=== PATIENT | male | born 1960 | race Caucasian/White ===

== ENCOUNTER 2021-07-24 13:06 | Emergency (ER) | payer MEDICARE, SELFPAY ==
--- NOTE | ~2021-07-24 | XR_ITS ---
EXAMINATION: XR femur LT min 2V DATE: 07/24/2021 14:00 INDICATION: Left thigh pain. Injury. TECHNIQUE: 2 views of left femur were obtained. COMPARISON: None. FINDINGS: There is amputation of the left femur at the midshaft. There is a subcapital fracture of le ft femoral neck. The distal fracture fragment demonstrates impaction and 20 degrees valgus angulation . Osteopenia is noted. Left hip joint space is normal. IMPRESSION: 1. Subcapital fracture of left femoral neck. Reviewed, dictated and finalized at location A.
--- NOTE | ~2021-07-24 | XR_ITS ---
EXAMINATION: XR shoulder LT min 2V INDICATION: Left shoulder pain TECHNIQUE: Four views of the left shoulder are submitted. COMPARISON: None FINDINGS: There is no fracture. There is advanced osteoarthritis of the glenohumeral and acromioclavi cular joints. Cranial migration of the humeral head with respect to the glenoid suggests chronic rota tor cuff tear. Soft tissues are unremarkable. IMPRESSION: 1. Osteoarthritis without acute osseous abnormality. Reviewed, dictated and finalized at location F.
[2021-07-24 13:16] VITALS: BP 110/68; PULSE 112; RESP 20; TEMP 37.1; O2SAT 100
--- NOTE | 2021-07-24 13:21 | ED.FALL ---
HPI - Fall General Chief Complaint: Fall Stated Complaint: Fall Injury/Left Shoulder/Left Leg Time Seen by Provider: 07/24/21 13:22 Source: patient and RN notes reviewed Mode of arrival: ambulatory Limitations: no limitations History of Present Illness HPI Narrative: 60-year-old male presents with concern for fall injury. Reports he fell down stairs on Thursday. 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 He reports left shoulder pain, particularly when sleeping, reports tenderness to the distal stump of the left lower extremity. He denies any open skin, lacerations, abrasions, bruising, swelling. Reports he has been taking Tylenol for pain relief. He reports being able to use his walker with his left upper extremity despite his shoulder pain Related Data Home Medications Medication Instructions Recorded Confirmed lisinopril 10 mg tablet 10 mg PO BID 07/24/21 07/24/21 naproxen sodium 220 mg capsule 220 mg PO BID PRN Pain 07/24/21 07/24/21 (Aleve) Allergies Allergy/AdvReac Type Severity Reaction Status Date / Time No Known Allergies Allergy Verified 07/24/21 13:21 Review of Systems Review of Systems: CONSTITUTIONAL: Denies malaise, chills, sweats, or fever. SKIN: Denies rash or itching, open skin, laceration, abrasion, redness, warmth, swelling. MUSCULOSKELETAL: Reports left shoulder and left lower extremity pain NEUROLOGIC: Denies numbness, weakness All systems reviewed & are unremarkable except as noted in HPI and below PMFSH Comments At time of signature, agree with nursing past medical, surgical, social and family history. There is no relevant family history pertinent to the presenting complaint Exam Narrative: GENERAL: Well-appearing, well-nourished, and in no acute distress. HEAD: Normocephalic, atraumatic. EYES: PERRLA, sclera clear ENT: Mucous membranes moist. NECK: Supple. CHEST: No respiratory distress. Speaks in full sentences. HEART: Regular rate and rhythm. EXTREMITIES: Left upper and lower extremities have grossly normal range of motion. No edema. Grossly normal strength and sensation. Tenderness to the distal left lower extremity, posterior shoulder tenderness to palpation SKIN: Warm, dry, no visible rash. NEURO: Alert and oriented x3. PSYCH: Normal mood and affect Course Course Emergency Course: Patient is aware of diagnosis, understands and agrees to treatment plan. Anticipatory guidance given. Patient agrees to follow-up as directed and is aware of reasons to seek care at the emergency department. Portions of this record may have been created with voice recognition software Level of Care: Express Care Visit Vital Signs Vital signs: Reviewed. MDM - Fall MDM Narrative Medical decision making narrative: Patients injury and pain is consistent with musculoskeletal etiology. No signs of neurological or vascular compromise on exam. Compartments and tissues are soft without signs of compartment syndrome. Pain is felt appropriate for further evaluation on an outpatient basis. Imaging Data Radiologist's impression: EXAMINATION: XR shoulder LT min 2V INDICATION: Left shoulder pain TECHNIQUE: Four views of the left shoulder are submitted. COMPARISON: None FINDINGS: There is no fracture. There is advanced osteoarthritis of the glenohumeral and acromioclavicular joints. Cranial migration of the humeral head with respect to the glenoid suggests chronic rotator cuff tear. Soft tissues are unremarkable. IMPRESSION: 1. Osteoarthritis without acute osseous abnormality. EXAMINATION: XR femur LT min 2V DATE: 07/24/2021 14:00 INDICATION: Left thigh pain. Injury. TECHNIQUE: 2 views of left femur were obtained. COMPARISON: None. FINDINGS: There is amputation of the left femur at the midshaft. There is a subcapital fracture of left femoral neck. The distal fracture fragment demonstrates impaction and 20 degrees valgus angulation.
== END 2021-07-24 14:41 | disposition home or self-care (01) ==
PROVIDERS: Emergency Provider Nurse Practitioner
DX: S46.012A Strain of muscle(s) and tendon(s) of the rotator cuff of left shoulder, initial encounter (principal); W10.9XXA Fall (on) (from) unspecified stairs and steps, initial encounter; S72.012A Unspecified intracapsular fracture of left femur, initial encounter for closed fracture; I10 Essential (primary) hypertension
CPT/HCPCS: 73030; 73552; 99213; G0463

== ENCOUNTER 2021-09-05 06:53 | Inpatient (IN) | payer MEDICARE, SELFPAY ==
[2021-09-05] VITALS (16 sets, daily range): BP systolic 158–194; BP diastolic 71–103; PULSE 68–115; RESP 14–38; TEMP 36.6–36.8; O2SAT 99–100; BMI 24.0
--- NOTE | ~2021-09-05 | CT_ITS ---
EXAMINATION: CT guide absc cath placement DATE: 09/16/2021 15:47 INDICATION: Perforated gastric ulcer with abscess in the lesser sac at the left upper quadrant of the abdomen. TECHNIQUE: The procedure including the risks and benefits was discussed with the patient. Risks discu ssed included bleeding and infection. The patient understood the risks and benefits and agreed to pro ceed. The patient was confirmed to be receiving appropriate antibiotic coverage. The skin overlying the anterior infracostal left upper quadrant was prepped and draped in usual sterile fashion. Anesth etic was administered with 1% lidocaine subcutaneously. Utilizing CT guidance and 18-gauge trochar ne edle was inserted into the fluid collection at the lesser sac. The inner trocar of the needle was rem hollie and a J-wire advanced into the fluid collection with position confirmed by CT. Utilizing [place] er technique the needle was removed over the wire and the tract serially dilated over the wire to 10 [place]. A 10 [place] catheter was then inserted over the wire into the fluid collection with position confirmed by CT. The wire was removed and the pigtail tip was formed and locked. 60 mm of opaque yell owish-barrett fluid was aspirated and sent to the lab for Gram stain and aerobic, anaerobic and fungal cu ltures. The catheter was stitched to the skin with suture. Antibiotic ointment and a sterile dressing were applied. An additional adhesive fixation device was applied. The catheter was then attached to suction drainage and drained an additional 160 mL of purulent appearing fluid at the conclusion of th e procedure. There were no immediate complications. The dose-length product was 334.60 mGy-cm. FINDINGS: CT images demonstrate the catheter within the left upper quadrant fluid collection located between the stomach and pancreas in the lesser sac. 220 mL of purulent appearing fluid was aspirated with 60 mL sent to the lab for testing. Nasogastric tube is in expected position within the body of t he stomach. Small bilateral posterior layering pleural effusions. IMPRESSION: 1. Successful CT-guided left upper quadrant abscess drainage. 2. 60 mL fluid was sent for aerobic and anaerobic cultures. 3. The catheter will be managed by Dr. Hurtado. Reviewed, dictated and finalized at location A.
--- NOTE | ~2021-09-05 | CT_ITS ---
EXAMINATION: CT abdomen pelvis w con INDICATION: Abdominal pain, perforated gastric ulcer TECHNIQUE: Computed tomographic images of the abdomen and pelvis were obtained after the administrati on of 100 cc of Omnipaque 300 intravenous contrast. The dose-length product (DLP) was 260.38 mGy-cm. Automated exposure control and iterative reconstruction technique were employed. COMPARISON: 09/07/2021 FINDINGS: There is mild emphysema and atelectasis of the visualized lung bases. There is an ulceratio n of the gastric antrum. A small amount of fluid is seen anterior to the gastric antrum and body of t he stomach. This appears to be lower in attenuation than the oral contrast administered prior to the examination. There is a small persistent focus of gas situated between the anterior wall of the stoma ch and left hepatic lobe. Overall volume of free intraperitoneal gas is decreased. A large fluid mariely ection containing gas is situated posterior to the stomach without significant change in size since t he prior examination. Previously suspected layering hemorrhage is no longer evident. A small volume o f pelvic ascites persists but has decreased. The liver, spleen, pancreas, gallbladder, and adrenal gl ands are normal. Cysts of the kidneys measure up to 4 mm on the right. There is a 4.0 cm fusiform inf rarenal abdominal aortic aneurysm. Also seen is a 12 mm saccular aneurysm of the infrarenal abdominal aorta on the left. No pathologically enlarged abdominal or pelvic lymph nodes are identified. There is no free intraperitoneal gas or evidence of bowel obstruction. Enteric contrast material from recen t upper GI is seen in the colon. There is severe lower thoracic and lumbar spondylosis. IMPRESSION: 1. Gastric ulcer with decrease in volume of free intraperitoneal gas but large persistent fluid colle ction containing gas posterior to the stomach. 2. Infrarenal abdominal aortic aneurysm. Reviewed, dictated and finalized at location B. IMPRESSION: 1. Gastric ulcer with decrease in volume of free intraperitoneal gas but large persistent fluid collection containing gas posterior to the stomach. 2. Infrarenal abdominal aortic aneurysm.
--- NOTE | ~2021-09-05 | XR_ITS ---
EXAMINATION: XR abdomen/kub 1V DATE: 09/11/2021 06:08 INDICATION: Perforated gastric ulcer TECHNIQUE: A supine view of the abdomen on 2 radiographs was obtained. COMPARISON: 09/10/2021 FINDINGS: Nasogastric tube tip in proximal side port in the body of the stomach. Oral contrast material scatter ed throughout the colon. No dilated loops of gas-filled bowel to suggest obstruction. Prominent lucen cy in the central abdomen which does not appear to be contained within bowel potentially small amount of free intraperitoneal gas related to a previously demonstrated perforated gastric ulcer. Mild stre aky atelectasis at the left costophrenic angle. IMPRESSION: 1. Suspicion for small amount of free intraperitoneal gas in the central abdomen likely related to a perforated gastric ulcer. Reviewed, dictated and finalized at location A. IMPRESSION: 1. Suspicion for small amount of free intraperitoneal gas in the central abdome n likely related to a perforated gastric ulcer.
--- NOTE | ~2021-09-05 | CT_ITS ---
EXAMINATION: CT abdomen pelvis w con DATE: 09/23/2021 08:44 INDICATION: Abdominal abscess. TECHNIQUE: Computed tomography (CT) of the abdomen and pelvis was performed with 100 mL Omnipaque 350 intravenous contrast. Automated exposure control and iterative reconstruction technique were employe d. The dose-length product was 245.57 mGy-cm. COMPARISON: CT abdomen and pelvis 09/16/2021 FINDINGS: The visualized portions of the lung bases demonstrate emphysema and mild atelectasis. There is a small right pleural effusion. The heart size is normal. There are coronary artery calcification s. No pericardial effusion. There is wall thickening of distal esophagus, consistent with esophagitis . The liver, gallbladder, spleen, pancreas, and adrenal glands are normal. There are cysts in the kid neys measuring up to 5 mm on the right. There are no dilated loops of bowel. There is oral contrast i n the appendix. There is a 3.5 cm fusiform infrarenal aortic aneurysm. There is moderate stenosis of the common iliac arteries, right external iliac artery, and right common femoral artery. There is tot al occlusion of left external iliac artery, common femoral artery, and superficial femoral artery. Th ere is a 4.0 x 2.2 x 1.4 cm rim-enhancing abscess in the pelvis. There is fat stranding the perineum, consistent with inflammation. There is a percutaneous drain inferior to the gastric fundus. There is a 1.5 x 0.5 x 0.6 cm rim-enhancing abscess in this area. There is no extraluminal oral contrast. The re is an old healed fracture of left femoral neck. There is severe thoracolumbar spondylosis. There i s mild chronic anterior wedging of multiple thoracic vertebral bodies. IMPRESSION: 1. Small right pleural effusion. 2. Wall thickening of the distal esophagus, consistent with esophagitis. 3. 1.5 x 0.5 x 0.6 cm perigastric abscess with percutaneous drain in expected position. 4. 4.0 x 2.2 x 1.4 cm pelvic abscess. 5. 3.5 cm fusiform infrarenal aortic aneurysm. 6. Arterial occlusive disease. Reviewed, dictated and finalized at location A. IMPRESSION: 1. Small right pleural effusion. 2. Wall thickening of the distal esophagus, consistent with esophagitis. 3. 1.5 x 0.5 x 0.6 cm perigastric abscess with percutaneous drain in expected p osition. 4. 4.0 x 2.2 x 1.4 cm pelvic abscess. 5. 3.5 cm fusiform infrarenal aortic aneurysm. 6. Arterial occlusive disease.
--- NOTE | ~2021-09-05 | XR_ITS ---
XR chest 1V portable DATE: 09/07/2021 03:24 INDICATION: Rib pain TECHNIQUE: Portable AP chest on 09/07/2021 at 0320 hours COMPARISON: None FINDINGS: Minimal atelectasis at the lung bases. No pulmonary consolidation, pleural effusion, pulmon padmini vascular congestion or pneumothorax. Heart size is within normal limits. There is mild aortic tortuosity. Osteophytic change at the glenohumeral joints, left rotator cuff atrophy. IMPRESSION: Minimal atelectasis at the lung bases Reviewed, dictated and finalized at location A.
--- NOTE | ~2021-09-05 | XR_ITS ---
XR abdomen NG/feed tube rechec INDICATION: Evaluate NG tube position. TECHNIQUE: Limited KUB perform for evaluating NG tube . COMPARISON: 09/11/2021 FINDINGS: NG tube tip in the stomach. Visualized bowel gas pattern is unremarkable.There is residual contrast in the colon. IMPRESSION: 1: NG tube tip in the stomach. Reviewed, dictated and finalized at location L.
--- NOTE | ~2021-09-05 | XR_ITS ---
XR abdomen obstructive series DATE: 09/08/2021 08:08 INDICATION: Pneumoperitoneum TECHNIQUE: Portable supine and upright AP views on 09/08/2021 at 0801 0803 hours COMPARISON: 09/07/2021 KUB 09/07/2021 CT abdomen pelvis 09/05/2021 CT abdomen pelvis FINDINGS: Small air collections beneath the diaphragm again noted, consistent with pneumoperitoneum, suggesting although viscus perforation. No evidence of bowel obstruction. NG tube in lower body of stomach. No visceromegaly is evident. Prominent abdominal aortic and particularly prominent iliac arterial calcifications as well as femora l artery calcifications. Mild atelectasis at the lung bases. IMPRESSION: Pneumoperitoneum, suggesting ruptured hollow intra-abdominal viscus NG tube in lower body of stomach Reviewed, dictated and finalized at Location A. Reviewed, dictated and finalized at location A.
--- NOTE | ~2021-09-05 | CT_ITS ---
EXAMINATION: CT abdomen pelvis w con DATE: 09/05/2021 08:37 INDICATION: Right lower quadrant abdominal pain. Right hip pain. History of septic arthritis. TECHNIQUE: Computed tomography (CT) of the abdomen and pelvis was performed with 100 CC Omnipaque 300 intravenous contrast. Automated exposure control and iterative reconstruction technique were employe d. Exam dose: 191.43 mGy-cm total exam DLP. COMPARISON: None. FINDINGS: Bilateral small foramen of [place] fat-containing hernias. Emphysematous changes of the lungs. No infiltrate or consolidation or mass density is noted in the in cluded lower lung jamil. Normal heart size. No pericardial or pleural effusion. There is thickening of the wall of the distal esophagus which may be due to esophagitis. There is pro minence of the gastric mucosal folds. There are air-fluid levels in the stomach, small bowel and righ t colon, suggesting enterocolitis. No bowel obstruction. Normal appendix. No evidence of appendicitis. No intraperitoneal free air. No hepatic space-occupying mass lesion. There is mild intrahepatic and extrahepatic bile duct dilatat ion, the common bile duct measuring up to 8 mm the pancreatic head. Recommend correlation with serum bilirubin. Consider MRCP for further evaluation. The gallbladder is distended but no gallbladder wall thickening or pericholecystic fluid or fat stran ding is noted. No apparent pancreatic mass lesion a calcification of the uncinate process is noted suggesting mild c hronic pancreatitis. Normal splenic size. Normal morphology of the adrenal glands. No renal mass lesion, urinary tract calculus or hydroureteronephrosis. There is prostate enlargement and calcification. There is mild diffuse thickening of the urinary blad bryant wall. Prominent bilateral renal artery calcifications are noted. Up to 3.2 cm infrarenal abdominal aortic aneurysm. Approximately 1.3 cm left posterolateral and 1.6 c m right posterolateral saccular infrarenal abdominal aortic aneurysms are suggested additionally. Prominent calcification of the iliac and femoral arteries. No intraperitoneal or retroperitoneal or pelvic mass lesion or adenopathy or ascites is detected. Diverticulosis of the sigmoid and descending colon; no CT evidence of diverticulitis. Very small fat-containing umbilical hernia. Prominent degenerative disc disease in the lower thoracic spine and at L3-4 and L4-5. Degenerative ch anges apophyseal joints of the lumbar and lumbosacral area with associated grade 1 anterolisthesis at L4-5. Bilateral hip osteoarthritis. Chronic left subcapital femoral neck fracture deformity. IMPRESSION: Normal appendix Fluid levels of the stomach, small bowel and right colon, suggesting enterocolitis Diverticulosis of the left colon; no CT evidence of diverticulitis Thickening of the wall of the distal esophagus suggesting esophagitis No bowel obstruction or free air Mild intrahepatic and extrahepatic bile duct dilatation; consider MRCP for further evaluation Solitary pancreatic uncinate process calcification suggesting mild chronic pancreatitis Emphysema Reviewed, dictated and finalized at [facility]. Reviewed, dictated and finalized at location A. IMPRESSION: Normal appendix Fluid levels of the stomach, small bowel and right colon, suggesting enterocoli tis Diverticulosis of the left colon; no CT evidence of diverticulitis Thickening of the wall of the distal esophagus suggesting esophagitis No bowel obstruction or free air Mild intrahepatic and extrahepatic bile duct dilatation; consider MRCP for furt her evaluation Solitary pancreatic uncinate process calcification suggesting mild chronic panc reatitis Emphysema
--- NOTE | ~2021-09-05 | XR_ITS ---
EXAMINATION: XR wrist RT 2V DATE: 09/16/2021 12:36 INDICATION: Right wrist pain TECHNIQUE: Posteroanterior and lateral views of the right wrist were obtained. COMPARISON: none FINDINGS: Diffuse osteopenia. There is disruption of the carpal arcs with incongruity at both the scapholunate triscaphe and lunocapitate articular surface at the midcarpal joint. Severe osteoarthritis at the fir st carpal metacarpal joint and at the lunocapitate articulation of the midcarpal joint. Moderate oste oarthritis at the second carpometacarpal and at each of the metacarpophalangeal joints. Dorsal interc alated segment instability (DISI) with an increased scapholunate angle is suggested for assessment of carpal alignment on the lateral projection is limited by osteopenia and the superimposed significant osteoarthritic changes. No definite fracture identified. Soft tissue swelling dorsal to the carpus. IMPRESSION: 1. Moderate to severe polyarticular osteoarthritis at the visualized right hand. 2. Suggestion of dorsal intercalated segment instability (DISI) with increased scapholunate angle how ever evaluation is significantly limited due to combination of osteopenia in the superimposed osteoar thritic changes at the carpus. Reviewed, dictated and finalized at location A. IMPRESSION: 1. Moderate to severe polyarticular osteoarthritis at the visualized right hand . 2. Suggestion of dorsal intercalated segment instability (DISI) with increased scapholunate angle however evaluation is significantly limited due to combinati on of osteopenia in the superimposed osteoarthritic changes at the carpus.
--- NOTE | ~2021-09-05 | XR_ITS ---
EXAM: XR abdomen NG/feed tube insert DATE: 09/07/2021 18:51 HISTORY: NG Tube Feeding Insert . COMPARISON: None available. FINDINGS: Small volume pneumoperitoneum. Clear lung bases. Normal bowel gas pattern. NG tube, tip and side port terminating over the expected location of the stomach. Regional bones and soft tissues nor mal for age. IMPRESSION: Small volume pneumoperitoneum. NG tube, in good position. Reviewed, dictated and finalized at location [facility].
--- NOTE | ~2021-09-05 | US_ITS ---
EXAMINATION: US abdomen limited DATE: 09/06/2021 12:46 INDICATION: Abdominal pain TECHNIQUE: Multiple grayscale and Doppler ultrasound images of the abdomen were obtained. COMPARISON: None FINDINGS: The pancreatic head and body are normal in appearance. The pancreatic tail is not visualized. Liver has normal echogenicity and contour, with a smooth surface. No liver lesion identified. Again seen is mild intrahepatic biliary duct dilation. Portal venous flow was seen in the hepatopetal, normal dire ction and has normal Doppler waveform. The gallbladder is normal in appearance. There is no cholelit hiasis. The common bile duct measures 6 mm, which is at the upper limits of normal. IMPRESSION: 1. Mild intrahepatic biliary ductal dilation and borderline dilation of the common bile duct without evident cholelithiasis/choledocholithiasis. Correlate with liver function tests and if clinically ind icated could consider MRCP for further evaluation. Reviewed, dictated and finalized at location B. IMPRESSION: 1. Mild intrahepatic biliary ductal dilation and borderline dilation of the com mon bile duct without evident cholelithiasis/choledocholithiasis. Correlate wit h liver function tests and if clinically indicated could consider MRCP for furt her evaluation.
--- NOTE | ~2021-09-05 | XR_ITS ---
XR chest PICC line DATE: 09/07/2021 10:32 INDICATION: PICC line placement TECHNIQUE: Portable upright AP chest on 09/07/2021 at 1025 hours COMPARISON: 09/07/2021 portable AP chest FINDINGS: Right upper extremity PIC catheter tip overlies the mid to lower superior vena cava Heart size appears within normal range. Mild atelectasis at the lung bases. The lungs otherwise appear clear. No pleural effusion, pulmonary vascular congestion or pneumothorax is detected.. IMPRESSION: Right upper extremity PIC catheter tip in superior vena cava Reviewed, dictated and finalized at [facility]. Reviewed, dictated and finalized at location A.
--- NOTE | ~2021-09-05 | CT_ITS ---
EXAMINATION: CT abdomen pelvis w con DATE: 09/07/2021 13:25 INDICATION: abd pain, elevated lactic TECHNIQUE: Computed tomography (CT) of the abdomen and pelvis was performed with 100 mL Omnipaque-300 intravenous contrast. Automated exposure control and iterative reconstruction technique were employe d. The dose-length product was 493.81 mGy-cm. COMPARISON: None. FINDINGS: Lower thorax: Coronary artery calcification. Senescent and emphysematous change. Left basilar atelect asis. Small fat-containing bilateral posterior diaphragmatic hernias. Hiatal hernia. Liver: Intrahepatic biliary duct dilation. Biliary/Gallbladder: Fluid distended but otherwise normal-appearing gallbladder. Mild extrahepatic bi le duct dilation, unchanged. Pancreas: Pancreatic atrophy. Spleen: Normal. Adrenals:No mass. Kidneys: No mass, stone, or hydronephrosis. GI tract: Gastric and distal esophageal wall edema. Normal appendix. Diverticulosis without diverticu litis. Mesentery/Peritoneum: Moderate volume peritoneal fluid, most prominent around the stomach, where ther e is layering hyperdense material. Small volume free peritoneal air/gas. Retroperitoneum: No mass. Atherosclerotic abdominal aortic and/or arterial calcifications. Fusiform/s accular infrarenal abdominal aortic aneurysm, with intraluminal thrombus. Pelvis: Bladder is decompressed by Camacho catheter. Prostatomegaly.. Soft Tissues: Mild subcutaneous edema. Bones: No acute osseous finding. IMPRESSION: New moderate volume ascites and small volume pneumoperitoneum concerning for bowel perforation, possi hugo gastric given the pronounced gastric wall edema and adjacent fluid and debris/blood. Results reported telephonically to the charge nurse Mala Colorado, by Dr. Shelby at 5:47 PM on 09/07/2021. Reviewed, dictated and finalized at location K. IMPRESSION: New moderate volume ascites and small volume pneumoperitoneum concerning for eleazar wel perforation, possibly gastric given the pronounced gastric wall edema and a djacent fluid and debris/blood. Results reported telephonically to the charge nurse Mala Colorado, by Dr. Shelby at 5:47 PM on 09/07/2021.
--- NOTE | ~2021-09-05 | XR_ITS ---
. EXAMINATION: XR UGI water soluble wo kub DATE: 09/10/2021 08:48 INDICATION: Gastric ulcer. TECHNIQUE: Water-soluble contrast was injected into the nasogastric tube. Fluoroscopy of the stomach and proximal small bowel was performed. Fluoroscopy exposure time was 1.4 minutes. The total number o f images was 271. Total dose-area product was 9.474 Gy-cm^2. COMPARISON: CT abdomen and pelvis 09/07/2021 FINDINGS: The nasogastric tube tip is in the stomach. There is a perforation of the gastric antrum dia periorly with extraluminal leakage of contrast. IMPRESSION: 1. Perforation of the gastric antrum superiorly with extraluminal leakage of contrast. I discussed th is finding with Dr. Hurtado. Reviewed, dictated and finalized at location A. IMPRESSION: 1. Perforation of the gastric antrum superiorly with extraluminal leakage of co ntrast. I discussed this finding with Dr. Hurtado.
--- NOTE | ~2021-09-05 | XR_ITS ---
EXAMINATION: XR abdomen NG/feed tube insert DATE: 09/10/2021 08:15 INDICATION: Nasogastric tube replacement. TECHNIQUE: A supine view of the abdomen and lower chest was obtained for evaluation of feeding tube placement. COMPARISON: 09/08/2021 FINDINGS: Nasogastric tube tip in proximal side port in the body of the stomach. There are several gas and stoo l scattered throughout the visualized transverse colon. No dilated loops of gas-filled bowel in the v isualized abdomen. Mild bibasilar opacities consistent with very small bilateral pleural effusions an d associated atelectasis versus less likely pneumonia. Previously seen pneumoperitoneum has resolved. Cardiomediastinal silhouette is normal. Right upper extremity peripherally inserted central venous c atheter (PICC) tip at the mid superior vena cava. Thoracolumbar dextrocurvature with severe spondylo sis. IMPRESSION: 1. Nasogastric tube in stomach. 2. Very small bilateral pleural effusions with bibasilar atelectasis versus less likely pneumonia. Reviewed, dictated and finalized at location A. IMPRESSION: 1. Nasogastric tube in stomach. 2. Very small bilateral pleural effusions with bibasilar atelectasis versus les s likely pneumonia.
--- NOTE | 2021-09-05 07:06 | ED.LOWEXIN ---
HPI - Extremity Injury (Lower) General Chief Complaint: Extremity Problem,Nontraumatic Stated Complaint: Pain Left Side, Possible Hip Fracture Time Seen by Provider: 09/05/21 07:06 History of Present Illness HPI Narrative: Patient is a 60-year-old male with a history of hypertension,recurrent MRSA infection, left AKA, and recent left hip fracture following a fall downstairs approximately 6 weeks ago, who presents to the emergency department for evaluation of atraumatic right hip pain. Patient reports aching sensation in his right hip which is aggravated with ambulation. He denies recurrent fall or injury. He has been ambulatory with use of a walker which is his baseline. For the left femoral fracture, patient has followed with Dr. Matthews with orthopedic surgery. Patient denies fever, chills, does report nausea and vomiting. He denies any chest or abdominal pain. Patient reports any difficulty with urination. Related Data Home Medications Medication Instructions Recorded Confirmed lisinopril 10 mg tablet 10 mg PO BID 07/24/21 08/29/21 naproxen sodium 220 mg capsule 220 mg PO BID PRN Pain 07/24/21 08/29/21 (Aleve) Allergies Allergy/AdvReac Type Severity Reaction Status Date / Time No Known Allergies Allergy Verified 08/29/21 13:58 Review of Systems Review of Systems: CONSTITUTIONAL: Denies fever, chills, or sweats. EYES: Denies visual changes, redness, or discharge. ENT: Denies rhinorrhea, congestion, sore throat, or otalgia. CARDIOVASCULAR: Denies chest pain, palpitations, or edema. RESPIRATORY: Denies cough or dyspnea. GASTROINTESTINAL: Denies abdominal pain, reports nausea and vomiting. GENITOURINARY: Denies dysuria or hematuria. SKIN: Denies rash or itching. MUSCULOSKELETAL: Denies back pain, reports right hip pain NEUROLOGIC: Denies headache, numbness, or weakness. [facility] Past Medical History Medical History History of left above knee amputation Social History Social History Smoking status: Never smoker Substance use: never Gender identity (if verbalized by the patient): Male Exam Narrative: GENERAL: Awake, alert, conversant HEAD: Normocephalic, atraumatic. EYES: PERRLA and EOMI. ENT: Nares clear, no rhinorrhea or epistaxis. Mucous membranes moist. NECK: Supple. CHEST: No respiratory distress, breathing even and non labored HEART: Tachycardic rate, sinus rhythm ABDOMEN:Non distended, non tender, no focal right lower quadrant tenderness on exam, positive right flank tenderness EXTREMITIES: Passive range of motion is intact, patient has pain with extension and flexion of the right hip. No edema, ecchymosis or induration. Intact strength and sensation. Neurovascularly intact. DP pulse 2+ in the right lower extremity. There is left AKA in the left extremity. SKIN: Warm, dry, no rash. NEURO:No focal deficits. Alert and oriented x3 Course Vital Signs Vital signs: Vital Signs Temperature 36.6 C 09/05/21 06:59 Pulse Rate 99 09/05/21 06:59 Respiratory Rate 18 09/05/21 06:59 Blood Pressure 176/71 H 09/05/21 06:59 Pulse Oximetry 100 09/05/21 06:59 Oxygen Delivery Room Air 09/05/21 06:59 Temperature 36.6 C 09/05/21 07:22 Pulse Rate 75 09/05/21 10:46 Respiratory Rate 18 09/05/21 10:46 Blood Pressure 174/86 H 09/05/21 10:46 Pulse Oximetry 100 09/05/21 07:22 Oxygen Delivery Room Air 09/05/21 06:59 MDM - Extremity Injury (Lower) MDM Narrative Medical decision making narrative: Patient presenting to the emergency department for evaluation of atraumatic right hip pain. Patient also reports numerous episodes of nausea and vomiting although he denies any abdominal pain. Patient denies current fever or chills. Due to patient's history of skin infections and recurrent staph infections, I was concern for potential septic arthritis, hip strain, occult
--- NOTE | 2021-09-05 07:33 | ECG_ITS ---
Measurements Intervals [place] Rate: 84 P: 72 [place]: 141 QRS: 66 QRSD: 83 T: -89 QT: 356 QTc: 421 Interpretive Statements SINUS RHYTHM FREQUENT ATRIAL PREMATURE COMPLEXES POSSIBLE LEFT ATRIAL ENLARGEMENT ST-T WAVE ABNORMALITY IN ANTEROLAT/INF LEADS- CONSIDER ISCHEMIA BASELINE ARTIFACT- I, II, III, AVR, AVL ABNORMAL ECG Electronically Signed On 09-05-2021 9:25:09 CDT by Red Hylton D.O.
[2021-09-05 07:57] LABS: Basophils Absolute Auto 0.1 K/mm3 (0.0-0.1); Basophils Percent Auto 0.7 % (0.2-1.2); Eosinophils Percent Auto 0.1 % (0-4.4); Hematocrit 42.6 % (42.0-52.0); Hemoglobin 14.4 g/dL (14.0-18.0); Immature Granulocyte Absolute 0.08 K/mm3 (0.00-0.031); Immature Granulocyte Percent A 0.5 % (0-0.5); Lymphocytes Absolute Auto 1.66 K/mm3 (0.9-3.2); Lymphocytes Percent Auto 11.2 % (18.3-44.2); Mean Corpuscular HGB Conc 33.8 g/dl (32-36); Mean Corpuscular Hemoglobin 28.7 pg (26-34); Mean Platelet Volume 9.9 fl (7.4-10.4); Monocytes Absolute Auto 0.9 K/mm3 (0.1-0.6); Monocytes Percent Auto 6.3 % (2.6-8.5); Neutrophils Percent Auto 81.2 % (45.5-73.1); Platelet Count Result 588 k/mm3 (150-375); Red Blood Count 5.01 M/mm3 (4.6-6.20); Red Cell Distribution Width 16.3 % (11.5-14.5); White Blood Count 14.8 K/mm3 (4.5-10.0)
[2021-09-05] MEDS: MORPHINE SULFATE (*CRX) 4 MG/ML INJ IV PUSH ×5 (07:59→22:02)
[2021-09-05] MEDS: SODIUM CHLORIDE 0.9% IV 1,000 ML 999 ML IV CONT (08:00)
[2021-09-05] MEDS: ONDANSETRON INJ 4 MG/2 ML VIAL IV PUSH (08:00)
[2021-09-05 08:08] LABS: Lactic Acid Reflex 2.7 mmol/L (0.7-2.0)
[2021-09-05 08:12] LABS: Alanine Aminotransferase 13 U/L (6-50); Albumin Level 4.1 g/dL (3.5-5.1); Alkaline Phosphatase 98 U/L (38-126); Anion Gap 16 mmol/L (8-16); Aspartate Amino Transferase 18 U/L (17-59); Bilirubin,Total 0.3 mg/dL (0.2-1.3); Blood Urea Nitrogen 12 mg/dL (9-20); CRP 1.1 mg/dL (<1.0); Calcium 8.5 mg/dL (8.4-10.2); Carbon Dioxide 14 mmol/L (22-30); Chloride 107 mmol/L (98-107); Estimated CRCL calculation 79 ml/min; Estimated Glomerular Filt Rate > 60; Glucose 140 mg/dL (65-110); Potassium 2.2 mmol/L (3.4-5.0); Sodium 137 mmol/L (137-145)
[2021-09-05 08:25] LABS: Erythrocyte Sedimentation Rate 13 mm/hr (0-20)
[2021-09-05 08:46] LABS: Phosphorus 3.3 mg/dL (2.5-4.5)
[2021-09-05] MEDS: POTASSIUM CHLORIDE 20 MEQ TABLET 40 MEQ PO ×2 (08:49→18:14)
[2021-09-05] MEDS: POTASSIUM CHLORIDE INJ 40 MEQ in SODIUM CHLORIDE 0.9% IV 500 ML 130 MEQ IVPB ×2 (09:20→18:14)
[2021-09-05 09:23] LABS: Appearance Urine Clear (Clear); Bilirubin Urine Negative (Negative); Blood Urine Negative (Negative); Color Urine Yellow (Yellow); Glucose Urine UA Negative (Negative); Ketones Urine Negative (Negative); Leukocyte Esterase Ur Negative LEU/UL (Negative); Nitrate Urine Negative (Negative); Protein Urine Negative (Negative); Urobilinogen Urine 0.2 mg/dL (<2.0)
[2021-09-05] MEDS: SODIUM CHLORIDE 0.9% IV 500 ML 250 ML IV CONT (09:36)
[2021-09-05 09:37] LABS: SARS-CoV-2 RNA PCR Negative
[2021-09-05 10:10] LABS: Add Urine Microscopic? NO
[2021-09-05 10:52] LABS: Reflex Lactic Acid Yes or No Add Lactic
[2021-09-05 11:24] LABS: Lactic Acid 1.1 mmol/L (0.7-2.0)
--- NOTE | 2021-09-05 12:22 | PM.IMHP ---
H&P: HPI History of Present Illness Date/Time: 09/05/21 12:22 Chief Complaint: Patient is a 60-year-old male with a history of hypertension,recurrent MRSA infection, left AKA, and recent left hip fracture following a fall downstairs approximately 6 weeks ago, who presents to the emergency department for evaluation of atraumatic right hip pain.? Patient reports aching sensation in his right hip which is aggravated with ambulation.? He denies recurrent fall or injury.? He has been ambulatory with use of a walker which is his baseline.? For the left femoral fracture, patient has followed with Dr. Matthews with orthopedic surgery.? Patient denies fever, chills, does report nausea and vomiting.? He denies any chest or abdominal pain.? Patient reports any difficulty with urination. Also to note patient has had some mild abdominal cramping and some nausea and vomiting over the last day or 2. CT scan did show possible enteritis. Possible calcification of the pancreas suggesting possible chronic pancreatitis. No other acute intra-abdominal pathology. Review of Systems Review of Systems: 10 point ROS negative except as stated in HPI / Subjective PMFSH Past Medical History Medical History History of left above knee amputation Social History Social History Smoking status: Never smoker Substance use: never Gender identity (if verbalized by the patient): Male Meds Home Medications and Allergies Home Medications Medication Instructions Recorded Confirmed Type lisinopril 10 mg tablet 10 mg PO BID 07/24/21 08/29/21 History naproxen sodium 220 mg capsule 220 mg PO BID PRN Pain 07/24/21 08/29/21 History (Aleve) hydrocodone 5 mg-acetaminophen 325 1 tablet PO BID PRN pain #30 tabs 09/04/21 Rx mg tablet Allergies Allergy/AdvReac Type Severity Reaction Status Date / Time No Known Allergies Allergy Verified 08/29/21 13:58 Vital Signs Vital Signs - 24 hr 09/05/21 06:59 09/05/21 07:22 09/05/21 09:01 Temperature 97.9 F 97.8 F Pulse Rate 99 115 H 92 Respiratory Rate 18 20 14 Blood Pressure 176/71 H 177/91 H 194/86 H Pulse Oximetry 100 100 Oxygen Delivery Room Air 09/05/21 09:16 09/05/21 09:31 09/05/21 10:01 Temperature Pulse Rate 82 82 94 Respiratory Rate 23 H 28 H 38 H Blood Pressure 171/83 H 190/86 H 169/88 H Pulse Oximetry Oxygen Delivery 09/05/21 10:16 09/05/21 10:31 09/05/21 10:46 Temperature Pulse Rate 86 80 75 Respiratory Rate 25 H 17 18 Blood Pressure 178/89 H 170/93 H 174/86 H Pulse Oximetry Oxygen Delivery Exam Narrative: General: alert and oriented Psych: appropriate mood nad affect Eyes: PERRLA Neck: Trachea midline, no new lesions Skin: no changes Lungs: CTA Cardiac: Normal S1,S2, no MGR ABD: soft, nd, nt, nbs Ext: no new lesions, no cce Vasc: Pulses intact H&P: Results Labs Labs: Short CBC 09/05/21 Range/Units 07:42 WBC 14.8 H (4.5-10.0) K/mm3 Hgb 14.4 (14.0-18.0) g/dL Hct 42.6 (42.0-52.0) % Plt Count 588 H (150-375) k/mm3 BMP 09/05/21 07:42 Sodium 137 Potassium 2.2 L* Chloride 107 Carbon Dioxide 14 L BUN 12 Creatinine 0.70 Glucose 140 H Calcium 8.5 Liver Function 09/05/21 Range/Units 07:42 Total Bilirubin 0.3 (0.2-1.3) mg/dL AST 18 (17-59) U/L ALT 13 (6-50) U/L Alkaline Phosphatase 98 (38-126) U/L Albumin 4.1 (3.5-5.1) g/dL Urine 09/05/21 Range/Units 09:15 Urine Color Yellow (Yellow) Urine Appearance Clear (Clear) Urine pH 7.0 (5.0-9.0) Ur Specific [place]ace[place] 1.010 (1.001-1.035) Urine Protein Negative (Negative) mg/dL Urine Glucose (UA) Negative (Negative) mg/dL Assessment and Plan Assessment and plan (1) Acute hypokalemia: Code(s): E87.6 - Hypokalemia Status: Acute Assessment and Plan: Replace
[2021-09-05 12:28] LABS: Lipase 172 U/L (23-300)
--- NOTE | 2021-09-05 13:21 | ADMGEN ---
This patient, Daniel Covarrubias, was admitted to 3 Med Surg Room 315-01 at 1240 per stretcher. Patient/family oriented to hospital policies and general routines including ID bracelet, bed and alarms, visiting hours, pain management, procedures, bathroom and other care routines, personal items, smoking policy, room service/diet, and visiting hours. Information on how to activate the Rapid Response Team has been discussed. Patient/Family are encouraged to report perceived risks to care and to ask questions if they do not understand what they are told or what they should do.
[2021-09-05] MEDS: MORPHINE SULFATE (*CRX) 4 MG/ML INJ 2 MG IV PUSH (13:28)
[2021-09-05] MEDS: LACTATED RINGERS 1,000 ML 100 ML IV CONT (13:37)
[2021-09-05] MEDS: lisinopriL 10 MG TABLET PO ×2 (13:37→21:38)
[2021-09-05] MEDS: NICOTINE (*PBKC) 21 MG PATCH 1 PATCH TRANSDERM (15:36)
[2021-09-05 17:10] LABS: Potassium 2.6 mmol/L (3.4-5.0)
[2021-09-06] VITALS (10 sets, daily range): BP systolic 101–184; BP diastolic 83–103; PULSE 85–134; RESP 19–20; TEMP 36.1–36.9; O2SAT 99–100
[2021-09-06] MEDS: MORPHINE SULFATE (*CRX) 4 MG/ML INJ IV PUSH ×3 (01:08→07:37)
[2021-09-06] MEDS: ONDANSETRON INJ 4 MG/2 ML VIAL IV PUSH ×3 (04:21→16:24)
[2021-09-06] MEDS: hydrALAZINE HCL 20 MG/ML VIAL 10 MG IV PUSH (04:41)
[2021-09-06] MEDS: LACTATED RINGERS 1,000 ML 100 ML IV CONT ×2 (06:26→18:31)
[2021-09-06 06:39] LABS: Hematocrit 43.1 % (42.0-52.0); Hemoglobin 13.4 g/dL (14.0-18.0); Mean Corpuscular HGB Conc 31.1 g/dl (32-36); Mean Corpuscular Hemoglobin 29.1 pg (26-34); Mean Corpuscular Volume 93.7 fl (80-100); Platelet Count Result 571 k/mm3 (150-375); Red Cell Distribution Width 17.3 % (11.5-14.5); White Blood Count 32.7 K/mm3 (4.5-10.0)
[2021-09-06 06:49] LABS: Anion Gap 15 mmol/L (8-16); Blood Urea Nitrogen 10 mg/dL (9-20); Calcium 8.1 mg/dL (8.4-10.2); Carbon Dioxide 11 mmol/L (22-30); Chloride 113 mmol/L (98-107); Estimated CRCL calculation 107 ml/min; Estimated Glomerular Filt Rate > 60; Glucose 142 mg/dL (65-110); Magnesium 1.7 mg/dL (1.6-2.3); Potassium 3.3 mmol/L (3.4-5.0); Sodium 139 mmol/L (137-145)
[2021-09-06] MEDS: HYDROmorphone HCL INJ (*CRX) 1 MG/ML SYR IV PUSH ×6 (10:20→22:00)
[2021-09-06] MEDS: PANTOPRAZOLE SODIUM IV 40 MG VIAL IV PUSH (10:21)
[2021-09-06 10:51] LABS: Lactic Acid Reflex 1.7 mmol/L (0.7-2.0)
--- NOTE | 2021-09-06 11:51 | PM.IMPN ---
Progress Note: A&P Assessment and Plan (1) Acute hypokalemia: Code(s): E87.6 - Hypokalemia Status: Acute Assessment and Plan: Replace and recheck a electrolytes. Likely related to decreased p.o. intake and nausea vomiting over the last couple days. (2) Hypertension: Code(s): I10 - Essential (primary) hypertension Status: Acute Assessment and Plan: Monitor. (3) Fracture of femoral neck, left: Code(s): S72.002A - Fracture of unspecified part of neck of left femur, initial encounter for closed fracture Status: Acute Assessment and Plan: Status post repair. (4) History of left above knee amputation: Code(s): Z89.612 - Acquired absence of left leg above knee Status: Acute Assessment and Plan: Chronic (5) Right hip pain: Code(s): M25.551 - Pain in right hip Status: Acute Assessment and Plan: Appreciate Ortho input. (6) Enteritis: Code(s): K52.9 - Noninfective gastroenteritis and colitis, unspecified Status: Acute Assessment and Plan: Questionable diagnosis. Patient did receive vanc and cefepime in the ER. Will hold on antibiotics at this point time. Ultrasound of the right upper quadrant also ordered. Having ongoing abdominal pain. No diarrhea. No loss of blood. GI Consul. Abnormal CT. Patient has refused MRCP. Subjective Date/time seen: 09/06/21 11:51 Now having abdominal pain. no sign of the epigastric. Exam Narrative: General: alert and oriented Psych: appropriate mood nad affect Eyes: PERRLA Neck: Trachea midline, no new lesions Skin: no changes Lungs: CTA Cardiac: Normal S1,S2, no MGR ABD: soft, nd, nt, nbs Ext: no new lesions, no cce Vasc: Pulses intact Objective Data Vital Signs Vital Signs: Vital Signs - 24 hr 09/05/21 11:54 09/05/21 12:17 09/05/21 12:25 Temperature Pulse Rate 75 76 73 Respiratory Rate 21 H 22 H 22 H Blood Pressure 176/82 H 179/103 H 189/100 H Pulse Oximetry Oxygen Delivery 09/05/21 13:50 09/05/21 16:00 09/05/21 21:26 Temperature 98.0 F 98.3 F Pulse Rate 79 80 68 Respiratory Rate 18 18 Blood Pressure 191/93 H 158/88 H Pulse Oximetry 100 99 Oxygen Delivery 09/05/21 20:00 09/05/21 20:00 09/06/21 00:00 Temperature Pulse Rate 83 91 Respiratory Rate Blood Pressure Pulse Oximetry Oxygen Delivery Room Air 09/06/21 04:00 09/06/21 05:34 09/06/21 06:27 Temperature 98.5 F Pulse Rate 87 99 Respiratory Rate 20 Blood Pressure 101/83 184/85 H Pulse Oximetry 100 Oxygen Delivery 09/06/21 08:00 Temperature Pulse Rate 99 Respiratory Rate 20 Blood Pressure Pulse Oximetry 100 Oxygen Delivery Room Air Intake/Output Intake/Output: Intake & Output 09/03/21 09/04/21 09/05/21 09/06/21 23:59 23:59 23:59 23:59 Intake Total 3770 300 Output Total 1000 300 Balance 2770 0 Meds/Results Medications: Active Medications Generic Name Dose Route Start Last Admin Trade Name Freq PRN Reason Stop Dose Admin Acetaminophen 650 mg 09/05/21 10:25 Acetaminophen 325 Mg Tablet PO Q4H PRN Mild Pain (1-3) or Fever Hydromorphone HCl 1 mg 09/06/21 09:47 09/06/21 10:20 Hydromorphone Hcl Inj (*Crx) 1 Mg/Ml Syr IV PUSH 1 mg Q2H PRN Administration Pain Rated 7-10 Cefepime HCl 1 gm in 50 mls @ 100 mls/hr 09/06/21 00:00 09/06/21 00:20 Maxipime 1 Gm/D5w 50 Ml IVPB Infused Q12H RICARDO Infusion Lactated Ringer's 1,000 mls @ 100 mls/hr 09/05/21 12:20 09/06/21 06:26 Lr - Lactated Ringers Iv IV CONT 100 mls/hr .Q10H RICARDO Administration Vancomycin HCl 1,000 mg in 250 mls @ 250 mls/hr 09/06/21 19:00 Vancomycin 1,000 Mg/D5w 250 Ml IVPB Q12H RICARDO Lisinopril 10 mg 09/05/21 13:30 09/05/21 21:38 Lisinopril 10 Mg Tablet PO 10 mg Q12HR RICARDO Administration Nicotine 1 patch 09/05/21 14:45 09/06/21 10:21 Nicotine (*Pbkc) 21 Mg Patch TRANSDERM
[2021-09-06 12:56] LABS: Lactate Dehydrogenase 405 U/L (313-618)
--- NOTE | 2021-09-06 14:44 | WPDGICN ---
Assessment and Plan Assessment and plan (1) Abnormal CT scan: Code(s): R93.89 - Abnormal findings on diagnostic imaging of other specified body structures Status: Acute Assessment and Plan: Findings of the CT scan appeared nonspecific. Patient no longer has abdominal pain for which CT scan was apparently ordered. He is very vague when describing any pain in may have had previously. CT scanning severe fluid levels could represent an ileus or enteritis. This is not evident on clinical exam or with recent findings. Nonspecific biliary dilatation appears to be normal in my estimation. Liver function tests are normal. Would recommend advancing diet and further investigation only if symptoms develop. should patient have abdominal pain that small-bowel series may be warranted. (2) Fracture of femoral neck, left: Code(s): S72.002A - Fracture of unspecified part of neck of left femur, initial encounter for closed fracture Status: Acute (3) History of left above knee amputation: Code(s): Z89.612 - Acquired absence of left leg above knee Status: Acute GI Consult Note Consult date/time: 09/06/21 14:44 Reason for consult: Abnormal CT scan. HPI: Daniel Covarrubias is a 60 year old male I am asked to see in evaluation at the request of the hospitalist service. Patient admitted the hospital because of left hip pain. 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 He apparently under had a left hip fracture 6 weeks ago after a fall. the hip has been allowed to heal conservatively with no intervention. Patient developed significant left hip pain prompting him to be admitted the hospital. Patient reports some vague abdominal discomfort at home. When asked to specify day the location of the pain he points to his rib cage. At additionally sometimes to point to his legs. He states pain primarily is at the edge of his ribs. He reports his bowel habits are normal and has been eating adequately. He does report nausea when his is present however patient attributes this to aspirin use. He states this is not ongoing currently states he is very hungry. Because of vague abdominal pain a CT scan of the abdomen was performed. This revealed some air-fluid levels in the stomach small bowel and right colon. There was very mild intra and extrahepatic bile duct dilatation reported up to 8mm size. Review of Systems Review of Systems: Review of systems noncontributory. [facility] Past Medical History Medical History History of left above knee amputation Social History Social History Smoking packs per day: 2 Smoking cigarettes per day: 40.0 Years smoked: 49 Smoking pack-years: 98.00 Smoking status: Current every day smoker Tobacco type: cigarettes Alcohol intake: never Substance use: never Substance use type: does not use Gender identity (if verbalized by the patient): Male Spiritual care concerns: No Meds Home Medications and Allergies Home Medications Medication Instructions Recorded Confirmed Type lisinopril 10 mg tablet 10 mg PO BID 07/24/21 09/05/21 History naproxen sodium 220 mg capsule 220 mg PO BID PRN Pain 07/24/21 09/05/21 History (Aleve) hydrocodone 5 mg-acetaminophen 325 1 tablet PO BID PRN pain #30 tabs 09/04/21 09/05/21 Rx mg tablet Allergies Allergy/AdvReac Type Severity Reaction Status Date / Time No Known Allergies Allergy Verified 08/29/21 13:58 Vital Signs Vital Signs - 24 hr 09/05/21 16:00 09/05/21 21:26 09/05/21 20:00 Temperature 98.3 F Pulse Rate 80 68 83 Respiratory Rate 18 Blood Pressure 158/88 H Pulse Oximetry 99 Oxygen Delivery 09/05/21 20:00 09/06/21 00:00 09/06/21 04:00 Temperature Pulse Rate 91 87 Respiratory Rate Blood Pressure
--- NOTE | 2021-09-06 15:32 | PM.CNOR ---
Assessment and Plan Assessment and plan (1) Right hip pain: Code(s): M25.551 - Pain in right hip Status: Acute Assessment and Plan: 60 YO MALE WITH HISTORY OF ACUTE ONSET RIGHT HIP AND PAST HISTORY OF LEFT FEMORAL NECK FRACTURE AND LEFT AKA FO INFECTED PROSTHETIC KNEE. TODAY HIS PAIN IS NOT IMPRESSIVE. I PREFORMED A THOROUGH EXAM OF BOTH HIS HIPS AND LOW BACK AND HE WAS NOT IN PAIN AT ALL. ITS POSSIBLE HE MAY HAVE HAD A TROCHANTERIC BURSITIS FROM HIS PROBLEM WITH BALANCE AND AMBULATION HAVING HAD A LEFT AN AKA. I REVIEWED THE CT SCAN AND THERE IS NO SIGN OF OCCULT FRACTURE OF THE HIP AND NO FLUID IN THE HIP JOINT MAKING INFECTION LESS LIKELY. RECOMMEND OBSERVATION. HE WILL CALL THE OFFICE IF THE PAIN RETURNS. HE MAY BE UP TOLERATED WITH PT IN THE MEANTIME History of Present Illness HPI Consult date: 09/06/21 Chief complaint: hypokalmeia,atraumatic right hip pain Narrative: LUCHO IS HERE FOR EVALUATION OF HIS RIGHT HIP. HE HAS HAD RIGHT HIP PAIN OVER THE LAST SEVERAL DAYS. HE HAS NO HISTORY OF TRAMA. HE HAS NO FEVER OR CHILLS. HE HAS A 6 WEEKS HISTORY OF LEFT HIP PAIN FROM A FEMORAL NECK FRACTURE BUT THAT FRACTURE HAS BEEN EVALUATED BY MY SELF AND IT IS HEALED. HIS RIGHT HIP WAS EVALUATED IN MY OFFICE WELL A LITTLE OVER 10 DAYS AGO AND HE HAD NO C/O PAIN AT THAT TIME. HE DENIES ANY RECENT CHANGE TO HIS ACTIVITY LEVEL AND NO OTHER INJURIES. Review of Systems Constitutional: Constitutional: Reports no additional constitutional complaints Eyes: Eyes: Reports no additional eye complaints ENT: Reports system reviewed and no additional complaints, except as documented Cardiovascular: Cardiovascular: Reports no additional cardiovascular complaints Respiratory: Respiratory: Reports no additional respiratory complaints Gastrointestinal: Gastrointestinal: Reports abdominal pain Genitourinary: Genitourinary: Reports no additional male genitourinary complaints Musculoskeletal: Musculoskeletal: Reports no additional musculoskeletal complaints and Reports as per HPI Neurologic: Reports system reviewed and no additional complaints, except as documented Psychiatric: Psychiatric: Reports no additional psychiatric complaints Endocrine: Endocrine: Reports no additional endocrine complaints Hematologic/Lymphatic: Hematologic/Lymphatic: Reports no additional hematologic/lymphatic complaints Allergic/Immunologic: Allergic/Immunologic: Reports no additional allergic/immunologic complaints PMFSH Past Medical History Medical History History of left above knee amputation Social History Social History Smoking packs per day: 2 Smoking cigarettes per day: 40.0 Years smoked: 49 Smoking pack-years: 98.00 Smoking status: Current every day smoker Tobacco type: cigarettes Alcohol intake: never Substance use: never Substance use type: does not use Gender identity (if verbalized by the patient): Male Spiritual care concerns: No Meds Home Medications and Allergies Home Medications Medication Instructions Recorded Confirmed Type lisinopril 10 mg tablet 10 mg PO BID 07/24/21 09/05/21 History naproxen sodium 220 mg capsule 220 mg PO BID PRN Pain 07/24/21 09/05/21 History (Aleve) hydrocodone 5 mg-acetaminophen 325 1 tablet PO BID PRN pain #30 tabs 09/04/21 09/05/21 Rx mg tablet Allergies Allergy/AdvReac Type Severity Reaction Status Date / Time No Known Allergies Allergy Verified 08/29/21 13:58 Vital Signs Vital Signs - 24 hr 09/05/21 16:00 09/05/21 21:26 09/05/21 20:00 Temperature 36.8 C Pulse Rate 80 68 83 Respiratory Rate 18 Blood Pressure 158/88 H Pulse Oximetry 99 Oxygen Delivery 09/05/21 20:00 09/06/21 00:00 09/06/21 04:00 Temperature Pulse Rate 91 87 Respiratory Rate Blood Pressure Pulse Oximetry Oxygen Delivery
[2021-09-06] MEDS: POTASSIUM CHLORIDE 20 MEQ PACKET (FOR LIQUID) 40 MEQ PO (17:39)
[2021-09-06] MEDS: lisinopriL 10 MG TABLET PO (17:40)
[2021-09-07] VITALS (7 sets, daily range): BP systolic 118–157; BP diastolic 70–90; PULSE 81–140; RESP 16–20; TEMP 36.1–37; O2SAT 97–100
--- NOTE | 2021-09-07 | ECHO_ITS ---
Patient Info Name: Daniel Covarrubias Age: 60 years : 1960 Gender: Male Ht: 64 in Wt: 140 lbs BSA: 1.70 m2 HR: 125 bpm BP: 148 / 90 mmHg Heart Rhythm: Sinus Rhythm, Tachycardia Technical Quality: Good Exam Date: 09/07/2021 9:52 AM Exam Location: [facility] Patient Status: Inpatient Admit Date: 09/05/2021 Staff Ordering Physician: Von Echeverria MD Order Processing Manager: Melinda Bailey RDCS Attending Provider: Josiah Chaney MD Referring Physician: Juwan ROMANO; Exam Type: CA echo doppler color flow Study Info Indications I21.4 - Non-ST elevation (NSTEMI) myocardial infarction Complete two-dimensional, color flow and Doppler transthoracic echocardiogram is performed. Summary 1. Complete two-dimensional, color flow and Doppler transthoracic echocardiogram is performed. 2. There is moderate concentric increased left ventricular wall thickness. 3. Left ventricular systolic function is hyperdynamic, estimated at >70%. 4. Left atrial chamber dimension is mildly enlarged. Left Ventricle Left ventricular chamber dimension is normal. Left ventricular systolic function is hyperdynamic, estimated at >70%. There is moderate concentric increased left ventricular wall thickness. The left ventricular diastolic function is grade I diastolic dysfunction. Right Ventricle Right ventricular chamber dimension is normal. Left Atria Left atrial chamber dimension is mildly enlarged. Right Atria Right atrial chamber dimension is normal. Aortic Valve The aortic valve is normal. Pulmonic Valve The pulmonic valve is normal. Mitral Valve The mitral valve has normal leaflets. There is no mitral valve regurgitation. Tricuspid Valve The tricuspid valve leaflets are normal. Pericardium/Pleural The pericardium appears normal. Aorta The aortic root size at the sinus of Valsalva is normal. Left Ventricular Outflow Tract Name Value Normal LVOT 2D LVOT Diameter 1.9 cm LVOT Doppler LVOT Peak Gradient 13 mmHg LVOT Mean Gradient 7 mmHg LVOT VTI 33 cm LVOT VTI/AV VTI Ratio 1.2 LVOT Stroke Volume 97 ml LVOT CO 16.1 l/min LVOT CI 9.4 l/min/m2 Pulmonic Valve Name Value Normal PV Doppler PV Peak Gradient 7 mmHg Mitral Valve Name Value Normal MV Doppler MV Decel [place] 331 cm/s2 MV PHT 46 ms MV Ar
[2021-09-07] MEDS: HYDROmorphone HCL INJ (*CRX) 1 MG/ML SYR IV PUSH ×11 (00:02→22:14)
[2021-09-07] MEDS: ONDANSETRON INJ 4 MG/2 ML VIAL IV PUSH (00:07)
--- NOTE | 2021-09-07 02:54 | ECG_ITS ---
Measurements Intervals [place] Rate: 144 P: 69 IL: 100 QRS: 52 QRSD: 82 T: 101 QT: 297 QTc: 461 Interpretive Statements SINUS RHYTHM EPISODES OF ATRIAL TACHYCARDIA WITH RAPID VENTRICULAR RESPONSE NONSPECIFIC ST & T-WAVE ABNORMALITY- INF/LAT LEADS BASELINE ARTIFACT- I, II, III, AVR, AVL, AVF, V1-V6 ABNORMAL ECG Electronically Signed On 09-07-2021 10:00:41 CDT by Red Hylton D.O.
[2021-09-07] MEDS: HYDROmorphone HCL INJ (*CRX) 1 MG/ML SYR 2 MG IV PUSH (02:57)
[2021-09-07] MEDS: MORPHINE SULFATE (*CRX) 2 MG/ML INJ 4 MG IV PUSH (03:15)
[2021-09-07] MEDS: KETOROLAC 30 MG/ML VIAL (*BKC) IV PUSH (03:20)
[2021-09-07 03:46] LABS: Hemoglobin 13.3 g/dL (14.0-18.0); Mean Corpuscular HGB Conc 33.3 g/dl (32-36); Mean Corpuscular Hemoglobin 28.5 pg (26-34); Mean Corpuscular Volume 85.7 fl (80-100); Platelet Count Result 586 k/mm3 (150-375); Red Blood Count 4.67 M/mm3 (4.6-6.20); Red Cell Distribution Width 16.9 % (11.5-14.5); White Blood Count 20.5 K/mm3 (4.5-10.0)
[2021-09-07] MEDS: diazePAM INJ (*CRX) 10 MG/2 ML SYRINGE 5 MG IV PUSH (03:50)
[2021-09-07 04:10] LABS: Band Neutrophils Percent 11 % (0-6); Lymphocytes Absolute Manual 0.61 K/mm3 (1.1-4.5); Lymphocytes Percent Manual 3 % (18-44); Monocytes Percent Manual 1 % (3-9); Neutrophils Absolute Manual 19.68 K/mm3 (1.3-6.7); Neutrophils Percent Manual 85 % (46-73); Platelet Estimate Increased (Adequate); Total Cells Counted 100
[2021-09-07 04:12] LABS: Anisocytosis 1+ (NORMAL)
[2021-09-07 04:16] LABS: Alanine Aminotransferase 45 U/L (6-50); Albumin Level 3.4 g/dL (3.5-5.1); Alkaline Phosphatase 85 U/L (38-126); Anion Gap 13 mmol/L (8-16); Aspartate Amino Transferase 25 U/L (17-59); Bilirubin,Total 0.7 mg/dL (0.2-1.3); Blood Urea Nitrogen 13 mg/dL (9-20); Calcium 8.4 mg/dL (8.4-10.2); Carbon Dioxide 15 mmol/L (22-30); Chloride 111 mmol/L (98-107); Estimated CRCL calculation 70 ml/min; Estimated Glomerular Filt Rate > 60; Glucose 155 mg/dL (65-110); Potassium 2.8 mmol/L (3.4-5.0); Sodium 139 mmol/L (137-145); Troponin I 0.036 ng/mL (0.000-0.034)
[2021-09-07 04:17] LABS: Lactic Acid Reflex 4.9 mmol/L (0.7-2.0)
[2021-09-07] MEDS: DEXTROSE 5%/0.45% SOD CHL 1,000 ML 65 ML IV CONT ×2 (05:00→19:52)
[2021-09-07 06:43] LABS: Reflex Lactic Acid Yes or No Add Lactic
[2021-09-07 07:48] LABS: Glucose Point of Care 134 mg/dl (65-105)
--- NOTE | 2021-09-07 08:20 | WPDGIPROGNO ---
Progress Note: A&P Assessment and Plan (1) Abnormal CT scan: Code(s): R93.89 - Abnormal findings on diagnostic imaging of other specified body structures Status: Acute Assessment and Plan: CT scan describes various nonspecific findings including air-fluid levels in the proximal bowel. No clinical findings to correlate this. Will give patient stool softeners as he notes some tendency to constipation. (2) Enteritis: Code(s): K52.9 - Noninfective gastroenteritis and colitis, unspecified Status: Acute Assessment and Plan: Enteritis described because of air-fluid levels noted on x-ray imaging. No obvious clinical correlate for this. As stated above stool softeners because patient reports some tendency toward constipation. (3) Fracture of femoral neck, left: Code(s): S72.002A - Fracture of unspecified part of neck of left femur, initial encounter for closed fracture Status: Acute (4) History of left above knee amputation: Code(s): Z89.612 - Acquired absence of left leg above knee Status: Acute Subjective Date/time seen: 09/07/21 08:20 Patient comfortable this morning. Sitting up in bed. Does notice some discomfort at his lower ribcage. Tolerating diet. Review of Systems Review of Systems: Review of systems noncontributory. Exam Narrative: Physical exam reveals patient be alert. He is anicteric. Vital signs stable. Lungs are clear. Abdomen bowel sounds present soft nontender. He reports pain at the lower rib margin but no particular tenderness identified. Extremities reveal left AKA. No significant tenderness appreciated today. Objective Data Vital Signs Vital Signs: Vital Signs - 24 hr 09/06/21 14:00 09/06/21 12:00 09/06/21 16:00 Temperature 97.0 F L Pulse Rate 109 H 109 H 98 Respiratory Rate 19 Blood Pressure 168/97 H Pulse Oximetry 99 09/06/21 20:00 09/06/21 21:19 09/07/21 05:26 Temperature 97.3 F L 97.7 F Pulse Rate 132 H 134 H 128 H Respiratory Rate 20 16 Blood Pressure 173/103 H 148/90 H Pulse Oximetry 99 100 09/07/21 00:00 09/07/21 04:00 Temperature Pulse Rate 125 H 140 H Respiratory Rate Blood Pressure Pulse Oximetry Intake/Output Intake/Output: Intake & Output 07/09/05/21 09/06/21 09/07/21 23:59 23:59 23:59 23:59 Intake Total 3770 2000 500 Output Total 1000 1000 600 Balance 2770 1000 -100 Meds/Results Medications: Active Medications Generic Name Dose Route Start Last Admin Trade Name Freq PRN Reason Stop Dose Admin Acetaminophen 650 mg 09/05/21 10:25 Acetaminophen 325 Mg Tablet PO Q4H PRN Mild Pain (1-3) or Fever Hydromorphone HCl 1 mg 09/06/21 09:47 09/07/21 06:25 Hydromorphone Hcl Inj (*Crx) 1 Mg/Ml Syr IV PUSH 1 mg Q2H PRN Administration Pain Rated 7-10 Cefepime HCl 1 gm in 50 mls @ 100 mls/hr 09/06/21 00:00 09/07/21 00:02 Maxipime 1 Gm/D5w 50 Ml IVPB 100 mls/hr Q12H RICARDO Administration Vancomycin HCl 1,000 mg in 250 mls @ 250 mls/hr 09/06/21 19:00 09/07/21 06:22 Vancomycin 1,000 Mg/D5w 250 Ml IVPB 250 mls/hr Q12H RICARDO Administration Dextrose/Sodium Chloride 1,000 mls @ 65 mls/hr 09/07/21 04:30 09/07/21 05:00 Dextrose 5% Sodium Chloride 0.45% IV CONT 65 mls/hr .[id number] RICARDO Administration Lisinopril 10 mg 09/05/21 13:30 09/06/21 20:04 Lisinopril 10 Mg Tablet PO Not Given Q12HR RICARDO Nicotine 1 patch 09/05/21 14:45 09/06/21 10:21 Nicotine (*Pbkc) 21 Mg Patch TRANSDERM Not Given QAM RICARDO Ondansetron HCl 4 mg 09/05/21 13:15 09/07/21 00:07 Ondansetron Inj 4 Mg/2 Ml Vial IV PUSH 4 mg Q6H PRN Administration Nausea And Vomiting Pantoprazole Sodium 40 mg 09/06/21 09:00 09/06/21 10:21 Pantoprazole Sodium Iv 40 Mg Vial IV PUSH 40 mg QAM RICARDO Administration Radiology Results: ITS Impressions Abdomen/Pelvis CT 09/05/21 08:41 IMPRESSION: Normal appe
[2021-09-07] MEDS: lisinopriL 10 MG TABLET PO (09:21)
[2021-09-07] MEDS: PANTOPRAZOLE SODIUM IV 40 MG VIAL IV PUSH (09:21)
[2021-09-07] MEDS: BISACODYL 10 MG SUPPOSITORY RECTAL (09:24)
[2021-09-07] MEDS: POTASSIUM CHLORIDE 20 MEQ PACKET (FOR LIQUID) 40 MEQ PO (09:24)
[2021-09-07 10:35] LABS: Troponin I 0.047 ng/mL (0.000-0.034)
--- NOTE | 2021-09-07 10:36 | PM.IMPN ---
Progress Note: A&P Assessment and Plan (1) Acute hypokalemia: Code(s): E87.6 - Hypokalemia Status: Acute Assessment and Plan: Replace and recheck a electrolytes. Likely related to decreased p.o. intake and nausea vomiting over the last couple days. (2) Hypertension: Code(s): I10 - Essential (primary) hypertension Status: Acute Assessment and Plan: Monitor. (3) Fracture of femoral neck, left: Code(s): S72.002A - Fracture of unspecified part of neck of left femur, initial encounter for closed fracture Status: Acute Assessment and Plan: Status post repair. (4) History of left above knee amputation: Code(s): Z89.612 - Acquired absence of left leg above knee Status: Acute Assessment and Plan: Chronic (5) Right hip pain: Code(s): M25.551 - Pain in right hip Status: Acute Assessment and Plan: Improved (6) Enteritis: Code(s): K52.9 - Noninfective gastroenteritis and colitis, unspecified Status: Acute Assessment and Plan: Questionable diagnosis. Patient did receive vanc and cefepime in the ER. Ultrasound of the right upper quadrant noted. Having ongoing abdominal pain. No diarrhea. No loss of blood. GI Consult -no further workup needed per GI. Abnormal CT. Patient has refused MRCP. He still having significant pain also had laboratory drawn Overnite which showed elevated lactic acid. Will get CT scan of the abdomen. (7) Non-STEMI (non-ST elevated myocardial infarction): Code(s): I21.4 - Non-ST elevation (NSTEMI) myocardial infarction Status: Acute Assessment and Plan: Cardiology consult. Mild bump in troponin. Atypical chest pain. Subjective Date/time seen: 09/07/21 10:36 Complaining of epigastric and right upper quadrant and right chest pain. worse today than yesterday. Exam Narrative: General: alert and oriented Psych: appropriate mood nad affect Eyes: PERRLA Neck: Trachea midline, no new lesions Skin: no changes Lungs: CTA Cardiac: Normal S1,S2, no MGR ABD: soft, nd, nt, nbs Ext: no new lesions, no cce Vasc: Pulses intact Objective Data Vital Signs Vital Signs: Vital Signs - 24 hr 09/06/21 14:00 09/06/21 12:00 09/06/21 16:00 Temperature 97.0 F L Pulse Rate 109 H 109 H 98 Respiratory Rate 19 Blood Pressure 168/97 H Pulse Oximetry 99 09/06/21 20:00 09/06/21 21:19 09/07/21 05:26 Temperature 97.3 F L 97.7 F Pulse Rate 132 H 134 H 128 H Respiratory Rate 20 16 Blood Pressure 173/103 H 148/90 H Pulse Oximetry 99 100 09/07/21 00:00 09/07/21 04:00 09/07/21 08:00 Temperature 97.1 F L Pulse Rate 125 H 140 H 81 Respiratory Rate 20 Blood Pressure 118/80 Pulse Oximetry 99 Intake/Output Intake/Output: Intake & Output 09/04/21 09/05/21 09/06/21 09/07/21 23:59 23:59 23:59 23:59 Intake Total 3770 2000 740 Output Total 1000 1000 600 Balance 2770 1000 140 Meds/Results Medications: Active Medications Generic Name Dose Route Start Last Admin Trade Name Alanq PRN Reason Stop Dose Admin Acetaminophen 650 mg 09/05/21 10:25 Acetaminophen 325 Mg Tablet PO Q4H PRN Mild Pain (1-3) or Fever Hydromorphone HCl 1 mg 09/06/21 09:47 09/07/21 08:30 Hydromorphone Hcl Inj (*Crx) 1 Mg/Ml Syr IV PUSH 1 mg Q2H PRN Administration Pain Rated 7-10 Cefepime HCl 1 gm in 50 mls @ 100 mls/hr 09/06/21 00:00 09/07/21 00:02 Maxipime 1 Gm/D5w 50 Ml IVPB 100 mls/hr Q12H RICARDO Administration Vancomycin HCl 1,000 mg in 250 mls @ 250 mls/hr 09/06/21 19:00 09/07/21 06:22 Vancomycin 1,000 Mg/D5w 250 Ml IVPB 250 mls/hr Q12H RICARDO Administration Dextrose/Sodium Chloride 1,000 mls @ 65 mls/hr 09/07/21 04:30 09/07/21 05:00 Dextrose 5% Sodium Chloride 0.45% IV CONT 65 mls/hr .[id number] RICARDO Administration Potassium Chloride 40 meq/ 520 mls @ 130 mls/hr 09/07/21 09:00 Sodium Chloride IVPB 09/07
[2021-09-07] MEDS: POTASSIUM CHLORIDE INJ 40 MEQ in SODIUM CHLORIDE 0.9% IV 500 ML 130 MEQ IVPB (10:48)
[2021-09-07 14:09] LABS: Lactic Acid Reflex 1.9 mmol/L (0.7-2.0)
--- NOTE | 2021-09-07 22:10 | PM.CNGS ---
Assessment and Plan Assessment and plan (1) Acute gastrointestinal ulcer with perforation: Code(s): K28.1 - Acute gastrojejunal ulcer with perforation Status: Acute Assessment and Plan: After review of all the patient's records and his multiple comorbidities I would recommend that the patient consider conservative management without operative intervention at this time. He does not appear to be septic. He is on antibiotics. We went ahead and placed an NG tube to low intermittent suction to decompress the stomach and upper GI tract. There is some chance that he will seal this or ovary is seal with omentum and that he will be able to have treatment and recover. We should maximize his antacid therapy by changing him to a continuous drip PPI (Protonix). I have done this. Will also repeat laboratories in a abdominal x-ray in the morning. Patient understands that this is not standard treatment but that he may not make it through a general anesthesia and significant operation to correct it surgically. Echocardiogram may or may not have been done today and we do not know his junction fraction and he has had elevated troponins today. Cardiology consultation is pending. 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 Troponins were a up several times today. Final troponin pending at this time. EKG shows significant tachycardia and other changes (5) Enteritis: Code(s): K52.9 - Noninfective gastroenteritis and colitis, unspecified Status: Acute Assessment and Plan: see CT 2 days ago suggest enteritis. Patient was very sick last night with a high heart rate he complaining more of abdominal pain than that he does now. He states NG seems to have helped relieve some of his discomfort. (6) Abnormal CT scan: Code(s): R93.89 - Abnormal findings on diagnostic imaging of other specified body structures Status: Acute Assessment and Plan: This was done today and showed some fluid and small left areas of air around stomach and duodenum suggestive of perforated gastric or duodenal ulcer. However patient has multiple comorbidities and therefore I do not recommend urgent surgical intervention at this time since the patient may not make it through the operation. Conservative management could be successful and therefore will proceed with antibiotics, stomach decompression with NG tube bowel rest, and and close observation. I have discussed the situation with the night hospitalist and they may transfer him to IMU if he worsens but right now he seems to be stable and feeling okay. Plan Repeat CIS plain x-rays in the morning to see if the free air is CIS more extended. Will recheck him the morning for the physical exam and decide about further intervention depending on his cardiac status and his morning labs go. History of Present Illness Consult details Consult date: 09/08/21 Reason for consult: other (Suspected perforated ulcer) Requesting physician: Von Echeverria MD Narrative: This patient is a pleasant alert 60-year-old white male who is a long-time 2 pack-a-day smoker. I was consulted today because the patient has had increasing upper abdominal/ lower chest discomfort along with a 20,000 white count ( down from 30,000 thousand yesterday). Today repeat CT
[2021-09-08] VITALS (9 sets, daily range): BP systolic 149–157; BP diastolic 61–73; PULSE 86–105; RESP 16–20; TEMP 36.3–36.9; O2SAT 96–98
[2021-09-08] MEDS: HYDROmorphone HCL INJ (*CRX) 1 MG/ML SYR IV PUSH ×11 (00:05→22:23)
[2021-09-08 06:26] LABS: Basophils Percent Auto 0.3 % (0.2-1.2); Hematocrit 26.1 % (42.0-52.0); Immature Granulocyte Absolute 0.06 K/mm3 (0.00-0.031); Immature Granulocyte Percent A 0.5 % (0-0.5); Mean Corpuscular HGB Conc 34.5 g/dl (32-36); Mean Corpuscular Hemoglobin 28.8 pg (26-34); Mean Corpuscular Volume 83.7 fl (80-100); Mean Platelet Volume 10.4 fl (7.4-10.4); Monocytes Absolute Auto 0.2 K/mm3 (0.1-0.6); Monocytes Percent Auto 1.9 % (2.6-8.5); Neutrophils Absolute Auto 11.2 K/mm3 (1.3-6.7); Neutrophils Percent Auto 92.3 % (45.5-73.1); Platelet Count Result 433 k/mm3 (150-375); Red Blood Count 3.12 M/mm3 (4.6-6.20); Red Cell Distribution Width 16.6 % (11.5-14.5); White Blood Count 12.1 K/mm3 (4.5-10.0)
[2021-09-08 06:28] LABS: Anion Gap 5 mmol/L (8-16); Blood Urea Nitrogen 18 mg/dL (9-20); Calcium 8.6 mg/dL (8.4-10.2); Carbon Dioxide 20 mmol/L (22-30); Chloride 111 mmol/L (98-107); Estimated CRCL calculation 70 ml/min; Estimated Glomerular Filt Rate > 60; Glucose 106 mg/dL (65-110); Lipase 51 U/L (23-300); Potassium 3.4 mmol/L (3.4-5.0); Sodium 136 mmol/L (137-145)
[2021-09-08 07:14] LABS: Burr Cells 1+ (NORMAL); Platelet Estimate Adequate (Adequate); Poikilocytosis 1+ (NORMAL)
--- NOTE | 2021-09-08 08:52 | WPDGIPROGNO ---
Progress Note: A&P Assessment and Plan (1) Acute gastrointestinal ulcer with perforation: Code(s): K28.1 - Acute gastrojejunal ulcer with perforation Status: Acute Assessment and Plan: Patient noted to have a small amount of free air on CT scanning yesterday. Suspicion is most likely has an ulceration. Agree with conservative management as he clinically has a benign abdomen. Agree with broad-spectrum antibiotics. Continuing PPI therapy. Gastrografin upper GI could be performed in a day or 2. Surgery following and agree with their approach. (2) Abnormal CT scan: Code(s): R93.89 - Abnormal findings on diagnostic imaging of other specified body structures Status: Acute Assessment and Plan: CT scan suggested possible enteritis initially. Now with suspicions gastric and duodenal edema. May represent an ulcer. Concern over whether there may been a small amount of free air now. Continue treatment for presumed peptic ulcer disease. (3) Fracture of femoral neck, left: Code(s): S72.002A - Fracture of unspecified part of neck of left femur, initial encounter for closed fracture Status: Acute (4) History of left above knee amputation: Code(s): Z89.612 - Acquired absence of left leg above knee Status: Acute Subjective Date/time seen: 09/08/21 08:52 Patient continues to complain of pain it is rib cage. Yesterday elevated lactic acid was noted. Repeat CT scan suggested small amount of free air. Patient now has NG tube in place. Broad-spectrum antibiotics and PPI therapy. Review of Systems Review of Systems: Review of systems noncontributory. Exam Narrative: Physical exam reveals patient be a alert. Afebrile. He is anicteric. HEENT exam otherwise unremarkable. Lungs are clear. Heart without murmur. Abdomen bowel sounds are present. Abdomen is soft no localized tenderness. Patient reports he may have a vague discomfort in his abdomen. Continues to notice tenderness at the rib margin. These are not particularly tender on palpation today. Extremities reveal left AKA. Objective Data Vital Signs Vital Signs: Vital Signs - 24 hr 09/07/21 14:00 09/07/21 20:00 09/07/21 21:43 Temperature 97.0 F L 98.6 F Pulse Rate 136 H 110 H 102 H Respiratory Rate 20 16 Blood Pressure 154/88 H 157/70 H Pulse Oximetry 98 97 09/08/21 05:53 07/17/22 00:00 09/08/21 04:00 Temperature 97.3 F L Pulse Rate 96 105 H 100 Respiratory Rate 16 Blood Pressure 157/73 H Pulse Oximetry 98 Intake/Output Intake/Output: Intake & Output 09/05/21 09/06/21 09/07/21 09/08/21 23:59 23:59 23:59 23:59 Intake Total 3770 2000 1840 750 Output Total 1000 1000 1200 1300 Balance 2770 1000 640 -550 Meds/Results Medications: Active Medications Generic Name Dose Route Start Last Admin Trade Name Freq PRN Reason Stop Dose Admin Acetaminophen 650 mg 09/05/21 10:25 Acetaminophen 325 Mg Tablet PO Q4H PRN Mild Pain (1-3) or Fever Benzocaine 1 lozenge 09/07/21 22:27 Benzocaine/Menthol (*Bkc) 18 Ea Lozenge PO PRN PRN Sore Throat Bisacodyl 10 mg 09/07/21 22:27 Bisacodyl 10 Mg Suppository RECTAL QAM PRN Constipation Hydromorphone HCl 1 mg 09/06/21 09:47 09/08/21 08:16 Hydromorphone Hcl Inj (*Crx) 1 Mg/Ml Syr IV PUSH 1 mg Q2H PRN Administration Pain Rated 7-10 Cefepime HCl 1 gm in 50 mls @ 100 mls/hr 09/06/21 00:00 09/08/21 00:05 Maxipime 1 Gm/D5w 50 Ml IVPB 100 mls/hr Q12H RICARDO Administration Dextrose/Sodium Chloride 1,000 mls @ 65 mls/hr 09/07/21 04:30 09/07/21 19:52 Dextrose 5% Sodium Chloride 0.45% IV CONT 65 mls/hr .[id number] RICARDO Administration Vancomycin HCl 1,000 mg in 250 mls @ 250 mls/hr 09/08/21 01:00 09/08/21 01:17 Vancomycin 1,000 Mg/D5w 250 Ml IVPB 250 mls/hr Q18H RICARDO Administration Pantoprazole Sodium 80 mg/ 500 mls @ 50 mls/hr 09/07/21 21:00 09/07/21 22:14
--- NOTE | 2021-09-08 09:42 | PM.PNGS ---
Progress Note: A&P Assessment and Plan (1) Acute gastrointestinal ulcer with perforation: Code(s): K28.1 - Acute gastrojejunal ulcer with perforation Status: Acute Assessment and Plan: Because of the patient's comorbidities it was selected to do conservative management. This continues to seemed to be effective is patient's vital signs were stable. He is not running a fever but is on antibiotics. His blood count dropped significantly but he is not having bloody stools. Will repeat the H&H and do serial H&H is to see if this seems to be accurate. Patient is not against having blood transfusion so if it drops more will need to consider transfusion may need to consider moved to a higher level of care at IMU or ICU. For now surgical intervention is not a consideration in view of his multiple comorbidities however since we know that his echocardiogram shows a good ejection fraction if cardiology feels that his not had a recent TN he may be a better candidate for surgical intervention should he deteriorate. (2) Non-STEMI (non-ST elevated myocardial infarction): Code(s): I21.4 - Non-ST elevation (NSTEMI) myocardial infarction Status: Acute Assessment and Plan: Elevated troponins may however be related to the inflammation with his ulcer. Will await cardiology opinion. (3) Abnormal CT scan: Code(s): R93.89 - Abnormal findings on diagnostic imaging of other specified body structures Status: Acute Assessment and Plan: Free air noted yesterday on CT scan was not a huge amount and there is some chance that the patient has sealed the perforated ulcer that is most likely gastric since he does not seem to have peritoneal signs. Need to cover with antibiotics for typical bacteria in the stomach which usually can be covered with simply Ancef and we should perhaps think about giving him 5 days of coverage for Yeast/fungus. Will await continued workup with other services. (4) Enteritis: Code(s): K52.9 - Noninfective gastroenteritis and colitis, unspecified Status: Acute Assessment and Plan: On antibiotic coverage could do stool samples if patient starts having bowel movements. Since he has not had 1 will give a suppository today and fleets enema if no results from the suppository. She and since GI tract is incapacitated and patient on NG suction and patient has central venous access will proceed with supportive TPN through his PICC line. (5) Fracture of femoral neck, left: Code(s): S72.002A - Fracture of unspecified part of neck of left femur, initial encounter for closed fracture Status: Acute Assessment and Plan: Will have PT OT begin working with the patient. He should probably be able at least get up into a chair. (6) History of left above knee amputation: Code(s): Z89.612 - Acquired absence of left leg above knee Status: Acute Subjective Subjective Date/Time Seen: 09/08/21 09:42 Patient reports: no new complaints, pain is less and no bowel movement Interval history: Patient states that his pain was not terrible overnight. Nurse reports no vital sign difficulties overnight. Patient notices a small amount of flatus but no bowel movement. Has not had a bowel movement several days. View of his drop in hemoglobin also no bloody stools. It is noted that the NG output is brown. Patient admits to taking multiple aspirin today be sides Aleve. Review of Systems Review of Systems: All systems reviewed & are unremarkable except as noted in HPI and below (HPI) Constitutional: Constitutional: Reports as per HPI, Denies chills and Denies fever(s) Eyes: Eyes: Reports no additional eye complaints ENT: Reports Normal hearing present and Denies dizziness Cardiovascular: Cardiovascular: Reports no additional cardiovascular complaints, Denies chest pain and Denies irregular heart rhythm Comments: Echocardiogram now red and patient has it ejection fracti
[2021-09-08 10:05] LABS: Troponin I 0.033 ng/mL (0.000-0.034)
--- NOTE | 2021-09-08 10:09 | PM.IMPN ---
Progress Note: A&P Assessment and Plan (1) Acute hypokalemia: Code(s): E87.6 - Hypokalemia Status: Acute Assessment and Plan: Monitor electrolytes (2) Hypertension: Code(s): I10 - Essential (primary) hypertension Status: Acute Assessment and Plan: Monitor. (3) Fracture of femoral neck, left: Code(s): S72.002A - Fracture of unspecified part of neck of left femur, initial encounter for closed fracture Status: Acute Assessment and Plan: Status post repair. (4) History of left above knee amputation: Code(s): Z89.612 - Acquired absence of left leg above knee Status: Acute Assessment and Plan: Chronic (5) Right hip pain: Code(s): M25.551 - Pain in right hip Status: Acute Assessment and Plan: Improved (6) Non-STEMI (non-ST elevated myocardial infarction): Code(s): I21.4 - Non-ST elevation (NSTEMI) myocardial infarction Status: Acute Assessment and Plan: Cardiology consult. Mild bump in troponin. Atypical chest pain. (7) Intra-abdominal free air of unknown etiology: Code(s): K66.8 - Other specified disorders of peritoneum Status: Acute Assessment and Plan: Question related to gastric ulcer Recent NSAID use. Surgery Consul. There following. Recommended conservative therapy at this time with NPO. NG tube ileus. Patient has poor surgical candidate Continue PPI. Monitor labs. (8) Anemia: Code(s): D64.9 - Anemia, unspecified Status: Acute Assessment and Plan: Monitor q.6h date. Questionably related to ulceration. Subjective Date/time seen: 09/08/21 10:09 Abdominal pain is better. No active bleeding. Hemoglobin did drop slightly. Exam Narrative: General: alert and oriented Psych: appropriate mood nad affect Eyes: PERRLA Neck: Trachea midline, no new lesions Skin: no changes Lungs: CTA Cardiac: Normal S1,S2, no MGR ABD: soft, nd, nt, nbs Ext: no new lesions, no cce Vasc: Pulses intact Objective Data Vital Signs Vital Signs: Vital Signs - 24 hr 09/07/21 14:00 09/07/21 20:00 09/07/21 21:43 Temperature 97.0 F L 98.6 F Pulse Rate 136 H 110 H 102 H Respiratory Rate 20 16 Blood Pressure 154/88 H 157/70 H Pulse Oximetry 98 97 09/08/21 05:53 09/08/21 00:00 09/08/21 04:00 Temperature 97.3 F L Pulse Rate 96 105 H 100 Respiratory Rate 16 Blood Pressure 157/73 H Pulse Oximetry 98 09/08/21 08:00 Temperature 97.5 F L Pulse Rate 93 Respiratory Rate 20 Blood Pressure 150/71 H Pulse Oximetry 96 Intake/Output Intake/Output: Intake & Output 09/05/21 09/06/21 09/07/21 09/08/21 23:59 23:59 23:59 23:59 Intake Total 3770 2000 1840 1250 Output Total 1000 1000 1200 1300 Balance 2770 1000 640 -50 Meds/Results Medications: Active Medications Generic Name Dose Route Start Last Admin Trade Name Freq PRN Reason Stop Dose Admin Acetaminophen 650 mg 09/05/21 10:25 Acetaminophen 325 Mg Tablet PO Q4H PRN Mild Pain (1-3) or Fever Benzocaine 1 lozenge 09/07/21 22:27 Benzocaine/Menthol (*Bkc) 18 Ea Lozenge PO PRN PRN Sore Throat Bisacodyl 10 mg 09/07/21 22:27 Bisacodyl 10 Mg Suppository RECTAL QAM PRN Constipation Hydromorphone HCl 1 mg 09/06/21 09:47 09/08/21 08:16 Hydromorphone Hcl Inj (*Crx) 1 Mg/Ml Syr IV PUSH 1 mg Q2H PRN Administration Pain Rated 7-10 Cefepime HCl 1 gm in 50 mls @ 100 mls/hr 09/06/21 00:00 09/08/21 00:05 Maxipime 1 Gm/D5w 50 Ml IVPB 100 mls/hr Q12H RICARDO Administration Dextrose/Sodium Chloride 1,000 mls @ 65 mls/hr 09/07/21 04:30 09/07/21 19:52 Dextrose 5% Sodium Chloride 0.45% IV CONT 65 mls/hr .[id number] RICARDO Administration Vancomycin HCl 1,000 mg in 250 mls @ 250 mls/hr 09/08/21 01:00 09/08/21 01:17 Vancomycin 1,000 Mg/D5w 250 Ml IVPB 250 mls/hr Q18H RICARDO Administration Pantoprazole Sodium 80 mg/ 500 mls @
[2021-09-08] MEDS: DEXTROSE 5%/0.45% SOD CHL 1,000 ML 65 ML IV CONT (10:30)
--- NOTE | 2021-09-08 10:40 | PCOTNOTE ---
Addendum entered by Shobha Staton OT 09/08/21 13:30: Attempted x2 Original Note: Attempted OT evaluation this date; pt. declined due to not feeling well and not being able to eat for a few days. Will attempt again as possible.
--- NOTE | 2021-09-08 10:42 | PCPTNOTE ---
Addendum entered by Lizzy Frank, PT 09/08/21 11:55: PT evaluation was attempted x 2. Original Note: Attempted PT evaluation this date however pt declined due to not feeling well. Will attempt at a later date/time.
[2021-09-08 11:48] LABS: Basophils Percent Auto 0.3 % (0.2-1.2); Eosinophils Percent Auto 0.1 % (0-4.4); Hematocrit 25.9 % (42.0-52.0); Hemoglobin 9.2 g/dL (14.0-18.0); Immature Granulocyte Absolute 0.05 K/mm3 (0.00-0.031); Immature Granulocyte Percent A 0.4 % (0-0.5); Lymphocytes Absolute Auto 0.43 K/mm3 (0.9-3.2); Lymphocytes Percent Auto 3.5 % (18.3-44.2); Mean Corpuscular HGB Conc 35.5 g/dl (32-36); Mean Corpuscular Hemoglobin 29.3 pg (26-34); Mean Corpuscular Volume 82.5 fl (80-100); Mean Platelet Volume 10.2 fl (7.4-10.4); Monocytes Absolute Auto 0.2 K/mm3 (0.1-0.6); Monocytes Percent Auto 1.9 % (2.6-8.5); Neutrophils Absolute Auto 11.7 K/mm3 (1.3-6.7); Neutrophils Percent Auto 93.8 % (45.5-73.1); Platelet Count Result 425 k/mm3 (150-375); Red Blood Count 3.14 M/mm3 (4.6-6.20); Red Cell Distribution Width 16.3 % (11.5-14.5); White Blood Count 12.5 K/mm3 (4.5-10.0)
[2021-09-08 12:05] LABS: Alanine Aminotransferase 24 U/L (6-50); Albumin Level 2.7 g/dL (3.5-5.1); Alkaline Phosphatase 66 U/L (38-126); Anion Gap 7 mmol/L (8-16); Aspartate Amino Transferase 25 U/L (17-59); Bilirubin,Total 0.8 mg/dL (0.2-1.3); Blood Urea Nitrogen 15 mg/dL (9-20); Calcium 8.6 mg/dL (8.4-10.2); Carbon Dioxide 18 mmol/L (22-30); Chloride 109 mmol/L (98-107); Estimated CRCL calculation 79 ml/min; Estimated Glomerular Filt Rate > 60; Glucose 123 mg/dL (65-110); Potassium 2.9 mmol/L (3.4-5.0); Sodium 134 mmol/L (137-145)
[2021-09-08 12:13] LABS: Transferrin 122 mg/dL (206-381)
[2021-09-08 12:19] LABS: Anisocytosis 1+ (NORMAL); Platelet Estimate Adequate (Adequate); Poikilocytosis 1+ (NORMAL)
[2021-09-08 12:36] LABS: Partial Thromboplastin Time 40.1 SECONDS (22.3-36.8)
[2021-09-08] MEDS: SUCRALFATE SUSP 100 MG/ML 10 ML UDC 1000 MG FEED TUBE ×2 (12:52→18:23)
[2021-09-08] MEDS: AMINO ACIDS 5%/D15W/E-LYTES/CA 2,000 ML with MULTIVITAMINS-12 INJ VIAL 1 2.5 ML, MULTIV... 40 ML IV CONT (14:12)
[2021-09-08] MEDS: FAT EMULSIONS IV 20% 250 ML 20.83 ML IVPB (14:12)
[2021-09-08 15:47] LABS: Troponin I 0.028 ng/mL (0.000-0.034)
--- NOTE | 2021-09-08 16:02 | PM.CNCAR ---
Assessment and Plan Assessment and plan (1) Troponin I above reference range: Code(s): R77.8 - Other specified abnormalities of plasma proteins Status: Acute Plan This is a 60-year-old man who appears to be significantly ill suspected of having a ruptured ulcer. He is not in much distress at this time. There is a significant drop in his hemoglobin from normal to a hematocrit of about 25 at the last time it was checked earlier today. He was very tachycardic couple of days ago a series of troponin levels were done at this time which are minimally elevated. There is no other clinic or our electrocardiographic evidence of an acute coronary syndrome. He has no ischemic wall motion abnormalities. At this time he does not require any ischemic workup or testing. He may need surgical treatment of his ulcer disease if that is indicated. There is no further need for cardiac concern at this time. Obviously has risk factors for heart disease with a longstanding history of smoking but is current reason for consultation is not of any clinical significance in my opinion Von Montilla MD [facility] History of Present Illness History of Present Illness Consult date/time: 09/08/21 16:02 Reason For Visit: hypokalmeia,atraumatic right hip pain Narrative: This is a pleasant but very unfortunate 60-year-old man I am seeing at the request of the hospitalist service because his troponin is elevated. The patient has no history of heart disease or is not describing any cardiac symptoms of any kind. He has been in the hospital here for a number of days with abdominal pain is suspected of having a ulcer that may be perforated with some free air in the stomach. Because of multiple comorbidities an attempt is being made at conservative/non operative treatment of this. Apparently according to the nursing staff a couple of days ago he was very tachycardic and appeared to be in distress but was not reporting chest pain. A series of troponins were done with 4 samples. Two of which were normal and 2 of which were out of normal range with levels of 0.03 which is just out of normal range. His electrocardiogram did not show any evidence of an acute injury pattern. His telemetry shows evidence of sinus rhythm very rapid sinus tachycardia couple of days ago when all of this happened. An echocardiogram done yesterday demonstrated hyperdynamic left ventricular systolic function without any ischemic wall motion abnormalities. He appears to be relatively comfortable at this time and is offering no complaints. 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 Review of Systems Constitutional: Constitutional: Reports lethargy Eyes: Eyes: Reports no additional eye complaints ENT: Reports system reviewed and no additional complaints, except as documented Cardiovascular: Cardiovascular: Reports no additional cardiovascular complaints Respiratory: Respiratory: Reports no additional respiratory complaints Gastrointestinal: Gastrointestinal: Reports as per HPI and Reports abdominal pain Musculoskeletal: Musculoskeletal: Reports no additional musculoskeletal complaints Integumentary/Breasts: Skin/Breast: Reports system reviewed and no additional complaints, except as docu Neurologic: Reports system reviewed and no additional complaints, except as documented Endocrine: Endocrine: Reports no additional endocrine complaints Hematologic/Lymphatic: Hematologic/Lymphatic: Reports no additional hematologic/lymphatic complaints Allergic/Immunologic: Allergic/Immunologic: Reports no additional allergic/immunologic complaints PMFSH Past Medical History Medical History History of left abov
[2021-09-08 16:08] LABS: Hematocrit 27.9 % (42.0-52.0); Hemoglobin 9.3 g/dL (14.0-18.0)
[2021-09-08 16:31] LABS: Glucose Point of Care 131 mg/dl (65-105)
[2021-09-08] MEDS: lisinopriL 10 MG TABLET PO (20:02)
[2021-09-09] VITALS (10 sets, daily range): BP systolic 166–175; BP diastolic 68–80; PULSE 72–107; RESP 16–18; TEMP 36.3–36.4; O2SAT 97–98; BMI 22.1
[2021-09-09] MEDS: HYDROmorphone HCL INJ (*CRX) 1 MG/ML SYR IV PUSH ×11 (00:25→22:03)
[2021-09-09 00:55] LABS: Hemoglobin 9.7 g/dL (14.0-18.0)
[2021-09-09] MEDS: SUCRALFATE SUSP 100 MG/ML 10 ML UDC 1000 MG FEED TUBE ×4 (01:10→18:01)
[2021-09-09 07:04] LABS: Basophils Percent Auto 0.1 % (0.2-1.2); Eosinophils Absolute Auto 0.1 K/mm3 (0-0.3); Eosinophils Percent Auto 0.8 % (0-4.4); Hematocrit 25.1 % (42.0-52.0); Hemoglobin 8.8 g/dL (14.0-18.0); Immature Granulocyte Absolute 0.08 K/mm3 (0.00-0.031); Immature Granulocyte Percent A 0.7 % (0-0.5); Lymphocytes Absolute Auto 0.54 K/mm3 (0.9-3.2); Lymphocytes Percent Auto 4.6 % (18.3-44.2); Mean Corpuscular HGB Conc 35.1 g/dl (32-36); Mean Corpuscular Volume 82.8 fl (80-100); Monocytes Absolute Auto 0.4 K/mm3 (0.1-0.6); Monocytes Percent Auto 3.5 % (2.6-8.5); Neutrophils Absolute Auto 10.7 K/mm3 (1.3-6.7); Neutrophils Percent Auto 90.3 % (45.5-73.1); Platelet Count Result 406 k/mm3 (150-375); Red Blood Count 3.03 M/mm3 (4.6-6.20); Red Cell Distribution Width 16.6 % (11.5-14.5); White Blood Count 11.8 K/mm3 (4.5-10.0)
[2021-09-09 07:12] LABS: Lactic Acid Reflex 0.9 mmol/L (0.7-2.0)
[2021-09-09 07:13] LABS: Lactate Dehydrogenase 543 U/L (313-618)
[2021-09-09 07:20] LABS: Transferrin 115 mg/dL (206-381)
[2021-09-09 07:29] LABS: Alanine Aminotransferase 22 U/L (6-50); Albumin Level 2.8 g/dL (3.5-5.1); Alkaline Phosphatase 55 U/L (38-126); Anion Gap 8 mmol/L (8-16); Aspartate Amino Transferase 25 U/L (17-59); Bilirubin,Total 0.6 mg/dL (0.2-1.3); Blood Urea Nitrogen 9 mg/dL (9-20); Calcium 8.7 mg/dL (8.4-10.2); Carbon Dioxide 20 mmol/L (22-30); Chloride 103 mmol/L (98-107); Estimated CRCL calculation 78 ml/min; Estimated Glomerular Filt Rate > 60; Glucose 422 mg/dL (65-110); Magnesium 1.9 mg/dL (1.6-2.3); Phosphorus 3.3 mg/dL (2.5-4.5); Sodium 131 mmol/L (137-145)
[2021-09-09 08:16] LABS: Triglycerides 248 mg/dL (<150)
[2021-09-09 08:27] LABS: INR 1.2
[2021-09-09 08:28] LABS: Partial Thromboplastin Time 42.9 SECONDS (22.3-36.8)
[2021-09-09] MEDS: lisinopriL 10 MG TABLET PO ×2 (08:39→20:10)
[2021-09-09] MEDS: KCL 40 MEQ/WATER 100 ML 100 ML 25 ML IVPB (08:45)
--- NOTE | 2021-09-09 10:14 | PCOTNOTE ---
Attempted to see pt. for occupational therapy evaluation. Pt. declined at this time due to pain. Nurse alerted, will see pt. after receiving pain medication.
--- NOTE | 2021-09-09 10:51 | PM.IMPN ---
Progress Note: A&P Assessment and Plan (1) Acute hypokalemia: Code(s): E87.6 - Hypokalemia Status: Acute Assessment and Plan: Monitor electrolytes (2) Hypertension: Code(s): I10 - Essential (primary) hypertension Status: Acute Assessment and Plan: Monitor. (3) Fracture of femoral neck, left: Code(s): S72.002A - Fracture of unspecified part of neck of left femur, initial encounter for closed fracture Status: Acute Assessment and Plan: Status post repair. (4) History of left above knee amputation: Code(s): Z89.612 - Acquired absence of left leg above knee Status: Acute Assessment and Plan: Chronic (5) Right hip pain: Code(s): M25.551 - Pain in right hip Status: Acute Assessment and Plan: Improved (6) Non-STEMI (non-ST elevated myocardial infarction): Code(s): I21.4 - Non-ST elevation (NSTEMI) myocardial infarction Status: Acute Assessment and Plan: Cardiology consult. Mild bump in troponin. Atypical chest pain. (7) Intra-abdominal free air of unknown etiology: Code(s): K66.8 - Other specified disorders of peritoneum Status: Acute Assessment and Plan: Question related to gastric ulcer Recent NSAID use. Surgery Consult appreciated. Recommended conservative therapy at this time with NPO. NG tube ileus. Patient has poor surgical candidate Continue PPI. Monitor labs. Continue TPN. (8) Anemia: Code(s): D64.9 - Anemia, unspecified Status: Acute Assessment and Plan: Monitor q.6h date. Questionably related to ulceration. Subjective Date/time seen: 09/09/21 10:51 Reports he is feeling better. Abdominal pain is improved Exam Narrative: General: alert and oriented Psych: appropriate mood nad affect Eyes: PERRLA Neck: Trachea midline, no new lesions Skin: no changes Lungs: CTA Cardiac: Normal S1,S2, no MGR ABD: soft, nd, nt, nbs Ext: no new lesions, no cce Vasc: Pulses intact Objective Data Vital Signs Vital Signs: Vital Signs - 24 hr 09/08/21 14:00 09/08/21 12:00 09/08/21 16:00 Temperature 98.0 F Pulse Rate 90 94 86 Respiratory Rate 20 Blood Pressure 150/72 H Pulse Oximetry 96 Oxygen Delivery 09/08/21 22:00 09/08/21 20:00 09/09/21 00:00 Temperature 98.4 F Pulse Rate 87 92 91 Respiratory Rate 17 Blood Pressure 149/61 H Pulse Oximetry 96 Oxygen Delivery 09/09/21 04:00 09/09/21 06:00 09/09/21 08:40 Temperature 97.6 F Pulse Rate 72 88 Respiratory Rate 18 Blood Pressure 166/75 H Pulse Oximetry 98 Oxygen Delivery Room Air Intake/Output Intake/Output: Intake & Output 09/06/21 09/07/21 09/08/21 09/09/21 23:59 23:59 23:59 23:59 Intake Total 1999 1840 2850 550 Output Total 1000 1200 1700 1800 Balance 5194 545 4082 -1250 Meds/Results Medications: Active Medications Generic Name Dose Route Start Last Admin Trade Name Freq PRN Reason Stop Dose Admin Acetaminophen 650 mg 09/05/21 10:25 Acetaminophen 325 Mg Tablet PO Q4H PRN Mild Pain (1-3) or Fever Benzocaine 1 lozenge 09/07/21 22:27 Benzocaine/Menthol (*Bkc) 18 Ea Lozenge PO PRN PRN Sore Throat Bisacodyl 10 mg 09/07/21 22:27 Bisacodyl 10 Mg Suppository RECTAL QAM PRN Constipation Hydromorphone HCl 1 mg 09/06/21 09:47 09/09/21 08:42 Hydromorphone Hcl Inj (*Crx) 1 Mg/Ml Syr IV PUSH 1 mg Q2H PRN Administration Pain Rated 7-10 Cefepime HCl 1 gm in 50 mls @ 100 mls/hr 09/06/21 00:00 09/09/21 01:15 Maxipime 1 Gm/D5w 50 Ml IVPB Infused Q12H RICARDO Infusion Dextrose/Sodium Chloride 1,000 mls @ 65 mls/hr 09/07/21 04:30 09/08/21 10:30 Dextrose 5% Sodium Chloride 0.45% IV CONT 65 mls/hr .[id number] RICARDO Administration Vancomycin HCl 1,000 mg in 250 mls @ 250 mls/hr 09/08/21 01:00 09/08/21 22:19 Vancomycin 1,000 Mg/D5w 250 Ml IVPB Infused Q18H RICARDO
--- NOTE | 2021-09-09 12:34 | WPDGIPROGNO ---
Progress Note: A&P Assessment and Plan (1) Intra-abdominal free air of unknown etiology: Code(s): K66.8 - Other specified disorders of peritoneum Status: Acute Assessment and Plan: Follow-up CT scanning reveals free air within the abdomen. It is presumed that patient has an ulcer. NG tube does reveal dark return. Prior CT scan in suggested possible enteritis. Agree with broad-spectrum antibiotics, NG tube decompression, and PPI therapy. Patient's white count has decreased noticeably. He remains afebrile. Abdomen clinically benign but he does have significant poorly described abdominal discomfort. Surgery following along with this at this time. (2) Fracture of femoral neck, left: Code(s): S72.002A - Fracture of unspecified part of neck of left femur, initial encounter for closed fracture Status: Acute (3) History of left above knee amputation: Code(s): Z89.612 - Acquired absence of left leg above knee Status: Acute Subjective Date/time seen: 09/09/21 12:34 Patient continues to complain of significant diffuse abdominal pain. Nursing states it is that they continue to give narcotics as needed for pain control. Patient has not had recent bowel movement. Did have some results with suppository recently. Does admit to passing flatus. Patient is a somewhat difficult historian in indirect answers are sometimes given Review of Systems Review of Systems: review of systems noncontributory. Exam Narrative: Physical exam reveals patient sitting up in bed. HEENT exam reveals no icterus he remains afebrile. Lungs are clear. Heart without murmur. Abdomen bowel sounds present soft with no localized tenderness appreciated. Objective Data Vital Signs Vital Signs: Vital Signs - 24 hr 09/08/21 14:00 09/08/21 16:00 09/08/21 22:00 Temperature 98.0 F 98.4 F Pulse Rate 90 86 87 Respiratory Rate 20 17 Blood Pressure 150/72 H 149/61 H Pulse Oximetry 96 96 Oxygen Delivery 09/08/21 20:00 09/09/21 00:00 09/09/21 04:00 Temperature Pulse Rate 92 91 72 Respiratory Rate Blood Pressure Pulse Oximetry Oxygen Delivery 09/09/21 06:00 09/09/21 08:40 09/09/21 08:25 Temperature 97.6 F Pulse Rate 88 Respiratory Rate 18 Blood Pressure 166/75 H Pulse Oximetry 98 Oxygen Delivery Room Air Room Air 07/18/22 10:52 Temperature Pulse Rate 91 Respiratory Rate Blood Pressure Pulse Oximetry 97 Oxygen Delivery Room Air Intake/Output Intake/Output: Intake & Output 09/06/21 09/07/21 09/08/21 09/09/21 23:59 23:59 23:59 23:59 Intake Total 1999 1840 2850 550 Output Total 1000 1200 1700 1800 Balance 5122 230 9313 -1250 Meds/Results Medications: Active Medications Generic Name Dose Route Start Last Admin Trade Name Freq PRN Reason Stop Dose Admin Benzocaine 1 lozenge 09/07/21 22:27 Benzocaine/Menthol (*Bkc) 18 Ea Lozenge PO PRN PRN Sore Throat Bisacodyl 10 mg 09/07/21 22:27 Bisacodyl 10 Mg Suppository RECTAL QAM PRN Constipation Hydromorphone HCl 1 mg 09/06/21 09:47 09/09/21 10:55 Hydromorphone Hcl Inj (*Crx) 1 Mg/Ml Syr IV PUSH 1 mg Q2H PRN Administration Pain Rated 7-10 Cefepime HCl 1 gm in 50 mls @ 100 mls/hr 09/06/21 00:00 09/09/21 01:15 Maxipime 1 Gm/D5w 50 Ml IVPB Infused Q12H RICARDO Infusion Dextrose/Sodium Chloride 1,000 mls @ 65 mls/hr 09/07/21 04:30 09/08/21 10:30 Dextrose 5% Sodium Chloride 0.45% IV CONT 65 mls/hr .[id number] RICARDO Administration Vancomycin HCl 1,000 mg in 250 mls @ 250 mls/hr 09/08/21 01:00 09/08/21 22:19 Vancomycin 1,000 Mg/D5w 250 Ml IVPB Infused Q18H RICARDO Infusion Pantoprazole Sodium 80 mg/ 500 mls @ 50 mls/hr 09/07/21 21:00 09/09/21 08:45 Dextrose IV CONT 0 mls/hr .Q10H RICARDO Infusion Dextrose 1,000 mls @ 50 mls/hr 09/08/21 09:58 Dextrose 10% IV CONT .Q20H PRN if PN is interrupted Multivitamins
[2021-09-09 12:41] LABS: Glucose Point of Care 129 mg/dl (65-105)
[2021-09-09] MEDS: DEXTROSE 5%/0.45% SOD CHL 1,000 ML 65 ML IV CONT (13:13)
[2021-09-09] MEDS: BISACODYL 10 MG SUPPOSITORY RECTAL (13:27)
[2021-09-09 13:37] LABS: Hematocrit 24.6 % (42.0-52.0)
[2021-09-09] MEDS: AMINO ACIDS 5%/D15W/E-LYTES/CA 2,000 ML with MULTIVITAMINS-12 INJ VIAL 1 2.5 ML, MULTIV... 40 ML IV CONT (14:30)
[2021-09-09] MEDS: FAT EMULSIONS IV 20% 250 ML 20.83 ML IVPB (14:31)
--- NOTE | 2021-09-09 15:42 | PM.PNGS ---
Progress Note: A&P Assessment and Plan (1) Acute gastrointestinal ulcer with perforation: Code(s): K28.1 - Acute gastrojejunal ulcer with perforation Status: Acute Assessment and Plan: Repeat CT scan of the abdomen/pelvis on 09/07 showed small volume pneumoperitoneum likely secondary to perforated gastric ulcer. No peritoneal signs. Continue conservative treatment d/t co-morbidities and cardiac work-up since patient is stable. He seems to be improving. Continue IV antibiotics, NG tube, bowel rest, and TPN/Clinimix. Will adjust IV pain medication, but if adding IV Ofirmev to alternate with Dilaudid does not help, then we could consider switching to Fentanyl. No NSAIDS. Continue Protonix drip and sucralfate. Will order Gastrografin upper GI tomorrow to further evaluate for any extravasation of the contrast. (2) Abnormal CT scan: Code(s): R93.89 - Abnormal findings on diagnostic imaging of other specified body structures Status: Acute Assessment and Plan: Free air noted on repeat CT scan on 09/07/21, suspect this is a perforated gastric ulcer. See plan above. (3) Enteritis: Code(s): K52.9 - Noninfective gastroenteritis and colitis, unspecified Status: Acute Assessment and Plan: Suggested on CT. Currently on IV antibiotics for #1 above. Continue to monitor. (4) Fracture of femoral neck, left: Code(s): S72.002A - Fracture of unspecified part of neck of left femur, initial encounter for closed fracture Status: Acute (5) History of left above knee amputation: Code(s): Z89.612 - Acquired absence of left leg above knee Status: Acute Plan I have discussed the patient's case and plan of care with Dr. Hurtado. Subjective Subjective Date/Time Seen: 09/09/21 11:42 Patient reports: no new complaints, still having pain, flatus and afebrile Interval history: This is a 60-year-old male with a history of tobacco abuse and left AKA, who presented to the ER for evaluation of atraumatic right hip pain. He also has a history of significant NSAID use. CT of the abdomen and pelvis suggested enterocolitis, esophagitis, and other chronic findings. He was admitted and evaluated by Ortho. He was also found to have elevated troponins and has been evaluated by Cardiology. He was complaining of abdominal pain and labs showed an increase in his lactic acid to 4.9. He subsequently had a repeat CT scan of the abdomen and pelvis 2 days ago, which showed new development of moderate volume ascites and small volume pneumoperitoneum concerning for bowel perforation. He is being treated conservatively and is currently on TPN and IV antibiotics with bowel rest. Chart reviewed. Patient seen and examined. He reports feeling about the same today. He still complains of abdominal pain across the entire upper abdomen. He feels his pain is not controlled with IV Dilaudid. He is passing gas today but has not had a BM since admission. He denies any nausea. NG had 800 cc output from overnight last night. Review of Systems Review of Systems: All systems reviewed & are unremarkable except as noted in HPI and below Exam Const: General: comfortable and awake Orientation/consciousness: patient oriented x3 GI: Inspection: non-distended GI Palp: Yes Soft to palpation, Yes Tenderness to palpation present (GI) (across upper abdomen), No Guarding due to palpation present (GI) and No Rebound tenderness present Auscultation: Hypoactive bowel sounds present Neuro: General: moves all extremities and no focal motor deficits Extrem: General: other (left AKA) Psych: Mental Status: mental status grossly normal Insight: Good insight present (Psych) Objective Data Vital Signs Vital Signs: Vital Signs - 24 hr 09/08/21 16:00 09/08/21 22:00 09/08/21 20:00 Temperature 98.4 F Pulse Rate 86 87 92 Respiratory Rate 17 Blood Pressure 149/61 H Pulse Oximetry 96 Oxygen Delivery
[2021-09-09 18:49] LABS: Glucose Point of Care 149 mg/dl (65-105)
[2021-09-10] VITALS (9 sets, daily range): BP systolic 159–174; BP diastolic 68–83; PULSE 69–116; RESP 18; TEMP 35.6–36.4; O2SAT 97–99
[2021-09-10] MEDS: HYDROmorphone HCL INJ (*CRX) 1 MG/ML SYR IV PUSH ×8 (00:05→15:08)
[2021-09-10] MEDS: SUCRALFATE SUSP 100 MG/ML 10 ML UDC 1000 MG FEED TUBE ×3 (00:25→18:28)
[2021-09-10 02:05] LABS: Glucose Point of Care 129 mg/dl (65-105)
[2021-09-10 06:11] LABS: Glucose Point of Care 134 mg/dl (65-105)
[2021-09-10 06:29] LABS: Hematocrit 26.5 % (42.0-52.0); Hemoglobin 9.5 g/dL (14.0-18.0); Mean Corpuscular HGB Conc 35.8 g/dl (32-36); Mean Corpuscular Hemoglobin 28.8 pg (26-34); Mean Corpuscular Volume 80.3 fl (80-100); Mean Platelet Volume 9.8 fl (7.4-10.4); Platelet Count Result 448 k/mm3 (150-375); Red Cell Distribution Width 15.7 % (11.5-14.5); White Blood Count 13.3 K/mm3 (4.5-10.0)
[2021-09-10 06:43] LABS: Anion Gap 8 mmol/L (8-16); Blood Urea Nitrogen 6 mg/dL (9-20); Calcium 8.9 mg/dL (8.4-10.2); Carbon Dioxide 25 mmol/L (22-30); Chloride 101 mmol/L (98-107); Estimated CRCL calculation 84 ml/min; Estimated Glomerular Filt Rate > 60; Glucose 130 mg/dL (65-110); Phosphorus 1.8 mg/dL (2.5-4.5); Potassium < 2.0 mmol/L (3.4-5.0); Sodium 134 mmol/L (137-145)
[2021-09-10] MEDS: lisinopriL 10 MG TABLET PO (08:09)
[2021-09-10] MEDS: KCL 40 MEQ/WATER 100 ML 100 ML 25 ML IVPB ×2 (08:11→16:13)
[2021-09-10 08:20] LABS: Magnesium 1.8 mg/dL (1.6-2.3); Potassium 5.5 mmol/L (3.4-5.0)
[2021-09-10 10:25] LABS: Potassium 6.2 mmol/L (3.4-5.0)
[2021-09-10] MEDS: DEXTROSE 5%/0.45% SOD CHL 1,000 ML 65 ML IV CONT (10:36)
[2021-09-10] MEDS: INSULIN ASPART (*BKC) 100 UNITS/ML SUB-Q (10:56)
[2021-09-10 11:26] LABS: Glucose Point of Care 144 mg/dl (65-105)
--- NOTE | 2021-09-10 12:25 | PCNFU ---
Nutrition Follow-Up Complete: Inadequate po intake related to altered GI function as evidenced by need for TPN for nutrition support. Goal: Meet at least 60-80% of nutritional needs via TPN Limited progress towards goal. We will continue current goal. Pt current nutrition is TPN. Last recorded weight is 54.7 kg, down from 58.7 kg on admit. Bowel Motility: +BM report 09/09 Labs Reviewed:Na 134, K 5.5,BUN 6, Glu 130, Hgb 9.5,Hct 26.5 Meds Noted:Dextrose 5%, Clinimix 5/15 at 40 ml/hr with 250 ml of 20% Lipid Emulsion, Dilaudid, Prinivil. Skin: WNL Additional Notes: Patient TPN is hold at at this time, elevated K. Upper GI today, reporting leak. Plans for TPN to restart in 2 hours, which will provide 1182 kcals/48 gms protein, meeting 66% of kcal needs and 81% protein needs. Will continue to monitor fluids, Na 134 today. Monitor TPN, wt, labs. Follow up every Thursday and Thursday.
--- NOTE | 2021-09-10 12:42 | WPDGIPROGNO ---
Progress Note: A&P Assessment and Plan (1) Acute gastrointestinal ulcer with perforation: Code(s): K28.1 - Acute gastrojejunal ulcer with perforation Status: Acute Assessment and Plan: Patient appears to have a perforation in the stomach. Suspect peptic ulcer disease. NG tube to compression persists. His white count has remained at 13 today. Hemoglobin declined to 9.5 and has remained stable in this range. Suspect he will need surgical therapy for this perforation the stomach presumed be peptic ulcer. (2) Anemia: Code(s): D64.9 - Anemia, unspecified Status: Acute Assessment and Plan: Anemia identified currently stable at 9.5. Suspect bleeding from peptic ulcer. Patient now on PPI therapy. NG tube decompression. Surgical service following. (3) History of left above knee amputation: Code(s): Z89.612 - Acquired absence of left leg above knee Status: Acute (4) Fracture of femoral neck, left: Code(s): S72.002A - Fracture of unspecified part of neck of left femur, initial encounter for closed fracture Status: Acute Subjective Date/time seen: 09/10/21 12:42 Patient remains tender in the upper abdomen. Gastrografin upper GI today suggest perforation in the body of the stomach suspect ulcer disease. Review of Systems Review of Systems: Review of systems noncontributory. Exam Narrative: Patient alert sitting in bed. States pain persists but has been less. Vital signs stable. He remains afebrile. Lungs are clear. Heart without murmur. Abdomen is soft. Bowel sounds do appear present. No localized tenderness. Objective Data Vital Signs Vital Signs: Vital Signs - 24 hr 09/09/21 14:00 09/09/21 16:00 09/09/21 22:00 Temperature 97.5 F L 97.4 F L Pulse Rate 74 107 H 90 Respiratory Rate 16 18 Blood Pressure 175/80 H 175/68 H Pulse Oximetry 97 98 Oxygen Delivery 09/09/21 20:00 09/10/21 00:00 09/10/21 04:00 Temperature Pulse Rate 93 90 69 Respiratory Rate Blood Pressure Pulse Oximetry Oxygen Delivery 09/10/21 06:00 09/10/21 07:30 09/10/21 07:30 Temperature 97.5 F L Pulse Rate 76 89 Respiratory Rate 18 Blood Pressure 174/78 H Pulse Oximetry 99 Oxygen Delivery Room Air Intake/Output Intake/Output: Intake & Output 09/07/21 09/08/21 09/09/21 09/10/21 23:59 23:59 23:59 23:59 Intake Total 1840 2850 4455 1860 Output Total 1200 1700 1800 1725 Balance 640 1150 2655 135 Meds/Results Medications: Active Medications Generic Name Dose Route Start Last Admin Trade Name Freq PRN Reason Stop Dose Admin Benzocaine 1 lozenge 09/07/21 22:27 Benzocaine/Menthol (*Bkc) 18 Ea Lozenge PO PRN PRN Sore Throat Bisacodyl 10 mg 09/07/21 22:27 Bisacodyl 10 Mg Suppository RECTAL QAM PRN Constipation Hydromorphone HCl 1 mg 09/06/21 09:47 09/10/21 12:31 Hydromorphone Hcl Inj (*Crx) 1 Mg/Ml Syr IV PUSH 1 mg Q2H PRN Administration Pain Rated 7-10 Cefepime HCl 1 gm in 50 mls @ 100 mls/hr 09/06/21 00:00 09/10/21 12:33 Maxipime 1 Gm/D5w 50 Ml IVPB 100 mls/hr Q12H RICARDO Administration Dextrose/Sodium Chloride 1,000 mls @ 65 mls/hr 09/07/21 04:30 09/10/21 10:36 Dextrose 5% Sodium Chloride 0.45% IV CONT 65 mls/hr .[id number] RICARDO Administration Pantoprazole Sodium 80 mg/ 500 mls @ 50 mls/hr 09/07/21 21:00 09/10/21 10:36 Dextrose IV CONT 50 mls/hr .Q10H RICARDO Administration Dextrose 1,000 mls @ 50 mls/hr 09/08/21 09:58 Dextrose 10% IV CONT .Q20H PRN if PN is interrupted Multivitamins 2.5 ml/ 2,005 mls @ 0 mls/hr 09/08/21 14:00 09/10/21 10:56 Multivitamins 2.5 ml/ Amino IV CONT 0 mls/hr Acids/Electrolytes/Dextrose .Q0M RICARDO Infusion Protocol Fat Emulsion Intravenous 250 mls @ 20.833 mls/hr 09/08/21 14:00 09/10/21 02:32 Lipids 20% IVPB Infused Q24H RICARDO Infusion Lisinopril 10 mg 09/05/21 13:30 08/23
--- NOTE | 2021-09-10 13:34 | PM.IMPN ---
Progress Note: A&P Assessment and Plan (1) Acute hypokalemia: Code(s): E87.6 - Hypokalemia Status: Acute Assessment and Plan: This is been replaced. Hyperkalemia noted now. I will recheck electrolytes after holding TPN which had some potassium in it. No additional potassium supplements have been given. Monitor. (2) Hypertension: Code(s): I10 - Essential (primary) hypertension Status: Acute Assessment and Plan: Monitor. (3) Fracture of femoral neck, left: Code(s): S72.002A - Fracture of unspecified part of neck of left femur, initial encounter for closed fracture Status: Acute Assessment and Plan: Status post repair. (4) History of left above knee amputation: Code(s): Z89.612 - Acquired absence of left leg above knee Status: Acute Assessment and Plan: Chronic (5) Right hip pain: Code(s): M25.551 - Pain in right hip Status: Acute Assessment and Plan: Improved (6) Non-STEMI (non-ST elevated myocardial infarction): Code(s): I21.4 - Non-ST elevation (NSTEMI) myocardial infarction Status: Acute Assessment and Plan: Cardiology consult. Mild bump in troponin. Atypical chest pain. (7) Intra-abdominal free air of unknown etiology: Code(s): K66.8 - Other specified disorders of peritoneum Status: Acute Assessment and Plan: Question related to gastric ulcer Recent NSAID use. Surgery Consult appreciated. Recommended conservative therapy at this time with NPO. NG tube ileus. Patient has poor surgical candidate Continue PPI. Monitor labs. Continue TPN, currently being held to get electrolytes figured out. (8) Anemia: Code(s): D64.9 - Anemia, unspecified Status: Acute Assessment and Plan: Monitor q.6h date. Questionably related to ulceration. Subjective Date/time seen: 09/10/21 13:34 Hyperkalemia noted. Initial lab values showed hypok. Denies any new complaints. Reports he feels better. Exam Narrative: General: alert and oriented Psych: appropriate mood nad affect Eyes: PERRLA Neck: Trachea midline, no new lesions Skin: no changes Lungs: CTA Cardiac: Normal S1,S2, no MGR ABD: soft, nd, nt, nbs Ext: no new lesions, no cce Vasc: Pulses intact Objective Data Vital Signs Vital Signs: Vital Signs - 24 hr 09/09/21 14:00 09/09/21 16:00 09/09/21 22:00 Temperature 97.5 F L 97.4 F L Pulse Rate 74 107 H 90 Respiratory Rate 16 18 Blood Pressure 175/80 H 175/68 H Pulse Oximetry 97 98 Oxygen Delivery 09/09/21 20:00 09/10/21 00:00 09/10/21 04:00 Temperature Pulse Rate 93 90 69 Respiratory Rate Blood Pressure Pulse Oximetry Oxygen Delivery 09/10/21 06:00 09/10/21 07:30 09/10/21 07:30 Temperature 97.5 F L Pulse Rate 76 89 Respiratory Rate 18 Blood Pressure 174/78 H Pulse Oximetry 99 Oxygen Delivery Room Air Intake/Output Intake/Output: Intake & Output 09/07/21 09/08/21 09/09/21 09/10/21 23:59 23:59 23:59 23:59 Intake Total 1840 2850 4455 1860 Output Total 1200 1700 1800 1725 Balance 640 1150 2655 135 Meds/Results Medications: Active Medications Generic Name Dose Route Start Last Admin Trade Name Freq PRN Reason Stop Dose Admin Benzocaine 1 lozenge 09/07/21 22:27 Benzocaine/Menthol (*Bkc) 18 Ea Lozenge PO PRN PRN Sore Throat Bisacodyl 10 mg 09/07/21 22:27 Bisacodyl 10 Mg Suppository RECTAL QAM PRN Constipation Hydromorphone HCl 1 mg 09/06/21 09:47 09/10/21 12:31 Hydromorphone Hcl Inj (*Crx) 1 Mg/Ml Syr IV PUSH 1 mg Q2H PRN Administration Pain Rated 7-10 Cefepime HCl 1 gm in 50 mls @ 100 mls/hr 09/06/21 00:00 09/10/21 12:33 Maxipime 1 Gm/D5w 50 Ml IVPB 100 mls/hr Q12H RICARDO Administration Dextrose/Sodium Chloride 1,000 mls @ 65 mls/hr 09/07/21 04:30 09/10/21 10:36 Dextrose 5% Sodium Chloride 0.45% IV CONT 65 mls/hr .Q15
[2021-09-10 13:36] LABS: Potassium < 2.0 mmol/L (3.4-5.0)
[2021-09-10 14:44] LABS: Potassium < 2.0 mmol/L (3.4-5.0)
--- NOTE | 2021-09-10 15:07 | PM.PNGS ---
Progress Note: A&P Assessment and Plan (1) Acute gastrointestinal ulcer with perforation: Code(s): K28.1 - Acute gastrojejunal ulcer with perforation Status: Acute Assessment and Plan: Gastrografin upper GI showed extravasation at the gastric antrum superiorly. Patient remains stable, hgb stable with no signs of active bleeding, still no peritoneal signs. Given his co-morbidities, we will try another few days of conservative treatment and consider repeating the Gastrografin upper GI in the next few days. If he begins to decline, then we can consider adjusting treatment accordingly. Will adjust his IV pain medication to Fentanyl and Tylenol to see if his pain is better controlled with this. No NSAIDs. Continue IV antibiotics, NG tube, bowel rest, and TPN/Clinimix. WBC up slightly to 13K today, he is afebrile. Will add IV micafungin for antifungal coverage since this is a gastric perforation. If leukocytosis worsens or becomes febrile, could also consider repeating a CT abdomen/pelvis to evaluate for fluid collections/abscess. Continue Protonix drip and sucralfate. (2) Enteritis: Code(s): K52.9 - Noninfective gastroenteritis and colitis, unspecified Status: Acute Assessment and Plan: Suggested on CT. Currently on IV antibiotics for #1 above. No diarrhea. Continue to monitor. (3) Fracture of femoral neck, left: Code(s): S72.002A - Fracture of unspecified part of neck of left femur, initial encounter for closed fracture Status: Acute (4) History of left above knee amputation: Code(s): Z89.612 - Acquired absence of left leg above knee Status: Acute Plan I have discussed the patient's case and plan of care with Dr. Hurtado. Additional Plan Per the patient and family's request, I did call his , Eugenia, today and speak with her regarding his plan of care. All questions were answered. Subjective Subjective Date/Time Seen: 09/10/21 15:07 Patient reports: no new complaints, still having pain (Mostly right-sided pain that he feels is worse at night), flatus, no bowel movement, bowel movement (formed BM this morning, denies any bloody or dark stools) and afebrile Interval history: Patient seen and examined today. He reports feeling about the same as yesterday. Again had a rough night with having right-sided abdominal pain that he still feels is not controlled with the Dilaudid and IV Tylenol. He had a hard time sleeping due to the pain. He denies any nausea. His NG tube was pulled back earlier this morning and had to be readvanced. He then had an upper GI this morning. Per nursing, they have also been working with the hospitalist regarding hypokalemia and hyperkalemia throughout the day. Review of Systems Review of Systems: All systems reviewed & are unremarkable except as noted in HPI and below Exam Const: General: comfortable, no acute distress and awake Orientation/consciousness: patient oriented x3 GI: Inspection: non-distended GI Palp: Yes Soft to palpation, Yes Tenderness to palpation present (GI) (RUQ, RLQ), No Guarding due to palpation present (GI) and No Rebound tenderness present Auscultation: Hypoactive bowel sounds present Skin: General skin exam: normal color Neuro: General: moves all extremities and no focal motor deficits Extrem: General: no edema and other (left AKA) Psych: Mental Status: mental status grossly normal Insight: Good insight present (Psych) Objective Data Vital Signs Vital Signs: Vital Signs - 24 hr 09/09/21 16:00 09/09/21 22:00 09/09/21 20:00 Temperature 97.4 F L Pulse Rate 107 H 90 93 Respiratory Rate 18 Blood Pressure 175/68 H Pulse Oximetry 98 Oxygen Delivery 09/10/21 00:00 09/10/21 04:00 09/10/21 06:00 Temperature 97.5 F L Pulse Rate 90 69 76 Respiratory Rate 18 Blood Pressure 174/78 H Pulse Oximetry 99 Oxygen Delivery 09/10/21 07:30 09/10/21 07:30 09/10/21 14:00 Temperature 96.0
[2021-09-10] MEDS: AMINO ACIDS 5%/D15W/E-LYTES/CA 2,000 ML with MULTIVITAMINS-12 INJ VIAL 1 2.5 ML, MULTIV... 40 ML IV CONT (15:21)
[2021-09-10] MEDS: FAT EMULSIONS IV 20% 250 ML 20.83 ML IVPB (15:27)
[2021-09-10 17:58] LABS: Glucose Point of Care 109 mg/dl (65-105)
[2021-09-10] MEDS: fentaNYL CITRATE INJ (*CRX) 100 MCG/2 ML VIAL 12.5 MCG IV PUSH (18:28)
[2021-09-10] MEDS: MICAFUNGIN SODIUM 100 MG in SODIUM CHLORIDE 0.9% IV 100 ML IVPB (21:27)
[2021-09-10] MEDS: fentaNYL CITRATE INJ (*CRX) 100 MCG/2 ML VIAL 25 MCG IV PUSH (22:08)
[2021-09-10 23:56] LABS: Potassium < 2.0 mmol/L (3.4-5.0)
[2021-09-11] VITALS (10 sets, daily range): BP systolic 152–181; BP diastolic 75–85; PULSE 69–121; RESP 16–18; TEMP 35.8–36.3; O2SAT 98–100
[2021-09-11] MEDS: MAGNESIUM SULF 2 GM/WATER 50ML 2 GM/50 ML BAG IVPB (00:42)
[2021-09-11] MEDS: POTASSIUM PHOS,M-BASIC-D-BASIC 40 MMOL in SODIUM CHLORIDE 0.9% IV 250 ML 43.89 MMOL IVPB (00:51)
[2021-09-11 01:16] LABS: Glucose Point of Care 188 mg/dl (65-105)
--- NOTE | 2021-09-11 04:22 | PC.NURSE ---
Dr. Alegre notified after potassium lab resulted. K-Phos ordered, and per verbal conversation await K-Phos to finish before drawing a.m. labs.
[2021-09-11] MEDS: fentaNYL CITRATE INJ (*CRX) 100 MCG/2 ML VIAL 25 MCG IV PUSH ×3 (04:44→12:58)
[2021-09-11] MEDS: SUCRALFATE SUSP 100 MG/ML 10 ML UDC 1000 MG FEED TUBE ×3 (06:19→17:15)
[2021-09-11 08:00] LABS: Anion Gap 7 mmol/L (8-16); Blood Urea Nitrogen 9 mg/dL (9-20); Calcium 8.7 mg/dL (8.4-10.2); Carbon Dioxide 27 mmol/L (22-30); Chloride 100 mmol/L (98-107); Estimated CRCL calculation 84 ml/min; Estimated Glomerular Filt Rate > 60; Glucose 130 mg/dL (65-110); Phosphorus 5.4 mg/dL (2.5-4.5); Potassium 4.1 mmol/L (3.4-5.0); Sodium 134 mmol/L (137-145)
[2021-09-11] MEDS: DEXTROSE 5%/0.45% SOD CHL 1,000 ML 65 ML IV CONT (08:14)
[2021-09-11] MEDS: ONDANSETRON INJ 4 MG/2 ML VIAL IV PUSH ×2 (09:10→17:08)
[2021-09-11 09:44] LABS: Triglycerides 187 mg/dL (<150)
[2021-09-11 11:46] LABS: Glucose Point of Care 175 mg/dl (65-105)
[2021-09-11] MEDS: FAT EMULSIONS IV 20% 250 ML 20.83 ML IVPB (14:29)
[2021-09-11] MEDS: AMINO ACIDS 5%/D15W/E-LYTES/CA 2,000 ML with MULTIVITAMINS-12 INJ VIAL 1 2.5 ML, MULTIV... 40 ML IV CONT (14:30)
--- NOTE | 2021-09-11 16:40 | PM.IMPN ---
Progress Note: A&P Assessment and Plan (1) Anemia: Code(s): D64.9 - Anemia, unspecified Status: Acute (2) Intra-abdominal free air of unknown etiology: Code(s): K66.8 - Other specified disorders of peritoneum Status: Acute (3) Non-STEMI (non-ST elevated myocardial infarction): Code(s): I21.4 - Non-ST elevation (NSTEMI) myocardial infarction Status: Acute (4) Acute gastrointestinal ulcer with perforation: Code(s): K28.1 - Acute gastrojejunal ulcer with perforation Status: Acute (5) Abnormal CT scan: Code(s): R93.89 - Abnormal findings on diagnostic imaging of other specified body structures Status: Acute (6) Fracture of femoral neck, left: Code(s): S72.002A - Fracture of unspecified part of neck of left femur, initial encounter for closed fracture Status: Acute Plan ?60-year-old male with a history of hypertension,recurrent MRSA infection, left AKA, and recent left hip fracture following a fall downstairs approximately 6 weeks ago, who presents to the emergency department for evaluation of atraumatic right hip pain 1)Acute gastrointestinal Ulcer with Perforation: Appreciate Surgery help C/w NG tube Pain uncontrolled with fentanyl Switch to diluadid c/w cefepime Micafungin as per surgery NPO status c/w PPI c/w Sucralfate Slowly worsening leucocytosis, will monitor c/w TPN 2)Chest Pain: Resolved Appreciate cardiology help No intervention needed 3)HTN:C/w lisinopril 4)DVT ppx: SCD 4)Code:Full, guarded prognosis 6)Dispo:pending improvement Time Spent With Patient Time with patient: 15 - 25 minutes Subjective Date/time seen: 09/11/21 16:40 Interval history: continues to have abdominal pain Review of Systems Constitutional: Constitutional: Reports fatigue, Reports lethargy and Reports weakness Eyes: Eyes: Reports no additional eye complaints ENT: Reports system reviewed and no additional complaints, except as documented Cardiovascular: Cardiovascular: Reports no additional cardiovascular complaints Respiratory: Respiratory: Reports no additional respiratory complaints Gastrointestinal: Gastrointestinal: Reports abdominal pain Neurologic: Reports system reviewed and no additional complaints, except as documented Exam Const: General: in distress and uncomfortable HENMT: Mouth: Yes moist mucous membranes Eyes: Sclera: sclerae normal Neck: Neck: supple Resp: Auscultation: diminished lung sounds Cardio: Rate: regular rate Rhythm: regular rhythm GI: GI Palp: Yes Firmness to palpation present (GI), Yes Tenderness to palpation present (GI) and Yes Guarding due to palpation present (GI) Psych: Mental Status: mental status grossly normal Objective Data Vital Signs Vital Signs: Vital Signs - 24 hr 09/10/21 22:00 09/10/21 20:00 09/10/21 20:00 Temperature 97.2 F L Pulse Rate 84 81 Respiratory Rate 18 Blood Pressure 159/83 H Pulse Oximetry 97 Oxygen Delivery Room Air 09/11/21 00:00 09/11/21 05:48 09/11/21 04:00 Temperature 96.5 F L Pulse Rate 78 77 69 Respiratory Rate 18 Blood Pressure 181/80 H Pulse Oximetry 99 Oxygen Delivery 09/11/21 08:00 09/11/21 08:00 09/11/21 12:00 Temperature Pulse Rate 82 93 Respiratory Rate Blood Pressure Pulse Oximetry Oxygen Delivery Room Air 09/11/21 14:00 Temperature 97.4 F L Pulse Rate 78 Respiratory Rate 16 Blood Pressure 152/85 H Pulse Oximetry 99 Oxygen Delivery Intake/Output Intake/Output: Intake & Output 09/08/21 09/09/21 09/10/21 09/11/21 23:59 23:59 23:59 23:59 Intake Total 2850 4455 4415 4155 Output Total 1700 1800 2425 2400 Balance 1150 2655 1990 1755 Meds/Results Medications: Active Medications Generic Name Dose Route Start Last Admin Trade Name Freq PRN Reason Stop Dose Admin Benzocaine 1 lozenge 09/07/21 22:27 Benzocaine/Menthol (*Bkc) 18 Ea Lozenge PO PRN PRN
[2021-09-11 16:44] LABS: Hematocrit 29.5 % (42.0-52.0); Hemoglobin 10.2 g/dL (14.0-18.0); Mean Corpuscular HGB Conc 34.6 g/dl (32-36); Mean Corpuscular Hemoglobin 28.6 pg (26-34); Mean Corpuscular Volume 82.6 fl (80-100); Mean Platelet Volume 10.3 fl (7.4-10.4); Platelet Count Result 594 k/mm3 (150-375); Red Blood Count 3.57 M/mm3 (4.6-6.20); Red Cell Distribution Width 16.4 % (11.5-14.5); White Blood Count 15.8 K/mm3 (4.5-10.0)
[2021-09-11] MEDS: HYDROmorphone HCL INJ (*CRX) 1 MG/ML SYR IV PUSH ×3 (16:59→23:17)
[2021-09-11] MEDS: MICAFUNGIN SODIUM 100 MG in SODIUM CHLORIDE 0.9% IV 100 ML IVPB (16:59)
--- NOTE | 2021-09-11 16:59 | PM.PNGS ---
Progress Note: A&P Assessment and Plan (1) Acute gastrointestinal ulcer with perforation: Code(s): K28.1 - Acute gastrojejunal ulcer with perforation Status: Acute Assessment and Plan: Gastrografin upper GI yesterday showed extravasation at the gastric antrum superiorly. Patient remains stable, hgb stable with no signs of active bleeding, still no peritoneal signs. Given his co-morbidities, we have continued conservative treatment. This afternoon, he has some bloody output from the NG tube. Continue Protonix. Will repeat an H and H tonight and again in the morning. He is hemodynamically stable at this time. He is still having issues with pain control regardless of switching his IV pain medication multiple times. I have asked the nurse to consult with the hospitalist regarding adjusting his pain medication for better control. Continue IV antibiotics/Micafungin, NG tube, bowel rest, and TPN/Clinimix. WBC up again today to 15,000. Discussed with Dr. Hurtado who will consider adding a CT scan in the morning if he feels appropriate. Continue Protonix drip and sucralfate. (2) Enteritis: Code(s): K52.9 - Noninfective gastroenteritis and colitis, unspecified Status: Acute Assessment and Plan: Suggested on CT. Currently on IV antibiotics for #1 above. No diarrhea. Continue to monitor. (3) Fracture of femoral neck, left: Code(s): S72.002A - Fracture of unspecified part of neck of left femur, initial encounter for closed fracture Status: Acute (4) History of left above knee amputation: Code(s): Z89.612 - Acquired absence of left leg above knee Status: Acute Plan I have discussed the patient's case and plan of care with Dr. Hurtado. Subjective Subjective Date/Time Seen: 09/11/21 16:59 Patient reports: no new complaints, still having pain, flatus, bowel movement and afebrile Interval history: Patient seen and examined. Still his main complaint is his right-sided abdominal pain, which he feels is unchanged. He denies it being any worse, but still feels like it is not controlled with the IV fentanyl and Tylenol. He denies any nausea or any other new complaints. He has not gone up to the chair today or yesterday. He reports flatus and BM today. No other complaints at this time. I noted that his NG tube output in the tubing is bright red at this time, nursing was called into the room and states this has not been like this throughout the day. Review of Systems Review of Systems: All systems reviewed & are unremarkable except as noted in HPI and below Exam Const: General: comfortable, no acute distress and awake Orientation/consciousness: patient oriented x3 GI: Inspection: non-distended GI Palp: Yes Soft to palpation, Yes Tenderness to palpation present (GI) (Across upper abdomen), No Guarding due to palpation present (GI) and No Rebound tenderness present Auscultation: Hypoactive bowel sounds present Neuro: General: moves all extremities and no focal motor deficits Extrem: General: no edema and other (left AKA) Psych: Mental Status: mental status grossly normal Insight: Good insight present (Psych) Objective Data Vital Signs Vital Signs: Vital Signs - 24 hr 09/10/21 22:00 09/10/21 20:00 09/10/21 20:00 Temperature 97.2 F L Pulse Rate 84 81 Respiratory Rate 18 Blood Pressure 159/83 H Pulse Oximetry 97 Oxygen Delivery Room Air 09/11/21 00:00 09/11/21 05:48 09/11/21 04:00 Temperature 96.5 F L Pulse Rate 78 77 69 Respiratory Rate 18 Blood Pressure 181/80 H Pulse Oximetry 99 Oxygen Delivery 09/11/21 08:00 09/11/21 08:00 09/11/21 12:00 Temperature Pulse Rate 82 93 Respiratory Rate Blood Pressure Pulse Oximetry Oxygen Delivery Room Air 09/11/21 14:00 Temperature 97.4 F L Pulse Rate 78 Respiratory Rate 16 Blood Pressure 152/85 H Pulse Oximetry 99 Oxygen Delivery Intake/Output Intake/Output:
[2021-09-11 17:39] LABS: Glucose Point of Care 156 mg/dl (65-105)
[2021-09-12] VITALS (12 sets, daily range): BP systolic 138–180; BP diastolic 63–81; PULSE 65–105; RESP 16–18; TEMP 36.2–36.3; O2SAT 98–100
[2021-09-12] MEDS: ONDANSETRON INJ 4 MG/2 ML VIAL IV PUSH ×3 (00:34→18:02)
[2021-09-12 00:41] LABS: Hematocrit 26.6 % (42.0-52.0); Hemoglobin 9.2 g/dL (14.0-18.0)
[2021-09-12] MEDS: HYDROmorphone HCL INJ (*CRX) 1 MG/ML SYR IV PUSH ×8 (02:27→22:41)
[2021-09-12] MEDS: DEXTROSE 5%/0.45% SOD CHL 1,000 ML 65 ML IV CONT ×2 (02:28→17:54)
[2021-09-12 06:03] LABS: Basophils Absolute Auto 0.1 K/mm3 (0.0-0.1); Basophils Percent Auto 0.4 % (0.2-1.2); Eosinophils Absolute Auto 0.3 K/mm3 (0-0.3); Eosinophils Percent Auto 2.2 % (0-4.4); Hematocrit 27.6 % (42.0-52.0); Hemoglobin 9.9 g/dL (14.0-18.0); Immature Granulocyte Percent A 1.3 % (0-0.5); Lymphocytes Absolute Auto 1.28 K/mm3 (0.9-3.2); Lymphocytes Percent Auto 8.2 % (18.3-44.2); Mean Corpuscular HGB Conc 35.9 g/dl (32-36); Mean Corpuscular Hemoglobin 28.9 pg (26-34); Mean Corpuscular Volume 80.5 fl (80-100); Mean Platelet Volume 9.9 fl (7.4-10.4); Monocytes Absolute Auto 1.7 K/mm3 (0.1-0.6); Monocytes Percent Auto 11.2 % (2.6-8.5); Neutrophils Absolute Auto 11.9 K/mm3 (1.3-6.7); Neutrophils Percent Auto 76.7 % (45.5-73.1); Platelet Count Result 551 k/mm3 (150-375); Red Blood Count 3.43 M/mm3 (4.6-6.20); Red Cell Distribution Width 16.3 % (11.5-14.5); White Blood Count 15.6 K/mm3 (4.5-10.0)
[2021-09-12 06:17] LABS: Alanine Aminotransferase 81 U/L (6-50); Albumin Level 2.9 g/dL (3.5-5.1); Alkaline Phosphatase 251 U/L (38-126); Anion Gap 6 mmol/L (8-16); Aspartate Amino Transferase 84 U/L (17-59); Bilirubin,Total 0.9 mg/dL (0.2-1.3); Blood Urea Nitrogen 11 mg/dL (9-20); Carbon Dioxide 27 mmol/L (22-30); Chloride 99 mmol/L (98-107); Estimated CRCL calculation 84 ml/min; Estimated Glomerular Filt Rate > 60; Glucose 123 mg/dL (65-110); Magnesium 2.1 mg/dL (1.6-2.3); Phosphorus 2.8 mg/dL (2.5-4.5); Potassium 3.6 mmol/L (3.4-5.0); Sodium 132 mmol/L (137-145)
[2021-09-12 11:35] LABS: Glucose Point of Care 131 mg/dl (65-105)
[2021-09-12] MEDS: SUCRALFATE SUSP 100 MG/ML 10 ML UDC 1000 MG FEED TUBE ×2 (12:00→18:03)
[2021-09-12] MEDS: PHENOL/SOD PHENO SPRAY CHERRY (*BKC) 1 SPRAY MUCOUS MEM (12:09)
--- NOTE | 2021-09-12 13:06 | WPDGIPROGNO ---
Progress Note: A&P Assessment and Plan (1) Acute gastrointestinal ulcer with perforation: Code(s): K28.1 - Acute gastrojejunal ulcer with perforation Status: Acute Assessment and Plan: Patient with recent perforation of stomach. Presumed to be ulcer disease. Mild decline in hemoglobin noted but now hemoglobin stable. Elevation of white count to 15.6 is essentially stable but has not yet normalized. There is concern over ongoing peritonitis. Agree with surgical plans for follow-up CT scan at some point. In the interim bowel rest with NG tube decompression and broad-spectrum antibiotics continue. He would be high risk for surgical expiration this time. Will keep patient on proton pump inhibitors. Carafate is extra may not be of any significant additional benefit. (2) History of left above knee amputation: Code(s): Z89.612 - Acquired absence of left leg above knee Status: Acute (3) Fracture of femoral neck, left: Code(s): S72.002A - Fracture of unspecified part of neck of left femur, initial encounter for closed fracture Status: Acute Subjective Date/time seen: 09/12/21 13:06 Patient alert and appears a comfortable this morning. According to nursing staff he rates pain fairly highly prior to receiving pain injections. He seems to be a somewhat difficult historian in may not consistently give a clear impression of his discomfort. Review of Systems Review of Systems: Review of systems noncontributory. Exam Narrative: Physical exam at the time my visit reveals him to be afebrile and anicteric. Lungs are clear. Heart without murmur. Abdomen remains soft. Bowel sounds are present. No significant tenderness about an hour and half after recent pain injection. No masses encountered. Objective Data Vital Signs Vital Signs: Vital Signs - 24 hr 09/11/21 14:00 09/11/21 17:28 09/11/21 16:00 Temperature 97.4 F L Pulse Rate 78 121 H Respiratory Rate 16 Blood Pressure 152/85 H Pulse Oximetry 99 98 Oxygen Delivery Room Air 09/11/21 20:00 09/11/21 22:00 09/11/21 20:00 Temperature 97.3 F L Pulse Rate 75 77 Respiratory Rate 18 Blood Pressure 167/75 H Pulse Oximetry 100 Oxygen Delivery Room Air 09/12/21 00:00 09/12/21 04:55 09/12/21 06:00 Temperature 97.3 F L 97.4 F L Pulse Rate 65 79 Respiratory Rate 18 Blood Pressure 154/79 H Pulse Oximetry 100 Oxygen Delivery 09/12/21 04:00 09/12/21 08:00 Temperature Pulse Rate 80 88 Respiratory Rate Blood Pressure Pulse Oximetry Oxygen Delivery Intake/Output Intake/Output: Intake & Output 09/09/21 09/10/21 09/11/21 09/12/21 23:59 23:59 23:59 23:59 Intake Total 4455 4515 5655 3270 Output Total 1800 2425 2600 1100 Balance 2655 2090 3055 2170 Meds/Results Medications: Active Medications Generic Name Dose Route Start Last Admin Trade Name Freq PRN Reason Stop Dose Admin Benzocaine 1 lozenge 09/07/21 22:27 Benzocaine/Menthol (*Bkc) 18 Ea Lozenge PO PRN PRN Sore Throat Bisacodyl 10 mg 09/07/21 22:27 Bisacodyl 10 Mg Suppository RECTAL QAM PRN Constipation Hydralazine HCl 10 mg 09/12/21 12:54 Hydralazine Hcl 20 Mg/Ml Vial IV PUSH Q8H PRN Blood Pressure - High Hydromorphone HCl 0.5 mg 09/11/21 16:37 Hydromorphone Hcl Inj (*Crx) 1 Mg/Ml Syr IV PUSH Q3-4H PRN Pain Rated 4-6 Hydromorphone HCl 1 mg 09/11/21 16:37 09/12/21 11:50 Hydromorphone Hcl Inj (*Crx) 1 Mg/Ml Syr IV PUSH 1 mg Q3H PRN Administration Pain Rated 7-10 Cefepime HCl 1 gm in 50 mls @ 100 mls/hr 09/06/21 00:00 09/12/21 12:30 Maxipime 1 Gm/D5w 50 Ml IVPB Infused Q12H RICARDO Infusion Dextrose/Sodium Chloride 1,000 mls @ 65 mls/hr 09/07/21 04:30 09/12/21 02:28 Dextrose 5% Sodium Chloride 0.45% IV CONT 65 mls/hr .[id number] RICARDO Administration Pantoprazole Sodium 80 mg/ 500 mls @ 50 mls/hr 09/07/21 21:00 07
--- NOTE | 2021-09-12 14:07 | PCCCNOTE ---
On 09/12/21, the student, Jayashree Villagomez, provided care and completed [facility] documentation on this patient. I have reviewed the student's documentation and agree with the findings.
--- NOTE | 2021-09-12 14:36 | PM.PNGS ---
Progress Note: A&P Assessment and Plan (1) Acute gastrointestinal ulcer with perforation: Code(s): K28.1 - Acute gastrojejunal ulcer with perforation Status: Acute Assessment and Plan: Abdominal pain improving and his exam has improved some. WBC still at 15K today and he is afebrile. Discussed with Dr. Hurtado, will consider Gastrografin upper GI tomorrow depending on how he is doing. If he declines or WBC continues to trend up, then could consider repeat CT abd/pelvis. Continue NG tube, TPN, bowel rest, IV fluids, and analgesics as needed. NG tube was accidentally pulled back and I asked the nurse to readvance and get a KUB. No bloody drainage in the canister today from the NG. Continue IV antibiotics/Micafungin Continue Protonix drip and sucralfate Repeat labs tomorrow. (2) Enteritis: Code(s): K52.9 - Noninfective gastroenteritis and colitis, unspecified Status: Acute Assessment and Plan: Suggested on CT. Currently on IV antibiotics for #1 above. No diarrhea. Continue to monitor. (3) Fracture of femoral neck, left: Code(s): S72.002A - Fracture of unspecified part of neck of left femur, initial encounter for closed fracture Status: Acute (4) History of left above knee amputation: Code(s): Z89.612 - Acquired absence of left leg above knee Status: Acute Plan I have discussed the patient's case and plan of care with Dr. Hurtado. Subjective Subjective Date/Time Seen: 09/12/21 10:36 Patient reports: no new complaints, feels better, pain is less, flatus, bowel movement and afebrile Interval history: Patient seen and examined. He reports that today he is feeling some relief with his pain medication and feels that his overall pain has improved. He was able to get some sleep last night and was much more comfortable. During my exam, I could here the suction from his NG tube that sounded like it was coming from his mouth, and when i looked at the NG it was pulled almost all the way out of his nose. All tape was still intact, so the NG had pulled through the tape on his nose. He is unsure how this happened. Review of Systems Review of Systems: All systems reviewed & are unremarkable except as noted in HPI and below Exam Const: General: comfortable, no acute distress and awake Orientation/consciousness: patient oriented x3 GI: Inspection: normal to inspection and non-distended GI Palp: Yes Soft to palpation, Yes Tenderness to palpation present (GI) (across upper abdomen ), No Guarding due to palpation present (GI) and No Rebound tenderness present Auscultation: Hypoactive bowel sounds present Neuro: General: moves all extremities and no focal motor deficits Extrem: General: no edema and other (left AKA) Psych: Mental Status: mental status grossly normal Insight: Good insight present (Psych) Objective Data Vital Signs Vital Signs: Vital Signs - 24 hr 09/11/21 17:28 09/11/21 16:00 09/11/21 20:00 Temperature Pulse Rate 121 H Respiratory Rate Blood Pressure Pulse Oximetry 98 Oxygen Delivery Room Air Room Air 09/11/21 22:00 09/11/21 20:00 09/12/21 00:00 Temperature 97.3 F L Pulse Rate 75 77 65 Respiratory Rate 18 Blood Pressure 167/75 H Pulse Oximetry 100 Oxygen Delivery 09/12/21 04:55 09/12/21 06:00 09/12/21 04:00 Temperature 97.3 F L 97.4 F L Pulse Rate 79 80 Respiratory Rate 18 Blood Pressure 154/79 H Pulse Oximetry 100 Oxygen Delivery 09/12/21 08:00 09/12/21 12:00 Temperature Pulse Rate 88 105 H Respiratory Rate Blood Pressure Pulse Oximetry Oxygen Delivery Intake/Output Intake/Output: Intake & Output 09/09/21 09/10/21 09/11/21 09/12/21 23:59 23:59 23:59 23:59 Intake Total 8593 3795 5655 3270 Output Total 1800 2425 2600 1100 Balance 2655 2090 3055 2170 Meds/Results Medications: Active Medications Generic Name Dose Route Start Last Admin Trade Name Freq PRN R
[2021-09-12] MEDS: FAT EMULSIONS IV 20% 250 ML 20.83 ML IVPB (14:54)
[2021-09-12] MEDS: AMINO ACIDS 5%/D15W/E-LYTES/CA 2,000 ML with MULTIVITAMINS-12 INJ VIAL 1 2.5 ML, MULTIV... 40 ML IV CONT (14:54)
--- NOTE | 2021-09-12 14:54 | PM.IMPN ---
Progress Note: A&P Assessment and Plan (1) Anemia: Code(s): D64.9 - Anemia, unspecified Status: Acute (2) Intra-abdominal free air of unknown etiology: Code(s): K66.8 - Other specified disorders of peritoneum Status: Acute (3) Non-STEMI (non-ST elevated myocardial infarction): Code(s): I21.4 - Non-ST elevation (NSTEMI) myocardial infarction Status: Acute (4) Acute gastrointestinal ulcer with perforation: Code(s): K28.1 - Acute gastrojejunal ulcer with perforation Status: Acute (5) Abnormal CT scan: Code(s): R93.89 - Abnormal findings on diagnostic imaging of other specified body structures Status: Acute (6) Fracture of femoral neck, left: Code(s): S72.002A - Fracture of unspecified part of neck of left femur, initial encounter for closed fracture Status: Acute Plan ?60-year-old male with a history of hypertension,recurrent MRSA infection, left AKA, and recent left hip fracture following a fall downstairs approximately 6 weeks ago, who presents to the emergency department for evaluation of atraumatic right hip pain 1)Acute gastrointestinal Ulcer with Perforation: Appreciate Surgery help C/w NG tube Pain control with dilaudid c/w cefepime Micafungin as per surgery NPO status c/w PPI c/w Sucralfate Slowly worsening leucocytosis, will monitor c/w TPN Likely plan for Upper GI series vs CT abdomen tomorrow AM, will defer to surgery for final decision making 2)Chest Pain: Resolved Appreciate cardiology help No intervention needed 3)HTN: Add PRN IV hydralazine 4)Transaminitis: elevation in LFT noted Will trend LFT's 5)DVT ppx: SCD 6)Code:Full, guarded prognosis 7)Dispo:pending improvement Time Spent With Patient Time with patient: 15 - 25 minutes Subjective Date/time seen: 09/12/21 14:54 Interval history: abdominal pain slightly better today Review of Systems Constitutional: Constitutional: Reports fatigue and Reports weakness Eyes: Eyes: Reports no additional eye complaints ENT: Reports system reviewed and no additional complaints, except as documented Cardiovascular: Cardiovascular: Reports no additional cardiovascular complaints Respiratory: Respiratory: Reports no additional respiratory complaints Gastrointestinal: Gastrointestinal: Reports abdominal pain Neurologic: Reports system reviewed and no additional complaints, except as documented and Reports weakness Endocrine: Endocrine: Reports fatigue Exam Const: General: no acute distress HENMT: Mouth: Yes moist mucous membranes Eyes: Sclera: sclerae normal Neck: Neck: supple Resp: Auscultation: diminished lung sounds Cardio: Rate: regular rate Rhythm: regular rhythm GI: GI Palp: Yes Firmness to palpation present (GI) and Yes Tenderness to palpation present (GI) Auscultation: normal bowel sounds Other: no guarding or rigidity Psych: Mental Status: mental status grossly normal Objective Data Vital Signs Vital Signs: Vital Signs - 24 hr 09/11/21 17:28 09/11/21 16:00 09/11/21 20:00 Temperature Pulse Rate 121 H Respiratory Rate Blood Pressure Pulse Oximetry 98 Oxygen Delivery Room Air Room Air 09/11/21 22:00 09/11/21 20:00 09/12/21 00:00 Temperature 97.3 F L Pulse Rate 75 77 65 Respiratory Rate 18 Blood Pressure 167/75 H Pulse Oximetry 100 Oxygen Delivery 09/12/21 04:55 09/12/21 06:00 09/12/21 04:00 Temperature 97.3 F L 97.4 F L Pulse Rate 79 80 Respiratory Rate 18 Blood Pressure 154/79 H Pulse Oximetry 100 Oxygen Delivery 09/12/21 08:00 09/12/21 12:00 09/12/21 14:00 Temperature 97.4 F L Pulse Rate 88 105 H 71 Respiratory Rate 18 Blood Pressure 156/78 H Pulse Oximetry 99 Oxygen Delivery Intake/Output Intake/Output: Intake & Output 09/09/21 09/10/21 09/11/21 09/12/21 23:59 23:59 23:59 23:59 Intake Total 0579 4515 5655 5275 Output Total 4095 9829 0505
[2021-09-12 17:35] LABS: Glucose Point of Care 121 mg/dl (65-105)
[2021-09-12] MEDS: MICAFUNGIN SODIUM 100 MG in SODIUM CHLORIDE 0.9% IV 100 ML IVPB (17:54)
[2021-09-12] MEDS: hydrALAZINE HCL 20 MG/ML VIAL 10 MG IV PUSH (21:07)
[2021-09-12] MEDS: diphenhydrAMINE HCl INJ 50 MG/ML VIAL IV PUSH (23:15)
[2021-09-13] VITALS (10 sets, daily range): BP systolic 123–154; BP diastolic 60–70; PULSE 68–93; RESP 14–18; TEMP 36.3–36.9; O2SAT 98–100
[2021-09-13] MEDS: HYDROmorphone HCL INJ (*CRX) 1 MG/ML SYR IV PUSH ×11 (00:58→22:52)
[2021-09-13] MEDS: ONDANSETRON INJ 4 MG/2 ML VIAL IV PUSH ×3 (03:13→15:00)
[2021-09-13 05:05] LABS: Basophils Absolute Auto 0.1 K/mm3 (0.0-0.1); Basophils Percent Auto 0.6 % (0.2-1.2); Eosinophils Absolute Auto 0.3 K/mm3 (0-0.3); Eosinophils Percent Auto 1.9 % (0-4.4); Hematocrit 24.9 % (42.0-52.0); Hemoglobin 8.5 g/dL (14.0-18.0); Immature Granulocyte Absolute 0.18 K/mm3 (0.00-0.031); Immature Granulocyte Percent A 1.3 % (0-0.5); Lymphocytes Absolute Auto 1.47 K/mm3 (0.9-3.2); Lymphocytes Percent Auto 10.6 % (18.3-44.2); Mean Corpuscular HGB Conc 34.1 g/dl (32-36); Mean Corpuscular Hemoglobin 28.3 pg (26-34); Mean Platelet Volume 9.8 fl (7.4-10.4); Monocytes Absolute Auto 1.3 K/mm3 (0.1-0.6); Monocytes Percent Auto 9.3 % (2.6-8.5); Neutrophils Absolute Auto 10.6 K/mm3 (1.3-6.7); Neutrophils Percent Auto 76.3 % (45.5-73.1); Platelet Count Result 499 k/mm3 (150-375); Red Cell Distribution Width 16.5 % (11.5-14.5); White Blood Count 13.9 K/mm3 (4.5-10.0)
[2021-09-13 05:20] LABS: Alanine Aminotransferase 56 U/L (6-50); Albumin Level 2.7 g/dL (3.5-5.1); Alkaline Phosphatase 259 U/L (38-126); Anion Gap 7 mmol/L (8-16); Aspartate Amino Transferase 53 U/L (17-59); Bilirubin,Total 0.8 mg/dL (0.2-1.3); Blood Urea Nitrogen 12 mg/dL (9-20); Calcium 7.8 mg/dL (8.4-10.2); Carbon Dioxide 26 mmol/L (22-30); Chloride 101 mmol/L (98-107); Estimated CRCL calculation 84 ml/min; Estimated Glomerular Filt Rate > 60; Glucose 102 mg/dL (65-110); Phosphorus 2.8 mg/dL (2.5-4.5); Potassium 2.3 mmol/L (3.4-5.0); Sodium 134 mmol/L (137-145)
[2021-09-13] MEDS: KCL 20 MEQ/SW 100 ML 50 MEQ IVPB (06:17)
[2021-09-13] MEDS: SUCRALFATE SUSP 100 MG/ML 10 ML UDC 1000 MG FEED TUBE ×3 (06:18→18:56)
[2021-09-13 06:31] LABS: Triglycerides 253 mg/dL (<150)
--- NOTE | 2021-09-13 09:09 | PM.PNGS ---
Progress Note: A&P Assessment and Plan (1) Acute gastrointestinal ulcer with perforation: Code(s): K28.1 - Acute gastrojejunal ulcer with perforation Status: Acute Assessment and Plan: Abdominal pain improving and his exam has improved some. WBC down to 13K today and he is afebrile.I'ill consider Gastrografin upper GI on Thu vs an abd CT with oral and IV contrast today on Thursday. I have nowl discussed with radiologist about which test is best today and let patient know. (CT of abd/pelvis with IV contrast and oral contrast--- only 50 cc to be put down his NG) Pt. Appears stable at this time with a decreasing white count and since his Gastrografin upper GI showed still a small leak 3 days ago I am leaning toward waiting to do something on Thursday and let him continue to have bowel rest with monitoring over the weekend. Continue TPN. Continue NG tube, TPN, bowel rest, IV fluids, Carafate down NG Q 6, and analgesics as needed. No bloody drainage in the canister today from the NG. Continue IV antibiotics/Micafungin Continue Protonix drip and sucralfate Repeat labs tomorrow. (2) Enteritis: Code(s): K52.9 - Noninfective gastroenteritis and colitis, unspecified Status: Acute Assessment and Plan: Suggested on CT. Currently on IV antibiotics for #1 above. No diarrhea. Continue to monitor. (3) Fracture of femoral neck, left: Code(s): S72.002A - Fracture of unspecified part of neck of left femur, initial encounter for closed fracture Status: Acute (4) History of left above knee amputation: Code(s): Z89.612 - Acquired absence of left leg above knee Status: Acute Plan I have discussed the patient's case and plan of care with Dr. Hurtado. Subjective Subjective Date/Time Seen: 09/13/21 09:01 Patient reports: no new complaints, feels better, still having pain (Taking Dilaudid once every 2 hours (patient has chronic history of narcotics).) and bowel movement Interval history: Patient is sitting up in bed smiling and answering all my questions. Still endorses some abdominal & low chest pain right under the ribcage. No lower abdominal pain. No blood in the stool that he had yesterday. NG suctioning fluid now clear orange. Review of Systems Review of Systems: All systems reviewed & are unremarkable except as noted in HPI and below Constitutional: Constitutional: Reports as per HPI, Denies chills and Denies fever(s) Cardiovascular: Cardiovascular: Denies chest pain and Denies dyspnea Respiratory: Respiratory: Reports no additional respiratory complaints and Denies dyspnea Gastrointestinal: Gastrointestinal: Reports as per HPI and Denies bloating Comments: No blood in the stool he had yesterday. Genitourinary: Comments: No burning with urination Musculoskeletal: Musculoskeletal: Reports no additional musculoskeletal complaints Neurologic: Denies memory loss Psychiatric: Psychiatric: Denies anxiety and Denies memory loss Exam Const: General: comfortable, no acute distress and awake Orientation/consciousness: patient oriented x3 GI: Inspection: normal to inspection and non-distended GI Palp: Yes Soft to palpation, Yes Tenderness to palpation present (GI) (across upper abdomen ), No Guarding due to palpation present (GI) and No Rebound tenderness present Auscultation: normal bowel sounds Neuro: General: moves all extremities and no focal motor deficits Extrem: General: no edema and other (left AKA) Psych: Mental Status: mental status grossly normal Insight: Good insight present (Psych) Objective Data Vital Signs Vital Signs: Vital Signs - 24 hr 09/12/21 12:00 09/12/21 14:00 09/12/21 16:00 Temperature 36.3 C L Pulse Rate 105 H 71 80 Respiratory Rate 18 Blood Pressure 156/78 H Pulse Oximetry 99 Oxygen Delivery 09/12/21 17:16 09/12/21 20:00 09/12/21 21:38 Temperature 36.2 C L Pulse Rate 97 Respiratory Rate 16 Blood Press
--- NOTE | 2021-09-13 10:34 | PCNFU ---
Nutrition Follow-Up Complete: Inadequate po intake related to altered GI function as evidenced by need for TPN for nutrition support. Goal:Meet at least 60-80% of nutritional needs via TPN. Pt is meeting goal, continue with same goal. Pt current nutrition is TPN. Nutrition recommendation: continue with current plan of care. Last recorded weight is 54.1 kg - down from 58.7kg on admit, stable x 4 days. Bowel Motility: +BM 09/11 Labs Reviewed:Hgb:8.5, HCT:24.9, Alb:2.7, Na:134, K:2.3, Cr:0.6, Tri Meds Noted: dulcolax, zofran, dilaudid Skin: WNL Additional Notes: Pt continues on TPN:clinimix E at 40ml/hr with 250ml 20% lipids to provide 1682kcals, 48g protein. This is meeting 94% of estimated needs, 80% of protein needs. Agree with diet orders. GI recommending bowel rest to continue through weekend. Monitor TPN, wt, labs. Follow up every Thursday and Thursday.
[2021-09-13] MEDS: POTASSIUM CHLORIDE INJ 40 MEQ in SODIUM CHLORIDE 0.9% IV 500 ML 130 MEQ IVPB ×2 (12:27→22:45)
[2021-09-13 12:43] LABS: Glucose Point of Care 134 mg/dl (65-105)
--- NOTE | 2021-09-13 12:47 | WPDGIPROGNO ---
Progress Note: A&P Assessment and Plan (1) Acute gastrointestinal ulcer with perforation: Code(s): K28.1 - Acute gastrojejunal ulcer with perforation Status: Acute Assessment and Plan: Patient has had perforation in the lower stomach. Presumed to be from peptic ulcer disease. Clinically appears be doing well with very soft abdomen with minimal tenderness no swelling in active bowel sounds. His white count is decreased currently 13.9. I have discussed case with surgery Dr. Hurtado. Agree with plans for bowel rest with NG tube decompression. We will keep him on A PPI intravenously. Follow-up imaging will be arranged. If not over the weekend then on Thursday. Hopefully conservative therapy will allow this to seal off. Patient would be high risk for surgery. (2) Anemia: Code(s): D64.9 - Anemia, unspecified Status: Acute (3) History of left above knee amputation: Code(s): Z89.612 - Acquired absence of left leg above knee Status: Acute Subjective Date/time seen: 09/13/21 12:47 Patient doing well. Comfortable this morning. Sitting up in bed. NG tube remains in place. Patient states his pain is much improved. He does continue to take pain medications. He states he rates it much less than previous when he does resort to taking a pain medication. Review of Systems Review of Systems: Review of systems noncontributory. Exam Narrative: Physical exam reveals patient be alert and afebrile. HEENT exam reveals no icterus. Lungs are clear. Heart without murmur. Abdomen remains soft. Bowel sounds are present. When I examined him he has minimal tenderness. No may masses are appreciated. Objective Data Vital Signs Vital Signs: Vital Signs - 24 hr 09/12/21 14:00 09/12/21 16:00 09/12/21 17:16 Temperature 97.4 F L Pulse Rate 71 80 Respiratory Rate 18 Blood Pressure 156/78 H Pulse Oximetry 99 98 Oxygen Delivery Room Air 09/12/21 20:00 09/12/21 21:38 09/12/21 20:00 Temperature 97.2 F L Pulse Rate 97 79 Respiratory Rate 16 Blood Pressure 180/81 H Pulse Oximetry 99 Oxygen Delivery Room Air 09/12/21 23:24 09/13/21 00:00 09/13/21 04:00 Temperature Pulse Rate 90 83 Respiratory Rate Blood Pressure 138/63 Pulse Oximetry Oxygen Delivery 09/13/21 05:49 09/13/21 10:26 Temperature 97.3 F L Pulse Rate 81 80 Respiratory Rate 16 Blood Pressure 123/60 Pulse Oximetry 98 98 Oxygen Delivery Room Air Intake/Output Intake/Output: Intake & Output 09/10/21 09/11/21 09/12/21 09/13/21 23:59 23:59 23:59 23:59 Intake Total 4515 5655 7658.333 1400 Output Total 2425 2600 2250 1999 Balance 2090 3055 5408.333 -600 Meds/Results Medications: Active Medications Generic Name Dose Route Start Last Admin Trade Name Freq PRN Reason Stop Dose Admin Benzocaine 1 lozenge 09/07/21 22:27 Benzocaine/Menthol (*Bkc) 18 Ea Lozenge PO PRN PRN Sore Throat Bisacodyl 10 mg 09/07/21 22:27 Bisacodyl 10 Mg Suppository RECTAL QAM PRN Constipation Hydralazine HCl 10 mg 09/12/21 12:54 09/12/21 21:07 Hydralazine Hcl 20 Mg/Ml Vial IV PUSH 10 mg Q8H PRN Administration SBP>160 OR DBP>90 Hydromorphone HCl 0.5 mg 09/12/21 17:26 Hydromorphone Hcl Inj (*Crx) 1 Mg/Ml Syr IV PUSH Q2H PRN Pain Rated 4-6 Hydromorphone HCl 1 mg 09/12/21 23:03 09/13/21 11:33 Hydromorphone Hcl Inj (*Crx) 1 Mg/Ml Syr IV PUSH 1 mg Q1H PRN Administration Pain Rated 7-10 Cefepime HCl 1 gm in 50 mls @ 100 mls/hr 09/06/21 00:00 09/13/21 07:51 Maxipime 1 Gm/D5w 50 Ml IVPB Infused Q12H RICARDO Infusion Dextrose/Sodium Chloride 1,000 mls @ 65 mls/hr 09/07/21 04:30 09/13/21 11:13 Dextrose 5% Sodium Chloride 0.45% IV CONT Infused .[id number] RICARDO Infusion Pantoprazole Sodium 80 mg/ 500 mls @ 50 mls/hr 09/07/21 21:00 09/13/21 11:12 Dextrose IV CONT Not Given .Q10H RICARDO
[2021-09-13] MEDS: FAT EMULSIONS IV 20% 250 ML 20.8 ML IVPB (15:00)
[2021-09-13] MEDS: AMINO ACIDS 5%/D15W/E-LYTES/CA 2,000 ML with MULTIVITAMINS-12 INJ VIAL 1 2.5 ML, MULTIV... 40 ML IV CONT (15:01)
[2021-09-13 18:22] LABS: Glucose Point of Care 135 mg/dl (65-105)
--- NOTE | 2021-09-13 18:23 | PM.IMPN ---
Progress Note: A&P Assessment and Plan (1) Anemia: Code(s): D64.9 - Anemia, unspecified Status: Acute (2) Intra-abdominal free air of unknown etiology: Code(s): K66.8 - Other specified disorders of peritoneum Status: Acute (3) Non-STEMI (non-ST elevated myocardial infarction): Code(s): I21.4 - Non-ST elevation (NSTEMI) myocardial infarction Status: Acute (4) Acute gastrointestinal ulcer with perforation: Code(s): K28.1 - Acute gastrojejunal ulcer with perforation Status: Acute (5) Abnormal CT scan: Code(s): R93.89 - Abnormal findings on diagnostic imaging of other specified body structures Status: Acute (6) Fracture of femoral neck, left: Code(s): S72.002A - Fracture of unspecified part of neck of left femur, initial encounter for closed fracture Status: Acute Plan ?60-year-old male with a history of hypertension,recurrent MRSA infection, left AKA, and recent left hip fracture following a fall downstairs approximately 6 weeks ago, who presents to the emergency department for evaluation of atraumatic right hip pain 1)Acute gastrointestinal Ulcer with Perforation: Appreciate Surgery help C/w NG tube Pain control with dilaudid c/w cefepime Micafungin as per surgery NPO status c/w PPI c/w Sucralfate Slowly worsening leucocytosis, will monitor c/w TPN Likely plan for Upper GI series vs CT abdomen tomorrow AM, will defer to surgery for final decision making 2)Chest Pain: Resolved Appreciate cardiology help No intervention needed 3)HTN: Add PRN IV hydralazine 4)Transaminitis: elevation in LFT noted Will trend LFT's 5)DVT ppx: SCD 6)Code:Full, guarded prognosis 7)Dispo:pending improvement 09/13/2021 interval history: patient is a 60-year-old male presented with abdominal pain is found to have acute gastrointestinal ulcer with perforation seen by GI suspect most likely secondary to peptic ulcer disease and seen by surgery service, both GI and surgery recommending conservative management with bowel rest NG tube for decompression and closely monitor with imaging, patient states is passing gas, his white counts are trending down to 13.9 compared to 32 upon arrival next day, patient has hypokalemia will replenish and monitor most likely secondary to poor p.o. intake and GI loss will continue to monitor. Subjective Date/time seen: 09/13/21 18:23 09/13/2021 interval history: patient is a 60-year-old male presented with abdominal pain is found to have acute gastrointestinal ulcer with perforation seen by GI suspect most likely secondary to peptic ulcer disease and seen by surgery service, both GI and surgery recommending conservative management with bowel rest NG tube for decompression and closely monitor with imaging, patient states is passing gas, his white counts are trending down to 13.9 compared to 32 upon arrival next day, patient has hypokalemia will replenish and monitor most likely secondary to poor p.o. intake and GI loss will continue to monitor. Review of Systems Review of Systems: Review of systems noncontributory. Exam Narrative: appears chronically ill Patient is comfortable, NAD HEENT: eyes are clear and none icteric LUNGS: normal respiratory effort ABD: not distended Lower extremities: no edema SKIN: nonjaundiced Neuro: grossly intact. Objective Data Vital Signs Vital Signs: Vital Signs - 24 hr 09/12/21 20:00 09/12/21 21:38 09/12/21 20:00 Temperature 97.2 F L Pulse Rate 97 79 Respiratory Rate 16 Blood Pressure 180/81 H Pulse Oximetry 99 Oxygen Delivery Room Air 09/12/21 23:24 09/13/21 00:00 09/13/21 04:00 Temperature Pulse Rate 90 83 Respiratory Rate Blood Pressure 138/63 Pulse Oximetry Oxygen Delivery 09/13/21 05:49 09/13/21 10:26 09/13/21 08:53 Temperature 97.3 F L Pulse Rate 81 80 88 Respiratory Rate 16 Blood Pressure 123/60 Pulse Oximetry 98 98 Oxy
[2021-09-13] MEDS: MICAFUNGIN SODIUM 100 MG in SODIUM CHLORIDE 0.9% IV 100 ML IVPB (18:56)
[2021-09-13] MEDS: lisinopriL 10 MG TABLET PO (20:53)
[2021-09-13 21:34] LABS: Anion Gap 5 mmol/L (8-16); Blood Urea Nitrogen 12 mg/dL (9-20); Calcium 7.6 mg/dL (8.4-10.2); Carbon Dioxide 28 mmol/L (22-30); Chloride 103 mmol/L (98-107); Estimated CRCL calculation 83 ml/min; Estimated Glomerular Filt Rate > 60; Glucose 75 mg/dL (65-110); Magnesium 2.2 mg/dL (1.6-2.3); Potassium 2.1 mmol/L (3.4-5.0); Sodium 136 mmol/L (137-145)
[2021-09-13 22:35] LABS: H pylori Ag Stool Not Detected (Not Detected)
[2021-09-14] VITALS (13 sets, daily range): BP systolic 103–147; BP diastolic 58–71; PULSE 71–88; RESP 12–26; TEMP 36.6–37.7; O2SAT 98–100
[2021-09-14] MEDS: SUCRALFATE SUSP 100 MG/ML 10 ML UDC 1000 MG FEED TUBE ×3 (00:15→16:48)
[2021-09-14] MEDS: HYDROmorphone HCL INJ (*CRX) 1 MG/ML SYR IV PUSH ×6 (00:53→13:37)
[2021-09-14 07:20] LABS: Basophils Percent Auto 0.3 % (0.2-1.2); Eosinophils Absolute Auto 0.3 K/mm3 (0-0.3); Eosinophils Percent Auto 2.2 % (0-4.4); Hematocrit 22.2 % (42.0-52.0); Hemoglobin 7.7 g/dL (14.0-18.0); Immature Granulocyte Absolute 0.16 K/mm3 (0.00-0.031); Immature Granulocyte Percent A 1.3 % (0-0.5); Lymphocytes Absolute Auto 1.12 K/mm3 (0.9-3.2); Lymphocytes Percent Auto 8.8 % (18.3-44.2); Mean Corpuscular HGB Conc 34.7 g/dl (32-36); Mean Corpuscular Hemoglobin 28.9 pg (26-34); Mean Corpuscular Volume 83.5 fl (80-100); Mean Platelet Volume 10.4 fl (7.4-10.4); Monocytes Percent Auto 7.9 % (2.6-8.5); Neutrophils Absolute Auto 10.2 K/mm3 (1.3-6.7); Neutrophils Percent Auto 79.5 % (45.5-73.1); Platelet Count Result 439 k/mm3 (150-375); Red Blood Count 2.66 M/mm3 (4.6-6.20); Red Cell Distribution Width 16.7 % (11.5-14.5); White Blood Count 12.8 K/mm3 (4.5-10.0)
[2021-09-14 07:33] LABS: Anion Gap 4 mmol/L (8-16); Blood Urea Nitrogen 12 mg/dL (9-20); Calcium 7.7 mg/dL (8.4-10.2); Carbon Dioxide 26 mmol/L (22-30); Chloride 104 mmol/L (98-107); Estimated CRCL calculation 83 ml/min; Estimated Glomerular Filt Rate > 60; Glucose 109 mg/dL (65-110); Magnesium 2.1 mg/dL (1.6-2.3); Phosphorus 2.5 mg/dL (2.5-4.5); Potassium 3.2 mmol/L (3.4-5.0); Sodium 134 mmol/L (137-145)
--- NOTE | 2021-09-14 08:44 | WPDGIPROGNO ---
Progress Note: A&P Assessment and Plan (1) Acute gastrointestinal ulcer with perforation: Code(s): K28.1 - Acute gastrojejunal ulcer with perforation Status: Acute Assessment and Plan: per CT scan it appears that he has a localized perforation, probably ulcer related. He had been followed by surgery. He is apparently high risk for surgery. Is 0 but with bowel rest analgesics and PPI that this will seal off. I believe the plan is for him to have repeat imaging study on Thursday. (2) Anemia: Code(s): D64.9 - Anemia, unspecified Status: Acute Assessment and Plan: Hemoglobin was 14 on admission and now is down to 7.7. There is however no evidence of active gastrointestinal bleeding at this point. If counts drop any further he will need transfusion Subjective Date/time seen: 09/14/21 08:44 The patient states that his pain is worse today. He states that pain meds wear off after an hour and half. He has had no vomiting. NG tube is in place but clamped. I explained him that he has area of an apparent localized perforation. Surgery is following and will manage his care. The patient is begging for something to drink because his mouth is very dry. I told him that I can give him some a few ice chips. Review of Systems Review of Systems: All systems reviewed & are unremarkable except as noted in HPI and below Exam Const: General: alert Orientation/consciousness: patient oriented x3 Resp: Auscultation: clear to auscultation bilaterally Cardio: Rhythm: regular rhythm GI: GI Palp: Yes Soft to palpation, No Tenderness to palpation present (GI) and No Guarding due to palpation present (GI) Neuro: General: patient oriented x3 Extrem: General: other ( Left above the knee amputation) Objective Data Vital Signs Vital Signs: Vital Signs - 24 hr 09/13/21 10:26 09/13/21 08:53 09/13/21 12:00 Temperature Pulse Rate 80 88 74 Respiratory Rate Blood Pressure Pulse Oximetry 98 Oxygen Delivery Room Air 09/13/21 14:00 09/13/21 16:00 09/13/21 22:00 Temperature 36.4 C 36.9 C Pulse Rate 93 68 79 Respiratory Rate 14 18 Blood Pressure 154/70 H 140/66 Pulse Oximetry 100 99 Oxygen Delivery 09/13/21 20:00 09/14/21 00:00 09/14/21 04:00 Temperature Pulse Rate 71 84 87 Respiratory Rate Blood Pressure Pulse Oximetry Oxygen Delivery 09/14/21 05:32 Temperature 36.7 C Pulse Rate 77 Respiratory Rate 17 Blood Pressure 120/65 Pulse Oximetry 98 Oxygen Delivery Intake/Output Intake/Output: Intake & Output 09/11/21 09/12/21 09/13/21 09/14/21 23:59 23:59 23:59 23:59 Intake Total 5655 7658.333 4475 550 Output Total 2600 2250 2000 1350 Balance 3055 5408.333 2475 -800 Meds/Results Medications: Active Medications Generic Name Dose Route Start Last Admin Trade Name Freq PRN Reason Stop Dose Admin Benzocaine 1 lozenge 09/07/21 22:27 Benzocaine/Menthol (*Bkc) 18 Ea Lozenge PO PRN PRN Sore Throat Bisacodyl 10 mg 09/07/21 22:27 Bisacodyl 10 Mg Suppository RECTAL QAM PRN Constipation Hydralazine HCl 10 mg 09/12/21 12:54 09/12/21 21:07 Hydralazine Hcl 20 Mg/Ml Vial IV PUSH 10 mg Q8H PRN Administration SBP>160 OR DBP>90 Hydromorphone HCl 0.5 mg 09/12/21 17:26 Hydromorphone Hcl Inj (*Crx) 1 Mg/Ml Syr IV PUSH Q2H PRN Pain Rated 4-6 Hydromorphone HCl 1 mg 09/12/21 23:03 09/14/21 06:31 Hydromorphone Hcl Inj (*Crx) 1 Mg/Ml Syr IV PUSH 1 mg Q1H PRN Administration Pain Rated 7-10 Cefepime HCl 1 gm in 50 mls @ 100 mls/hr 09/06/21 00:00 09/14/21 00:52 Maxipime 1 Gm/D5w 50 Ml IVPB 100 mls/hr Q12H RICARDO Administration Dextrose/Sodium Chloride 1,000 mls @ 65 mls/hr 09/07/21 04:30 09/13/21 11:13 Dextrose 5% Sodium Chloride 0.45% IV CONT Infused .[id number] RICARDO Infusion Pantoprazole Sodium 80 mg/ 500 mls @ 50 mls/hr 09/07/21 21:00 09/13/21 18:55
[2021-09-14] MEDS: lisinopriL 10 MG TABLET PO (11:07)
[2021-09-14] MEDS: POTASSIUM CHLORIDE INJ 40 MEQ in SODIUM CHLORIDE 0.9% IV 500 ML 130 MEQ IVPB (11:07)
--- NOTE | 2021-09-14 13:57 | PM.PNGS ---
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 Most pain is and lower abdomen now and causes some urinary urgency and pain shooting down into his penis. No nausea or vomiting. No fevers. Exam GI: Inspection: non-distended GI Palp: Yes Soft to palpation, Yes Tenderness to palpation present (GI) (Predominantly lower abdomen), No Guarding due to palpation present (GI) and No Rebound tenderness present Auscultation: normal bowel sounds Objective Data Vital Signs Vital Signs: Vital Signs - 24 hr 09/13/21 14:00 09/13/21 16:00 09/13/21 22:00 Temperature 36.4 C 36.9 C Pulse Rate 93 68 79 Respiratory Rate 14 18 Blood Pressure 154/70 H 140/66 Pulse Oximetry 100 99 09/13/21 20:00 09/14/21 00:00 09/14/21 04:00 Temperature Pulse Rate 71 84 87 Respiratory Rate Blood Pressure Pulse Oximetry 09/14/21 05:32 Temperature 36.7 C Pulse Rate 77 Respiratory Rate 17 Blood Pressure 120/65 Pulse Oximetry 98 Intake/Output Intake/Output: Intake & Output 09/11/21 09/12/21 09/13/21 09/14/21 23:59 23:59 23:59 23:59 Intake Total 5655 7658.333 4475 550 Output Total 2600 2250 2000 1350 Balance 3055 5408.333 8435 -800 Meds/Results Medications: Active Medications Generic Name Dose Route Start Last Admin Trade Name Freq PRN Reason Stop Dose Admin Benzocaine 1 lozenge 09/07/21 22:27 Benzocaine/Menthol (*Bkc) 18 Ea Lozenge PO PRN PRN Sore Throat Bisacodyl 10 mg 09/07/21 22:27 Bisacodyl 10 Mg Suppository RECTAL QAM PRN Constipation Hydralazine HCl 10 mg 09/12/21 12:54 09/12/21 21:07 Hydralazine Hcl 20 Mg/Ml Vial IV PUSH 10 mg Q8H PRN Administration SBP>160 OR DBP>90 Cefepime HCl 1 gm in 50 mls @ 100 mls/hr 09/06/21 00:00 09/14/21 00:52 Maxipime 1 Gm/D5w 50 Ml IVPB 100 mls/hr Q12H RICARDO Administration Dextrose/Sodium Chloride 1,000 mls @ 65 mls/hr 09/07/21 04:30 09/13/21 11:13 Dextrose 5% Sodium Chloride 0.45% IV CONT Infused .[id number] RICARDO Infusion Pantoprazole Sodium 80 mg/ 500 mls @ 50 mls/hr 09/07/21 21:00 09/13/21 18:55 Dextrose IV CONT 50 mls/hr .Q10H RICARDO Administration Dextrose 1,000 mls @ 50 mls/hr 09/08/21 09:58 Dextrose 10% IV CONT .Q20H PRN if PN is interrupted Multivitamins 2.5 ml/ 2,005 mls @ 40 mls/hr 09/08/21 14:00 09/13/21 15:01 Multivitamins 2.5 ml/ Amino IV CONT 40 mls/hr Acids/Electrolytes/Dextrose .Q24H RICARDO Administration Protocol Micafungin Sodium 100 mg/ 100 mls @ 100 mls/hr 09/10/21 18:00 09/13/21 18:56 Sodium Chloride IVPB 100 mls/hr Q24H RICARDO Administration Fat Emulsion Intravenous 250 mls @ 20.833 mls/hr 09/13/21 21:00 Lipids 20% IVPB Q48H RICARDO Hydromorphone HCl 6 mg in 30 mls @ 0 mls/hr 09/14/21 13:50 Dilaudid 0.2 Mg/Ml Diesel Engineer IV CONT PRN PRN BUSINESS OBJECTS ANALYST Management 0 MG/HR Lisinopril 10 mg 09/05/21 13:30 09/14/21 11:07 Lisinopril 10 Mg Tablet PO 10 mg Q12HR RICARDO Administration Miscellaneous Information 1 each 09/13/21 00:01 Clinimix Is Due For Renewal; Please Renew If Needed Or Med Will Auto D/C XX 10/13/21 00:00 CLARIFY RICARDO Nicotine 1 patch 09/05/21 14:45 09/13/21 08:53 Nicotine (*Aldo) 21 Mg Patch TRANSDERM Not Given QAM RICARDO Ondansetron HCl 4 mg 09/05/21 13:15 09/13/21 1
--- NOTE | 2021-09-14 15:10 | PM.IMPN ---
Progress Note: A&P Assessment and Plan (1) Anemia: Code(s): D64.9 - Anemia, unspecified Status: Acute (2) Intra-abdominal free air of unknown etiology: Code(s): K66.8 - Other specified disorders of peritoneum Status: Acute (3) Non-STEMI (non-ST elevated myocardial infarction): Code(s): I21.4 - Non-ST elevation (NSTEMI) myocardial infarction Status: Acute (4) Acute gastrointestinal ulcer with perforation: Code(s): K28.1 - Acute gastrojejunal ulcer with perforation Status: Acute (5) Abnormal CT scan: Code(s): R93.89 - Abnormal findings on diagnostic imaging of other specified body structures Status: Acute (6) Fracture of femoral neck, left: Code(s): S72.002A - Fracture of unspecified part of neck of left femur, initial encounter for closed fracture Status: Acute Plan ?60-year-old male with a history of hypertension,recurrent MRSA infection, left AKA, and recent left hip fracture following a fall downstairs approximately 6 weeks ago, who presents to the emergency department for evaluation of atraumatic right hip pain 1)Acute gastrointestinal Ulcer with Perforation: Appreciate Surgery help C/w NG tube Pain control with dilaudid c/w cefepime Micafungin as per surgery NPO status c/w PPI c/w Sucralfate Slowly worsening leucocytosis, will monitor c/w TPN Likely plan for Upper GI series vs CT abdomen tomorrow AM, will defer to surgery for final decision making 2)Chest Pain: Resolved Appreciate cardiology help No intervention needed 3)HTN: Add PRN IV hydralazine 4)Transaminitis: elevation in LFT noted Will trend LFT's 5)DVT ppx: SCD 6)Code:Full, guarded prognosis 7)Dispo:pending improvement 09/13/2021 interval history: patient is a 60-year-old male presented with abdominal pain is found to have acute gastrointestinal ulcer with perforation seen by GI suspect most likely secondary to peptic ulcer disease and seen by surgery service, both GI and surgery recommending conservative management with bowel rest NG tube for decompression and closely monitor with imaging, patient states is passing gas, his white counts are trending down to 13.9 compared to 32 upon arrival next day, patient has hypokalemia will replenish and monitor most likely secondary to poor p.o. intake and GI loss will continue to monitor. 09/14/2021 interval history: patient is a 60-year-old male presented with abdominal pain is found to have acute gastrointestinal ulcer with perforation seen by GI suspect most likely secondary to peptic ulcer disease and seen by surgery service, both GI and surgery recommending conservative management with bowel rest NG tube for decompression and closely monitor with imaging, patient states is passing gas, his white counts are trending down to 12.8 compared to 32 upon arrival next day, Patient continue complaints of pain Dilaudid 1mg q2hr is not controlling pain, patient was seen by surgery services and started patient on PSA pump to control pain, patient has hypokalemia will replenish and monitor most likely secondary to poor p.o. intake and GI loss will continue to monitor. will transfer patient to IMU for close monitoring. Subjective Date/time seen: 09/14/21 15:10 09/14/2021 interval history: patient is a 60-year-old male presented with abdominal pain is found to have acute gastrointestinal ulcer with perforation seen by GI suspect most likely secondary to peptic ulcer disease and seen by surgery service, both GI and surgery recommending conservative management with bowel rest NG tube for decompression and closely monitor with imaging, patient states is passing gas, his white counts are trending down to 12.8 compared to 32 upon arrival next day, Patient continue complaints of pain Dilaudid 1mg q2hr is not controlling pain, patient was seen by surgery services and started patient on PSA pump to control pain, patient has hypokalemia will replenish and mon
[2021-09-14] MEDS: HYDROmorphon 0.2MG/ML PCA(*CRX 6 MG/30 ML PCA.VIAL IV CONT (16:41)
[2021-09-14 18:00] LABS: Glucose Point of Care 129 mg/dl (65-105)
[2021-09-14] MEDS: DEXTROSE 5%/0.45% SOD CHL 1,000 ML 65 ML IV CONT (18:15)
--- NOTE | 2021-09-14 18:34 | PC.NURSE ---
Patient arrived via bed with RN x2 at bedside. 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 K rider on hold.
[2021-09-14] MEDS: FAT EMULSIONS IV 20% 250 ML 20.83 ML IVPB (20:39)
[2021-09-14 22:30] LABS: Glucose Point of Care 112 mg/dl (65-105)
[2021-09-15] VITALS (24 sets, daily range): BP systolic 133–165; BP diastolic 48–79; PULSE 65–93; RESP 12–20; TEMP 36.4–37.7; O2SAT 97–100
[2021-09-15] MEDS: HYDROmorphon 0.2MG/ML PCA(*CRX 6 MG/30 ML PCA.VIAL IV CONT ×2 (01:20→17:30)
[2021-09-15] MEDS: MICAFUNGIN SODIUM 100 MG in SODIUM CHLORIDE 0.9% IV 100 ML IVPB ×2 (03:07→17:45)
[2021-09-15] MEDS: ONDANSETRON INJ 4 MG/2 ML VIAL IV PUSH (03:41)
[2021-09-15 06:21] LABS: Hemoglobin 7.2 g/dL (14.0-18.0); Mean Corpuscular Volume 83.1 fl (80-100); Mean Platelet Volume 10.3 fl (7.4-10.4); Platelet Count Result 405 k/mm3 (150-375); Red Blood Count 2.48 M/mm3 (4.6-6.20); Red Cell Distribution Width 16.2 % (11.5-14.5)
[2021-09-15 06:24] LABS: Hematocrit 20.6 % (42.0-52.0)
[2021-09-15 06:39] LABS: Anion Gap 8 mmol/L (8-16); Blood Urea Nitrogen 11 mg/dL (9-20); Calcium 7.2 mg/dL (8.4-10.2); Carbon Dioxide 25 mmol/L (22-30); Chloride 101 mmol/L (98-107); Estimated CRCL calculation 100 ml/min; Estimated Glomerular Filt Rate > 60; Glucose 115 mg/dL (65-110); Phosphorus 2.3 mg/dL (2.5-4.5); Potassium 2.1 mmol/L (3.4-5.0); Sodium 134 mmol/L (137-145); Triglycerides 179 mg/dL (<150)
[2021-09-15] MEDS: KCL 40 MEQ/WATER 100 ML 100 ML 25 ML IVPB ×2 (07:01→11:07)
[2021-09-15] MEDS: lisinopriL 10 MG TABLET PO ×2 (09:27→21:12)
[2021-09-15] MEDS: NICOTINE (*PBKC) 21 MG PATCH 1 PATCH TRANSDERM (09:27)
[2021-09-15] MEDS: SUCRALFATE SUSP 100 MG/ML 10 ML UDC 1000 MG FEED TUBE ×3 (09:27→17:45)
[2021-09-15] MEDS: DEXTROSE 5%/0.45% SOD CHL 1,000 ML 65 ML IV CONT (09:32)
--- NOTE | 2021-09-15 10:49 | PM.PNGS ---
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 No fevers. Exam GI: Inspection: non-distended GI Palp: Yes Soft to palpation, No Tenderness to palpation present (GI), No Guarding due to palpation present (GI) and No Rebound tenderness present Auscultation: normal bowel sounds Objective Data Vital Signs Vital Signs: Vital Signs - 24 hr 09/14/21 17:45 09/14/21 17:40 09/14/21 16:03 Temperature 37.7 C H Pulse Rate 88 78 74 Respiratory Rate 26 H Blood Pressure 135/58 L Pulse Oximetry 98 Oxygen Delivery 09/14/21 20:41 09/14/21 20:00 09/14/21 20:00 Temperature 36.8 C Pulse Rate 80 71 Respiratory Rate 16 Blood Pressure 147/68 H Pulse Oximetry 100 100 Oxygen Delivery Room Air 09/14/21 23:28 09/14/21 22:00 09/15/21 00:00 Temperature 36.6 C Pulse Rate 71 76 72 Respiratory Rate 16 Blood Pressure 103/71 Pulse Oximetry 100 Oxygen Delivery 09/15/21 00:00 09/15/21 01:20 09/15/21 01:33 Temperature Pulse Rate Respiratory Rate 20 20 Blood Pressure Pulse Oximetry 100 97 97 Oxygen Delivery Room Air 09/14/21 20:00 09/14/21 22:00 09/15/21 00:00 Temperature Pulse Rate Respiratory Rate 16 16 16 Blood Pressure Pulse Oximetry 100 100 100 Oxygen Delivery 09/15/21 02:00 09/15/21 02:00 09/15/21 03:22 Temperature 36.6 C Pulse Rate 68 88 Respiratory Rate 16 16 Blood Pressure 139/48 L Pulse Oximetry 100 99 Oxygen Delivery 09/15/21 04:00 09/15/21 04:00 09/15/21 04:00 Temperature Pulse Rate 65 Respiratory Rate 20 Blood Pressure Pulse Oximetry 100 100 Oxygen Delivery Room Air 09/15/21 06:00 09/15/21 06:00 09/14/21 17:33 Temperature Pulse Rate 74 Respiratory Rate 16 12 Blood Pressure Pulse Oximetry 99 99 Oxygen Delivery 09/14/21 18:00 09/15/21 08:18 09/15/21 08:00 Temperature 36.6 C Pulse Rate 78 Respiratory Rate 13 16 18 Blood Pressure 136/70 Pulse Oximetry 99 99 100 Oxygen Delivery 09/15/21 10:00 09/15/21 08:00 09/15/21 08:00 Temperature Pulse Rate 73 Respiratory Rate 18 Blood Pressure Pulse Oximetry 100 Oxygen Delivery Room Air 09/15/21 10:00 Temperature Pulse Rate 70 Respiratory Rate Blood Pressure Pulse Oximetry Oxygen Delivery Intake/Output Intake/Output: Intake & Output 09/12/21 09/13/21 09/14/21 09/15/21 23:59 23:59 23:59 23:59 Intake Total 7658.333 4575 1620 2170 Output Total 2250 2000 1650 2150 Balance 5408.333 2575 -30 20 Meds/Results Medications: Active Medications Generic Name Dose Route Start Last Admin Trade Name Freq PRN Reason Stop Dose Admin Benzocaine 1 lozenge 09/07/21 22:27 Benzocaine/Menthol (*Bkc) 18 Ea Lozenge PO PRN PRN Sore Throat Bisacodyl 10 mg 09/07/21 22:27 Bisacodyl 10 Mg Suppository RECTAL QAM PRN Constipation Hydralazine HCl 10 mg 09/12/21 12:54 09/12/21 21:07 Hydralazine Hcl 20 Mg/Ml Vial IV PUSH 10 mg Q8H PRN Administration SBP>160 OR DBP>90 Cefepime HCl 1 gm in 50 mls @ 100 mls/hr 09/06/21 00:00 09/15/21 03:34 Maxipime 1 Gm/D5w 50 Ml IVPB Infused Q12H RICARDO Infusion Dextrose/Sodium Chloride 1,000 mls @ 65 mls/hr 09/07/21 04:30 09/15/21 09:32 Dextrose 5% Sodium Chloride 0.45% IV CONT 65 mls/hr .[id number] RICARDO Administration Pantoprazole Sodium 80 mg
--- NOTE | 2021-09-15 10:51 | WPDGIPROGNO ---
Progress Note: A&P Assessment and Plan (1) Acute gastrointestinal ulcer with perforation: Code(s): K28.1 - Acute gastrojejunal ulcer with perforation Status: Acute Assessment and Plan: per CT scan it appears that he has a localized perforation, probably ulcer related. He had been followed by surgery. He is apparently high risk for surgery. we are hopeful that with NG suction and bowel rest at this will seal itself. He is scheduled for repeat CT scan tomorrow. (2) Anemia: Code(s): D64.9 - Anemia, unspecified Status: Acute Assessment and Plan: Hemoglobin was 14 on admission and now is down to 7.7. There is however no evidence of active gastrointestinal bleeding at this point. If counts drop any further he will need transfusion 09/15 hemoglobin is now down to 7.2. I have spoken to Dr. Jeffrey. He will be given 1 unit of blood today (3) Intra-abdominal free air of unknown etiology: Code(s): K66.8 - Other specified disorders of peritoneum Status: Acute Assessment and Plan: this is likely due to perforated gastric ulcer. CT scan will be done tomorrow for follow-up. At some point surgery may be necessary but clinically he seems improved today. (4) Non-STEMI (non-ST elevated myocardial infarction): Code(s): I21.4 - Non-ST elevation (NSTEMI) myocardial infarction Status: Acute Assessment and Plan: Because of his cardiac status, he is at increased risk for surgery. Subjective Date/time seen: 09/15/21 10:51 he is feeling a little better today. The pain he had yesterday was for radiating down to his groin and testicles. His hemoglobin also continues to drop suspicious for possible intra-abdominal bleeding. He was transferred to IMU yesterday. He will be transfused with 1 unit of blood. Exam Const: General: alert Orientation/consciousness: patient oriented x3 Resp: Auscultation: clear to auscultation bilaterally Cardio: Rhythm: regular rhythm GI: Inspection: normal to inspection GI Palp: Yes Soft to palpation and Yes Tenderness to palpation present (GI) ( Mild diffuse tenderness, improved over yesterday) Auscultation: normal bowel sounds Neuro: General: patient oriented x3 Extrem: General: other ( Left above the knee amputation) Objective Data Vital Signs Vital Signs: Vital Signs - 24 hr 07/23/22 17:45 09/14/21 17:40 09/14/21 16:03 Temperature 37.7 C H Pulse Rate 88 78 74 Respiratory Rate 26 H Blood Pressure 135/58 L Pulse Oximetry 98 Oxygen Delivery 09/14/21 20:41 09/14/21 20:00 09/14/21 20:00 Temperature 36.8 C Pulse Rate 80 71 Respiratory Rate 16 Blood Pressure 147/68 H Pulse Oximetry 100 100 Oxygen Delivery Room Air 09/14/21 23:28 09/14/21 22:00 09/15/21 00:00 Temperature 36.6 C Pulse Rate 71 76 72 Respiratory Rate 16 Blood Pressure 103/71 Pulse Oximetry 100 Oxygen Delivery 09/15/21 00:00 09/15/21 01:20 09/15/21 01:33 Temperature Pulse Rate Respiratory Rate 20 20 Blood Pressure Pulse Oximetry 100 97 97 Oxygen Delivery Room Air 09/14/21 20:00 09/14/21 22:00 09/15/21 00:00 Temperature Pulse Rate Respiratory Rate 16 16 16 Blood Pressure Pulse Oximetry 100 100 100 Oxygen Delivery 09/15/21 02:00 09/15/21 02:00 09/15/21 03:22 Temperature 36.6 C Pulse Rate 68 88 Respiratory Rate 16 16 Blood Pressure 139/48 L Pulse Oximetry 100 99 Oxygen Delivery 09/15/21 04:00 09/15/21 04:00 09/15/21 04:00 Temperature Pulse Rate 65 Respiratory Rate 20 Blood Pressure Pulse Oximetry 100 100 Oxygen Delivery Room Air 09/15/21 06:00 09/15/21 06:00 09/14/21 17:33 Temperature Pulse Rate 74 Respiratory Rate 16 12 Blood Pressure Pulse Oximetry 99 99 Oxygen Delivery 09/14/21 18:00 09/15/21 08:18 09/15/21 08:00 Temperature 36.6 C Pulse Rate 78 Respiratory Rate 13 16 18 Blood Pressure
[2021-09-15] MEDS: SODIUM CHLORIDE 0.9% IV 250 ML 30 ML IV CONT (11:23)
[2021-09-15] MEDS: TUBING, BLOOD PLUM PUMP TUBING 1 EACH XX (11:23)
[2021-09-15 12:26] LABS: Glucose Point of Care 121 mg/dl (65-105)
--- NOTE | 2021-09-15 14:12 | PM.IMPN ---
Progress Note: A&P Assessment and Plan (1) Anemia: Code(s): D64.9 - Anemia, unspecified Status: Acute (2) Intra-abdominal free air of unknown etiology: Code(s): K66.8 - Other specified disorders of peritoneum Status: Acute (3) Non-STEMI (non-ST elevated myocardial infarction): Code(s): I21.4 - Non-ST elevation (NSTEMI) myocardial infarction Status: Acute (4) Acute gastrointestinal ulcer with perforation: Code(s): K28.1 - Acute gastrojejunal ulcer with perforation Status: Acute (5) Abnormal CT scan: Code(s): R93.89 - Abnormal findings on diagnostic imaging of other specified body structures Status: Acute (6) Fracture of femoral neck, left: Code(s): S72.002A - Fracture of unspecified part of neck of left femur, initial encounter for closed fracture Status: Acute Plan ?60-year-old male with a history of hypertension,recurrent MRSA infection, left AKA, and recent left hip fracture following a fall downstairs approximately 6 weeks ago, who presents to the emergency department for evaluation of atraumatic right hip pain 1)Acute gastrointestinal Ulcer with Perforation: Appreciate Surgery help C/w NG tube Pain control with dilaudid c/w cefepime Micafungin as per surgery NPO status c/w PPI c/w Sucralfate Slowly worsening leucocytosis, will monitor c/w TPN Likely plan for Upper GI series vs CT abdomen tomorrow AM, will defer to surgery for final decision making 2)Chest Pain: Resolved Appreciate cardiology help No intervention needed 3)HTN: Add PRN IV hydralazine 4)Transaminitis: elevation in LFT noted Will trend LFT's 5)DVT ppx: SCD 6)Code:Full, guarded prognosis 7)Dispo:pending improvement 09/13/2021 interval history: patient is a 60-year-old male presented with abdominal pain is found to have acute gastrointestinal ulcer with perforation seen by GI suspect most likely secondary to peptic ulcer disease and seen by surgery service, both GI and surgery recommending conservative management with bowel rest NG tube for decompression and closely monitor with imaging, patient states is passing gas, his white counts are trending down to 13.9 compared to 32 upon arrival next day, patient has hypokalemia will replenish and monitor most likely secondary to poor p.o. intake and GI loss will continue to monitor. 09/14/2021 interval history: patient is a 60-year-old male presented with abdominal pain is found to have acute gastrointestinal ulcer with perforation seen by GI suspect most likely secondary to peptic ulcer disease and seen by surgery service, both GI and surgery recommending conservative management with bowel rest NG tube for decompression and closely monitor with imaging, patient states is passing gas, his white counts are trending down to 12.8 compared to 32 upon arrival next day, Patient continue complaints of pain Dilaudid 1mg q2hr is not controlling pain, patient was seen by surgery services and started patient on PSA pump to control pain, patient has hypokalemia will replenish and monitor most likely secondary to poor p.o. intake and GI loss will continue to monitor. will transfer patient to IMU for close monitoring. 09/15/2021 interval history: patient is a 60-year-old male presented with abdominal pain is found to have acute gastrointestinal ulcer with perforation today patient's hemoglobin dropped to 7.2 there is no obvious source of bleeding, discussed with GI will get 1 unit of pack RBC, seen by GI suspect most likely secondary to peptic ulcer disease and seen by surgery service, both GI and surgery recommending conservative management with bowel rest NG tube for decompression and closely repeat CT scan the abdomen tomorrow, patient states is passing gas, his white counts are trending down to 12.0 compared to 32 upon arrival next day, Patient continue complaints of pain Dilaudid 1mg q2hr is not controlling pain, patient was seen by surgery serv
[2021-09-15 20:00] LABS: Anion Gap 6 mmol/L (8-16); Blood Urea Nitrogen 10 mg/dL (9-20); Calcium 7.2 mg/dL (8.4-10.2); Carbon Dioxide 26 mmol/L (22-30); Chloride 102 mmol/L (98-107); Estimated CRCL calculation 100 ml/min; Estimated Glomerular Filt Rate > 60; Glucose 109 mg/dL (65-110); Potassium 3.2 mmol/L (3.4-5.0); Sodium 134 mmol/L (137-145)
[2021-09-15] MEDS: FAT EMULSIONS IV 20% 250 ML 20.83 ML IVPB (21:15)
[2021-09-15] MEDS: POTASSIUM PHOS,M-BASIC-D-BASIC 20 MMOL in SODIUM CHLORIDE 0.9% IV 250 ML 64.17 MMOL IVPB (22:44)
[2021-09-15] MEDS: AMINO ACIDS 5%/D15W/E-LYTES/CA 2,000 ML with MULTIVITAMINS-12 INJ VIAL 1 2.5 ML, MULTIV... 40 ML IV CONT (22:50)
[2021-09-15 23:31] LABS: Glucose Point of Care 102 mg/dl (65-105)
[2021-09-16] VITALS (20 sets, daily range): BP systolic 146–188; BP diastolic 65–88; PULSE 87–119; RESP 14–20; TEMP 36.2–38.4; O2SAT 96–100
[2021-09-16] MEDS: hydrALAZINE HCL 20 MG/ML VIAL 10 MG IV PUSH ×2 (00:05→16:33)
[2021-09-16] MEDS: SUCRALFATE SUSP 100 MG/ML 10 ML UDC 1000 MG FEED TUBE ×4 (00:06→17:47)
[2021-09-16] MEDS: DEXTROSE 5%/0.45% SOD CHL 1,000 ML 65 ML IV CONT ×2 (01:23→17:22)
[2021-09-16] MEDS: HYDROmorphon 0.2MG/ML PCA(*CRX 6 MG/30 ML PCA.VIAL IV CONT ×2 (03:11→13:13)
[2021-09-16] MEDS: CENTRAL LINE FLUSH 10 ML IV PUSH ×3 (05:10→20:47)
[2021-09-16] MEDS: CENTRAL LINE FLUSH 20 ML IV PUSH (05:10)
[2021-09-16 05:12] LABS: Basophils Absolute Auto 0.1 K/mm3 (0.0-0.1); Basophils Percent Auto 0.7 % (0.2-1.2); Eosinophils Absolute Auto 0.1 K/mm3 (0-0.3); Eosinophils Percent Auto 0.9 % (0-4.4); Hematocrit 24.2 % (42.0-52.0); Hemoglobin 8.1 g/dL (14.0-18.0); Lymphocytes Absolute Auto 1.15 K/mm3 (0.9-3.2); Mean Corpuscular HGB Conc 33.5 g/dl (32-36); Mean Corpuscular Hemoglobin 27.9 pg (26-34); Mean Corpuscular Volume 83.4 fl (80-100); Mean Platelet Volume 10.4 fl (7.4-10.4); Monocytes Absolute Auto 0.9 K/mm3 (0.1-0.6); Monocytes Percent Auto 8.7 % (2.6-8.5); Neutrophils Absolute Auto 8.2 K/mm3 (1.3-6.7); Neutrophils Percent Auto 77.7 % (45.5-73.1); Platelet Count Result 421 k/mm3 (150-375); Red Cell Distribution Width 16.2 % (11.5-14.5); White Blood Count 10.5 K/mm3 (4.5-10.0)
[2021-09-16 05:22] LABS: INR 1.2; Prothrombin Time 14.3 Seconds (11.1-14.7)
[2021-09-16 05:23] LABS: Alanine Aminotransferase 36 U/L (6-50); Albumin Level 2.6 g/dL (3.5-5.1); Alkaline Phosphatase 359 U/L (38-126); Anion Gap 9 mmol/L (8-16); Aspartate Amino Transferase 35 U/L (17-59); Bilirubin,Total 1.2 mg/dL (0.2-1.3); Blood Urea Nitrogen 8 mg/dL (9-20); Calcium 7.4 mg/dL (8.4-10.2); Carbon Dioxide 24 mmol/L (22-30); Chloride 102 mmol/L (98-107); Estimated CRCL calculation 85 ml/min; Estimated Glomerular Filt Rate > 60; Glucose 104 mg/dL (65-110); Magnesium 1.9 mg/dL (1.6-2.3); Partial Thromboplastin Time 36.4 SECONDS (22.3-36.8); Potassium 2.2 mmol/L (3.4-5.0); Sodium 135 mmol/L (137-145)
[2021-09-16 05:28] LABS: Transferrin 126 mg/dL (206-381)
[2021-09-16] MEDS: KCL 40 MEQ/WATER 100 ML 100 ML 25 ML IVPB ×4 (06:17→20:55)
--- NOTE | 2021-09-16 08:55 | PCNFU ---
Nutrition Follow-Up Complete: Inadequate po intake related to altered GI function as evidenced by need for TPN for nutrition support. Goal:Meet at least 60-80% of nutritional needs via TPN. Pt is meeting goal on TPN support. Continue with current goal. Pt current nutrition is TPN Clinimix E @ 40ml/hr with 250ml 20% lipids now decreased to q 48hrs. Nutrition recommendation: Increase TPN to a rate of Last recorded weight is 55.2 kg - down from 58kg. Bowel Motility: +BM 09/11, noted + flatus 09/15 Labs Reviewed: Hgb:8.1, HCT:24.2, Alb:2.6, NA:135, BUN:8, Cr:0.6, Tri Meds Noted: dulcolax, dilaudid, zofran Skin: WNL Additional Notes: Pt continues on TPN:clinimix E at 40ml/hr with 250ml 20% lipids, now decreased to q 48hrs. This provides 1682kcals, 48g protein. This is meeting 94% of estimated needs, 80% of protein needs when lipids are provided. Meeting only 66% of estimated needs on days without lipids. Recommend to increase TPN to 50ml/hr to provide 1352kcals (75% of needs), 60g PRO, 1852kcals (100% of needs) on days with lipids. Monitor TPN, wt, labs. Follow up every Thursday and Thursday.
--- NOTE | 2021-09-16 09:23 | PM.PNGS ---
Progress Note: A&P Assessment and Plan (1) Acute gastrointestinal ulcer with perforation: Code(s): K28.1 - Acute gastrojejunal ulcer with perforation Status: Acute Assessment and Plan: Abdominal pain improving and his exam has improved some. WBC down to 10K today and he is afebrile. Today an abd CT with oral and IV contrast shows a fairly large fluid collection behind the stomach with some still gas in it. This appears to be formed into an abscess. It may be drainable by CT guidance. I have discussed this with our radiologist. Since the patient is hemodynamically stable and doing okay on antibiotics this will be attempted either later today or tomorrow. For now will continue current antibiotics and obtain cultures when this is drained. Will continue the micafungin until we prove that there is not fungal elements in this fluid collection and then may be DC it since it can have some difficult side effects. (This was done today as a CT of abd/pelvis with IV contrast and oral contrast--- only 50 cc to be put down his NG). Pt. Appears stable at this time with a decreasing white count and since his Gastrografin upper GI showed still showed a small leak 6 days ago he has been on TPN and bowel rest withNG suction. Because today's study showed no leak from the ulcer in the stomach using oral contrast through the NG tube, if things go well we may consider either instilling grape juice down the NG tube for several hours and wait to see what shows up in the percutaneous drain tomorrow and if no discoloration then starting tube feedings or remove the NG and let the patient start liquids. It will depend on how everything goes with his clinical status and labs . Continue TPN. Continue NG tube, TPN, bowel rest, IV fluids, Carafate down NG Q 6, and analgesics as needed. May again have 1 cup of ice chips Q 4H. No bloody drainage in the canister today from the NG. Continue IV antibiotics/Micafungin Continue Protonix drip and sucralfate Repeat labs tomorrow. (2) Enteritis: Code(s): K52.9 - Noninfective gastroenteritis and colitis, unspecified Status: Acute Assessment and Plan: Suggested on CT previously. Currently on IV antibiotics for #1 above. No diarrhea. Continue to monitor. Patient states that the stools he does have are formed. (3) Fracture of femoral neck, left: Code(s): S72.002A - Fracture of unspecified part of neck of left femur, initial encounter for closed fracture Status: Acute (4) History of left above knee amputation: Code(s): Z89.612 - Acquired absence of left leg above knee Status: Acute Subjective Subjective Date/Time Seen: 09/16/21 08:23 Patient reports: feels better and bowel movement Interval history: Patient states that over the weekend he did have more severe pain in the lower abdomen extending toward his left groin. This also came and went. 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 Apparently moved to IMU mainly because of very low potassium. Also hemoglobin drifted to 7.2 over the weekend so he was given 1 unit of blood and his hemoglobin is back up to 8.1 today. He denies noticing blood in the stool. He did have a formed bowel movement yesterday. Review of Systems Review of Systems: All systems reviewed & are unremarkable except as noted in HPI and below Constitutional: Constitutional: Reports as per HPI, Denies chills and Denies fever(s) Cardiovascular: Cardiovascular: Denies chest pain and Denies dyspnea Respiratory: Respiratory: Reports no additional respiratory complaints and Denies dyspnea Gastrointestinal: Gastrointestinal: Reports as per HPI and Denies bloating Comments: No blood in the stool he had yesterday. Genitourinary: Comments: No burning with urination Musculoskeletal: Musculoskeletal: Reports no additional musculoskeletal complaints Neurologic: Denies memory loss Psychiatric: Psychiatric: Denies anxiety and Denies mem
[2021-09-16] MEDS: lisinopriL 10 MG TABLET PO ×2 (12:08→20:47)
[2021-09-16 12:12] LABS: Glucose Point of Care 127 mg/dl (65-105)
--- NOTE | 2021-09-16 12:20 | WPDGIPROGNO ---
Progress Note: A&P Assessment and Plan (1) Acute gastrointestinal ulcer with perforation: Code(s): K28.1 - Acute gastrojejunal ulcer with perforation Status: Acute Assessment and Plan: CT scan performed this morning does reveal gastric ulceration. There is fluid outside the stomach suggesting perforation. The amount of air in the intraperitoneal space appears decreased. All this consistent with perforation. Is uncertain how walled-off this is a present. Surgical service is following. Clinically WBC count has decreased. Patient continues to require pain medications. Plan to continue antibiotics. Surgical follow-up continues. (2) Fracture of femoral neck, left: Code(s): S72.002A - Fracture of unspecified part of neck of left femur, initial encounter for closed fracture Status: Acute (3) History of left above knee amputation: Code(s): Z89.612 - Acquired absence of left leg above knee Status: Acute Subjective Date/time seen: 09/16/21 12:20 Patient alert more comfortable this morning. States pain appears lessened today but over the weekend had rather intense pain. Modest decline in hemoglobin noted over the weekend. Patient was transfuse with 1unit of packed red blood cells. Patient reports having formed stool over the weekend. Review of Systems Review of Systems: Review of systems noncontributory. Exam Narrative: Physical exam reveals patient be alert. Vital signs stable he is currently afebrile. HEENT exam reveals no icterus. Lungs are clear. NG tube remains in place heart without murmur. Abdomen bowel sounds present soft nontender. Patient currently on a pain drip. Objective Data Vital Signs Vital Signs: Vital Signs - 24 hr 09/15/21 12:45 09/15/21 13:00 09/15/21 13:42 Temperature 97.6 F 97.6 F 98.4 F Pulse Rate 90 80 79 Respiratory Rate 18 18 16 Blood Pressure 155/79 H 147/66 H 145/69 H Pulse Oximetry 99 99 100 Oxygen Delivery 09/15/21 14:06 09/15/21 14:00 09/15/21 14:00 Temperature 97.8 F 98.6 F Pulse Rate 80 84 Respiratory Rate 20 12 18 Blood Pressure 149/63 H 133/67 Pulse Oximetry 99 99 99 Oxygen Delivery 09/15/21 16:00 09/15/21 16:00 09/15/21 16:00 Temperature Pulse Rate 81 Respiratory Rate 18 Blood Pressure Pulse Oximetry 99 Oxygen Delivery Room Air 09/15/21 14:00 09/15/21 18:00 09/15/21 18:00 Temperature Pulse Rate 83 82 Respiratory Rate 18 Blood Pressure Pulse Oximetry 99 Oxygen Delivery 09/15/21 21:01 09/15/21 20:00 09/15/21 20:00 Temperature 100 F H Pulse Rate 93 93 Respiratory Rate 20 20 20 Blood Pressure 165/71 H Pulse Oximetry 99 99 99 Oxygen Delivery Room Air 09/15/21 23:29 09/15/21 22:00 09/15/21 23:44 Temperature 99.9 F H Pulse Rate 85 Respiratory Rate 16 20 16 Blood Pressure 164/75 H Pulse Oximetry 98 99 98 Oxygen Delivery 09/15/21 20:00 09/15/21 22:00 09/15/21 23:52 Temperature Pulse Rate 72 85 85 Respiratory Rate 16 Blood Pressure Pulse Oximetry 98 Oxygen Delivery Room Air 09/16/21 00:00 09/16/21 02:00 09/16/21 02:00 Temperature Pulse Rate 100 100 Respiratory Rate 20 Blood Pressure Pulse Oximetry 98 Oxygen Delivery 09/16/21 03:11 09/16/21 03:20 09/16/21 04:00 Temperature 97.3 F L Pulse Rate 100 Respiratory Rate 18 18 18 Blood Pressure 146/81 H Pulse Oximetry 98 98 98 Oxygen Delivery 09/16/21 04:00 09/16/21 04:00 09/16/21 05:26 Temperature Pulse Rate 100 96 90 Respiratory Rate 18 Blood Pressure Pulse Oximetry 98 Oxygen Delivery Room Air 09/16/21 05:26 09/16/21 08:40 09/16/21 10:00 Temperature Pulse Rate 95 100 Respiratory Rate 20 Blood Pressure Pulse Oximetry 98 Oxygen Delivery 09/16/21 10:00 09/16/21 12:00 Temperature 99.7 F H Pulse Rate 97 Respiratory Rate 20 14 Blood Pressure 175/81 H Pulse Oximetry 98 98 Oxygen Delivery
--- NOTE | 2021-09-16 14:28 | WPDMODSED ---
Moderate Sedation Note-Pt Data Patient Data Diagnosis: perforated ulcer Present Complaint: abdominal pain and abscess Procedure to be performed/Plan: percutaneous abscess drainage catheter placement Allergies Allergy/AdvReac Type Severity Reaction Status Date / Time No Known Allergies Allergy Verified 08/29/21 13:58 Home Medications Medication Instructions Recorded Confirmed Type lisinopril 10 mg tablet 10 mg PO BID 07/24/21 09/05/21 History naproxen sodium 220 mg capsule 220 mg PO BID PRN Pain 07/24/21 09/05/21 History (Aleve) hydrocodone 5 mg-acetaminophen 325 1 tablet PO BID PRN pain #30 tabs 09/04/21 09/05/21 Rx mg tablet Current Medications: Active Medications Benzocaine (Benzocaine/Menthol (*Bkc) 18 Ea Lozenge) 1 lozenge PO PRN PRN PRN Reason: Sore Throat Bisacodyl (Bisacodyl 10 Mg Suppository) 10 mg RECTAL QAM PRN PRN Reason: Constipation Hydralazine HCl (Hydralazine Hcl 20 Mg/Ml Vial) 10 mg IV PUSH Q8H PRN PRN Reason: SBP>160 OR DBP>90 Last Admin: 09/16/21 00:05 Dose: 10 mg Cefepime HCl (Maxipime 1 Gm/D5w 50 Ml) 1 gm in 50 mls @ 100 mls/hr IVPB Q12H [facility] Last Infusion: 09/16/21 12:35 Dose: Infused Dextrose/Sodium Chloride (Dextrose 5% Sodium Chloride 0.45%) 1,000 mls @ 65 mls/hr IV CONT .[id number] RICARDO Last Admin: 09/16/21 04:39 Dose: Not Given Pantoprazole Sodium 80 mg/ (Dextrose) 500 mls @ 50 mls/hr IV CONT .Q10H RICARDO Last Admin: 09/16/21 04:39 Dose: 50 mls/hr Dextrose (Dextrose 10%) 1,000 mls @ 50 mls/hr IV CONT .Q20H PRN PRN Reason: if PN is interrupted Multivitamins 2.5 ml/Multivitamins 2.5 ml/ Amino Acids/Electrolytes/Dextrose 2,005 mls @ 50 mls/hr IV CONT .Q24H RICARDO; Protocol Last Infusion: 09/16/21 13:22 Dose: 50 mls/hr Micafungin Sodium 100 mg/ (Sodium Chloride) 100 mls @ 100 mls/hr IVPB Q24H [facility] Last Infusion: 09/15/21 19:00 Dose: Infused Fat Emulsion Intravenous (Lipids 20%) 250 mls @ 20.833 mls/hr IVPB Q48H [facility] Last Infusion: 09/16/21 09:40 Dose: Infused Hydromorphone HCl (Dilaudid 0.2 Mg/Ml Towboat Operator) 6 mg in 30 mls @ 0 mls/hr IV CONT PRN PRN PRN Reason: [employer] Last Admin: 09/16/21 13:13 Dose: 0 mg/hr, 0 mls/hr Potassium Chloride (Kcl 40 Meq/Water 100 Ml) 100 mls @ 25 mls/hr IVPB ONCE ONE Stop: 09/16/21 14:29 Last Admin: 09/16/21 10:32 Dose: 25 mls/hr Lisinopril (Lisinopril 10 Mg Tablet) 10 mg PO Q12HR [facility] Last Admin: 09/16/21 12:08 Dose: 10 mg Nicotine (Nicotine (*Pbkc) 21 Mg Patch) 1 patch TRANSDERM QAM [facility] Last Admin: 09/16/21 10:33 Dose: Not Given Ondansetron HCl (Ondansetron Inj 4 Mg/2 Ml Vial) 4 mg IV PUSH Q6H PRN PRN Reason: Nausea And Vomiting Last Admin: 09/15/21 03:41 Dose: 4 mg Phenol (Phenol/Sod Pheno [place] (*Bkc)) 1 spray MUCOUS MEM PRN PRN PRN Reason: Sore Throat Last Admin: 09/12/21 12:09 Dose: 1 spray Sodium Chloride (Central Line Flush) 10 ml IV PUSH Q8HR [facility] Last Admin: 09/16/21 05:10 Dose: 10 ml Sodium Chloride (Central Line Flush) 10 ml IV PUSH PRN PRN PRN Reason: with TPN bag changes Sodium Chloride (Central Line Flush) 20 ml IV PUSH PRN PRN PRN Reason: after blood draws Last Admin: 09/16/21 05:10 Dose: 20 ml Sucralfate (Sucralfate Susp 100 Mg/Ml 10 Ml Udc) 1,000 mg FEED TUBE Q6HR [facility] Last Admin: 09/16/21 12:08 Dose: 1,000 mg Sedation/Anesthesia: No previous sedation/anesthesia problems (including family history). [facility] Past Medical History Medical History History of left above knee amputation Social History Social History Smoking packs per day: 2 Smoking cigarettes per day: 40.0 Years smoked: 49 Smoking pack-years: 98.00 Smoking status: Current every day smoker Tobacco type: cigarettes Alcohol intake: never Substance use: never Substance use type: does not use Gender identity (if verbalized by the patient): Male Spiritual
[2021-09-16] MEDS: AMINO ACIDS 5%/D15W/E-LYTES/CA 2,000 ML with MULTIVITAMINS-12 INJ VIAL 1 2.5 ML, MULTIV... 50 ML IV CONT (16:32)
[2021-09-16 16:38] LABS: Anion Gap 9 mmol/L (8-16); Blood Urea Nitrogen 8 mg/dL (9-20); Calcium 7.4 mg/dL (8.4-10.2); Carbon Dioxide 24 mmol/L (22-30); Chloride 102 mmol/L (98-107); Estimated CRCL calculation 84 ml/min; Estimated Glomerular Filt Rate > 60; Glucose 112 mg/dL (65-110); Potassium 2.7 mmol/L (3.4-5.0); Sodium 135 mmol/L (137-145)
[2021-09-16] MEDS: MICAFUNGIN SODIUM 100 MG in SODIUM CHLORIDE 0.9% IV 100 ML IVPB (17:24)
[2021-09-16] MEDS: HYDROmorphone HCL INJ (*CRX) 1 MG/ML SYR 0.5 MG IV PUSH (17:39)
[2021-09-16 18:09] LABS: Glucose Point of Care 115 mg/dl (65-105)
--- NOTE | 2021-09-16 18:41 | PC.NURSE ---
[id number]- to CT dept for CT guided drain for abdominal abcess; returned to room @ 1530- Drain to Left upper quad- to suction- drainage thick creamy green tint in color- pt c/o pain at procedure site- [employer] is connected and pt using as directed. monitor ST 110-120's PAC
[2021-09-16] MEDS: ACETAMINOPHEN ELIXIR 325 MG/10.15 ML UDC 650 MG PO (20:46)
--- NOTE | 2021-09-16 22:58 | PC.NURSE ---
Mirela MEJIA notified of patient increased confusion and pain not being controlled. Mirela MEJIA to come see and assess patient.
[2021-09-16 23:38] LABS: Glucose Point of Care 156 mg/dl (65-105)
[2021-09-17] VITALS (15 sets, daily range): BP systolic 132–194; BP diastolic 63–109; PULSE 70–116; RESP 15–20; TEMP 36.3–37.4; O2SAT 95–100
[2021-09-17] MEDS: SUCRALFATE SUSP 100 MG/ML 10 ML UDC 1000 MG FEED TUBE ×4 (00:15→18:06)
[2021-09-17 03:25] LABS: Basophils Absolute Auto 0.1 K/mm3 (0.0-0.1); Basophils Percent Auto 0.6 % (0.2-1.2); Eosinophils Absolute Auto 0.1 K/mm3 (0-0.3); Eosinophils Percent Auto 0.9 % (0-4.4); Hematocrit 23.7 % (42.0-52.0); Hemoglobin 7.6 g/dL (14.0-18.0); Immature Granulocyte Absolute 0.16 K/mm3 (0.00-0.031); Immature Granulocyte Percent A 1.2 % (0-0.5); Lymphocytes Absolute Auto 1.07 K/mm3 (0.9-3.2); Lymphocytes Percent Auto 7.7 % (18.3-44.2); Mean Corpuscular HGB Conc 32.1 g/dl (32-36); Mean Corpuscular Hemoglobin 27.2 pg (26-34); Mean Corpuscular Volume 84.9 fl (80-100); Mean Platelet Volume 10.4 fl (7.4-10.4); Monocytes Absolute Auto 0.7 K/mm3 (0.1-0.6); Monocytes Percent Auto 5.3 % (2.6-8.5); Neutrophils Absolute Auto 11.7 K/mm3 (1.3-6.7); Neutrophils Percent Auto 84.3 % (45.5-73.1); Platelet Count Result 416 k/mm3 (150-375); Red Blood Count 2.79 M/mm3 (4.6-6.20); Red Cell Distribution Width 16.1 % (11.5-14.5); White Blood Count 13.9 K/mm3 (4.5-10.0)
[2021-09-17 03:44] LABS: Anion Gap 8 mmol/L (8-16); Blood Urea Nitrogen 11 mg/dL (9-20); Calcium 7.6 mg/dL (8.4-10.2); Carbon Dioxide 23 mmol/L (22-30); Chloride 106 mmol/L (98-107); Estimated CRCL calculation 84 ml/min; Estimated Glomerular Filt Rate > 60; Glucose 138 mg/dL (65-110); Magnesium 2.1 mg/dL (1.6-2.3); Potassium 2.8 mmol/L (3.4-5.0); Sodium 137 mmol/L (137-145); Triglycerides 101 mg/dL (<150)
--- NOTE | 2021-09-17 04:37 | PC.NURSE ---
Patient still not oriented to place. Currently believes he's in the [facility] and being held hostage. Patient reassured he is safe and in the hospital at [facility].
[2021-09-17] MEDS: HYDROmorphon 0.2MG/ML PCA(*CRX 6 MG/30 ML PCA.VIAL IV CONT ×3 (04:45→18:55)
[2021-09-17] MEDS: CENTRAL LINE FLUSH 10 ML IV PUSH ×3 (04:57→20:14)
[2021-09-17] MEDS: KCL 40 MEQ/WATER 100 ML 100 ML 25 ML IVPB (05:08)
[2021-09-17] MEDS: lisinopriL 10 MG TABLET PO ×2 (09:15→20:15)
--- NOTE | 2021-09-17 09:25 | PM.PNGS ---
Progress Note: A&P Assessment and Plan (1) Acute gastrointestinal ulcer with perforation: Code(s): K28.1 - Acute gastrojejunal ulcer with perforation Status: Acute Assessment and Plan: Abdominal pain is about the same as yesterday katie and his exam is the same. WBC up to 13K today and he is afebrile now, but after the percutaneous drain yesterday he ran a fever as high as 101 several times during the 8 hours following the drainage procedure. Yesterday an abd. CT with oral and IV contrast showed a fairly large fluid collection behind the stomach with some gas in it. This appears to be formed into an abscess. It was drainable by CT guidance. Patient has done okay afterwards blood pressure is still slightly high but no hypotension. Hemoglobin slightly down today will recheck tomorrow and check an H&H this evening to be sure he has not had of ongoing bleeding. There was no blood in the drainage bag from the percutaneous drainage of the abscess. Will continue current antibiotics and await cultures from this drainage. Will continue the micafungin until we prove that there is not fungal elements in this fluid collection and then may be DC it since it can have some difficult side effects. . Pt. Appears stable at this time with a white count is variably up and down over the last few days. Since his Gastrografin upper GI showed still showed a small leak 7 days ago he has been on TPN and bowel rest with NG suction. Because today's study showed no leak from the ulcer in the stomach using oral contrast through the NG tube, if things go well we may consider either instilling grape juice or a blue colored Gatorade down the NG tube for several hours and wait to see what shows up in the percutaneous drain tomorrow and if no discoloration then starting tube feedings or remove the NG and let the patient start liquids. (discussed with nurse and dietitian). Once he starts orals we will try to prioritize the apple or mix Uday Clear Ensure, and advancement will depend on how everything goes with his clinical status and labs . Continue TPN for now at 50 cc/hr. I will resume Q 24 hour 12 hour infusion of lipid since his triglycerides are down to normal range again now. Continue NG tube, TPN, bowel rest, IV fluids, Carafate down NG Q 6, and analgesics as needed. May again have 1 cup of ice chips Q 4H. No bloody drainage in the canister today from the NG. Continue IV antibiotics/Micafungin ---await results of Gram stain and C&S from yesterday's procedure/abscess drainage. Continue Protonix drip and sucralfate ---will talk to pharmacy about timing on conversion to q.12 our 40 mg Protonix bolus versus the infusion. Repeat labs tomorrow. (2) Enteritis: Code(s): K52.9 - Noninfective gastroenteritis and colitis, unspecified Status: Acute Assessment and Plan: Suggested on CT previously. Currently on IV antibiotics for #1 above. No diarrhea. Continue to monitor. Patient states that the stools he does have are formed. (3) Fracture of femoral neck, left: Code(s): S72.002A - Fracture of unspecified part of neck of left femur, initial encounter for closed fracture Status: Acute (4) History of left above knee amputation: Code(s): Z89.612 - Acquired absence of left leg above knee Status: Acute Subjective Subjective Date/Time Seen: 09/17/21 09:25 Post Op day: 1 (Status post placement of percutaneous CT guided drain upper abdomen.) Patient reports: still having pain (Mainly in his left upper quadrant near the drain and left leg and back.), flatus and bowel movement (Yesterday a.m. not yet today.) Interval history: Patient states that he feels out of sorts. Because of his sedation he does not remember anything about the percutaneous procedure yesterday afternoon. He does remember his being here early evening when I came by to check on him after the CT-guided drain placement. Apparently also maria c
[2021-09-17] MEDS: FAT EMULSIONS IV 20% 250 ML 20.83 ML IVPB (10:39)
[2021-09-17] MEDS: POTASSIUM CHLORIDE INJ 40 MEQ in SODIUM CHLORIDE 0.9% IV 500 ML 130 MEQ IVPB (10:39)
[2021-09-17] MEDS: KCL 40 MEQ/D5 1/2NS 1,000 ML 30 ML IV CONT (10:39)
--- NOTE | 2021-09-17 11:06 | PCNFU ---
Nutrition Follow-Up Complete: Inadequate po intake related to altered GI function as evidenced by need for TPN for nutrition support. Goal: Meet at least 60-80% of nutritional needs via TPN Patient is meeting current goal. We will continue current goal. Pt current nutrition is TPN. Last recorded weight is 59.6 kg, stable Bowel Motility: Last BM reported 09/15 Labs Reviewed:TG 101, Glu 138, K 2.8, Hct 23.7,Hgb 7.6 Meds Noted:Clinimix E 5/15 at 50 ml/hr with 250 ml of 20% Lipid Emulsion, Carafate, Prinivil Skin: WNL Additional Notes: Spoke with nursing and Dr. Hurtado today. Plans for continue TPN at 50 ml/hr and add Lipids back every 24 hours, TG 101 WNL. Current TPN is providing 1352 kcals/60 gms protein, meeting 75% of caloric needs and 100% protein needs. Agree with diet orders at this time. If Dobbhoff feedings start would recommend Vital AF 1.2 at 10 ml/hr trickle feeds, which would provide an additional 264 kcals/17 gms protein. Monitor TPN, wt, labs. Follow up every Thursday and Thursday.
--- NOTE | 2021-09-17 12:03 | WPDGIPROGNO ---
Progress Note: A&P Assessment and Plan (1) Acute gastrointestinal ulcer with perforation: Code(s): K28.1 - Acute gastrojejunal ulcer with perforation Status: Acute Assessment and Plan: Patient with perforation appears to be from likely gastric ulceration. Fluid collection noted on CT scan status post external drain yesterday. WBC 13.9 today. Hemoglobin 7.6 essentially stable. Continue antibiotics and TPN for now. Surgical follow-up. (2) Abnormal CT scan: Code(s): R93.89 - Abnormal findings on diagnostic imaging of other specified body structures Status: Acute Assessment and Plan: Fluid collection consistent with perforation from gastric ulcer attempts being made to treat conservatively. Now with external drain of fluid collection likely forming into an abscess. Continue supportive care for now. Surgery following with this. (3) Fracture of femoral neck, left: Code(s): S72.002A - Fracture of unspecified part of neck of left femur, initial encounter for closed fracture Status: Acute (4) History of left above knee amputation: Code(s): Z89.612 - Acquired absence of left leg above knee Status: Acute Subjective Date/time seen: 09/17/21 12:03 Patient alert comfortable at rest this morning. Remains on pain pump. Denies significant abdominal pain. Had percutaneous drainage of fluid collection yesterday. Review of Systems Review of Systems: Review of systems noncontributory Exam Narrative: Physical exam patient is alert. Afebrile anicteric. Still on TPN bowel rest NG tube in place. Lungs are clear. Heart without murmur. Abdomen bowel sounds present soft. Mild tenderness at left upper quadrant drainage site. Objective Data Vital Signs Vital Signs: Vital Signs - 24 hr 09/16/21 14:01 09/16/21 16:00 09/16/21 14:00 Temperature 100 F H Pulse Rate 119 H 112 H Respiratory Rate 20 Blood Pressure 188/88 H Pulse Oximetry 97 96 Oxygen Delivery Room Air 09/16/21 14:00 09/16/21 16:30 09/16/21 16:30 Temperature Pulse Rate 104 H Respiratory Rate 20 20 Blood Pressure Pulse Oximetry 98 99 Oxygen Delivery 09/16/21 19:36 09/16/21 20:00 09/16/21 20:00 Temperature 101.1 F H Pulse Rate 119 H 98 Respiratory Rate 20 20 Blood Pressure 154/65 H Pulse Oximetry 98 Oxygen Delivery 09/16/21 20:46 09/16/21 21:00 09/16/21 20:00 Temperature 101.1 F H Pulse Rate Respiratory Rate 20 Blood Pressure Pulse Oximetry 98 Oxygen Delivery Room Air 09/16/21 22:00 09/16/21 22:00 09/16/21 23:11 Temperature Pulse Rate 99 99 Respiratory Rate 19 Blood Pressure Pulse Oximetry Oxygen Delivery Room Air 09/16/21 23:24 09/17/21 00:00 09/17/21 00:00 Temperature 97.2 F L Pulse Rate 97 85 Respiratory Rate 18 17 Blood Pressure 178/71 H Pulse Oximetry 100 Oxygen Delivery 09/17/21 01:55 09/17/21 01:55 09/17/21 03:24 Temperature Pulse Rate 78 70 Respiratory Rate 15 Blood Pressure Pulse Oximetry Oxygen Delivery Room Air 09/17/21 04:00 09/17/21 04:00 09/17/21 04:45 Temperature Pulse Rate 94 Respiratory Rate 19 18 Blood Pressure Pulse Oximetry Oxygen Delivery 09/17/21 04:45 09/17/21 04:00 09/17/21 05:55 Temperature 97.3 F L Pulse Rate 88 80 Respiratory Rate 18 20 Blood Pressure 179/74 H Pulse Oximetry 98 100 Oxygen Delivery 09/17/21 05:55 09/17/21 08:00 09/17/21 08:00 Temperature 97.3 F L Pulse Rate 87 Respiratory Rate 17 18 18 Blood Pressure 152/77 H Pulse Oximetry 100 100 Oxygen Delivery 09/17/21 08:00 Temperature Pulse Rate Respiratory Rate Blood Pressure Pulse Oximetry Oxygen Delivery Room Air Intake/Output Intake/Output: Intake & Output 09/14/21 09/15/21 09/16/21 09/17/21 23:59 23:59 23:59 23:59 Intake Total 1620 5329 4846.667 1700 Output Total 1650 4890 3600 2080 Balance -
[2021-09-17 12:33] LABS: Glucose Point of Care 109 mg/dl (65-105)
[2021-09-17 12:57] LABS: Potassium 3.6 mmol/L (3.4-5.0)
[2021-09-17] MEDS: AMINO ACIDS 5%/D15W/E-LYTES/CA 2,000 ML with MULTIVITAMINS-12 INJ VIAL 1 2.5 ML, MULTIV... 50 ML IV CONT (15:32)
[2021-09-17] MEDS: MICAFUNGIN SODIUM 100 MG in SODIUM CHLORIDE 0.9% IV 100 ML IVPB (17:19)
[2021-09-17 19:28] LABS: Glucose Point of Care 112 mg/dl (65-105)
[2021-09-17] MEDS: PANTOPRAZOLE SODIUM IV 40 MG VIAL IV PUSH (20:15)
[2021-09-17] MEDS: DICLOFENAC SODIUM 1% 100 GM GEL (*BKC) 1 APPLIC TOPICAL (20:17)
[2021-09-17 23:29] LABS: Glucose Point of Care 104 mg/dl (65-105)
[2021-09-18] VITALS (13 sets, daily range): BP systolic 165–195; BP diastolic 76–105; PULSE 90–118; RESP 16–22; TEMP 36.4–37.4; O2SAT 97–100
[2021-09-18] MEDS: SUCRALFATE SUSP 100 MG/ML 10 ML UDC 1000 MG FEED TUBE ×5 (00:10→23:10)
[2021-09-18] MEDS: HYDROmorphon 0.2MG/ML PCA(*CRX 6 MG/30 ML PCA.VIAL IV CONT ×2 (02:56→11:33)
[2021-09-18] MEDS: hydrALAZINE HCL 20 MG/ML VIAL 10 MG IV PUSH ×2 (04:38→18:27)
[2021-09-18] MEDS: CENTRAL LINE FLUSH 10 ML IV PUSH ×3 (05:28→21:08)
[2021-09-18 05:43] LABS: Basophils Absolute Auto 0.1 K/mm3 (0.0-0.1); Basophils Percent Auto 0.6 % (0.2-1.2); Eosinophils Absolute Auto 0.5 K/mm3 (0-0.3); Eosinophils Percent Auto 3.1 % (0-4.4); Hematocrit 23.3 % (42.0-52.0); Hemoglobin 7.8 g/dL (14.0-18.0); Immature Granulocyte Absolute 0.21 K/mm3 (0.00-0.031); Immature Granulocyte Percent A 1.5 % (0-0.5); Lymphocytes Absolute Auto 1.24 K/mm3 (0.9-3.2); Lymphocytes Percent Auto 8.6 % (18.3-44.2); Mean Corpuscular HGB Conc 33.5 g/dl (32-36); Mean Corpuscular Hemoglobin 28.4 pg (26-34); Mean Corpuscular Volume 84.7 fl (80-100); Mean Platelet Volume 10.4 fl (7.4-10.4); Monocytes Absolute Auto 0.8 K/mm3 (0.1-0.6); Monocytes Percent Auto 5.3 % (2.6-8.5); Neutrophils Absolute Auto 11.7 K/mm3 (1.3-6.7); Neutrophils Percent Auto 80.9 % (45.5-73.1); Platelet Count Result 473 k/mm3 (150-375); Red Blood Count 2.75 M/mm3 (4.6-6.20); White Blood Count 14.5 K/mm3 (4.5-10.0)
[2021-09-18 05:54] LABS: Anion Gap 9 mmol/L (8-16); Blood Urea Nitrogen 11 mg/dL (9-20); Calcium 7.4 mg/dL (8.4-10.2); Carbon Dioxide 22 mmol/L (22-30); Chloride 105 mmol/L (98-107); Estimated CRCL calculation 107 ml/min; Estimated Glomerular Filt Rate > 60; Glucose 88 mg/dL (65-110); Potassium 3.2 mmol/L (3.4-5.0); Sodium 136 mmol/L (137-145); Uric Acid 1.7 mg/dL (3.5-8.5)
[2021-09-18] MEDS: DICLOFENAC SODIUM 1% 100 GM GEL (*BKC) 1 APPLIC TOPICAL ×2 (11:34→23:16)
[2021-09-18] MEDS: FAT EMULSIONS IV 20% 250 ML 20.83 ML IVPB (11:36)
[2021-09-18] MEDS: lisinopriL 10 MG TABLET PO ×2 (11:37→21:08)
[2021-09-18] MEDS: PANTOPRAZOLE SODIUM IV 40 MG VIAL IV PUSH ×2 (11:37→21:08)
--- NOTE | 2021-09-18 12:52 | PM.PNGS ---
Progress Note: A&P Assessment and Plan (1) Acute gastrointestinal ulcer with perforation: Code(s): K28.1 - Acute gastrojejunal ulcer with perforation Status: Acute Assessment and Plan: Abdominal pain is somewhat less than yesterday katie and his exam is the same. WBC up to 14K today and he is afebrile, but after the percutaneous drain on 09/16 he ran a fever as high as 101 F several times during the 8 hours following the drainage procedure. On 09/16/2021 an abd/pelvic CT with oral and IV contrast showed a fairly large fluid collection behind the stomach with some gas in it. This appears to be formed into an abscess. ( this is probably accumulation from his perforated pre-pyloric gastric ulcer that was noted on the previous CT scan). It was drainable by CT guidance. Patient has done okay afterwards---- blood pressure is still slightly high but no hypotension. Hemoglobin slightly down today will recheck tomorrow to be sure he has not had of ongoing bleeding. There was no blood in the drainage bag from the percutaneous drainage of the abscess. over the last 24 hours I also have had the nurses place some blue colored Gatorade periodically through the NG tube and no discoloration of the fluid from the CT-guided drain has occurred. ( also there was no sign of continuing leakage from the gastric ulcer with the use of contrast through the NG tube at the time of the CT mentioned above. Will continue current antibiotics and await cultures from this drainage. (So far culture results show no fungal elements and a gram-positive bacilli on the anaerobic culture. This is not yet been identified. So after discussion with our pharmacist with a specially and Infectious Diseases we will have him take the last dose of the micafungin (IV) and stop it Since he has had 8 days of it and there was no fungal elements on the testing so far. If we prove that there is fungal elements in this fluid collection on further reports we may revisit this but hopefully that will be none. Pt. Appears stable at this time with a white count that is variably up and down over the last few days. Since his Gastrografin upper GI showed still showed a small leak 8 days ago he has been on TPN and bowel rest with NG suction. Because the 09/16 CT study showed no leak from the ulcer in the stomach using oral contrast through the NG tube, things are going well I have had the nurses instilling a blue colored Gatorade down the NG tube for now about 24 hours and there has been no change in color or character of the drainage from the percutaneous drain which is situated behind the stomach. He also has had no increase in pain in the upper abdomen. There has been no signs of bleeding from or in the NG suction fluid. therefore, I am considering starting tube feedings or removing the NG and let the patient start liquids. (discussed with nurse and dietitian). I believe the current situation and may be wiser to leave the tube in so we can always reconnected to suction if something happens. Therefore will plan to perhaps start a trickle feeding through the NG tube for the waking hours and put it back to low intermittent suction while he sleeps and is supine between the hours of 11:00 p.m. and 7:00 a.m.. Once he starts orals we will try to prioritize the apple or mixed owen Clear Ensure, and advancement will depend on how everything goes with his clinical status and labs . Continue TPN for now at 50 cc/hr. I will resume Q 24 hour 12 hour infusion of lipid since his triglycerides are down to normal range again now. ( these were checked Q 48 hours). Continue NG tube, TPN, bowel rest (other than clears, Gatorade and perhaps some clear Ensure later today., IV fluids, Carafate down NG Q 6, and analgesics as needed. May again have 1 cup of ice chips Q 4H. No bloody drainage in the canister today from the NG. Continue IV antibiotics/Micafungin ---await results of Gram stain and C&S f
[2021-09-18 12:57] LABS: Glucose Point of Care 98 mg/dl (65-105)
[2021-09-18] MEDS: AMINO ACIDS 5%/D15W/E-LYTES/CA 2,000 ML with MULTIVITAMINS-12 INJ VIAL 1 2.5 ML, MULTIV... 50 ML IV CONT (13:56)
[2021-09-18] MEDS: amLODIPine BESYLATE 5 MG TABLET PO (14:02)
--- NOTE | 2021-09-18 14:27 | PCDIET ---
Pt continues on TPN at 50 ml/hr and Lipids every 24 hours which is providing 1352 kcals/60 gms protein, meeting 75% of caloric needs and 100% protein needs. Orders for clear liquids -water, gatorade and Ensure Clear only. Tube feeds to start this evening, Vital 1.2 @ 20ml/hr from 11pm-6am to trial tolerance. Agree with current plan. Will monitor and follow up.
--- NOTE | 2021-09-18 15:23 | PM.IMPN ---
Progress Note: A&P Assessment and Plan (1) Anemia: Code(s): D64.9 - Anemia, unspecified Status: Acute (2) Intra-abdominal free air of unknown etiology: Code(s): K66.8 - Other specified disorders of peritoneum Status: Acute (3) Non-STEMI (non-ST elevated myocardial infarction): Code(s): I21.4 - Non-ST elevation (NSTEMI) myocardial infarction Status: Acute (4) Acute gastrointestinal ulcer with perforation: Code(s): K28.1 - Acute gastrojejunal ulcer with perforation Status: Acute (5) Abnormal CT scan: Code(s): R93.89 - Abnormal findings on diagnostic imaging of other specified body structures Status: Acute (6) Fracture of femoral neck, left: Code(s): S72.002A - Fracture of unspecified part of neck of left femur, initial encounter for closed fracture Status: Acute Plan ?60-year-old male with a history of hypertension,recurrent MRSA infection, left AKA, and recent left hip fracture following a fall downstairs approximately 6 weeks ago, who presents to the emergency department for evaluation of atraumatic right hip pain 1)Acute gastrointestinal Ulcer with Perforation: Appreciate Surgery help C/w NG tube Pain control with dilaudid c/w cefepime Micafungin as per surgery NPO status c/w PPI c/w Sucralfate Slowly worsening leucocytosis, will monitor c/w TPN 2)Chest Pain: Resolved Appreciate cardiology help No intervention needed 3)HTN: Add PRN IV hydralazine 4)Transaminitis: elevation in LFT noted Will trend LFT's 5)DVT ppx: SCD 6)Code:Full, guarded prognosis Subjective Date/time seen: 09/18/21 15:23 no new complaint Exam Narrative: appears chronically ill Patient is comfortable, NAD HEENT: eyes are clear and none icteric LUNGS: normal respiratory effort ABD: not distended Lower extremities: no edema SKIN: nonjaundiced Neuro: grossly intact. Const: General: no acute distress, in distress and uncomfortable HENMT: Mouth: Yes moist mucous membranes Eyes: Sclera: sclerae normal Neck: Neck: supple Resp: Auscultation: diminished lung sounds Cardio: Rate: regular rate Rhythm: regular rhythm GI: Auscultation: normal bowel sounds Other: no guarding or rigidity Psych: Mental Status: mental status grossly normal Objective Data Vital Signs Vital Signs: Vital Signs - 24 hr 09/17/21 16:00 09/17/21 16:00 09/17/21 18:00 Temperature 97.6 F Pulse Rate 90 91 91 Respiratory Rate 20 Blood Pressure 132/109 H Pulse Oximetry 100 Oxygen Delivery 09/17/21 16:00 09/17/21 16:00 09/17/21 20:00 Temperature 99.3 F Pulse Rate 108 H Respiratory Rate 20 Blood Pressure 194/86 H Pulse Oximetry 100 Oxygen Delivery Room Air Room Air 09/17/21 20:00 09/17/21 22:00 09/17/21 20:00 Temperature Pulse Rate 106 H 105 H Respiratory Rate Blood Pressure Pulse Oximetry Oxygen Delivery Room Air 09/17/21 23:56 09/18/21 00:00 09/18/21 02:00 Temperature 98.0 F Pulse Rate 116 H 109 H 94 Respiratory Rate 20 Blood Pressure 158/89 H Pulse Oximetry 95 Oxygen Delivery 09/18/21 00:00 09/18/21 04:00 09/18/21 04:00 Temperature 97.9 F Pulse Rate 101 H Respiratory Rate 22 H Blood Pressure 178/105 H Pulse Oximetry 20 L Oxygen Delivery Room Air Room Air 09/18/21 04:00 09/18/21 06:00 09/18/21 08:00 Temperature 98.8 F Pulse Rate 101 H 105 H 106 H Respiratory Rate 16 Blood Pressure 165/80 H Pulse Oximetry 99 Oxygen Delivery 09/18/21 12:00 09/18/21 08:00 09/18/21 10:00 Temperature 99.4 F Pulse Rate 96 97 90 Respiratory Rate 18 Blood Pressure 175/95 H Pulse Oximetry 98 Oxygen Delivery 09/18/21 12:00 Temperature Pulse Rate 110 H Respiratory Rate Blood Pressure Pulse Oximetry Oxygen Delivery Intake/Output Intake/Output: Intake & Output 09/15/21 09/16/21 09/17/21 09/18/21 23:59 23:59 23:59 23:59 Intake Tota
[2021-09-18] MEDS: PHENOL/SOD PHENO SPRAY CHERRY (*BKC) 1 SPRAY MUCOUS MEM (18:26)
[2021-09-18] MEDS: MICAFUNGIN SODIUM 100 MG in SODIUM CHLORIDE 0.9% IV 100 ML IVPB (18:27)
[2021-09-18 18:32] LABS: Glucose Point of Care 122 mg/dl (65-105)
--- NOTE | 2021-09-18 21:50 | PC.NURSE ---
Pt yelling out. Staff in pt's room to find pt sitting on the end of the bed. He had removed all sheets from the bed and his gown. Tube feeding was taken apart at the Feliberto valve. Pt was sitting on top of IV tubing. Pt states he had been sitting in the bedside chair, moved to the bed, and then was trying to help the staff by making his bed. Explained to pt that he was not in the chair. Pt states that he was. States you said you were going to get an IV and be right back. They just left me here. Explained to pt that conversation about the IVF had not occurred with me. Many attempts made to reorient pt. Pt continued to say I can't believe they did that to me. Pt centered in the bed. Bed alarm on zone 2. Pt has set off bed alarm multiple times and always states I can't believe they did that to me. Pt is able to answer orientation questions correctly but is having issues remembering short term conversations.
--- NOTE | 2021-09-18 22:51 | PC.NURSE ---
Pt continues to undress, picking at telemetry, setting off bed alarm. Continues to answer orientation questions appropriately. Staff frequently re-orienting pt.
[2021-09-18 23:29] LABS: Glucose Point of Care 132 mg/dl (65-105)
[2021-09-19] VITALS (13 sets, daily range): BP systolic 130–150; BP diastolic 57–124; PULSE 75–107; RESP 12–22; TEMP 36.3–37.2; O2SAT 96–100
--- NOTE | 2021-09-19 01:34 | PC.NURSE ---
Pt set off bed alarm. Pt confused. States he will pay me $500 if you will take me back to my room. Pt unaware that he is in the hospital. Asks if his NG is skin. Staff attempted to reorient pt. Pt states I'm sorry I just came to your house like this.
[2021-09-19] MEDS: KCL 40 MEQ/D5 1/2NS 1,000 ML 30 ML IV CONT (01:46)
--- NOTE | 2021-09-19 02:10 | PC.NURSE ---
Sitter at pt bedside.
[2021-09-19] MEDS: hydrALAZINE HCL 20 MG/ML VIAL 10 MG IV PUSH (04:47)
[2021-09-19] MEDS: CENTRAL LINE FLUSH 10 ML IV PUSH ×2 (04:48→21:18)
[2021-09-19 05:26] LABS: Basophils Absolute Auto 0.1 K/mm3 (0.0-0.1); Basophils Percent Auto 0.6 % (0.2-1.2); Eosinophils Absolute Auto 0.2 K/mm3 (0-0.3); Eosinophils Percent Auto 1.3 % (0-4.4); Hematocrit 22.3 % (42.0-52.0); Hemoglobin 7.4 g/dL (14.0-18.0); Immature Granulocyte Absolute 0.19 K/mm3 (0.00-0.031); Immature Granulocyte Percent A 1.5 % (0-0.5); Lymphocytes Absolute Auto 1.18 K/mm3 (0.9-3.2); Lymphocytes Percent Auto 9.1 % (18.3-44.2); Mean Corpuscular HGB Conc 33.2 g/dl (32-36); Mean Corpuscular Hemoglobin 27.9 pg (26-34); Mean Corpuscular Volume 84.2 fl (80-100); Mean Platelet Volume 10.3 fl (7.4-10.4); Monocytes Percent Auto 7.4 % (2.6-8.5); Neutrophils Absolute Auto 10.4 K/mm3 (1.3-6.7); Neutrophils Percent Auto 80.1 % (45.5-73.1); Platelet Count Result 535 k/mm3 (150-375); Red Blood Count 2.65 M/mm3 (4.6-6.20); Red Cell Distribution Width 16.2 % (11.5-14.5)
[2021-09-19 06:00] LABS: Alanine Aminotransferase 27 U/L (6-50); Albumin Level 2.6 g/dL (3.5-5.1); Alkaline Phosphatase 223 U/L (38-126); Anion Gap 8 mmol/L (8-16); Aspartate Amino Transferase 33 U/L (17-59); Bilirubin,Total 0.6 mg/dL (0.2-1.3); Blood Urea Nitrogen 10 mg/dL (9-20); Calcium 7.3 mg/dL (8.4-10.2); Carbon Dioxide 27 mmol/L (22-30); Chloride 103 mmol/L (98-107); Estimated CRCL calculation 107 ml/min; Estimated Glomerular Filt Rate > 60; Glucose 103 mg/dL (65-110); Potassium 2.6 mmol/L (3.4-5.0); Sodium 138 mmol/L (137-145); Triglycerides 133 mg/dL (<150)
[2021-09-19] MEDS: SUCRALFATE SUSP 100 MG/ML 10 ML UDC 1000 MG FEED TUBE (06:23)
[2021-09-19] MEDS: amLODIPine BESYLATE 5 MG TABLET PO (08:31)
[2021-09-19] MEDS: DICLOFENAC SODIUM 1% 100 GM GEL (*BKC) 1 APPLIC TOPICAL (08:31)
[2021-09-19] MEDS: lisinopriL 10 MG TABLET PO ×2 (08:32→21:17)
[2021-09-19] MEDS: PANTOPRAZOLE SODIUM IV 40 MG VIAL IV PUSH ×2 (08:34→21:18)
[2021-09-19] MEDS: HYDROcodone/acetaminophen (*CRX) 5-325 MG TABLET 1 TAB PO ×2 (08:50→10:55)
--- NOTE | 2021-09-19 09:15 | PM.IMPN ---
Progress Note: A&P Assessment and Plan (1) Anemia: Code(s): D64.9 - Anemia, unspecified Status: Acute (2) Intra-abdominal free air of unknown etiology: Code(s): K66.8 - Other specified disorders of peritoneum Status: Acute (3) Non-STEMI (non-ST elevated myocardial infarction): Code(s): I21.4 - Non-ST elevation (NSTEMI) myocardial infarction Status: Acute (4) Acute gastrointestinal ulcer with perforation: Code(s): K28.1 - Acute gastrojejunal ulcer with perforation Status: Acute (5) Abnormal CT scan: Code(s): R93.89 - Abnormal findings on diagnostic imaging of other specified body structures Status: Acute (6) Fracture of femoral neck, left: Code(s): S72.002A - Fracture of unspecified part of neck of left femur, initial encounter for closed fracture Status: Acute Plan ?60-year-old male with a history of hypertension,recurrent MRSA infection, left AKA, and recent left hip fracture following a fall downstairs approximately 6 weeks ago, who presents to the emergency department for evaluation of atraumatic right hip pain 1)Acute gastrointestinal Ulcer with Perforation: Appreciate Surgery C/w NG tube Pain control c/w cefepime Patient is on cefepime only right now. Cultures noted. NPO status c/w PPI c/w Sucralfate White count improving. c/w TPN Overall patient appears to be improving slowly. Diet recommendations, drain recommendations, per surgery 2)Chest Pain: Resolved Appreciate cardiology help No intervention needed 3)HTN: Add PRN IV hydralazine 4)Transaminitis: elevation in LFT noted Will trend LFT's 5)DVT ppx: SCD 6)Code:Full, guarded prognosis Subjective Date/time seen: 09/19/21 09:15 Patient is a little frustrated and confused this morning. He is willing to put on his clothes go home. Denies any significant pain. patient is oriented her Exam Narrative: appears chronically ill Patient is comfortable, NAD HEENT: eyes are clear and none icteric LUNGS: normal respiratory effort ABD: not distended Lower extremities: no edema SKIN: nonjaundiced Neuro: grossly intact. Const: General: no acute distress, in distress and uncomfortable HENMT: Mouth: Yes moist mucous membranes Eyes: Sclera: sclerae normal Neck: Neck: supple Resp: Auscultation: diminished lung sounds Cardio: Rate: regular rate Rhythm: regular rhythm GI: Auscultation: normal bowel sounds Other: no guarding or rigidity Psych: Mental Status: mental status grossly normal Objective Data Vital Signs Vital Signs: Vital Signs - 24 hr 09/18/21 12:00 09/18/21 10:00 09/18/21 12:00 Temperature 99.4 F Pulse Rate 96 90 110 H Respiratory Rate 18 Blood Pressure 175/95 H Pulse Oximetry 98 Oxygen Delivery 09/18/21 12:00 09/18/21 12:00 09/18/21 16:00 Temperature Pulse Rate Respiratory Rate 18 Blood Pressure Pulse Oximetry 98 Oxygen Delivery Room Air Room Air 09/18/21 14:00 09/18/21 16:00 09/18/21 16:00 Temperature 98.6 F Pulse Rate 97 93 101 H Respiratory Rate 20 Blood Pressure 165/91 H Pulse Oximetry 100 Oxygen Delivery 09/18/21 18:00 09/18/21 20:00 09/18/21 20:00 Temperature 97.6 F Pulse Rate 118 H 111 H 111 H Respiratory Rate 20 Blood Pressure 195/76 H Pulse Oximetry 98 Oxygen Delivery 09/18/21 22:00 09/18/21 23:33 09/18/21 20:00 Temperature 97.8 F Pulse Rate 103 H 101 H Respiratory Rate 20 Blood Pressure 175/83 H Pulse Oximetry 100 Oxygen Delivery Room Air 09/19/21 00:00 09/19/21 00:00 09/19/21 02:00 Temperature Pulse Rate 94 96 Respiratory Rate Blood Pressure Pulse Oximetry Oxygen Delivery Room Air 09/19/21 04:00 09/19/21 04:00 09/19/21 04:00 Temperature 98.0 F Pulse Rate 85 93 Respiratory Rate 20 Blood Pressure 143/124 H Pulse Oximetry 96 Oxygen Delivery Room Air 09/19/21 06:15 09/19/21 06:00 Mason
[2021-09-19 09:16] LABS: Prealbumin 10.1 mg/dL (17.6-36.0)
[2021-09-19] MEDS: POTASSIUM CHLORIDE INJ 40 MEQ in SODIUM CHLORIDE 0.9% IV 500 ML 130 MEQ IVPB ×2 (10:42→21:14)
[2021-09-19 12:19] LABS: Glucose Point of Care 100 mg/dl (65-105)
--- NOTE | 2021-09-19 12:20 | WPDGIPROGNO ---
Progress Note: A&P Assessment and Plan (1) Acute gastrointestinal ulcer with perforation: Code(s): K28.1 - Acute gastrojejunal ulcer with perforation Status: Acute Assessment and Plan: Patient with apparent perforation from presumed gastric ulceration. Continued management at this time directed by surgery. External drain in place from what appears to be a developing address. Food coloring studies revealed no obvious fistula to this abscess. Although the somewhat nonspecific. I will leave direction of initiating tube feedings and initiation of oral feedings at the direction of surgery. Plan to continue IV ppi. Antibiotics per direction of surgery. (2) Fracture of femoral neck, left: Code(s): S72.002A - Fracture of unspecified part of neck of left femur, initial encounter for closed fracture Status: Acute (3) History of left above knee amputation: Code(s): Z89.612 - Acquired absence of left leg above knee Status: Acute Subjective Date/time seen: 09/19/21 12:20 Patient is somewhat confused this morning. Frustrated at still being in the hospital. Denies any significant abdominal pain. Anxious to eat. Review of Systems Review of Systems: Review of systems not available this morning because of patient's agitation. Exam Narrative: Physical exam reveals patient to be afebrile. HEENT exam reveals no icterus. Patient will not allow me to listen to his lungs. Abdomen appears soft with no localized tenderness. Drain remains in place. Objective Data Vital Signs Vital Signs: Vital Signs - 24 hr 09/18/21 16:00 09/18/21 14:00 09/18/21 16:00 Temperature Pulse Rate 97 93 Respiratory Rate Blood Pressure Pulse Oximetry Oxygen Delivery Room Air 09/18/21 16:00 09/18/21 18:00 09/18/21 20:00 Temperature 98.6 F 97.6 F Pulse Rate 101 H 118 H 111 H Respiratory Rate 20 20 Blood Pressure 165/91 H 195/76 H Pulse Oximetry 100 98 Oxygen Delivery 09/18/21 20:00 09/18/21 22:00 09/18/21 23:33 Temperature 97.8 F Pulse Rate 111 H 103 H 101 H Respiratory Rate 20 Blood Pressure 175/83 H Pulse Oximetry 100 Oxygen Delivery 09/18/21 20:00 09/19/21 00:00 09/19/21 00:00 Temperature Pulse Rate 94 Respiratory Rate Blood Pressure Pulse Oximetry Oxygen Delivery Room Air Room Air 09/19/21 02:00 09/19/21 04:00 09/19/21 04:00 Temperature 98.0 F Pulse Rate 96 85 Respiratory Rate 20 Blood Pressure 143/124 H Pulse Oximetry 96 Oxygen Delivery Room Air 09/19/21 04:00 09/19/21 06:15 09/19/21 06:00 Temperature Pulse Rate 93 80 Respiratory Rate Blood Pressure 149/87 H Pulse Oximetry Oxygen Delivery 09/19/21 08:00 09/19/21 08:00 09/19/21 10:00 Temperature 99 F Pulse Rate 107 H 105 H 75 Respiratory Rate 22 H Blood Pressure 145/68 H Pulse Oximetry 100 Oxygen Delivery 09/19/21 12:00 Temperature 97.4 F L Pulse Rate 90 Respiratory Rate 16 Blood Pressure 150/78 H Pulse Oximetry 99 Oxygen Delivery Intake/Output Intake/Output: Intake & Output 09/16/21 09/17/21 09/18/21 09/19/21 23:59 23:59 23:59 23:59 Intake Total 4846.667 4520 2412 2602 Output Total 3600 2500 2755 2802 Balance 2188.674 5644 -343 -200 Meds/Results Medications: Active Medications Generic Name Dose Route Start Last Admin Trade Name Freq PRN Reason Stop Dose Admin Hydrocodone Bitart/Acetaminophen 1 tab 09/19/21 15:00 Hydrocodone/Acetaminophen (*Crx) 10-325 Mg Tablet PO Q6H RICARDO Amlodipine Besylate 5 mg 09/18/21 09:00 09/19/21 08:31 Amlodipine Besylate 5 Mg Tablet PO 5 mg QAM RICARDO Administration Benzocaine 1 lozenge 09/07/21 22:27 Benzocaine/Menthol (*Bkc) 18 Ea Lozenge PO PRN PRN Sore Throat Bisacodyl 10 mg 09/07/21 22:27 Bisacodyl 10 Mg Suppository RECTAL QAM PRN Constipation Diclofenac Sodium 1 applic 09/17/21 18:15 09/19/21 08:31
[2021-09-19] MEDS: HYDROcodone/acetaminophen (*CRX) 10-325 MG TABLET 1 TAB PO ×3 (14:39→22:33)
[2021-09-19] MEDS: AMINO ACIDS 5%/D15W/E-LYTES/CA 2,000 ML with MULTIVITAMINS-12 INJ VIAL 1 2.5 ML, MULTIV... 40 ML IV CONT (18:05)
[2021-09-19] MEDS: MICAFUNGIN SODIUM 100 MG in SODIUM CHLORIDE 0.9% IV 100 ML IVPB (18:06)
[2021-09-19] MEDS: SUCRALFATE SUSP 100 MG/ML 10 ML UDC 1000 MG BY MOUTH (18:07)
[2021-09-19 18:12] LABS: Glucose Point of Care 119 mg/dl (65-105)
[2021-09-19 18:30] LABS: Potassium 3.1 mmol/L (3.4-5.0)
--- NOTE | 2021-09-19 22:42 | PM.PNGS ---
Progress Note: A&P Assessment and Plan (1) Acute gastrointestinal ulcer with perforation: Code(s): K28.1 - Acute gastrojejunal ulcer with perforation Status: Acute Assessment and Plan: Abdominal pain is somewhat less than yesterday katie and his exam is the same. WBC down to 13K today and he is afebrile, but after the percutaneous drain on 09/16 he ran a fever as high as 101 F several times during the 8 hours following the drainage procedure. On 09/16/2021 an abd/pelvic CT with oral and IV contrast showed a fairly large fluid collection behind the stomach with some gas in it. This appears to be formed into an abscess. ( this is probably accumulation from his perforated pre-pyloric gastric ulcer that was noted on the previous CT scan). It was drainable by CT guidance. Patient has done okay afterwards---- blood pressure is still slightly high but no hypotension. Hemoglobin slightly down today will recheck tomorrow to be sure he has not had of ongoing bleeding. (But no signs of this for the last few days) There was no blood in the drainage bag from the percutaneous drainage of the abscess. Over the last 24 hours up until 7:00 a.m. this morningI also had the nurses place some blue colored Gatorade periodically through the NG tube and no discoloration of the fluid from the CT-guided drain has occurred. ( also there was no sign of continuing leakage from the gastric ulcer with the use of contrast through the NG tube at the time of the CT mentioned above. Will continue current antibiotics and await cultures from this drainage. (So far culture results show no fungal elements and a gram-positive bacilli on the anaerobic culture. This is not yet been identified. So after discussion with our pharmacist with a specially and Infectious Diseases we will have him take the last dose of the micafungin (IV) and stop it Since he has had 8 days of it and there was no fungal elements on the testing so far. If we prove that there is fungal elements in this fluid collection on further reports we may revisit this but hopefully that will be none. Pt. appears stable at this time with a white count that is variably up and down over the last few days. Since his Gastrografin upper GI showed still showed a small leak 9 days ago he has been on TPN and bowel rest with NG suction. Because the 09/16 CT study showed no leak from the ulcer in the stomach using oral contrast through the NG tube, and so far things are going well I have had the nurses instilling a blue colored Gatorade down the NG tube for now about 24 hours (up to 7AM this AM) ,and there has been no change in color or character of the drainage from the percutaneous drain which is situated behind the stomach. He also has had no increase in pain in the upper abdomen. There has been no signs of bleeding from or in the NG suction fluid. (he was on NG suction low intermittent overnight and tube feedings were stopped for the nighttime hours. ) therefore, I am considering starting tube feedings or removing the NG and let the patient start liquids. Retired tried tube feedings yesterday and he tolerated them until 11:00 p.m.. This morning he really is having difficulty handling everything and therefore since he has had no problems and minimal out the NG overnight that is clear I decided to remove the NG tube. He has now been on clear liquids for most the day and tolerating them okay with no increased drainage in the percutaneos drain. will plan to continue with clear liquids as long as he is doing well and advance to fulls perhaps tomorrow. He knows to try to prioritize the apple or mixed owen Clear Ensure, and advancement will depend on how everything goes with his clinical status and labs . Continue TPN for now at 40 cc/hr. ( decreased today because he will be having more oral intake). if he can move up to full liquids may consider stopping it tomorrow. Triglycerides were in normal range so
[2021-09-20] VITALS (13 sets, daily range): BP systolic 143–176; BP diastolic 69–87; PULSE 71–119; RESP 15–20; TEMP 36.4–36.7; O2SAT 98–100
[2021-09-20 00:03] LABS: Glucose Point of Care 148 mg/dl (65-105)
[2021-09-20] MEDS: SUCRALFATE SUSP 100 MG/ML 10 ML UDC 1000 MG BY MOUTH ×4 (00:12→18:00)
[2021-09-20] MEDS: HYDROcodone/acetaminophen (*CRX) 10-325 MG TABLET 1 TAB PO ×3 (01:36→10:01)
[2021-09-20] MEDS: CENTRAL LINE FLUSH 10 ML IV PUSH ×3 (05:54→21:24)
[2021-09-20 06:20] LABS: Hematocrit 24.4 % (42.0-52.0); Hemoglobin 7.9 g/dL (14.0-18.0); Mean Corpuscular HGB Conc 32.4 g/dl (32-36); Mean Corpuscular Hemoglobin 28.3 pg (26-34); Mean Corpuscular Volume 87.5 fl (80-100); Mean Platelet Volume 9.8 fl (7.4-10.4); Platelet Count Result 609 k/mm3 (150-375); Red Blood Count 2.79 M/mm3 (4.6-6.20); Red Cell Distribution Width 16.1 % (11.5-14.5); White Blood Count 10.9 K/mm3 (4.5-10.0)
[2021-09-20 06:37] LABS: Anion Gap 6 mmol/L (8-16); Blood Urea Nitrogen 10 mg/dL (9-20); Calcium 7.1 mg/dL (8.4-10.2); Carbon Dioxide 25 mmol/L (22-30); Chloride 106 mmol/L (98-107); Estimated CRCL calculation 107 ml/min; Estimated Glomerular Filt Rate > 60; Glucose 96 mg/dL (65-110); Potassium 3.4 mmol/L (3.4-5.0); Sodium 137 mmol/L (137-145)
[2021-09-20 08:13] LABS: Glucose Point of Care 111 mg/dl (65-105)
--- NOTE | 2021-09-20 09:53 | PCNFU ---
Nutrition Follow-Up Complete: Inadequate po intake related to altered GI function as evidenced by need for TPN for nutrition support. Goal:Meet at least 60-80% of nutritional needs via TPN. Pt is meeting goal. Updated Goal: PO intake 75% of full liquids diet with tolerance. Pt current nutrition is Full liquids, to advance today from clear liquids. Nutrition recommendation: Advance diet as tolerated. Last recorded weight is 71 kg - shows a significant gain, unsure of accuracy. Wt yesterday: 59.1 - stable. Bowel Motility: +BM 09/19 Labs Reviewed: Hgb:7.9, HCT:24.4, Cr:0.5, glu:111 Meds Noted: Dulcolax, zofran Skin: WNL Additional Notes: Pt continues on TPN running at 40ml/hr providing 1182kcals, 48g protein. Lipids currently not running. Tube feed no longer in place. Diet is Clear liquids, pt reports good tolerance and wanting regular food. Full liquids to start today. Pt refuses any supplements due to dislike. Informed pt of importance of good nutrition and need for supplementation, pt still declined. Agree with diet orders, encouraged good po intake of full liquids as tolerated. Monitor TPN, wt, labs. Follow up every Thursday and Thursday.
[2021-09-20] MEDS: lisinopriL 10 MG TABLET PO ×2 (10:01→21:24)
[2021-09-20] MEDS: amLODIPine BESYLATE 5 MG TABLET PO (10:01)
[2021-09-20] MEDS: PANTOPRAZOLE SODIUM IV 40 MG VIAL IV PUSH ×2 (10:02→21:24)
--- NOTE | 2021-09-20 11:43 | ECG_ITS ---
Rate 94 NE 129 QRSd 69 QT 348 QTc 436 --[place]-- P 50 QRS 17 T 53 SINUS RHYTHM WITH MARKED SINUS ARRHYTHMIA LEFT VENTRICULAR HYPERTROPHY WITH ST-T CHANGE ST-T WAVE ABNORMALITY IN ANTEROLATERAL LEADS- CONSIDER ISCHEMIA BASELINE WANDER- V4-V6 ABNORMAL ECG Electronically Signed On 09-20-2021 13:31:29 CDT by Red Hylton D.O. COMPARED TO ECG 09/07/2021 03:05:07 SINUS ARRHYTHMIA NOW PRESENT LEFT VENTRICULAR HYPERTROPHY NOW PRESENT ST (T WAVE) DEVIATION NOW PRESENT MTDD
--- NOTE | 2021-09-20 11:43 | PM.IMPN ---
Progress Note: A&P Assessment and Plan (1) Anemia: Code(s): D64.9 - Anemia, unspecified Status: Acute (2) Intra-abdominal free air of unknown etiology: Code(s): K66.8 - Other specified disorders of peritoneum Status: Acute (3) Non-STEMI (non-ST elevated myocardial infarction): Code(s): I21.4 - Non-ST elevation (NSTEMI) myocardial infarction Status: Acute (4) Acute gastrointestinal ulcer with perforation: Code(s): K28.1 - Acute gastrojejunal ulcer with perforation Status: Acute (5) Abnormal CT scan: Code(s): R93.89 - Abnormal findings on diagnostic imaging of other specified body structures Status: Acute (6) Fracture of femoral neck, left: Code(s): S72.002A - Fracture of unspecified part of neck of left femur, initial encounter for closed fracture Status: Acute Plan ?60-year-old male with a history of hypertension,recurrent MRSA infection, left AKA, and recent left hip fracture following a fall downstairs approximately 6 weeks ago, who presents to the emergency department for evaluation of atraumatic right hip pain 1)Acute gastrointestinal Ulcer with Perforation: Appreciate Surgery input Percocet for pain c/w cefepime + drain cx for hussain - appreciate pharm d recommendations Patient is on cefepime only right now. Cultures noted. NPO status c/w PPI c/w Sucralfate White count improving. c/w TPN Overall patient appears to be improving slowly. Diet recommendations, drain recommendations, per surgery 2)Chest Pain: Resolved Appreciate cardiology help No intervention needed 3)HTN: Add PRN IV hydralazine 4)Transaminitis: elevation in LFT noted Will trend LFT's 5)DVT ppx: SCD 6)Code:Full, guarded prognosis Subjective Date/time seen: 09/20/21 11:43 still having pain anxitey and agitation noted in evening Exam Narrative: appears chronically ill Patient is comfortable, NAD HEENT: eyes are clear and none icteric LUNGS: normal respiratory effort ABD: not distended Lower extremities: no edema SKIN: nonjaundiced Neuro: grossly intact. Const: General: no acute distress, in distress and uncomfortable HENMT: Mouth: Yes moist mucous membranes Eyes: Sclera: sclerae normal Neck: Neck: supple Resp: Auscultation: diminished lung sounds Cardio: Rate: regular rate Rhythm: regular rhythm GI: Auscultation: normal bowel sounds Other: no guarding or rigidity Psych: Mental Status: mental status grossly normal Objective Data Vital Signs Vital Signs: Vital Signs - 24 hr 09/19/21 12:00 09/19/21 16:00 09/19/21 12:00 Temperature 97.4 F L 97.7 F Pulse Rate 90 91 84 Respiratory Rate 16 12 Blood Pressure 150/78 H 130/57 L Pulse Oximetry 99 99 Oxygen Delivery 09/19/21 14:00 09/19/21 16:00 09/19/21 12:00 Temperature Pulse Rate 81 82 Respiratory Rate Blood Pressure Pulse Oximetry Oxygen Delivery Room Air 09/19/21 16:00 09/19/21 18:00 09/19/21 20:00 Temperature 97.6 F Pulse Rate 85 87 Respiratory Rate 16 Blood Pressure 150/78 H Pulse Oximetry 99 Oxygen Delivery Room Air 09/19/21 20:00 09/19/21 22:00 09/19/21 20:00 Temperature Pulse Rate 81 90 Respiratory Rate Blood Pressure Pulse Oximetry Oxygen Delivery Room Air 09/20/21 00:00 09/20/21 00:00 09/20/21 00:00 Temperature 98.1 F Pulse Rate 102 H 94 Respiratory Rate 15 Blood Pressure 143/79 H Pulse Oximetry 100 Oxygen Delivery Room Air 09/20/21 04:00 09/20/21 02:00 09/20/21 04:00 Temperature 97.5 F L Pulse Rate 93 71 71 Respiratory Rate 20 Blood Pressure 152/79 H Pulse Oximetry 98 Oxygen Delivery 09/20/21 06:00 09/20/21 04:00 09/20/21 08:00 Temperature 98.1 F Pulse Rate 75 85 Respiratory Rate 18 Blood Pressure 176/80 H Pulse Oximetry 100 Oxygen Delivery Room Air 09/20/21 08:00 09/20/21 10:00 09/20/21 08:00 Temperature Pulse Rate 82 8
--- NOTE | 2021-09-20 11:51 | PM.PNGS ---
Progress Note: A&P Assessment and Plan (1) Acute gastrointestinal ulcer with perforation: Code(s): K28.1 - Acute gastrojejunal ulcer with perforation Status: Acute Assessment and Plan: Abdominal pain is about the same as yesterday and his exam is the same. WBC down to 10K today and he is afebrile, but after the percutaneous drain on 09/16 he ran a fever as high as 101 F several times during the 8 hours following the drainage procedure. On 09/16/2021 an abd/pelvic CT with oral and IV contrast showed a fairly large fluid collection behind the stomach with some gas in it. This appears to be formed into an abscess. ( this is probably accumulation from his perforated pre-pyloric gastric ulcer that was noted on the previous CT scan). It was drainable by CT guidance. Patient has done okay afterwards---- blood pressure is still slightly high but no hypotension. Hemoglobin slightly up ( and stable over last few days ) today. We will recheck tomorrow to be sure he has not had ongoing bleeding. (But no signs of this for the last few days) There was no blood in the drainage bag from the percutaneous drainage of the abscess. Will continue current antibiotics and antifungal ( micafungin was restarted yesterday katie when fungal elements were noted on the aerobic anaerobic culture from his percutaneous drainage) and await final cultures from this drainage. (So far culture results show some fungal elements ( reported today as Leah species) and a gram-positive bacilli on the anaerobic culture. the latter is not yet identified nor other sensitivities on it. So after discussion with our pharmacist with a specially in Infectious disease we will continue the micafungin until we have sensitivities or complete identification of the fungus. Most likely of fluconazole type oral treatment will be able to be used unless there are concerns about his EKG and his QRS interval. He has had Nine of 10 days of it and 4 days after the drainage procedure was performed. Pt. appears stable at this time with a white count that is variably up and down over the last few days. Since his Gastrografin upper GI showed still showed a small leak 10 days ago he has been on TPN and oral feeding and removal of the NG occurred in the last 2 days.. This morning he really is having difficulty handling everything and therefore Dr. Echeverria and I spent a long time talking with him and explaining are continuing treatment and the importance of his patients with us as we continue to try to remove tubes and appropriately treat the abscess that developed after his perforation of the anterior pre-pyloric ulcer. Explained that we are still waiting for cultures and that fungus has been identified in the drainage that we were able to percutaneously drain. He seems to be on board with continuing treatment rather than forcing us to release him AMA. He has now been on full liquids for most the day and tolerating them okay with no increased drainage in the percutaneous drain. I will plan to continue with full liquids as long as he is doing well and advance to heart healthy soft diet tomorrow. He knows to try to prioritize the nutritional supplements to increase the protein in his diet. Since he is tolerating p.o. is a now for greater than 48 hours will stop the TPN after this current bag. Triglycerides were in normal range so I resumed Q 24 lipid infusion but this will also stop today when we stop the TPN. now will leave the TPN labs that are standard early ordered intact through next week to continue to monitor his nutritional condition. , Carafate now changed to p.o. Q 6, and analgesics as needed P.o. patient states he is able to tolerate taking the Carafate p.o.. Two days agowe held the [employer] pump and put it away and he is trying to take a [place] 5/325 or 10/325 once every 6 hours to control any pain. this however was not working well so Dr. Echeverria is going to make
[2021-09-20] MEDS: KCL 40 MEQ/D5 1/2NS 1,000 ML 30 ML IV CONT (12:23)
[2021-09-20 12:33] LABS: Glucose Point of Care 129 mg/dl (65-105)
[2021-09-20] MEDS: oxyCODONE/ACETAMINOPHEN (*CRX) 10-325 MG TABLET 1 TAB PO ×3 (12:35→21:25)
[2021-09-20] MEDS: hydrALAZINE HCL 20 MG/ML VIAL 10 MG IV PUSH (12:36)
--- NOTE | 2021-09-20 12:37 | WPDGIPROGNO ---
Progress Note: A&P Assessment and Plan (1) Acute gastrointestinal ulcer with perforation: Code(s): K28.1 - Acute gastrojejunal ulcer with perforation Status: Acute Assessment and Plan: Patient with apparent perforation of gastric ulcer. Currently being treated conservatively by surgery. External drain in place with drainage noted. No evidence of fistula by food coloring test. Currently a trial of diet is in place. Will continue PPI therapy. Antibiotics. Conservative management this point. We will follow with you as this is being attempted. (2) History of left above knee amputation: Code(s): Z89.612 - Acquired absence of left leg above knee Status: Acute (3) Fracture of femoral neck, left: Code(s): S72.002A - Fracture of unspecified part of neck of left femur, initial encounter for closed fracture Status: Acute Subjective Date/time seen: 09/20/21 12:37 Patient alert today. Somewhat agitated. Started on liquids. Has had some increased pain. Review of Systems Review of Systems: Review of systems noncontributory. Exam Narrative: On physical exam patient is alert. Currently afebrile. He is anicteric. NG tube out. Lungs are clear. Heart without murmur. Abdomen bowel sounds present soft some tenderness a drain site. Objective Data Vital Signs Vital Signs: Vital Signs - 24 hr 09/19/21 16:00 09/19/21 14:00 09/19/21 16:00 Temperature 97.7 F Pulse Rate 91 81 82 Respiratory Rate 12 Blood Pressure 130/57 L Pulse Oximetry 99 Oxygen Delivery 09/19/21 16:00 09/19/21 18:00 09/19/21 20:00 Temperature 97.6 F Pulse Rate 85 87 Respiratory Rate 16 Blood Pressure 150/78 H Pulse Oximetry 99 Oxygen Delivery Room Air 09/19/21 20:00 09/19/21 22:00 09/19/21 20:00 Temperature Pulse Rate 81 90 Respiratory Rate Blood Pressure Pulse Oximetry Oxygen Delivery Room Air 09/20/21 00:00 09/20/21 00:00 09/20/21 00:00 Temperature 98.1 F Pulse Rate 102 H 94 Respiratory Rate 15 Blood Pressure 143/79 H Pulse Oximetry 100 Oxygen Delivery Room Air 09/20/21 04:00 09/20/21 02:00 09/20/21 04:00 Temperature 97.5 F L Pulse Rate 93 71 71 Respiratory Rate 20 Blood Pressure 152/79 H Pulse Oximetry 98 Oxygen Delivery 09/20/21 06:00 09/20/21 04:00 09/20/21 08:00 Temperature 98.1 F Pulse Rate 75 85 Respiratory Rate 18 Blood Pressure 176/80 H Pulse Oximetry 100 Oxygen Delivery Room Air 09/20/21 08:00 09/20/21 10:00 09/20/21 08:00 Temperature Pulse Rate 82 88 88 Respiratory Rate 18 Blood Pressure Pulse Oximetry 100 Oxygen Delivery Room Air Intake/Output Intake/Output: Intake & Output 09/17/21 09/18/21 09/19/21 09/20/21 23:59 23:59 23:59 23:59 Intake Total 4543 4625 1768 9653 Output Total 3877 8543 6172 2335 Balance 1611 -797 -769 806 Meds/Results Medications: Active Medications Generic Name Dose Route Start Last Admin Trade Name Freq PRN Reason Stop Dose Admin Amlodipine Besylate 5 mg 09/18/21 09:00 09/20/21 10:01 Amlodipine Besylate 5 Mg Tablet PO 5 mg QAM RICARDO Administration Benzocaine 1 lozenge 09/07/21 22:27 Benzocaine/Menthol (*Bkc) 18 Ea Lozenge PO PRN PRN Sore Throat Bisacodyl 10 mg 09/07/21 22:27 Bisacodyl 10 Mg Suppository RECTAL QAM PRN Constipation Diclofenac Sodium 1 applic 09/17/21 18:15 09/19/21 08:31 Diclofenac Sodium 1% 100 Gm Gel (*Bkc) TOPICAL 1 applic QID PRN Administration pain Hydralazine HCl 10 mg 09/12/21 12:54 09/20/21 12:36 Hydralazine Hcl 20 Mg/Ml Vial IV PUSH 10 mg Q8H PRN Administration SBP>160 OR DBP>90 Cefepime HCl 1 gm in 50 mls @ 100 mls/hr 09/06/21 00:00 09/20/21 12:22 Maxipime 1 Gm/D5w 50 Ml IVPB 100 mls/hr Q12H RICARDO Administration Dextrose 1,000 mls @ 50 mls/hr 09/08/21 09:58 Dextrose 10% IV CONT .Q20H PRN if P
[2021-09-20] MEDS: MICAFUNGIN SODIUM 100 MG in SODIUM CHLORIDE 0.9% IV 100 ML IVPB (18:00)
--- NOTE | 2021-09-20 18:20 | ECG_ITS ---
Measurements Intervals [place] Rate: 137 P: 56 WV: 122 QRS: 25 QRSD: 71 T: 84 QT: 300 QTc: 453 Interpretive Statements SINUS TACHYCARDIA EPISODE OF ATRIAL TACHYCARDIA, ATRIAL COUPLET AND FREQUENT ATRIAL PREMATURE COMPLEXES LEFT VENTRICULAR HYPERTROPHY AND ST-T CHANGE ST-T WAVE ABNORMALITY IN ANTEROLAT/INF LEADS- CONSIDER ISCHEMIA BASELINE ARTIFACT- I, II, III, AVR, AVL, AVF ABNORMAL ECG Electronically Signed On 09-21-2021 16:33:49 CDT by Red Hylton D.O. COMPARED TO ECG 09/20/2021 13:06:18 SINUS TACHYCARDIA NOW PRESENT MTDD
[2021-09-20 18:26] LABS: Glucose Point of Care 172 mg/dl (65-105)
[2021-09-20] MEDS: METOPROLOL TARTRATE 12.5 MG TABLET PO (18:45)
[2021-09-20 19:01] LABS: Potassium 3.2 mmol/L (3.4-5.0)
[2021-09-21] VITALS (9 sets, daily range): BP systolic 145–171; BP diastolic 69–86; PULSE 61–96; RESP 14–20; TEMP 36.1–36.8; O2SAT 99–100
[2021-09-21 00:30] LABS: Glucose Point of Care 71 mg/dl (65-105)
[2021-09-21] MEDS: oxyCODONE/ACETAMINOPHEN (*CRX) 10-325 MG TABLET 1 TAB PO ×6 (01:02→22:34)
[2021-09-21] MEDS: SUCRALFATE SUSP 100 MG/ML 10 ML UDC 1000 MG BY MOUTH ×4 (01:03→17:57)
[2021-09-21] MEDS: CENTRAL LINE FLUSH 20 ML IV PUSH (05:49)
[2021-09-21] MEDS: CENTRAL LINE FLUSH 10 ML IV PUSH ×3 (05:49→20:05)
[2021-09-21 06:14] LABS: Anion Gap 7 mmol/L (8-16); Blood Urea Nitrogen 9 mg/dL (9-20); Calcium 7.3 mg/dL (8.4-10.2); Carbon Dioxide 27 mmol/L (22-30); Chloride 104 mmol/L (98-107); Estimated CRCL calculation 91 ml/min; Estimated Glomerular Filt Rate > 60; Glucose 94 mg/dL (65-110); Potassium 2.9 mmol/L (3.4-5.0); Sodium 138 mmol/L (137-145)
[2021-09-21 06:16] LABS: Triglycerides 188 mg/dL (<150)
[2021-09-21 06:31] LABS: Basophils Absolute Auto 0.2 K/mm3 (0.0-0.1); Basophils Percent Auto 1.7 % (0.2-1.2); Eosinophils Absolute Auto 0.4 K/mm3 (0-0.3); Hematocrit 25.7 % (42.0-52.0); Hemoglobin 8.1 g/dL (14.0-18.0); Immature Granulocyte Absolute 0.15 K/mm3 (0.00-0.031); Immature Granulocyte Percent A 1.2 % (0-0.5); Lymphocytes Absolute Auto 2.17 K/mm3 (0.9-3.2); Lymphocytes Percent Auto 17.4 % (18.3-44.2); Mean Corpuscular HGB Conc 31.5 g/dl (32-36); Mean Corpuscular Hemoglobin 27.8 pg (26-34); Mean Corpuscular Volume 88.3 fl (80-100); Mean Platelet Volume 10.2 fl (7.4-10.4); Monocytes Absolute Auto 1.1 K/mm3 (0.1-0.6); Monocytes Percent Auto 8.6 % (2.6-8.5); Neutrophils Absolute Auto 8.5 K/mm3 (1.3-6.7); Neutrophils Percent Auto 68.1 % (45.5-73.1); Platelet Count Result 624 k/mm3 (150-375); Red Blood Count 2.91 M/mm3 (4.6-6.20); Red Cell Distribution Width 16.4 % (11.5-14.5); White Blood Count 12.5 K/mm3 (4.5-10.0)
[2021-09-21] MEDS: lisinopriL 10 MG TABLET PO ×2 (08:33→20:04)
[2021-09-21] MEDS: METOPROLOL TARTRATE 12.5 MG TABLET PO ×2 (08:33→20:05)
[2021-09-21] MEDS: amLODIPine BESYLATE 5 MG TABLET PO (08:33)
[2021-09-21] MEDS: PANTOPRAZOLE SODIUM IV 40 MG VIAL IV PUSH ×2 (08:34→20:05)
[2021-09-21] MEDS: POTASSIUM CHLORIDE INJ 40 MEQ in SODIUM CHLORIDE 0.9% IV 500 ML 130 MEQ IVPB (10:45)
[2021-09-21] MEDS: POTASSIUM CHLORIDE 20 MEQ TABLET 40 MEQ PO (11:04)
--- NOTE | 2021-09-21 11:11 | PM.PNGS ---
Progress Note: A&P Assessment and Plan (1) Acute gastrointestinal ulcer with perforation: Code(s): K28.1 - Acute gastrojejunal ulcer with perforation Status: Acute Assessment and Plan: doing well after perforated gastric ulcer treated conservatively. Will advance to low-fiber, soft diet. Abscess growing Leah. Possibly can discontinue the cefepime and continue antifungal antimicrobial only. Okay to transfer to [facility] bed from surgical perspective. (2) Intra-abdominal abscess: Code(s): K65.1 - Peritoneal abscess Status: Acute Assessment and Plan: Doing well after drainage procedure 5 days ago. Cultures growing Leah. Consider discontinue cefepime. (3) Non-STEMI (non-ST elevated myocardial infarction): Code(s): I21.4 - Non-ST elevation (NSTEMI) myocardial infarction Status: Acute Assessment and Plan: On admission, no cardiac arrhythmias. Consider transfer to [facility] floor (4) Acute hypokalemia: Code(s): E87.6 - Hypokalemia Status: Acute Assessment and Plan: potassium 2.9. Will supplement orally in addition to the IV supplementation already ordered. Recheck again tomorrow. Subjective Subjective Date/Time Seen: 09/21/21 11:11 Post Op day: 5 ( Status post percutaneous drainage of lesser sac abscess) Patient reports: no new complaints, feels better, tolerating liquids well and afebrile Review of Systems Review of Systems: All systems reviewed & are unremarkable except as noted in HPI and below ( HPI and those items noted below) Constitutional: Constitutional: Denies chills and Denies fever(s) Cardiovascular: Cardiovascular: Denies chest pain, Denies diaphoresis, Denies dyspnea and Denies paroxysmal nocturnal dyspnea Respiratory: Respiratory: Denies chest congestion, Denies cough and Denies dyspnea Gastrointestinal: Gastrointestinal: Reports as per HPI, Denies abdominal pain, Denies dyspepsia, Denies heartburn, Denies diarrhea, Denies nausea and Denies vomiting Integumentary/Breasts: Skin/Breast: Denies lesions and Denies rash Exam Const: General: comfortable and no acute distress; No confusion Orientation/consciousness: patient oriented x3 and No confusion Resp: Effort & Inspection: normal respiratory effort Auscultation: clear to auscultation bilaterally Cardio: Rate: regular rate Rhythm: regular rhythm GI: GI Palp: Yes Soft to palpation, Yes Tenderness to palpation present (GI), No Guarding due to palpation present (GI) and No Rebound tenderness present Auscultation: normal bowel sounds Neuro: General: no focal motor deficits and No confusion Extrem: General: no calf tenderness and no edema Psych: Affect: normal affect Insight: Good insight present (Psych) Judgement: Good judgement present (Psych) Objective Data Vital Signs Vital Signs: Vital Signs - 24 hr 09/20/21 12:00 09/20/21 12:00 09/20/21 14:00 Temperature 36.6 C Pulse Rate 85 77 84 Respiratory Rate 18 Blood Pressure 173/83 H Pulse Oximetry 98 Oxygen Delivery 09/20/21 12:00 09/20/21 16:00 09/20/21 16:00 Temperature 36.6 C Pulse Rate 85 85 Respiratory Rate 18 18 Blood Pressure 167/87 H Pulse Oximetry 100 Oxygen Delivery Room Air Room Air 09/20/21 16:00 09/20/21 18:00 09/20/21 18:45 Temperature Pulse Rate 89 98 119 H Respiratory Rate Blood Pressure Pulse Oximetry Oxygen Delivery 09/20/21 20:00 09/20/21 20:00 09/20/21 20:00 Temperature 36.4 C Pulse Rate 106 H 106 H 91 Respiratory Rate 16 16 Blood Pressure 151/69 H Pulse Oximetry 100 100 Oxygen Delivery Room Air 09/20/21 22:00 09/21/21 00:00 09/21/21 00:00 Temperature 36.1 C L Pulse Rate 86 89 89 Respiratory Rate 20 20 Blood Pressure 145/69 H Pulse Oximetry 99 99 Oxygen Delivery Room Air 09/21/21 00:00 09/21/21 02:00 09/21/21 04:00 Temperature Pulse Rate 84 89 77 Respiratory Rate Blood Pressure
[2021-09-21 12:32] LABS: Glucose Point of Care 113 mg/dl (65-105)
--- NOTE | 2021-09-21 12:40 | PM.IMPN ---
Progress Note: A&P Assessment and Plan (1) Anemia: Code(s): D64.9 - Anemia, unspecified Status: Acute (2) Intra-abdominal free air of unknown etiology: Code(s): K66.8 - Other specified disorders of peritoneum Status: Acute (3) Non-STEMI (non-ST elevated myocardial infarction): Code(s): I21.4 - Non-ST elevation (NSTEMI) myocardial infarction Status: Acute (4) Acute gastrointestinal ulcer with perforation: Code(s): K28.1 - Acute gastrojejunal ulcer with perforation Status: Acute (5) Abnormal CT scan: Code(s): R93.89 - Abnormal findings on diagnostic imaging of other specified body structures Status: Acute (6) Fracture of femoral neck, left: Code(s): S72.002A - Fracture of unspecified part of neck of left femur, initial encounter for closed fracture Status: Acute Plan ?60-year-old male with a history of hypertension,recurrent MRSA infection, left AKA, and recent left hip fracture following a fall downstairs approximately 6 weeks ago, who presents to the emergency department for evaluation of atraumatic right hip pain 1)Acute gastrointestinal Ulcer with Perforation: Appreciate Surgery input Percocet for pain c/w cefepime + drain cx for hussain - appreciate pharm id recommendations Patient is on cefepime and micafungin Cultures noted. Soft diet c/w PPI c/w Sucralfate Continue to monitor white count. Twelve thousand today. Overall patient appears to be improving slowly. Diet recommendations, drain recommendations, per surgery 2)Chest Pain: Resolved Appreciate cardiology help No intervention needed 3)HTN: Add PRN IV hydralazine 4)Transaminitis: elevation in LFT noted Will trend LFT's 5)DVT ppx: SCD 6)Code:Full, guarded prognosis Subjective Date/time seen: 09/21/21 12:40 No complaints Exam Narrative: appears chronically ill Patient is comfortable, NAD HEENT: eyes are clear and none icteric LUNGS: normal respiratory effort ABD: not distended Lower extremities: no edema SKIN: nonjaundiced Neuro: grossly intact. Const: General: no acute distress, in distress and uncomfortable HENMT: Mouth: Yes moist mucous membranes Eyes: Sclera: sclerae normal Neck: Neck: supple Resp: Auscultation: diminished lung sounds Cardio: Rate: regular rate Rhythm: regular rhythm GI: Auscultation: normal bowel sounds Other: no guarding or rigidity Psych: Mental Status: mental status grossly normal Objective Data Vital Signs Vital Signs: Vital Signs - 24 hr 09/20/21 14:00 09/20/21 16:00 09/20/21 16:00 Temperature 97.8 F Pulse Rate 84 85 Respiratory Rate 18 Blood Pressure 167/87 H Pulse Oximetry 100 Oxygen Delivery Room Air 09/20/21 16:00 09/20/21 18:00 09/20/21 18:45 Temperature Pulse Rate 89 98 119 H Respiratory Rate Blood Pressure Pulse Oximetry Oxygen Delivery 09/20/21 20:00 09/20/21 20:00 09/20/21 20:00 Temperature 97.6 F Pulse Rate 106 H 106 H 91 Respiratory Rate 16 16 Blood Pressure 151/69 H Pulse Oximetry 100 100 Oxygen Delivery Room Air 09/20/21 22:00 09/21/21 00:00 09/21/21 00:00 Temperature 97 F L Pulse Rate 86 89 89 Respiratory Rate 20 20 Blood Pressure 145/69 H Pulse Oximetry 99 99 Oxygen Delivery Room Air 09/21/21 00:00 09/21/21 02:00 09/21/21 04:00 Temperature Pulse Rate 84 89 77 Respiratory Rate Blood Pressure Pulse Oximetry Oxygen Delivery 09/21/21 04:00 09/21/21 04:00 09/21/21 05:15 Temperature 97.5 F L Pulse Rate 75 75 83 Respiratory Rate 18 18 Blood Pressure 148/69 H Pulse Oximetry 100 100 Oxygen Delivery Room Air 09/21/21 08:00 Temperature 98.2 F Pulse Rate 83 Respiratory Rate 18 Blood Pressure 171/86 H Pulse Oximetry 99 Oxygen Delivery Intake/Output Intake/Output: Intake & Output 09/18/21 09/19/21 09/20/21 09/21/21 23:59 23:59 23:59 23:59 Intake Total 2994 9346 9838 743
[2021-09-21] MEDS: POTASSIUM CHLORIDE 20 MEQ TABLET.ER 40 MEQ PO (17:56)
[2021-09-21] MEDS: MICAFUNGIN SODIUM 100 MG in SODIUM CHLORIDE 0.9% IV 100 ML IVPB (17:57)
[2021-09-22] MEDS: SUCRALFATE SUSP 100 MG/ML 10 ML UDC 1000 MG BY MOUTH ×5 (00:36→23:16)
[2021-09-22] MEDS: oxyCODONE/ACETAMINOPHEN (*CRX) 10-325 MG TABLET 1 TAB PO ×8 (01:35→23:16)
[2021-09-22 05:04] VITALS: BP 166/78; PULSE 79; RESP 20; TEMP 37.2; O2SAT 99
[2021-09-22] MEDS: CENTRAL LINE FLUSH 10 ML IV PUSH ×3 (05:47→20:42)
[2021-09-22 06:07] LABS: Hematocrit 24.7 % (42.0-52.0); Hemoglobin 7.9 g/dL (14.0-18.0); Mean Corpuscular Hemoglobin 28.1 pg (26-34); Mean Corpuscular Volume 87.9 fl (80-100); Mean Platelet Volume 9.8 fl (7.4-10.4); Platelet Count Result 604 k/mm3 (150-375); Red Blood Count 2.81 M/mm3 (4.6-6.20); Red Cell Distribution Width 16.2 % (11.5-14.5); White Blood Count 12.3 K/mm3 (4.5-10.0)
[2021-09-22 06:21] LABS: Anion Gap 7 mmol/L (8-16); Blood Urea Nitrogen 10 mg/dL (9-20); Calcium 7.8 mg/dL (8.4-10.2); Carbon Dioxide 27 mmol/L (22-30); Chloride 102 mmol/L (98-107); Estimated CRCL calculation 74 ml/min; Estimated Glomerular Filt Rate > 60; Glucose 78 mg/dL (65-110); Sodium 136 mmol/L (137-145)
[2021-09-22 08:56] VITALS: PULSE 82
[2021-09-22] MEDS: lisinopriL 10 MG TABLET PO ×2 (08:56→20:42)
[2021-09-22] MEDS: METOPROLOL TARTRATE 12.5 MG TABLET PO ×2 (08:56→20:42)
[2021-09-22] MEDS: amLODIPine BESYLATE 5 MG TABLET PO (08:56)
[2021-09-22] MEDS: PANTOPRAZOLE SODIUM IV 40 MG VIAL IV PUSH ×2 (08:57→20:42)
[2021-09-22] MEDS: POTASSIUM CHLORIDE 20 MEQ TABLET.ER 40 MEQ PO ×2 (08:58→16:55)
--- NOTE | 2021-09-22 10:14 | PM.IMPN ---
Progress Note: A&P Assessment and Plan (1) Anemia: Code(s): D64.9 - Anemia, unspecified Status: Acute (2) Intra-abdominal free air of unknown etiology: Code(s): K66.8 - Other specified disorders of peritoneum Status: Acute (3) Non-STEMI (non-ST elevated myocardial infarction): Code(s): I21.4 - Non-ST elevation (NSTEMI) myocardial infarction Status: Acute (4) Acute gastrointestinal ulcer with perforation: Code(s): K28.1 - Acute gastrojejunal ulcer with perforation Status: Acute (5) Abnormal CT scan: Code(s): R93.89 - Abnormal findings on diagnostic imaging of other specified body structures Status: Acute (6) Fracture of femoral neck, left: Code(s): S72.002A - Fracture of unspecified part of neck of left femur, initial encounter for closed fracture Status: Acute Plan ?60-year-old male with a history of hypertension,recurrent MRSA infection, left AKA, and recent left hip fracture following a fall downstairs approximately 6 weeks ago, who presents to the emergency department for evaluation of atraumatic right hip pain 1)Acute gastrointestinal Ulcer with Perforation: Diet advanced Appreciate Surgery input Percocet for pain + drain cx for hussain - appreciate pharm id recommendations Patient is on cefepime and micafungin Cultures noted. Soft diet c/w PPI c/w Sucralfate Continue to monitor white count. Twelve thousand today. Overall patient appears to be improving slowly. Diet recommendations, drain recommendations, per surgery Plan for repeat CT scan tomorrow. 2)Chest Pain: Resolved Appreciate cardiology help No intervention needed 3)HTN: Add PRN IV hydralazine 4)Transaminitis: elevation in LFT noted Will trend LFT's 5)DVT ppx: SCD 6)Code:Full, guarded prognosis Subjective Date/time seen: 09/22/21 10:14 No complaints, abdominal pain managed. Exam Narrative: appears chronically ill Patient is comfortable, NAD HEENT: eyes are clear and none icteric LUNGS: normal respiratory effort ABD: not distended Lower extremities: no edema SKIN: nonjaundiced Neuro: grossly intact. Const: General: no acute distress, in distress and uncomfortable HENMT: Mouth: Yes moist mucous membranes Eyes: Sclera: sclerae normal Neck: Neck: supple Resp: Auscultation: diminished lung sounds Cardio: Rate: regular rate Rhythm: regular rhythm GI: Auscultation: normal bowel sounds Other: no guarding or rigidity Psych: Mental Status: mental status grossly normal Objective Data Vital Signs Vital Signs: Vital Signs - 24 hr 09/21/21 12:00 09/21/21 12:00 09/21/21 14:02 Temperature 98.2 F Pulse Rate 84 Respiratory Rate 14 Blood Pressure 146/79 H Pulse Oximetry 100 Oxygen Delivery Room Air Room Air 09/21/21 12:00 09/21/21 20:05 09/21/21 20:47 Temperature 98.1 F Pulse Rate 72 82 90 Respiratory Rate 18 Blood Pressure 153/82 H Pulse Oximetry 99 Oxygen Delivery 09/21/21 20:00 09/22/21 05:04 09/22/21 08:56 Temperature 98.9 F Pulse Rate 79 82 Respiratory Rate 20 Blood Pressure 166/78 H Pulse Oximetry 99 Oxygen Delivery Room Air Intake/Output Intake/Output: Intake & Output 09/19/21 09/20/21 09/21/21 09/22/21 23:59 23:59 23:59 23:59 Intake Total 3490 4319 750 Output Total 3852 5008 1610 40 Balance -362 -689 -860 -40 Meds/Results Medications: Active Medications Generic Name Dose Route Start Last Admin Trade Name Freq PRN Reason Stop Dose Admin Amlodipine Besylate 5 mg 09/18/21 09:00 09/22/21 08:56 Amlodipine Besylate 5 Mg Tablet PO 5 mg QAM RICARDO Administration Benzocaine 1 lozenge 09/07/21 22:27 Benzocaine/Menthol (*Bkc) 18 Ea Lozenge PO PRN PRN Sore Throat Bisacodyl 10 mg 09/07/21 22:27 Bisacodyl 10 Mg Suppository RECTAL QAM PRN Constipation Diclofenac Sodium 1 applic 09/17/21 18:15 09/19/21 08:31 Diclofenac Sod
--- NOTE | 2021-09-22 11:21 | PM.PNGS ---
Progress Note: A&P Assessment and Plan (1) Acute gastrointestinal ulcer with perforation: Code(s): K28.1 - Acute gastrojejunal ulcer with perforation Status: Acute Assessment and Plan: Tolerating soft diet well. Continues to improve. Continue antimicrobial therapy. (2) Non-STEMI (non-ST elevated myocardial infarction): Code(s): I21.4 - Non-ST elevation (NSTEMI) myocardial infarction Status: Acute (3) Intra-abdominal abscess: Code(s): K65.1 - Peritoneal abscess Status: Acute Assessment and Plan: Percutaneous drain working well. Subjective Subjective Date/Time Seen: 09/22/21 11:21 Patient reports: no new complaints, feels better and tolerating a regular diet (Soft diet) Review of Systems Review of Systems: All systems reviewed & are unremarkable except as noted in HPI and below (HPI and those items noted below) Constitutional: Constitutional: Denies chills and Denies fever(s) Cardiovascular: Cardiovascular: Denies chest pain, Denies diaphoresis, Denies dyspnea and Denies paroxysmal nocturnal dyspnea Respiratory: Respiratory: Denies chest congestion, Denies cough and Denies dyspnea Gastrointestinal: Gastrointestinal: Reports as per HPI, Denies abdominal pain, Denies heartburn, Denies diarrhea, Denies nausea and Denies vomiting Integumentary/Breasts: Skin/Breast: Denies lesions and Denies rash Exam Const: General: comfortable and no acute distress; No confusion Orientation/consciousness: patient oriented x3 and No confusion GI: Inspection: other (No drainage in tube. 40 cc recorded from yesterday) GI Palp: Yes Soft to palpation, No Tenderness to palpation present (GI), No Guarding due to palpation present (GI) and No Rebound tenderness present Auscultation: normal bowel sounds Extrem: General: no calf tenderness and no edema Psych: Affect: normal affect Insight: Good insight present (Psych) Judgement: Good judgement present (Psych) Objective Data Vital Signs Vital Signs: Vital Signs - 24 hr 09/21/21 12:00 09/21/21 12:00 09/21/21 14:02 Temperature 36.8 C Pulse Rate 84 Respiratory Rate 14 Blood Pressure 146/79 H Pulse Oximetry 100 Oxygen Delivery Room Air Room Air 09/21/21 12:00 09/21/21 20:05 09/21/21 20:47 Temperature 36.7 C Pulse Rate 72 82 90 Respiratory Rate 18 Blood Pressure 153/82 H Pulse Oximetry 99 Oxygen Delivery 09/21/21 20:00 09/22/21 05:04 09/22/21 08:56 Temperature 37.2 C Pulse Rate 79 82 Respiratory Rate 20 Blood Pressure 166/78 H Pulse Oximetry 99 Oxygen Delivery Room Air Intake/Output Intake/Output: Intake & Output 09/19/21 09/20/21 09/21/21 09/22/21 23:59 23:59 23:59 23:59 Intake Total 3490 4319 750 Output Total 3852 5008 1610 40 [facility] [place] -[phone] Meds/Results Medications: Active Medications Generic Name Dose Route Start Last Admin Trade Name Freq PRN Reason Stop Dose Admin Amlodipine Besylate 5 mg 09/18/21 09:00 09/22/21 08:56 Amlodipine Besylate 5 Mg Tablet PO 5 mg QAM RICARDO Administration Benzocaine 1 lozenge 09/07/21 22:27 Benzocaine/Menthol (*Bkc) 18 Ea Lozenge PO PRN PRN Sore Throat Bisacodyl 10 mg 09/07/21 22:27 Bisacodyl 10 Mg Suppository RECTAL QAM PRN Constipation Diclofenac Sodium 1 applic 09/17/21 18:15 09/19/21 08:31 Diclofenac Sodium 1% 100 Gm Gel (*Bkc) TOPICAL 1 applic QID PRN Administration pain Hydralazine HCl 10 mg 09/12/21 12:54 09/20/21 12:36 Hydralazine Hcl 20 Mg/Ml Vial IV PUSH 10 mg Q8H PRN Administration SBP>160 OR DBP>90 Cefepime HCl 1 gm in 50 mls @ 100 mls/hr 09/06/21 00:00 09/22/21 00:36 Maxipime 1 Gm/D5w 50 Ml IVPB 100 mls/hr Q12H RICARDO Administration Micafungin Sodium 100 mg/ 100 mls @ 100 mls/hr 09/19/21 18:00 09/21/21 17:57 Sodium Chloride IVPB 100 mls/hr Q24H RICARDO Administration Lidocaine 1 patch 09/18/21 09:00 08/25
[2021-09-22 14:00] VITALS: BP 164/94; PULSE 86; RESP 16; TEMP 36.2; O2SAT 100
[2021-09-22] MEDS: MICAFUNGIN SODIUM 100 MG in SODIUM CHLORIDE 0.9% IV 100 ML IVPB (18:18)
[2021-09-22 20:42] VITALS: PULSE 86
[2021-09-22 21:48] VITALS: BP 151/82; PULSE 76; RESP 18; TEMP 37.1; O2SAT 100
[2021-09-23] MEDS: oxyCODONE/ACETAMINOPHEN (*CRX) 10-325 MG TABLET 1 TAB PO ×8 (02:32→23:29)
[2021-09-23] MEDS: SUCRALFATE SUSP 100 MG/ML 10 ML UDC 1000 MG BY MOUTH ×4 (05:24→23:29)
[2021-09-23] MEDS: CENTRAL LINE FLUSH 10 ML IV PUSH ×3 (05:25→20:38)
[2021-09-23 05:48] VITALS: BP 155/94; PULSE 73; RESP 15; TEMP 36.7; O2SAT 100
[2021-09-23 06:28] LABS: Basophils Absolute Auto 0.2 K/mm3 (0.0-0.1); Eosinophils Absolute Auto 0.4 K/mm3 (0-0.3); Eosinophils Percent Auto 3.3 % (0-4.4); Hematocrit 26.8 % (42.0-52.0); Hemoglobin 8.4 g/dL (14.0-18.0); Immature Granulocyte Percent A 0.9 % (0-0.5); Lymphocytes Percent Auto 22.5 % (18.3-44.2); Mean Corpuscular HGB Conc 31.3 g/dl (32-36); Mean Corpuscular Hemoglobin 27.9 pg (26-34); Mean Platelet Volume 9.9 fl (7.4-10.4); Monocytes Absolute Auto 0.9 K/mm3 (0.1-0.6); Monocytes Percent Auto 8.1 % (2.6-8.5); Neutrophils Absolute Auto 7.3 K/mm3 (1.3-6.7); Neutrophils Percent Auto 63.2 % (45.5-73.1); Platelet Count Result 641 k/mm3 (150-375); Red Blood Count 3.01 M/mm3 (4.6-6.20); Red Cell Distribution Width 16.1 % (11.5-14.5); White Blood Count 11.6 K/mm3 (4.5-10.0)
[2021-09-23 06:34] LABS: INR 1.1; Prothrombin Time 13.4 Seconds (11.1-14.7)
[2021-09-23 06:36] LABS: Partial Thromboplastin Time 45.6 SECONDS (22.3-36.8)
[2021-09-23] MEDS: SODIUM CHLORIDE 0.9% IV 500 ML 50 ML IV CONT (08:18)
[2021-09-23] MEDS: POTASSIUM CHLORIDE 20 MEQ TABLET.ER 40 MEQ PO ×2 (08:20→17:55)
[2021-09-23] MEDS: amLODIPine BESYLATE 5 MG TABLET PO (08:21)
[2021-09-23] MEDS: lisinopriL 10 MG TABLET PO ×2 (08:21→20:38)
[2021-09-23] MEDS: PANTOPRAZOLE SODIUM IV 40 MG VIAL IV PUSH ×2 (08:22→20:37)
[2021-09-23 08:23] VITALS: PULSE 73
[2021-09-23] MEDS: METOPROLOL TARTRATE 12.5 MG TABLET PO ×2 (08:23→20:37)
[2021-09-23 10:00] LABS: Alanine Aminotransferase 25 U/L (6-50); Alkaline Phosphatase 162 U/L (38-126); Anion Gap 9 mmol/L (8-16); Aspartate Amino Transferase 29 U/L (17-59); Bilirubin,Total 0.4 mg/dL (0.2-1.3); Blood Urea Nitrogen 10 mg/dL (9-20); Calcium 8.3 mg/dL (8.4-10.2); Carbon Dioxide 26 mmol/L (22-30); Chloride 99 mmol/L (98-107); Estimated CRCL calculation 73 ml/min; Estimated Glomerular Filt Rate > 60; Glucose 71 mg/dL (65-110); Magnesium 1.7 mg/dL (1.6-2.3); Potassium 4.4 mmol/L (3.4-5.0); Sodium 134 mmol/L (137-145)
[2021-09-23 10:38] LABS: Prealbumin 19.9 mg/dL (17.6-36.0); Transferrin 172 mg/dL (206-381)
--- NOTE | 2021-09-23 12:27 | PM.IMPN ---
Progress Note: A&P Assessment and Plan (1) Anemia: Code(s): D64.9 - Anemia, unspecified Status: Acute (2) Intra-abdominal free air of unknown etiology: Code(s): K66.8 - Other specified disorders of peritoneum Status: Acute (3) Non-STEMI (non-ST elevated myocardial infarction): Code(s): I21.4 - Non-ST elevation (NSTEMI) myocardial infarction Status: Acute (4) Acute gastrointestinal ulcer with perforation: Code(s): K28.1 - Acute gastrojejunal ulcer with perforation Status: Acute (5) Abnormal CT scan: Code(s): R93.89 - Abnormal findings on diagnostic imaging of other specified body structures Status: Acute (6) Fracture of femoral neck, left: Code(s): S72.002A - Fracture of unspecified part of neck of left femur, initial encounter for closed fracture Status: Acute Plan ?60-year-old male with a history of hypertension,recurrent MRSA infection, left AKA, and recent left hip fracture following a fall downstairs approximately 6 weeks ago, who presents to the emergency department for evaluation of atraumatic right hip pain 1)Acute gastrointestinal Ulcer with Perforation: Diet advanced Appreciate Surgery input Percocet for pain + drain cx for hussain - appreciate pharm id recommendations Patient is on cefepime and micafungin Cultures noted. Soft diet c/w PPI c/w Sucralfate Continue to monitor white count. Twelve thousand today. Overall patient appears to be improving slowly. Diet recommendations, drain recommendations, per surgery Plan for repeat CT scan pending 2)Chest Pain: Resolved Appreciate cardiology help No intervention needed 3)HTN: Add PRN IV hydralazine 4)Transaminitis: elevation in LFT noted Will trend LFT's 5)DVT ppx: SCD 6)Code:Full, guarded prognosis Subjective Date/time seen: 09/23/21 12:27 Feeling well Exam Narrative: appears chronically ill Patient is comfortable, NAD HEENT: eyes are clear and none icteric LUNGS: normal respiratory effort ABD: not distended Lower extremities: no edema SKIN: nonjaundiced Neuro: grossly intact. Const: General: no acute distress, in distress and uncomfortable HENMT: Mouth: Yes moist mucous membranes Eyes: Sclera: sclerae normal Neck: Neck: supple Resp: Auscultation: diminished lung sounds Cardio: Rate: regular rate Rhythm: regular rhythm GI: Auscultation: normal bowel sounds Other: no guarding or rigidity Psych: Mental Status: mental status grossly normal Objective Data Vital Signs Vital Signs: Vital Signs - 24 hr 09/22/21 14:00 09/22/21 20:42 09/22/21 21:48 Temperature 97.2 F L 98.7 F Pulse Rate 86 86 76 Respiratory Rate 16 18 Blood Pressure 164/94 H 151/82 H Pulse Oximetry 100 100 Oxygen Delivery 09/23/21 05:48 09/23/21 08:23 09/23/21 08:00 Temperature 98.1 F Pulse Rate 73 73 Respiratory Rate 15 Blood Pressure 155/94 H Pulse Oximetry 100 Oxygen Delivery Room Air Intake/Output Intake/Output: Intake & Output 09/20/21 09/21/21 09/22/21 09/23/21 23:59 23:59 23:59 23:59 Intake Total 4319 850 800 686 Output Total 5002 1610 2990 1325 [facility] [phone] Meds/Results Medications: Active Medications Generic Name Dose Route Start Last Admin Trade Name Freq PRN Reason Stop Dose Admin Amlodipine Besylate 5 mg 09/18/21 09:00 09/23/21 08:21 Amlodipine Besylate 5 Mg Tablet PO 5 mg QAM RICARDO Administration Benzocaine 1 lozenge 09/07/21 22:27 Benzocaine/Menthol (*Bkc) 18 Ea Lozenge PO PRN PRN Sore Throat Bisacodyl 10 mg 09/07/21 22:27 Bisacodyl 10 Mg Suppository RECTAL QAM PRN Constipation Diclofenac Sodium 1 applic 09/17/21 18:15 09/19/21 08:31 Diclofenac Sodium 1% 100 Gm Gel (*Bkc) TOPICAL 1 applic QID PRN Administration pain Hydralazine HCl 10 mg 09/12/21 12:54 09/20/21 12:36 Hydralazine Hcl 20 Mg/Ml Vial IV PUSH 10 mg Q8H SD
--- NOTE | 2021-09-23 13:16 | PC.NURSE ---
Park Attendant spoke with Eugenia Covarrubias patients listed contact and gave an update on patients status.
--- NOTE | 2021-09-23 13:27 | PM.PNGS ---
Progress Note: A&P Assessment and Plan (1) Acute gastrointestinal ulcer with perforation: Code(s): K28.1 - Acute gastrojejunal ulcer with perforation Status: Acute Assessment and Plan: Abdominal pain is about the same and his exam is the same. ( he is now taking 1 Percocet 5/325 every 3-4 hours ). WBC down to 12K today and he is afebrile, but after the percutaneous drain on 09/16 he ran a fever as high as 101 F several times during the 8 hours following the drainage procedure. On 09/16/2021 an abd/pelvic CT with oral and IV contrast showed a fairly large fluid collection behind the stomach with some gas in it. This appears to be formed into an abscess. ( this is probably accumulation from his perforated pre-pyloric gastric or duodenal ulcer that was noted on the previous CT scan & today's). It was drainable by CT guidance. and now appears to be collapsed around the perc drain. Patient has done okay afterwards---- blood pressure is still slightly high but no hypotension. Hemoglobin slightly up to 8.4 ( and stable over last few days ) today. There has never been blood in the drainage bag from the percutaneous drainage of the abscess. Will continue current antibiotics and antifungal ( micafungin was restarted 09/19 when fungal elements were noted on the aerobic anaerobic culture from his percutaneous drainage) and await final cultures from this drainage. (So far culture results show fungal elements ( reported as Leah species) and a gram-positive bacilli on the anaerobic culture. The latter is not yet identified nor are there sensitivities on it. So after discussion with our pharmacist with a specially in Infectious disease, we will continue the micafungin until we have sensitivities or complete identification of the fungus. Most likely then a fluconazole type oral treatment will be able to be used unless there are concerns about his EKG and his QT interval. (discussed with Dr. Echeverria today and he is not concerned about this side-effect.). He has had now 7 days of Rx after the drainage procedure was performed. Pt. appears stable at this time with a white count that is variably up and down over the last few days. Since his Gastrografin upper GI showed still showed a small leak 13 days ago he had been on TPN. Oral feeding and removal of the NG occurred in the last last week. I spoke with the patient this morning before his CT scan and explained it and explained why we wanted to do oral contrast. CT scan has now been reviewed and I have discussed it with Dr. Metcalf from Radiology and Dr. Echeverria. There was a small 4 x 2 cm fluid collection in the pelvis that it is either reactive fluid or perhaps the same fluid/ abscess that was in the lesser sac. However, this is completely surrounded by bowel and other structures that make it difficult to drain percutaneously. It has gotten smaller with each successive CT scan over the last 2 weeks therefore, after thorough discussion we decided to continue treatment including switching over to oral medications tomorrow if he isdoing well. The fluid collection that the drain is in has completely collapsed around the drain and I will stop irrigating it and we will see how much comes out in next 24 hr. If it is less than 20 cc most likely that drain will be removed tomorrow Thursday. I will leave the TPN labs that are standard intact through next week to continue to monitor his nutritional condition. pre albumin order today was pending last I looked. (19 today --- so now definitely improved. Carafate now changed to p.o. Q 6, and analgesics as needed P.o. patient states he is able to tolerate taking the liquid Carafate p.o.. Continue IV antibiotics/Micafungin ---await results of Gram stain and C&S from 09/16 procedure/abscess drainage. --- Discussed with Infectious Disease pharmacist Again today and most likely if things go well we will switch to a fluconazole p.o. medicati
--- NOTE | 2021-09-23 13:41 | WPDGIPROGNO ---
Progress Note: A&P Assessment and Plan (1) Intra-abdominal abscess: Code(s): K65.1 - Peritoneal abscess Status: Acute Assessment and Plan: Intra-abdominal abscess. CT scan today reveals a 1-1/2cm perigastric abscess with drain in place there is a 4x2cm pelvic abscess noted. Clinically patient doing well. With decrease in white count to 11.6. Abdomen is soft benign in appearance today. Bowel sounds are present. Although stool not yet being produced. Continue antibiotics and drainage as per surgery. Diet slowly being advance. (2) Acute gastrointestinal ulcer with perforation: Code(s): K28.1 - Acute gastrojejunal ulcer with perforation Status: Acute Assessment and Plan: Patient presumed to have peptic ulcer with perforation. Now on PPI therapy as well as antibiotics. (3) History of left above knee amputation: Code(s): Z89.612 - Acquired absence of left leg above knee Status: Acute Subjective Date/time seen: 09/23/21 13:41 Patient alert comfortable this morning states abdominal pain has lessened. Reports no recent bowel movement period starting to eat more oral intake. NG tube out. Review of Systems Review of Systems: Review of systems noncontributory. Exam Narrative: Physical exam reveals patient be alert. Vital signs stable. He is anicteric. Lungs are clear. Heart without murmur. Abdomen bowel sounds present soft no localized tenderness. No masses. External drain in place. Objective Data Vital Signs Vital Signs: Vital Signs - 24 hr 09/22/21 14:00 09/22/21 20:42 09/22/21 21:48 Temperature 97.2 F L 98.7 F Pulse Rate 86 86 76 Respiratory Rate 16 18 Blood Pressure 164/94 H 151/82 H Pulse Oximetry 100 100 Oxygen Delivery 09/23/21 05:48 09/23/21 08:23 09/23/21 08:00 Temperature 98.1 F Pulse Rate 73 73 Respiratory Rate 15 Blood Pressure 155/94 H Pulse Oximetry 100 Oxygen Delivery Room Air Intake/Output Intake/Output: Intake & Output 09/20/21 09/21/21 09/22/21 09/23/21 23:59 23:59 23:59 23:59 Intake Total 4312 850 800 736 Output Total 6045 1079 2990 1325 [facility] -[phone] -[phone] Meds/Results Medications: Active Medications Generic Name Dose Route Start Last Admin Trade Name Freq PRN Reason Stop Dose Admin Amlodipine Besylate 5 mg 09/18/21 09:00 09/23/21 08:21 Amlodipine Besylate 5 Mg Tablet PO 5 mg QAM RICARDO Administration Benzocaine 1 lozenge 09/07/21 22:27 Benzocaine/Menthol (*Bkc) 18 Ea Lozenge PO PRN PRN Sore Throat Bisacodyl 10 mg 09/07/21 22:27 Bisacodyl 10 Mg Suppository RECTAL QAM PRN Constipation Diclofenac Sodium 1 applic 09/17/21 18:15 09/19/21 08:31 Diclofenac Sodium 1% 100 Gm Gel (*Bkc) TOPICAL 1 applic QID PRN Administration pain Hydralazine HCl 10 mg 09/12/21 12:54 09/20/21 12:36 Hydralazine Hcl 20 Mg/Ml Vial IV PUSH 10 mg Q8H PRN Administration SBP>160 OR DBP>90 Cefepime HCl 1 gm in 50 mls @ 100 mls/hr 09/06/21 00:00 09/23/21 11:54 Maxipime 1 Gm/D5w 50 Ml IVPB Infused Q12H RICARDO Infusion Micafungin Sodium 100 mg/ 100 mls @ 100 mls/hr 09/19/21 18:00 09/22/21 19:18 Sodium Chloride IVPB Infused Q24H RICARDO Infusion Lidocaine 1 patch 09/18/21 09:00 09/23/21 08:21 Lidocaine 5% Patch TRANSDERM Not Given DAILY RICARDO Lisinopril 10 mg 09/05/21 13:30 09/23/21 08:21 Lisinopril 10 Mg Tablet PO 10 mg Q12HR RICARDO Administration Metoprolol Tartrate 12.5 mg 09/20/21 18:35 09/23/21 08:23 Metoprolol Tartrate 12.5 Mg Tablet PO 12.5 mg Q12HR RICARDO Administration Nicotine 1 patch 09/05/21 14:45 09/23/21 08:21 Nicotine (*Pbkc) 21 Mg Patch TRANSDERM Not Given QAM RICARDO Ondansetron HCl 4 mg 09/05/21 13:15 09/15/21 03:41 Ondansetron Inj 4 Mg/2 Ml Vial IV PUSH 4 mg Q6H PRN Administration Nausea And Vomiting Oxycodone/Acetaminophen 1 tab 09/21/21 12:42
[2021-09-23 14:00] VITALS: BP 159/84; PULSE 80; RESP 18; TEMP 36.1; O2SAT 100
[2021-09-23] MEDS: MICAFUNGIN SODIUM 100 MG in SODIUM CHLORIDE 0.9% IV 100 ML IVPB (17:52)
[2021-09-23] MEDS: MAGNESIUM HYDROXIDE SUSP 30 ML UDC PO (18:15)
[2021-09-23 20:37] VITALS: PULSE 84
[2021-09-23 21:43] VITALS: BP 168/89; PULSE 85; RESP 17; TEMP 36.4; O2SAT 100
[2021-09-24] MEDS: oxyCODONE/ACETAMINOPHEN (*CRX) 10-325 MG TABLET 1 TAB PO ×4 (04:57→15:00)
[2021-09-24] MEDS: SUCRALFATE SUSP 100 MG/ML 10 ML UDC 1000 MG BY MOUTH ×2 (04:59→12:06)
[2021-09-24] MEDS: CENTRAL LINE FLUSH 10 ML IV PUSH ×2 (04:59→15:01)
[2021-09-24 05:24] LABS: Magnesium 1.6 mg/dL (1.6-2.3); Potassium 4.9 mmol/L (3.4-5.0)
[2021-09-24 05:27] VITALS: BP 171/94; PULSE 82; RESP 18; TEMP 36.6; O2SAT 100
[2021-09-24] MEDS: POTASSIUM CHLORIDE 20 MEQ TABLET.ER 40 MEQ PO (08:32)
[2021-09-24 08:34] VITALS: PULSE 72
[2021-09-24] MEDS: METOPROLOL TARTRATE 12.5 MG TABLET PO (08:34)
[2021-09-24] MEDS: lisinopriL 10 MG TABLET PO (08:34)
[2021-09-24] MEDS: amLODIPine BESYLATE 5 MG TABLET PO (08:34)
[2021-09-24] MEDS: PANTOPRAZOLE SODIUM IV 40 MG VIAL IV PUSH (08:36)
[2021-09-24 09:27] LABS: Basophils Absolute Auto 0.2 K/mm3 (0.0-0.1); Basophils Percent Auto 2.4 % (0.2-1.2); Eosinophils Absolute Auto 0.2 K/mm3 (0-0.3); Eosinophils Percent Auto 2.4 % (0-4.4); Hemoglobin 8.1 g/dL (14.0-18.0); Immature Granulocyte Absolute 0.04 K/mm3 (0.00-0.031); Immature Granulocyte Percent A 0.5 % (0-0.5); Lymphocytes Absolute Auto 1.63 K/mm3 (0.9-3.2); Lymphocytes Percent Auto 19.7 % (18.3-44.2); Mean Corpuscular HGB Conc 31.2 g/dl (32-36); Mean Corpuscular Hemoglobin 27.4 pg (26-34); Mean Corpuscular Volume 87.8 fl (80-100); Mean Platelet Volume 9.6 fl (7.4-10.4); Monocytes Absolute Auto 0.6 K/mm3 (0.1-0.6); Monocytes Percent Auto 6.9 % (2.6-8.5); Neutrophils Absolute Auto 5.6 K/mm3 (1.3-6.7); Neutrophils Percent Auto 68.1 % (45.5-73.1); Platelet Count Result 563 k/mm3 (150-375); Red Blood Count 2.96 M/mm3 (4.6-6.20); Red Cell Distribution Width 15.9 % (11.5-14.5); White Blood Count 8.3 K/mm3 (4.5-10.0)
--- NOTE | 2021-09-24 10:51 | PCNFU ---
Nutrition Follow-Up Complete: Inadequate po intake related to altered GI function as evidenced by need for TPN for nutrition support. goal; Meet at least 60-80% of nutritional needs via TPN Patient is progressing towards goal. We will continue current goal. Pt current nutrition is Low Fiber. Last recorded weight is 44.3 kg, down from 58.7 kg on admit. Bowel Motility:+BM reported 09/23 Labs Reviewed:no new labs to report. Meds Noted:Carafate, KCL tab, Norvasc, Lopressor, Protonix Skin: WNL Additional Notes:Patient seen today for nutrition follow up. TPN has been discontinued, diet order advanced to a low fiber diet. Oral intake improving, 50% of most trays. Patient states to no diet concerns at this time. Agree with diet orders. Monitor: wt, labs, skin, oral intake every 5 days.
--- NOTE | 2021-09-24 13:19 | PM.DS ---
DS: Admitting Diagnosis Discharge Date September 24, 2021 Admitting Diagnosis Duodenal/gastric perforation DS: Discharge Diagnosis Discharge Diagnosis (1) Anemia: Code(s): D64.9 - Anemia, unspecified Status: Acute (2) Intra-abdominal free air of unknown etiology: Code(s): K66.8 - Other specified disorders of peritoneum Status: Acute (3) Non-STEMI (non-ST elevated myocardial infarction): Code(s): I21.4 - Non-ST elevation (NSTEMI) myocardial infarction Status: Acute (4) Acute gastrointestinal ulcer with perforation: Code(s): K28.1 - Acute gastrojejunal ulcer with perforation Status: Acute (5) Abnormal CT scan: Code(s): R93.89 - Abnormal findings on diagnostic imaging of other specified body structures Status: Acute (6) Fracture of femoral neck, left: Code(s): S72.002A - Fracture of unspecified part of neck of left femur, initial encounter for closed fracture Status: Acute Plan ?60-year-old male with a history of hypertension,recurrent MRSA infection, left AKA, and recent left hip fracture following a fall downstairs approximately 6 weeks ago, who presents to the emergency department for evaluation of atraumatic right hip pain 1)Acute gastrointestinal Ulcer with Perforation: Diet advanced Appreciate Surgery input Percocet for pain + drain cx for hussain - appreciate pharm id recommendations Patient is on cefepime and micafungin Cultures noted. Soft diet c/w PPI c/w Sucralfate Continue to monitor white count. Twelve thousand today. Overall patient appears to be improving slowly. Diet recommendations, drain recommendations, per surgery Plan for repeat CT scan showed resolution of fluid collection. Does have residual fluid collection in the pelvis. This can be followed as an outpatient Augmentin and fluconazole for 9 more days on discharge 2)Chest Pain: Resolved Appreciate cardiology help No intervention needed 3)HTN: Add PRN IV hydralazine 4)Transaminitis: elevation in LFT noted Will trend LFT's 5)DVT ppx: SCD 6)Code:Full, guarded prognosis DS: Summary Hospital Course Hospital Course: Patient is a 60-year-old male who came in with abdominal pain. initial CT scan was negative. Had ongoing abdominal pain and issues with tolerating diet. Repeat CT scan showed free air in the abdomen. Given patient's medical history. Decision was made to treat the patient conservatively. Patient is given NPO and NG tube to suction. CT scan revealed fluid collection had a drain placed. Trained did grow yeast. Subsequent CT scan showed improvement in the fluid collection the upper abdomen however he did have a improving fluid collection pelvis. Surgery felt this could be managed conservatively. In the hospital patient had IV cefepime and micafungin. On discharge patient will get Augmentin and fluconazole. Follow-up surgery. To note patient is eating a diet and ambulating well without issues Time Spent with Patient Time attestation: Total time spent providing and/or coordinating discharge services: Exam Narrative: appears chronically ill Patient is comfortable, NAD HEENT: eyes are clear and none icteric LUNGS: normal respiratory effort ABD: not distended Lower extremities: no edema SKIN: nonjaundiced Neuro: grossly intact. Const: General: no acute distress, in distress and uncomfortable HENMT: Mouth: Yes moist mucous membranes Eyes: Sclera: sclerae normal Neck: Neck: supple Resp: Auscultation: diminished lung sounds Cardio: Rate: regular rate Rhythm: regular rhythm GI: Auscultation: normal bowel sounds Other: no guarding or rigidity Psych: Mental Status: mental status grossly normal DS: Data Data Completed and Pending Labs on day of discharge: Labs from last 24 hours 09/24/21 09/24/21 09:14 05:05 WBC 8.3 RBC 2.96 L Hgb 8.1 L Hct 26.0 L MCV 87.8 MCH 27.4 MCHC 31.2 L RDW 15.9 H Plt Coun
--- NOTE | 2021-09-24 13:20 | WPDGIPROGNO ---
Progress Note: A&P Assessment and Plan (1) Intra-abdominal abscess: Code(s): K65.1 - Peritoneal abscess Status: Acute Assessment and Plan: Patient has resolving gifty gastric abscess appears to have improved with external drain. Likely related to perforated ulcer. Additionally has a pelvic abscess which is improving. This abscess not amenable to external drain by CT scan. Continue antibiotics. This will need to be followed at an interval. Currently remains on antibiotics. Surgery directing care. (2) Acute gastrointestinal ulcer with perforation: Code(s): K28.1 - Acute gastrojejunal ulcer with perforation Status: Acute Assessment and Plan: Patient admitted with abdominal pain ultimately found to have perforation consistent with gastric ulceration. Remains on IV ppi currently appears to have sealed. Currently tolerating low residue diet with minimal difficulties. (3) History of left above knee amputation: Code(s): Z89.612 - Acquired absence of left leg above knee Status: Acute (4) Fracture of femoral neck, left: Code(s): S72.002A - Fracture of unspecified part of neck of left femur, initial encounter for closed fracture Status: Acute (5) Enteritis: Code(s): K52.9 - Noninfective gastroenteritis and colitis, unspecified Status: Acute Assessment and Plan: Enteritis suggested on initial imaging studies likely related to inflammation associated with what ultimately was determined to be a peptic ulcer. No clinical parameters suggest any ongoing enteritis at this time. Subjective Date/time seen: 09/24/21 13:20 Patient comfortable this morning. Sitting in bed. Anxious to go home. States he is tolerating low-fiber diet without difficulty. Denies significant pain but does have some pain medicines which she is taking orally. Does report having had a bowel movement over the last day. Review of Systems Review of Systems: Review of systems noncontributory. Exam Narrative: Physical exam reveals patient be alert and afebrile. HEENT exam reveals no icterus. Lungs are clear. Heart without murmur. Abdomen bowel sounds present soft no localized tenderness. Is a left AKA. Objective Data Vital Signs Vital Signs: Vital Signs - 24 hr 09/23/21 14:00 09/23/21 20:37 09/23/21 21:43 Temperature 96.9 F L 97.5 F L Pulse Rate 80 84 85 Respiratory Rate 18 17 Blood Pressure 159/84 H 168/89 H Pulse Oximetry 100 100 Oxygen Delivery 09/24/21 05:27 09/24/21 08:34 09/24/21 08:00 Temperature 97.9 F Pulse Rate 82 72 Respiratory Rate 18 Blood Pressure 171/94 H Pulse Oximetry 100 Oxygen Delivery Room Air Intake/Output Intake/Output: Intake & Output 09/21/21 09/22/21 09/23/21 09/24/21 23:59 23:59 23:59 23:59 Intake Total 434 094 2448 290 Output Total 1610 2990 2452 2150 [facility] -[phone] Meds/Results Medications: Active Medications Generic Name Dose Route Start Last Admin Trade Name Freq PRN Reason Stop Dose Admin Amlodipine Besylate 5 mg 09/18/21 09:00 09/24/21 08:34 Amlodipine Besylate 5 Mg Tablet PO 5 mg QAM RICARDO Administration Benzocaine 1 lozenge 09/07/21 22:27 Benzocaine/Menthol (*Bkc) 18 Ea Lozenge PO PRN PRN Sore Throat Bisacodyl 10 mg 09/07/21 22:27 Bisacodyl 10 Mg Suppository RECTAL QAM PRN Constipation Diclofenac Sodium 1 applic 09/17/21 18:15 09/19/21 08:31 Diclofenac Sodium 1% 100 Gm Gel (*Bkc) TOPICAL 1 applic QID PRN Administration pain Hydralazine HCl 10 mg 09/12/21 12:54 09/20/21 12:36 Hydralazine Hcl 20 Mg/Ml Vial IV PUSH 10 mg Q8H PRN Administration SBP>160 OR DBP>90 Cefepime HCl 1 gm in 50 mls @ 100 mls/hr 09/06/21 00:00 09/24/21 12:36 Maxipime 1 Gm/D5w 50 Ml IVPB Infused Q12H RICARDO Infusion Micafungin Sodium 100 mg/ 100 mls @ 100 mls/hr 09/19/21 18:00 09/23/21 18:52 Sodium Chloride IVPB I
--- NOTE | 2021-09-24 13:29 | PM.PNGS ---
Progress Note: A&P Assessment and Plan (1) Acute gastrointestinal ulcer with perforation: Code(s): K28.1 - Acute gastrojejunal ulcer with perforation Status: Acute Assessment and Plan: Continues to improve. WBC down to normal today, he is afebrile. Most recent CT scan abd/pelvis 09/23/21 showed almost complete collapse of the abscess where the perc drain is located. No output from the drain since yesterday during dayshift. I removed the perc drain at the bedside today. He will get his next dose of IV Micafungin around 6:00 pm. Okay to discharge after this dose is given. Discussed with the ID pharmacist today (and Dr. Hurtado did yesterday) - recommend to discharge on Augmentin and fluconazole for an additional 7 days, ending on 10/01/21. Continue BID Protonix po on discharge and sucralfate. Will have the patient follow-up in the office with me next week after completing the Augmentin and fluconazole. Continue low fiber diet until seen in follow-up. (2) Enteritis: Code(s): K52.9 - Noninfective gastroenteritis and colitis, unspecified Status: Acute Assessment and Plan: Suggested on CT. No clinical evidence of ongoing enteritis. (3) Fracture of femoral neck, left: Code(s): S72.002A - Fracture of unspecified part of neck of left femur, initial encounter for closed fracture Status: Acute Assessment and Plan: As per hospitalist/ortho. (4) History of left above knee amputation: Code(s): Z89.612 - Acquired absence of left leg above knee Status: Acute Additional Plan I have discussed the patient's case and plan of care with Dr. Hurtado. Subjective Subjective Date/Time Seen: 09/24/21 13:29 Patient reports: no new complaints, feels better, tolerating a regular diet, flatus, bowel movement (today) and afebrile Interval history: Chart reviewed since last seen. Patient seen and examined with his the bedside. He reports feeling great today and eager to go home. His abdominal pain continues to improve and is controlled with oral analgesics. He denies any nausea, vomiting, or bloating. Per nursing, no output from perc drain overnight or so far today. Only 7 cc documented from dayshift yesterday. Review of Systems Review of Systems: All systems reviewed & are unremarkable except as noted in HPI and below Exam Const: General: comfortable, no acute distress and awake Orientation/consciousness: patient oriented x3 GI: Inspection: non-distended and other (LLQ perc drain with no drainage in bag, only scant serous drainage in tube) GI Palp: Yes Soft to palpation, No Tenderness to palpation present (GI), No Guarding due to palpation present (GI) and No Rebound tenderness present Auscultation: normal bowel sounds Other: Perc drain and suture removed at the bedside, sterile gauze and tegaderm dressing applied, patient tolerated well Neuro: General: moves all extremities and no focal motor deficits Extrem: General: no calf tenderness, no edema and other (left AKA) Psych: Insight: Good insight present (Psych) Objective Data Vital Signs Vital Signs: Vital Signs - 24 hr 09/23/21 14:00 09/23/21 20:37 09/23/21 21:43 Temperature 96.9 F L 97.5 F L Pulse Rate 80 84 85 Respiratory Rate 18 17 Blood Pressure 159/84 H 168/89 H Pulse Oximetry 100 100 Oxygen Delivery 09/24/21 05:27 09/24/21 08:34 09/24/21 08:00 Temperature 97.9 F Pulse Rate 82 72 Respiratory Rate 18 Blood Pressure 171/94 H Pulse Oximetry 100 Oxygen Delivery Room Air Intake/Output Intake/Output: Intake & Output 09/21/21 09/22/21 09/23/21 09/24/21 23:59 23:59 23:59 23:59 Intake Total 534 806 5663 290 Output Total 1610 2990 2452 2150 [facility]348 [phone] Meds/Results Medications: Active Medications Generic Name Dose Route Start Last Admin Trade Name Freq PRN Reason Stop Dose Admin Amlodipine Besylate 5 mg 09/18/21 09:00 09/24/21 08:34 Aml
[2021-09-24 14:00] VITALS: BP 144/78; PULSE 76; RESP 18; TEMP 36.5; O2SAT 100
[2021-09-24] MEDS: MICAFUNGIN SODIUM 100 MG in SODIUM CHLORIDE 0.9% IV 100 ML IVPB (14:50)
== END 2021-09-24 16:54 | disposition home or self-care (01) | DRG 380 ==
LOC: ANHED 08:19 → ANH3MEDSUR 11:52 → ANHIMU 09-14 17:36 → ANH3MEDSUR 09-21 16:49
PROVIDERS: Family Medicine; Internal Medicine; Nurse Practitioner Family; Student in an Organized Health Care Education/Training Program; Surgery; Admitting Provider Internal Medicine; Emergency Provider Emergency Medicine; Visit Provider Chiropractor
DX: K28.1 Acute gastrojejunal ulcer with perforation (principal); K65.1 Peritoneal abscess; I21.A1 Myocardial infarction type 2; E87.2 Acidosis; K86.1 Other chronic pancreatitis; B37.89 Other sites of candidiasis; K52.9 Noninfective gastroenteritis and colitis, unspecified; M25.551 Pain in right hip; D64.9 Anemia, unspecified; I10 Essential (primary) hypertension; Z20.822 Contact with and (suspected) exposure to COVID-19; E87.6 Hypokalemia; D72.829 Elevated white blood cell count, unspecified; I71.4 Abdominal aortic aneurysm, without rupture; K66.8 Other specified disorders of peritoneum; F17.210 Nicotine dependence, cigarettes, uncomplicated; Z89.612 Acquired absence of left leg above knee
CPT/HCPCS: 36415; 36430; 36569; 71045; 73100; 74018; 74019; 74177; 74240; 75989; 76705; 80048; 80053; 80076; 80202; 81003; 82948; 83605; 83615; 83690; 83735; 84100; 84132; 84134; 84466; 84478; 84484; 84550; 85014; 85018; 85025; 85027; 85610; 85652; 85730; 86140; 86850; 86900; 86901; 86920; 87040; 87070; 87075; 87102; 87106; 87186; 87205; 87206; 87338; 93005; 93306; 96365; 96375; 97161; 97165; 99285; A9270; C1729; C1751; C1769; C9113; C9803; J0131; J0360; J0692; J1170; J1200; J1815; J1885; J2248; J2270; J2405; J3010; J3360; J3370; J3475; J3480; J7030; J7040; J7050; J7060; J7120; P9016; Q9967; U0003; U0005

== ENCOUNTER 2021-10-06 14:04 | Inpatient (IN) | payer MEDICARE, SELFPAY ==
[2021-10-06] VITALS (8 sets, daily range): BP systolic 146–179; BP diastolic 65–94; PULSE 74–113; RESP 16–20; TEMP 36.3–36.8; O2SAT 98–100; BMI 18.5; BMI 18.1
--- NOTE | ~2021-10-06 | XR_ITS ---
EXAMINATION: XR chest 2V 10/06/2021 15:51 INDICATION: Epigastric and chest pain PROCEDURE: 2 view chest COMPARISON: 09/07/2021 FINDINGS: The lungs are clear. The cardiomediastinal silhouette is within normal limits. There are no pleural effusions. There is no pneumothorax suspected. The lungs are hyperinflated which is cons istent with, but not diagnostic of chronic obstructive pulmonary disease. IMPRESSION: 1: NO ACUTE CARDIOPULMONARY DISEASE. Reviewed, dictated and finalized at location A.
--- NOTE | ~2021-10-06 | CT_ITS ---
EXAMINATION: CT abdomen pelvis w con DATE: 10/06/2021 15:33 INDICATION: Severe abdominal pain, nausea. TECHNIQUE: Computed tomography (CT) of the abdomen and pelvis was performed with 100 cc Omnipaque 350 intravenous contrast. The dose-length product was 189.70 mGy-cm. Automated exposure control and iter ative reconstruction technique were employed. COMPARISON: CT dated 09/23/2021. FINDINGS: There is mild emphysema of the lung bases. Heart size normal. No significant pleural or per icardial effusion. There is an infrarenal abdominal aortic aneurysm measuring up to 3.5 cm. No lympha denopathy. There is abnormal thickening of the gastric wall. Moderate fatty infiltration of the mesen teric fat surrounding the stomach extending into the right paracolic gutter. Interval resolution of p elvic and perigastric abscess. Nonobstructive bowel pattern. Bladder is unremarkable. No free air. Th ere is moderate osteoarthritis of the hips. Moderate lumbar spondylosis. IMPRESSION: 1. Interval resolution of perigastric and pelvic abscesses with removal of drain. 2: Moderate mesenteric stranding of the abdomen and pelvis without discrete drainable fluid collecti on. 3: Space stable infrarenal abdominal aortic aneurysm measures 3.5 cm. 4: Abnormal thickening of the gastric wall, consistent with gastritis. Reviewed, dictated and finalized at location A. IMPRESSION: 1. Interval resolution of perigastric and pelvic abscesses with removal of drai n. 2: Moderate mesenteric stranding of the abdomen and pelvis without discrete dr ainable fluid collection. 3: Space stable infrarenal abdominal aortic aneurysm measures 3.5 cm. 4: Abnormal thickening of the gastric wall, consistent with gastritis.
[2021-10-06 14:29] LABS: Basophils Absolute Auto 0.1 K/mm3 (0.0-0.1); Basophils Percent Auto 0.7 % (0.2-1.2); Eosinophils Percent Auto 0.1 % (0-4.4); Hematocrit 28.8 % (42.0-52.0); Immature Granulocyte Absolute 0.09 K/mm3 (0.00-0.031); Immature Granulocyte Percent A 0.5 % (0-0.5); Lymphocytes Absolute Auto 1.96 K/mm3 (0.9-3.2); Lymphocytes Percent Auto 11.2 % (18.3-44.2); Mean Corpuscular HGB Conc 31.3 g/dl (32-36); Mean Corpuscular Hemoglobin 26.2 pg (26-34); Mean Corpuscular Volume 83.7 fl (80-100); Mean Platelet Volume 9.1 fl (7.4-10.4); Monocytes Percent Auto 5.4 % (2.6-8.5); Neutrophils Absolute Auto 14.4 K/mm3 (1.3-6.7); Neutrophils Percent Auto 82.1 % (45.5-73.1); Platelet Count Result 925 k/mm3 (150-375); Red Blood Count 3.44 M/mm3 (4.6-6.20); Red Cell Distribution Width 15.7 % (11.5-14.5); White Blood Count 17.6 K/mm3 (4.5-10.0)
--- NOTE | 2021-10-06 14:41 | ECG_ITS ---
Measurements Intervals [place] Rate: 96 P: 65 [place]: 145 QRS: 16 QRSD: 83 T: 91 QT: 284 QTc: 359 Interpretive Statements SINUS RHYTHM WITH OCCASIONAL SUPRAVENTRICULAR PREMATURE COMPLEXES INFEROLATERAL ST T-WAVE ABNORMALITY, CONSIDER ISCHEMIA ABNORMAL ECG COMPARED TO ECG 09/20/2021 17:26:48 SINUS RHYTHM NOW PRESENT Electronically Signed On 10-08-2021 8:43:51 CDT by Apolinar Castanon M.D.
--- NOTE | 2021-10-06 14:42 | ED.ABDPAIN ---
HPI - Abdominal Pain General Chief Complaint: Abdominal Pain Stated Complaint: abd pain Time Seen by Provider: 10/06/21 14:12 History of Present Illness HPI narrative: Patient is a 60-year-old male with complicated past medical history, including left AKA, recent hospitalization due to perforated gastric ulcer, 3.5 cm infrarenal AAA, chronic narcotic dependence, here for evaluation of diffuse abdominal pain for the past several days. Patient was admitted to the hospital for several weeks in August after being found to have moderate volume ascites and small volume pneumoperitoneum concerning for bowel perforation.? He was treated conservatively with TPN, IV antibiotics with bowel rest. Was discharged after 3 weeks after his symptoms improved on Augmentin and fluconazole, which he completed, and sucralfate and protonix; with which patient has been compliant. States pain came back several days ago and is severe, diffusely across his abdomen. Family reports that patient has had decreased p.o. intake over the past several days due to nausea. Additionally reporting some chest pain in the center of his chest that is there all of the time. Patient did have cardiac consultation during hospitalization due to slightly elevated troponins but patient was not complaining of chest pain at that time and troponins downtrended so no cath was done. Related Data Allergies Allergy/AdvReac Type Severity Reaction Status Date / Time No Known Allergies Allergy Verified 10/06/21 14:30 Review of Systems Review of Systems: Gen: Denies fevers or chills Eyes: Denies eye pain or visual change ENT: Denies congestion Respiratory: Denies shortness of breath or cough CV: Denies chest pain or palpitations GI: Reports abdominal pain. denies burning, urgency, frequency or hematuria Musculoskeletal: Denies back pain or muscle pain Neuro: Denies numbness, tingling, weakness or focal weakness Skin: Denies rash Except as documented, all other systems reviewed and negative [facility] Past Medical History Medical History (Updated 10/06/21 @ 17:59 by Sara Sarah PA-C) Anemia History of left above knee amputation Hypertension Mesothelioma Surgical History Surgical History H/O arthroscopic knee surgery right Family History Family History (Updated 10/06/21 @ 17:31 by Maisha Whelan NP) Mother Cancer of external female genitalia Social History Social History (Updated 10/06/21 @ 17:32 by Maisha Whelan NP) 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 EYES: PERRLA/EOMI, conjunctivae clear NOSE: No nasal drainage EARS: External ear normal in appearance THROAT: Oropharynx is clear. Mucous membranes are moist. NECK: Supple. No adenopathy, no masses. RESPIRATORY: Airway patent, respirations nonlabored. Clear to auscultation bilaterally, no rales, rhonchi, wheezing. CARDIOVASCULAR: tachycardic. Regular rhythm without murmurs, rubs, or gallops. ABDOMINAL: Diffusely tender to palpation across abdomen. Normoactive bowel sounds. Soft, nondistended. No rebound tenderness or guarding. MUSCULOSKELETAL: Status post left AKA. Extremities are warm and well-perfused. Moves all extremities well. No edema. NEURO: Normal speech. No focal neurologic deficits. SKIN: Skin is warm and dry. No rashes. PSYCHIATRIC: Normal affect/mood. Course Vital Signs Vital signs: Vital Signs Temperature 97.4 F L 10/06/21 14:06 Pulse Rate 84 10/06
[2021-10-06 15:03] LABS: Alanine Aminotransferase 20 U/L (6-50); Albumin Level 3.9 g/dL (3.5-5.1); Alkaline Phosphatase 133 U/L (38-126); Anion Gap 13 mmol/L (8-16); Aspartate Amino Transferase 30 U/L (17-59); Bilirubin,Total 0.2 mg/dL (0.2-1.3); Blood Urea Nitrogen 7 mg/dL (9-20); Calcium 8.7 mg/dL (8.4-10.2); Carbon Dioxide 28 mmol/L (22-30); Chloride 93 mmol/L (98-107); Estimated CRCL calculation 91 ml/min; Estimated Glomerular Filt Rate > 60; Glucose 203 mg/dL (65-110); Lipase 242 U/L (23-300); Potassium 2.2 mmol/L (3.4-5.0); Sodium 134 mmol/L (137-145)
[2021-10-06] MEDS: SODIUM CHLORIDE 0.9% IV 1,000 ML 999 ML IV CONT (15:36)
[2021-10-06 15:37] LABS: Lactic Acid Reflex 1.9 mmol/L (0.7-2.0)
[2021-10-06] MEDS: MORPHINE SULFATE (*CRX) 4 MG/ML INJ IV PUSH (15:38)
[2021-10-06 15:50] LABS: Troponin I 0.015 ng/mL (0.000-0.034)
[2021-10-06 16:18] LABS: Appearance Urine Clear (Clear); Bilirubin Urine Negative (Negative); Blood Urine Negative (Negative); Glucose Urine UA Negative (Negative); Ketones Urine Negative (Negative); Leukocyte Esterase Ur Negative LEU/UL (Negative); Nitrate Urine Negative (Negative); Protein Urine Trace mg/dL (Negative); Urobilinogen Urine 0.2 mg/dL (<2.0)
[2021-10-06] MEDS: POTASSIUM CHLORIDE INJ 40 MEQ in SODIUM CHLORIDE 0.9% IV 500 ML 130 MEQ IVPB (16:18)
[2021-10-06 16:29] LABS: Bacteria Urine Trace /hpf; RBC Urine 0-2 /hpf (0-2); WBC Urine 0-3 /hpf
[2021-10-06 16:30] LABS: Add Urine Microscopic? YES; Color Urine Light Yellow (Yellow)
[2021-10-06 16:37] LABS: INR 1.1; Prothrombin Time 13.3 Seconds (11.1-14.7)
[2021-10-06 16:38] LABS: Partial Thromboplastin Time 38.1 SECONDS (22.3-36.8)
--- NOTE | 2021-10-06 17:29 | PM.IMHP ---
H&P: HPI History of Present Illness Date/Time: 10/06/21 17:29 Chief Complaint: abd pain Narrative: This is a 60-year-old male patient who was just discharged from this hospital on 09/24/2021.(see discharge summary). The patient was hospitalized at that time due to a perforated gastric ulcer who with an abscess. Surgery was consulted at that time and was treated with antibiotics and percutaneous drain. Abdominal pelvis CT from today was read as the following 1. Interval resolution of perigastric and pelvic abscesses with removal of drain. 2:? Moderate mesenteric stranding of the abdomen and pelvis without discrete drainable fluid collection. 3: Space stable infrarenal abdominal aortic aneurysm measures 3.5 cm. 4: Abnormal thickening of the gastric wall, consistent with gastritis. His white count is noted to be 17.6 today. H&H is 9.0 and 28.8 which is his baseline. Potassium found to be 2.2. Sodium 134. Glucose 203. Troponin negative x2. The patient was started on IV fluids, Zosyn, vancomycin and supplemented with potassium. He was also given morphine in the emergency room. Patient admitted to inpatient status on 10/06/2021 Review of Systems Review of Systems: As per HPI All systems reviewed & are unremarkable except as noted in HPI and below Constitutional: Constitutional: Reports as per HPI and Reports no additional constitutional complaints Eyes: Eyes: Reports as per HPI and Reports no additional eye complaints ENT: Reports system reviewed and no additional complaints, except as documented and Reports Normal hearing present Cardiovascular: Cardiovascular: Reports no additional cardiovascular complaints Respiratory: Respiratory: Reports no additional respiratory complaints and Reports no additional respiratory complaints Gastrointestinal: Gastrointestinal: Reports as per HPI and Reports no additional gastrointestinal complaints Musculoskeletal: Musculoskeletal: Reports no additional musculoskeletal complaints Integumentary/Breasts: Skin/Breast: Reports system reviewed and no additional complaints, except as docu and Reports as per HPI Neurologic: Reports system reviewed and no additional complaints, except as documented, Reports as per HPI and Reports Normal hearing present Psychiatric: Psychiatric: Reports no additional psychiatric complaints and Reports as per HPI Endocrine: Endocrine: Reports no additional endocrine complaints Hematologic/Lymphatic: Hematologic/Lymphatic: Reports no additional hematologic/lymphatic complaints Allergic/Immunologic: Allergic/Immunologic: Reports no additional allergic/immunologic complaints [facility] Past Medical History Medical History (Updated 10/06/21 @ 20:00 by Maisha Whelan NP) Anemia Gastritis History of left above knee amputation Hypertension Mesothelioma Surgical History Surgical History H/O arthroscopic knee surgery right Family History Family History Mother Cancer of external female genitalia Hypertension Sibling Throat cancer Social History Social History (Updated 10/06/21 @ 20:04 by Maisha Whelan NP) Social History: The patient lives with his and they have 3 children. 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 He denies any alcohol marijuana or illicit drugs. His is the durable power civil litigation attorney for healthcare. Code status full code Smoking packs per day: 1.5 Smoking cigarettes per day: 30.0 Years smoked: 44 Smoking pack-years: 66.00 Smoking status: Former smoker Tobacco type: cigarettes Smoking end date: 09/01/21 Alcohol intake: never Substance use: never Substance use type: does not use Gender identity (if verbalized by the patient): Male Spiritual care concerns: No Meds Home Medications and Allergies Home Medications Medication Instructions Recorded Co
--- NOTE | 2021-10-06 18:22 | ADMGEN ---
This patient, Yahir Covarrubias, was admitted to IMU Room 214-01. Patient/family oriented to hospital policies and general routines including ID bracelet, bed and alarms, visiting hours, pain management, procedures, bathroom and other care routines, personal items, smoking policy, room service/diet, and visiting hours. Information on how to activate the Rapid Response Team has been discussed. Patient/Family are encouraged to report perceived risks to care and to ask questions if they do not understand what they are told or what they should do.
[2021-10-06 18:47] LABS: Troponin I < 0.012 ng/mL (0.000-0.034)
[2021-10-06] MEDS: NICOTINE (*PBKC) 21 MG PATCH 1 PATCH TRANSDERM (18:49)
[2021-10-06] MEDS: FAMOTIDINE 20 MG/2 ML VIAL IV PUSH (21:14)
[2021-10-06] MEDS: oxyCODONE/ACETAMINOPHEN (*CRX) 10-325 MG TABLET 1 TAB PO (21:14)
[2021-10-06] MEDS: SUCRALFATE SUSP 100 MG/ML 10 ML UDC 1000 MG BY MOUTH (23:11)
[2021-10-06 23:32] LABS: Anion Gap 11 mmol/L (8-16); Blood Urea Nitrogen 5 mg/dL (9-20); Calcium 8.6 mg/dL (8.4-10.2); Carbon Dioxide 30 mmol/L (22-30); Chloride 98 mmol/L (98-107); Estimated CRCL calculation 87 ml/min; Estimated Glomerular Filt Rate > 60; Glucose 117 mg/dL (65-110); Potassium 2.6 mmol/L (3.4-5.0); Sodium 139 mmol/L (137-145)
[2021-10-06 23:42] LABS: Troponin I 0.031 ng/mL (0.000-0.034)
[2021-10-06 23:44] LABS: Magnesium 1.5 mg/dL (1.6-2.3)
[2021-10-07] VITALS (19 sets, daily range): BP systolic 164–177; BP diastolic 75–88; PULSE 64–85; RESP 16–18; TEMP 36.6–37; O2SAT 95–100
[2021-10-07] MEDS: MAGNESIUM SULF 2 GM/WATER 50ML 2 GM/50 ML BAG IVPB (00:36)
[2021-10-07] MEDS: POTASSIUM CHLORIDE INJ 40 MEQ in SODIUM CHLORIDE 0.9% IV 500 ML 130 MEQ IVPB ×2 (01:40→09:00)
[2021-10-07] MEDS: oxyCODONE/ACETAMINOPHEN (*CRX) 10-325 MG TABLET 1 TAB PO ×4 (04:29→20:14)
[2021-10-07 04:56] LABS: Basophils Absolute Auto 0.1 K/mm3 (0.0-0.1); Basophils Percent Auto 1.7 % (0.2-1.2); Eosinophils Absolute Auto 0.2 K/mm3 (0-0.3); Eosinophils Percent Auto 2.7 % (0-4.4); Hemoglobin 8.7 g/dL (14.0-18.0); Immature Granulocyte Absolute 0.03 K/mm3 (0.00-0.031); Immature Granulocyte Percent A 0.4 % (0-0.5); Lymphocytes Absolute Auto 2.33 K/mm3 (0.9-3.2); Lymphocytes Percent Auto 27.5 % (18.3-44.2); Mean Corpuscular HGB Conc 31.1 g/dl (32-36); Mean Corpuscular Hemoglobin 25.9 pg (26-34); Mean Corpuscular Volume 83.3 fl (80-100); Mean Platelet Volume 9.2 fl (7.4-10.4); Monocytes Absolute Auto 0.5 K/mm3 (0.1-0.6); Neutrophils Absolute Auto 5.2 K/mm3 (1.3-6.7); Neutrophils Percent Auto 61.7 % (45.5-73.1); Platelet Count Result 691 k/mm3 (150-375); Red Blood Count 3.36 M/mm3 (4.6-6.20); Red Cell Distribution Width 15.4 % (11.5-14.5); White Blood Count 8.5 K/mm3 (4.5-10.0)
[2021-10-07 05:07] LABS: Alanine Aminotransferase 14 U/L (6-50); Albumin Level 3.4 g/dL (3.5-5.1); Alkaline Phosphatase 114 U/L (38-126); Anion Gap 11 mmol/L (8-16); Aspartate Amino Transferase 25 U/L (17-59); Bilirubin,Total 0.3 mg/dL (0.2-1.3); Blood Urea Nitrogen 4 mg/dL (9-20); Calcium 8.2 mg/dL (8.4-10.2); Carbon Dioxide 29 mmol/L (22-30); Chloride 98 mmol/L (98-107); Estimated CRCL calculation 85 ml/min; Estimated Glomerular Filt Rate > 60; Glucose 108 mg/dL (65-110); Magnesium 2.2 mg/dL (1.6-2.3); Sodium 138 mmol/L (137-145)
[2021-10-07] MEDS: SUCRALFATE SUSP 100 MG/ML 10 ML UDC 1000 MG BY MOUTH ×3 (05:23→16:09)
[2021-10-07] MEDS: FAMOTIDINE 20 MG/2 ML VIAL IV PUSH (08:21)
[2021-10-07] MEDS: NICOTINE (*PBKC) 21 MG PATCH 1 PATCH TRANSDERM (08:21)
[2021-10-07] MEDS: METOPROLOL TARTRATE 12.5 MG TABLET PO ×2 (08:21→16:09)
[2021-10-07] MEDS: amLODIPine BESYLATE 5 MG TABLET PO (08:21)
--- NOTE | 2021-10-07 11:10 | PM.IMPN ---
Progress Note: A&P Assessment and Plan (1) Gastritis: Code(s): K29.70 - Gastritis, unspecified, without bleeding Status: Acute Assessment and Plan: -IV Pepcid -CT scan was read as gastritis. -continue with Carafate -give any history will have GI and surgery see the patient as well (2) Hypertension: Code(s): I10 - Essential (primary) hypertension Status: Acute Assessment and Plan: -continue with Norvasc -continue with metoprolol (3) Hypokalemia: Code(s): E87.6 - Hypokalemia Status: Acute Assessment and Plan: Monitor labs Replace as needed (4) Intra-abdominal abscess: Code(s): K65.1 - Peritoneal abscess Status: Acute Assessment and Plan: -Consul GI and surgery -patient has leukocytosis. -blood cultures are pending -continue with vancomycin and Zosyn that was started in the emergency room. Subjective Date/time seen: 10/07/21 11:10 Still having some mild abdominal pain Exam Narrative: General: alert and oriented Psych: appropriate mood nad affect Eyes: PERRLA Neck: Trachea midline, no new lesions Skin: no changes Lungs: CTA Cardiac: Normal S1,S2, no MGR ABD: soft, nd, nt, nbs Ext: no new lesions, no cce Vasc: Pulses intact Objective Data Vital Signs Vital Signs: Vital Signs - 24 hr 10/06/21 14:06 10/06/21 14:30 10/06/21 16:35 Temperature 97.4 F L Pulse Rate 84 113 H 96 Respiratory Rate 16 18 20 Blood Pressure 173/94 H 167/65 H 152/92 H Pulse Oximetry 98 98 99 Oxygen Delivery 10/06/21 17:55 10/06/21 18:33 10/06/21 20:00 Temperature 97.8 F 97.7 F Pulse Rate 80 74 79 Respiratory Rate 18 16 18 Blood Pressure 146/87 H 179/84 H 161/85 H Pulse Oximetry 100 99 100 Oxygen Delivery 10/06/21 20:00 10/06/21 20:00 10/06/21 22:00 Temperature Pulse Rate 87 87 80 Respiratory Rate 18 Blood Pressure Pulse Oximetry 100 Oxygen Delivery Room Air 10/06/21 23:52 10/07/21 00:00 10/07/21 00:00 Temperature 98.2 F Pulse Rate 78 72 72 Respiratory Rate 18 18 Blood Pressure 169/75 H Pulse Oximetry 100 100 Oxygen Delivery Room Air 10/07/21 02:00 10/07/21 03:59 10/07/21 04:00 Temperature 97.9 F Pulse Rate 64 76 69 Respiratory Rate 16 Blood Pressure 170/88 H Pulse Oximetry 100 Oxygen Delivery 10/07/21 04:00 10/07/21 06:00 10/07/21 07:53 Temperature 98.4 F Pulse Rate 69 64 80 Respiratory Rate 16 17 Blood Pressure 177/84 H Pulse Oximetry 100 100 Oxygen Delivery Room Air 10/07/21 08:21 10/07/21 08:00 10/07/21 08:00 Temperature Pulse Rate 83 66 Respiratory Rate Blood Pressure Pulse Oximetry 100 Oxygen Delivery Room Air 10/07/21 10:00 Temperature Pulse Rate 77 Respiratory Rate Blood Pressure Pulse Oximetry Oxygen Delivery Intake/Output Intake/Output: Intake & Output 10/04/21 10/05/21 10/06/21 10/07/21 23:59 23:59 23:59 23:59 Intake Total 1200 920 Output Total 2900 Balance 1200 -1980 Meds/Results Medications: Active Medications Generic Name Dose Route Start Last Admin Trade Name Freq PRN Reason Stop Dose Admin Amlodipine Besylate 5 mg 10/07/21 09:00 10/07/21 08:21 Amlodipine Besylate 5 Mg Tablet PO 5 mg QAM RICARDO Administration Piperacillin/Tazobactam/Dextrose 3.375 gm in 50 mls @ 100 mls/hr 10/06/21 22:00 10/07/21 09:35 Zosyn 3.375 Gm/D5w 50ml Pm IVPB Infused Q6H RICARDO Infusion Vancomycin HCl 750 mg in 250 mls @ 250 mls/hr 10/07/21 05:00 10/07/21 05:38 Vancomycin 750 Mg/D5w 250 Ml IVPB Infused Q12H RICARDO Infusion Potassium Chloride 40 meq/ 520 mls @ 130 mls/hr 10/07/21 08:45 10/07/21 09:00 Sodium Chloride IVPB 10/07/21 12:44 130 mls/hr ONCE ONE Administration Metoprolol Tartrate 12.5 mg 10/07/21 09:00 10/07/21 08:21 Metoprolol Tartrate 12.5 Mg Tablet PO 12.5 mg BID RICARDO Administration Nicotine 1 patch 10/06/21 18:00 10/07/21 08:21 Nicotine (*Pbk
--- NOTE | 2021-10-07 12:27 | WPDGICN ---
Assessment and Plan Assessment and plan (1) Acute gastrointestinal ulcer with perforation: Code(s): K28.1 - Acute gastrojejunal ulcer with perforation Status: Acute Assessment and Plan: Patient with a history of perforated viscus felt to be a gastric ulcer that was perforated with subsequent abscess. CT scan reveals this is resolved. Patient has a normal while it white count today. Denies any fever. Tolerating diet. Would recommend continuing PPI therapy. Follow-up EGD is suggested but should be deferred for a month at least for now. This can be arranged electively as an outpatient. (2) Abdominal pain: Code(s): R10.9 - Unspecified abdominal pain Status: Acute Assessment and Plan: Patient with complaints of upper abdominal pain. This very nonspecific the etiology of this is unclear but does not appear to be related to his ulcer perforation or abscess. (3) History of left above knee amputation: Code(s): Z89.612 - Acquired absence of left leg above knee Status: Acute GI Consult Note Consult date/time: 10/07/21 12:27 Reason for consult: History of perforated gastric ulcer. HPI: Yahir Covarrubias is a 60 year old male I am asked to see because of his history of a perforated gastric ulcer. Patient hospitalized recently with upper abdominal pain. CT scanning revealed evidence of perigastric abscess free air and perforation of the stomach. This presumed he had a gastric ulcer. Because of multiple comorbid diseases he was treated conservatively with broad-spectrum antibiotics, ppi and Carafate therapy. Patient eventually had an external percutaneous drain of this abscess. This subsequently has been removed. He developed increasing pain prompting him to go to the emergency room yesterday and was admitted to the hospital. CT scanning reveals the previous abscess is now resolved. Patient gives a vague sensation of upper abdominal pain. He has had no fever. He is tolerating diet without difficulty. In the ER leukocytosis yesterday is dramatically improved today. Review of Systems Review of Systems: Review of systems noncontributory. [facility] Past Medical History Medical History (Updated 10/07/21 @ 12:29 by Kiel Boswell MD) Anemia Gastritis History of left above knee amputation Hypertension Mesothelioma Surgical History Surgical History H/O arthroscopic knee surgery right Family History Family History Mother Cancer of external female genitalia Hypertension Sibling Throat cancer Social History Social History (Updated 10/06/21 @ 20:04 by Maisha Whelan NP) Social History: The patient lives with his and they have 3 children. 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 He denies any alcohol marijuana or illicit drugs. His is the durable power litigation attorney associate for healthcare. Code status full code Smoking packs per day: 1.5 Smoking cigarettes per day: 30.0 Years smoked: 44 Smoking pack-years: 66.00 Smoking status: Former smoker Tobacco type: cigarettes Smoking end date: 09/01/21 Alcohol intake: never Substance use: never Substance use type: does not use Gender identity (if verbalized by the patient): Male Spiritual care concerns: No Meds Home Medications and Allergies Home Medications Medication Instructions Recorded Confirmed Type amlodipine 5 mg tablet (Norvasc) 5 mg PO QAM 30 days #30 tabs 09/24/21 10/06/21 Rx metoprolol tartrate 25 mg tablet 12.5 mg PO BID 30 days #30 tabs 09/24/21 10/06/21 Rx pantoprazole 40 mg granules 40 mg PO DAILY #30 ea 09/24/21 10/06/21 Rx delayed-release for susp in packet (Protonix) sucralfate 100 mg/mL oral 1,000 mg (10 mL) BYMOUTH Q6HR 30 09/24/21 10/06/21 Rx suspension days #1,200 mL oxycodone-acetaminophen 10 mg-325 1 tablet
--- NOTE | 2021-10-07 12:47 | PC.NURSE ---
Addendum entered by Radha Whitt RN 10/07/21 12:50: This event occurred at 1150 Original Note: Spoke with Dr. Boswell, Dr. Echeverria, and Dr. Hurtado regarding patient. Dr. Boswell will continue to hold off on scope until further notice. Ok for patient to eat from my stand point. Dr. Hurtado, Dr. Boswell, and Dr. Echeverria all in agreement that patient doesn't require antibiotics at this point. Antibiotics d/c'd under Dr. Echeverria name. Will continue to follow and may add some antibiotics back on if WBC increase. WBC currently WNL. pt placed on advance as tolerated diet. Start with clear liquids and advance to soft diet (diet pt was on at discharge 10 days ago) Continue medication regimen as well
--- NOTE | 2021-10-07 12:49 | PCDIET ---
Pt screened for low BMI OF 17.8,
--- NOTE | 2021-10-07 12:52 | PCDIET ---
Pt screened for low BMI of 17.8. Pt has above the knee amputation on his left leg. After including this factor with his height and weight, his adjusted BMI is 19.8 (adjust 10% for amputation).
--- NOTE | 2021-10-07 13:10 | PM.CNGS ---
Assessment and Plan Assessment and plan (1) Intra-abdominal abscess: Code(s): K65.1 - Peritoneal abscess Status: Acute Assessment and Plan: CT scan abdomen/pelvis reviewed and discussed with the patient in detail. There is still some evidence of gastritis, which would be expected, but the previously seen intra-abdominal abscesses have resolved. This appears to be improving and there are no acute intra-abdominal findings to suggest ongoing infection. We would recommend to continue with Protonix BID and sucralfate to treat the gastric ulcer. Agree with GI consultation to evaluate the patient. Will need a follow-up EGD at some point, but will defer timing of this to GI when they feel it is safe to proceed. WBC normalized today and he is afebrile. Okay from our standpoint to stop IV antibiotics if okay with other services. No indication for any surgical intervention at this time. Okay from our standpoint to start advancing his diet. Will continue to follow along. (2) Gastritis: Code(s): K29.70 - Gastritis, unspecified, without bleeding Status: Acute Assessment and Plan: This would still be expected as this heals. Continue Protonix BID and sucralfate. GI also consulted. (3) Abdominal pain: Code(s): R10.9 - Unspecified abdominal pain Status: Acute Assessment and Plan: He continues to complain of pain across his upper abdomen, almost subcostal. With discussing this further with the patient, this is something he has been dealing with chronically for many years. He deals with pain just below the ribs that is worse at night. There is no evidence of any acute findings on the CT abdomen/pelvis to explain this pain. The etiology of this is still unclear. No surgical causes for the pain. Would recommend further work-up from the primary service to evaluate other potential etiologies of this pain. (4) Hypokalemia: Code(s): E87.6 - Hypokalemia Status: Acute Assessment and Plan: Continue to supplement as needed and closely monitor labs. (5) Hypertension: Code(s): I10 - Essential (primary) hypertension Status: Acute (6) History of left above knee amputation: Code(s): Z89.612 - Acquired absence of left leg above knee Status: Acute Plan I have discussed the patient's case and plan of care with Dr. Hurtado. Thank you for allowing us to see the patient in consultation and we will continue to follow along with you. History of Present Illness Consult details Consult date: 10/07/21 Reason for consult: other (Recent gastric ulcer perforation treated conservatively, abdominal pain) Requesting physician: Von Echeverria MD Narrative: This is a 60-year-old man who is well known to our service from a recent hospitalization from 09/05/2021 through 09/24/2021 for a perforated gastric ulcer. He was treated conservatively with PPI therapy, bowel rest, NG tube decompression, and TPN. Upon repeat imaging, he was found to have intra-abdominal abscesses, one of which required percutaneous drainage. Eventually, he did improve and his NG tube was removed and he was slowly advanced to a low-fiber diet. His percutaneous drain was removed prior to discharge and he was prescribed oral fluconazole and Augmentin on discharge. He was also switched to oral Protonix b.i.d. and sucralfate on discharge. The patient followed up with me in the office last . He was doing well at that time. He reported his abdominal pain was continuing to improve daily and he was lessening his narcotic needs at home. He was tolerating a diet and bowels were moving well. No fever, dark stools, blood in stool, nausea, or vomiting. He had about 3 loose stools 1 day, but no significant prolonged diarrhea. The patient reports Thursday, 2 nights ago he had an increase in his abdominal pain through the night. Even during his last admission, he would report that his abdominal pain would worsen at night.
[2021-10-07] MEDS: PANTOPRAZOLE SODIUM IV 40 MG VIAL IV PUSH (20:14)
[2021-10-08] VITALS (9 sets, daily range): BP systolic 146–179; BP diastolic 74–91; PULSE 62–92; RESP 15–22; TEMP 36.6–37; O2SAT 99–100
[2021-10-08] MEDS: SUCRALFATE SUSP 100 MG/ML 10 ML UDC 1000 MG BY MOUTH ×5 (00:08→23:26)
[2021-10-08] MEDS: oxyCODONE/ACETAMINOPHEN (*CRX) 10-325 MG TABLET 1 TAB PO ×6 (00:08→23:26)
[2021-10-08 07:06] LABS: Hematocrit 30.2 % (42.0-52.0); Hemoglobin 9.5 g/dL (14.0-18.0); Mean Corpuscular HGB Conc 31.5 g/dl (32-36); Mean Corpuscular Hemoglobin 25.7 pg (26-34); Mean Corpuscular Volume 81.8 fl (80-100); Mean Platelet Volume 9.7 fl (7.4-10.4); Platelet Count Result 623 k/mm3 (150-375); Red Blood Count 3.69 M/mm3 (4.6-6.20); Red Cell Distribution Width 15.7 % (11.5-14.5)
[2021-10-08 07:07] LABS: Alanine Aminotransferase 14 U/L (6-50); Albumin Level 3.8 g/dL (3.5-5.1); Alkaline Phosphatase 130 U/L (38-126); Anion Gap 13 mmol/L (8-16); Aspartate Amino Transferase 22 U/L (17-59); Bilirubin,Total 0.4 mg/dL (0.2-1.3); Blood Urea Nitrogen 6 mg/dL (9-20); Carbon Dioxide 24 mmol/L (22-30); Chloride 98 mmol/L (98-107); Estimated CRCL calculation 70 ml/min; Estimated Glomerular Filt Rate > 60; Glucose 92 mg/dL (65-110); Potassium 2.8 mmol/L (3.4-5.0); Sodium 135 mmol/L (137-145)
[2021-10-08 07:13] LABS: Prealbumin 27.9 mg/dL (17.6-36.0)
--- NOTE | 2021-10-08 07:26 | PM.IMHP ---
H&P: HPI History of Present Illness Date/Time: 10/08/21 07:26 Chief Complaint: Abdominal pain. Narrative: Patient alert comfortable this morning. Reports that his upper abdominal pain is improved to a certain degree. patient is somewhat difficult historian. But it appears he always has some discomfort in this area. Tolerating diet adequately at present. No fever. Review of Systems Review of Systems: Review of systems noncontributory. [facility] Past Medical History Medical History Anemia Gastritis History of left above knee amputation Hypertension Mesothelioma Surgical History Surgical History H/O arthroscopic knee surgery right Family History Family History Mother Cancer of external female genitalia Hypertension Sibling Throat cancer Social History Social History Social History: The patient lives with his and they have 3 children. 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 He denies any alcohol marijuana or illicit drugs. His is the durable power deputy prosecuting attorney for healthcare. Code status full code Smoking packs per day: 1.5 Smoking cigarettes per day: 30.0 Years smoked: 44 Smoking pack-years: 66.00 Smoking status: Former smoker Tobacco type: cigarettes Smoking end date: 09/01/21 Alcohol intake: never Substance use: never Substance use type: does not use Gender identity (if verbalized by the patient): Male Spiritual care concerns: No Meds Home Medications and Allergies Home Medications Medication Instructions Recorded Confirmed Type amlodipine 5 mg tablet (Norvasc) 5 mg PO QAM 30 days #30 tabs 09/24/21 10/06/21 Rx metoprolol tartrate 25 mg tablet 12.5 mg PO BID 30 days #30 tabs 09/24/21 10/06/21 Rx pantoprazole 40 mg granules 40 mg PO DAILY #30 ea 09/24/21 10/06/21 Rx delayed-release for susp in packet (Protonix) sucralfate 100 mg/mL oral 1,000 mg (10 mL) BYMOUTH Q6HR 30 09/24/21 10/06/21 Rx suspension days #1,200 mL oxycodone-acetaminophen 10 mg-325 1 tablet PO Q6H PRN Pain Rated 10/01/21 10/06/21 Rx mg tablet 7-10 #20 tabs Allergies Allergy/AdvReac Type Severity Reaction Status Date / Time No Known Allergies Allergy Verified 10/06/21 14:30 Vital Signs Vital Signs - 24 hr 10/07/21 07:53 10/07/21 08:21 10/07/21 08:00 Temperature 98.4 F Pulse Rate 80 83 66 Respiratory Rate 17 Blood Pressure 177/84 H Pulse Oximetry 100 Oxygen Delivery 10/07/21 08:00 10/07/21 10:00 10/07/21 11:54 Temperature 98.6 F Pulse Rate 77 72 Respiratory Rate 17 Blood Pressure 164/82 H Pulse Oximetry 100 100 Oxygen Delivery Room Air 10/07/21 12:00 10/07/21 12:00 10/07/21 14:00 Temperature Pulse Rate 69 81 Respiratory Rate Blood Pressure Pulse Oximetry 100 Oxygen Delivery Room Air 10/07/21 10:03 10/07/21 16:09 10/07/21 16:00 Temperature Pulse Rate 73 76 85 Respiratory Rate Blood Pressure Pulse Oximetry 99 Oxygen Delivery Room Air 10/07/21 16:00 10/07/21 16:00 10/07/21 18:00 Temperature 98.5 F Pulse Rate 71 65 Respiratory Rate 16 Blood Pressure 173/88 H Pulse Oximetry 100 100 Oxygen Delivery Room Air 10/07/21 20:00 10/07/21 20:00 10/07/21 20:00 Temperature 98.1 F Pulse Rate 81 70 70 Respiratory Rate 16 16 Blood Pressure 167/83 H Pulse Oximetry 95 95 Oxygen Delivery Room Air 10/07/21 22:00 10/07/21 23:49 10/08/21 00:00 Temperature 98.1 F Pulse Rate 77 73 68 Respiratory Rate 16 Blood Pressure 173/75 H Pulse Oximetry 100 Oxygen Delivery 10/08/21 00:00 10/08/21 02:00 10/08/21 04:00 Temperature 98.3 F Pulse Rate 68 66 80 Respiratory Rate 16 22 H Blood Pressure 179/91 H
[2021-10-08 08:54] LABS: Potassium Urine Random 26.3 meq/L
[2021-10-08] MEDS: PANTOPRAZOLE SODIUM IV 40 MG VIAL IV PUSH ×2 (08:58→21:05)
[2021-10-08] MEDS: amLODIPine BESYLATE 5 MG TABLET PO (08:58)
[2021-10-08] MEDS: METOPROLOL TARTRATE 12.5 MG TABLET PO ×2 (08:58→17:15)
[2021-10-08] MEDS: POTASSIUM CHLORIDE INJ 40 MEQ in SODIUM CHLORIDE 0.9% IV 500 ML 130 MEQ IVPB (09:00)
[2021-10-08] MEDS: NICOTINE (*PBKC) 21 MG PATCH 1 PATCH TRANSDERM (09:00)
[2021-10-08] MEDS: POTASSIUM CHLORIDE 20 MEQ PACKET (FOR LIQUID) PO (09:01)
--- NOTE | 2021-10-08 10:17 | PM.IMPN ---
Progress Note: A&P Assessment and Plan (1) Gastritis: Code(s): K29.70 - Gastritis, unspecified, without bleeding Status: Acute Assessment and Plan: -IV PPI -CT scan was read as gastritis. -continue with Carafate -give any history will have GI and surgery see the patient as well -diet per surgery. -patient is feeling better (2) Hypertension: Code(s): I10 - Essential (primary) hypertension Status: Acute Assessment and Plan: -continue with Norvasc -continue with metoprolol (3) Hypokalemia: Code(s): E87.6 - Hypokalemia Status: Acute Assessment and Plan: Monitor labs Replace as needed (4) Intra-abdominal abscess: Code(s): K65.1 - Peritoneal abscess Status: Acute Assessment and Plan: GI and surgery following. History of during his last admission Subjective Date/time seen: 10/08/21 10:17 Feeling better. Wants to eat Exam Narrative: General: alert and oriented Psych: appropriate mood nad affect Eyes: PERRLA Neck: Trachea midline, no new lesions Skin: no changes Lungs: CTA Cardiac: Normal S1,S2, no MGR ABD: soft, nd, nt, nbs Ext: no new lesions, no cce Vasc: Pulses intact Objective Data Vital Signs Vital Signs: Vital Signs - 24 hr 10/07/21 11:54 10/07/21 12:00 10/07/21 12:00 Temperature 98.6 F Pulse Rate 72 69 Respiratory Rate 17 Blood Pressure 164/82 H Pulse Oximetry 100 100 Oxygen Delivery Room Air 10/07/21 14:00 10/07/21 16:09 10/07/21 16:00 Temperature Pulse Rate 81 76 85 Respiratory Rate Blood Pressure Pulse Oximetry Oxygen Delivery 10/07/21 16:00 10/07/21 16:00 10/07/21 18:00 Temperature 98.5 F Pulse Rate 71 65 Respiratory Rate 16 Blood Pressure 173/88 H Pulse Oximetry 100 100 Oxygen Delivery Room Air 10/07/21 20:00 10/07/21 20:00 10/07/21 20:00 Temperature 98.1 F Pulse Rate 81 70 70 Respiratory Rate 16 16 Blood Pressure 167/83 H Pulse Oximetry 95 95 Oxygen Delivery Room Air 10/07/21 22:00 10/07/21 23:49 10/08/21 00:00 Temperature 98.1 F Pulse Rate 77 73 68 Respiratory Rate 16 Blood Pressure 173/75 H Pulse Oximetry 100 Oxygen Delivery 10/08/21 00:00 10/08/21 02:00 10/08/21 04:00 Temperature 98.3 F Pulse Rate 68 66 80 Respiratory Rate 16 22 H Blood Pressure 179/91 H Pulse Oximetry 100 100 Oxygen Delivery Room Air 10/08/21 04:00 10/08/21 04:00 10/08/21 06:00 Temperature Pulse Rate 72 80 62 Respiratory Rate 22 H Blood Pressure Pulse Oximetry 100 Oxygen Delivery Room Air 10/08/21 07:47 10/08/21 08:58 10/08/21 08:00 Temperature 98.2 F Pulse Rate 73 86 86 Respiratory Rate 16 Blood Pressure 164/88 H Pulse Oximetry 100 Oxygen Delivery Intake/Output Intake/Output: Intake & Output 10/05/21 10/06/21 10/07/21 10/08/21 23:59 23:59 23:59 23:59 Intake Total 1200 2000 240 Output Total 4300 600 Balance 1200 -2300 -360 Meds/Results Medications: Active Medications Generic Name Dose Route Start Last Admin Trade Name Freq PRN Reason Stop Dose Admin Amlodipine Besylate 5 mg 10/07/21 09:00 10/08/21 08:58 Amlodipine Besylate 5 Mg Tablet PO 5 mg QAM RICARDO Administration Potassium Chloride 40 meq/ 520 mls @ 130 mls/hr 10/08/21 08:30 10/08/21 09:00 Sodium Chloride IVPB 10/08/21 12:29 130 mls/hr ONCE ONE Administration Metoprolol Tartrate 12.5 mg 10/07/21 09:00 10/08/21 08:58 Metoprolol Tartrate 12.5 Mg Tablet PO 12.5 mg BID RICRADO Administration Nicotine 1 patch 10/06/21 18:00 10/08/21 09:00 Nicotine (*Pbkc) 21 Mg Patch TRANSDERM 1 patch QAM RICARDO Administration Oxycodone/Acetaminophen 1 tab 10/07/21 09:44 10/08/21 08:57 Oxycodone/Acetaminophen (*Crx) 10-325 Mg Tablet PO 1 tab Q4H PRN Administration Pain Rated 7-10 Pantoprazole Sodium 40 mg 10/07/21 21:00 10/08/21 08:58 Pantoprazole Sodium Iv 40 Mg Vial IV P
--- NOTE | 2021-10-08 16:02 | PM.PNGS ---
Progress Note: A&P Assessment and Plan (1) Abdominal pain: Code(s): R10.9 - Unspecified abdominal pain Status: Acute Assessment and Plan: Appears to be improved. May be related to radiculopathy secondary to osteoarthritis of the lower T-spine. May need outpatient follow-up neurology or neurosurgery. (2) Gastritis: Code(s): K29.70 - Gastritis, unspecified, without bleeding Status: Acute Assessment and Plan: Patient relate that his pantoprazole apparently came in powder form was quite expensive. Believe at this time he could probably switch to a regular capsule or tablet. This seems stable and we are planning a recheck with endoscopy by Dr. Boswell as noted in his recent note. Discussed with patient about stopping his sucralfate liquid about 1 week prior to planned endoscopy. (3) Hypokalemia: Code(s): E87.6 - Hypokalemia Status: Acute Assessment and Plan: Unknown etiology. Medicine is proceeding with further workup and treatment. Subjective Subjective Date/Time Seen: 10/08/21 16:02 Patient is sitting up in bed with no complaints of abdominal pain today. States he had pancakes for breakfast and super for lunch without problems. Review of Systems Review of Systems: All systems reviewed & are unremarkable except as noted in HPI and below Constitutional: Constitutional: Reports as per HPI, Denies chills and Denies fever(s) Cardiovascular: Cardiovascular: Denies chest pain and Denies dyspnea Respiratory: Respiratory: Reports no additional respiratory complaints and Denies dyspnea Gastrointestinal: Gastrointestinal: Reports as per HPI and Denies bloating Musculoskeletal: Musculoskeletal: Reports no additional musculoskeletal complaints Neurologic: Denies memory loss Psychiatric: Psychiatric: Denies anxiety and Denies memory loss Exam Const: General: cooperative, comfortable, alert and awake Orientation/consciousness: patient oriented x3 HENMT: Head: normal to inspection Mouth: Yes moist mucous membranes Eyes: Sclera: sclerae normal Pupils: Equal, round and reactive pupils present Neck: Neck: normal visual inspection and no JVD Chest: Chest palpation & inspection: normal inspection of the chest Resp: Effort & Inspection: normal respiratory effort Auscultation: clear to auscultation bilaterally Cardio: Jugular venous distension: no JVD Rate: regular rate GI: Inspection: normal to inspection, scaphoid and no visible herniation GI Palp: Yes Soft to palpation and No Tenderness to palpation present (GI) Auscultation: normal bowel sounds Neuro: General: patient oriented x3 Cranial nerves: Yes Equal, round and reactive pupils present Objective Data Vital Signs Vital Signs: Vital Signs - 24 hr 10/07/21 16:09 10/07/21 18:00 10/07/21 20:00 Temperature 36.7 C Pulse Rate 76 65 81 Respiratory Rate 16 Blood Pressure 167/83 H Pulse Oximetry 95 Oxygen Delivery 10/07/21 20:00 10/07/21 20:00 10/07/21 22:00 Temperature Pulse Rate 70 70 77 Respiratory Rate 16 Blood Pressure Pulse Oximetry 95 Oxygen Delivery Room Air 10/07/21 23:49 10/08/21 00:00 10/08/21 00:00 Temperature 36.7 C Pulse Rate 73 68 68 Respiratory Rate 16 16 Blood Pressure 173/75 H Pulse Oximetry 100 100 Oxygen Delivery Room Air 10/08/21 02:00 10/08/21 04:00 10/08/21 04:00 Temperature 36.8 C Pulse Rate 66 80 72 Respiratory Rate 22 H Blood Pressure 179/91 H Pulse Oximetry 100 Oxygen Delivery 10/08/21 04:00 10/08/21 06:00 10/08/21 07:47 Temperature 36.8 C Pulse Rate 80 62 73 Respiratory Rate 22 H 16 Blood Pressure 164/88 H Pulse Oximetry 100 100 Oxygen Delivery Room Air 10/08/21 08:58 10/08/21 08:00 10/08/21 08:00 Temperature Pulse Rate 86 86 Respiratory Rate Blood Pressure Pulse Oximetry Oxygen Delivery Room Air Intake/Output Intake/Output: Intake & Output
[2021-10-09] VITALS: BP 158/85; PULSE 78; RESP 16; TEMP 37.1; O2SAT 99
[2021-10-09] MEDS: oxyCODONE/ACETAMINOPHEN (*CRX) 10-325 MG TABLET 1 TAB PO ×3 (04:29→13:41)
[2021-10-09 05:27] LABS: Hematocrit 28.7 % (42.0-52.0); Hemoglobin 8.9 g/dL (14.0-18.0); Mean Corpuscular Hemoglobin 25.8 pg (26-34); Mean Corpuscular Volume 83.2 fl (80-100); Mean Platelet Volume 9.1 fl (7.4-10.4); Platelet Count Result 726 k/mm3 (150-375); Red Blood Count 3.45 M/mm3 (4.6-6.20); Red Cell Distribution Width 15.7 % (11.5-14.5); White Blood Count 8.6 K/mm3 (4.5-10.0)
[2021-10-09 05:39] LABS: Anion Gap 9 mmol/L (8-16); Blood Urea Nitrogen 11 mg/dL (9-20); Calcium 8.4 mg/dL (8.4-10.2); Carbon Dioxide 28 mmol/L (22-30); Chloride 101 mmol/L (98-107); Estimated CRCL calculation 70 ml/min; Estimated Glomerular Filt Rate > 60; Glucose 92 mg/dL (65-110); Potassium 3.4 mmol/L (3.4-5.0); Sodium 138 mmol/L (137-145)
[2021-10-09] MEDS: SUCRALFATE SUSP 100 MG/ML 10 ML UDC 1000 MG BY MOUTH (06:02)
[2021-10-09 08:00] VITALS: O2SAT 100
[2021-10-09 08:23] VITALS: BP 152/93; PULSE 74; RESP 20; TEMP 36.6; O2SAT 100
[2021-10-09 09:18] VITALS: PULSE 88
[2021-10-09] MEDS: METOPROLOL TARTRATE 12.5 MG TABLET PO (09:18)
[2021-10-09] MEDS: amLODIPine BESYLATE 5 MG TABLET PO (09:19)
[2021-10-09] MEDS: PANTOPRAZOLE SODIUM IV 40 MG VIAL IV PUSH (09:19)
--- NOTE | 2021-10-09 11:57 | PM.DS ---
DS: Admitting Diagnosis Discharge Date 10/09/2021 Admitting Diagnosis abdominal pain DS: Discharge Diagnosis Discharge Diagnosis (1) Gastritis: Code(s): K29.70 - Gastritis, unspecified, without bleeding Status: Acute Assessment and Plan: -IV PPI -CT scan was read as gastritis. -continue with Carafate -give any history will have GI and surgery see the patient as well -diet per surgery. -patient is feeling better (2) Hypertension: Code(s): I10 - Essential (primary) hypertension Status: Acute Assessment and Plan: -continue with Norvasc -continue with metoprolol (3) Hypokalemia: Code(s): E87.6 - Hypokalemia Status: Acute Assessment and Plan: Monitor labs Replace as needed (4) Intra-abdominal abscess: Code(s): K65.1 - Peritoneal abscess Status: Acute Assessment and Plan: GI and surgery following. History of during his last admission DS: Summary Hospital Course Reason for hospitalization: Chief Complaint: abd pain Narrative: This is a 60-year-old male patient who was just discharged from this hospital on 09/24/2021.(see discharge summary).? The patient was hospitalized at that time due to a perforated gastric ulcer who with an abscess.? Surgery was consulted at that time and was treated with antibiotics and percutaneous drain.? Abdominal pelvis CT from today was read as the following 1. Interval resolution of perigastric and pelvic abscesses with removal of drain. 2:? Moderate mesenteric stranding of the abdomen and pelvis without discrete drainable fluid collection. 3: Space stable infrarenal abdominal aortic aneurysm measures 3.5 cm. 4: Abnormal thickening of the gastric wall, consistent with gastritis. His white count is noted to be 17.6 today.? H&H is 9.0 and 28.8 which is his baseline.? Potassium found to be 2.2.? Sodium 134.? Glucose 203.? Troponin negative x2.? The patient was started on IV fluids, Zosyn, vancomycin and supplemented with potassium.? He was also given morphine in the emergency room.? Patient admitted to inpatient status on 10/06/2021 Hospital Course: 60-year-old male presented with complaint of abdominal CT scan of the abdomen showed gastritis apparently patient was not able to afford PPI, currently on Carafate seen by GI recommending to continue Carafate and PPI will need follow-up EGD in 2 months, patient be seen by GI upon discharge and further recommendation to follow, patient was seen by surgery service and no surgical intervention is needed, at present patient states abdominal pain is much better compared to when he arrived he is clinically stable, will discharge the patient today. Time Spent with Patient Time attestation: Total time spent providing and/or coordinating discharge services: Exam Narrative: appears chronically and under nourished Patient is comfortable, NAD HEENT: eyes are clear and none icteric LUNGS: normal respiratory effort ABD: not distended Lower extremities: no edema SKIN: nonjaundiced Neuro: grossly intact. DS: Data Data Completed and Pending Labs on day of discharge: Labs from last 24 hours 10/09/21 10/09/21 05:10 05:10 WBC 8.6 RBC 3.45 L Hgb 8.9 L Hct 28.7 L MCV 83.2 MCH 25.8 L MCHC 31.0 L RDW 15.7 H Plt Count 726 H MPV 9.1 Sodium 138 Potassium 3.4 Chloride 101 Carbon Dioxide 28 Anion Gap 9 BUN 11 D Creatinine 0.60 L Estim Creat Clear Calc 70 Estimated GFR > 60 Glucose 92 Calcium 8.4 Preliminary micro results at discharge 10/06/21 15:11 Blood Culture - Preliminary Blood 10/06/21 15:11 Blood Culture - Preliminary Blood Discharge Plan Discharge Attending physician on discharge: Loli Jeffrey Consulting providers: Adilson Boggs ; Sara Sarah ; Kiel Boswell ; Maisha Whelan ; Demian Espinoza ; Apolinar Castanon ; Howard Hurtado ; Alisa Mendes Discharging Clinician: Rachele
[2021-10-12 07:34] LABS: Osmolality, Urine 259 mOsm/kg (50-1200)
== END 2021-10-09 13:45 | disposition home or self-care (01) | DRG 392 ==
LOC: ANHED 14:50 → ANHIMU 17:59
PROVIDERS: Internal Medicine; Nurse Practitioner; Physician Assistant; Admitting Provider Chiropractor; Emergency Provider Emergency Medicine; Visit Provider Family Medicine
DX: K29.70 Gastritis, unspecified, without bleeding (principal); K25.9 Gastric ulcer, unspecified as acute or chronic, without hemorrhage or perforation; E87.6 Hypokalemia; D72.829 Elevated white blood cell count, unspecified; I10 Essential (primary) hypertension; I71.4 Abdominal aortic aneurysm, without rupture; G89.29 Other chronic pain; M47.24 Other spondylosis with radiculopathy, thoracic region; R10.10 Upper abdominal pain, unspecified; Z89.612 Acquired absence of left leg above knee; Z87.891 Personal history of nicotine dependence
CPT/HCPCS: 36415; 71046; 74177; 80048; 80053; 81001; 83605; 83690; 83735; 83930; 83935; 84133; 84134; 84443; 84484; 85025; 85027; 85610; 85730; 86850; 86900; 86901; 87040; 93005; 96361; 96365; 96367; 96375; 99285; A9270; C9113; J0131; J2270; J2543; J3370; J3475; J3480; J7030; J7040; Q9967

== ENCOUNTER 2021-11-09 18:36 | Inpatient (IN) | payer MEDICARE, SELFPAY ==
[2021-11-09] VITALS (16 sets, daily range): BP systolic 168–197; BP diastolic 85–95; PULSE 66–107; RESP 18–21; TEMP 37.1–37.2; O2SAT 99–100; BMI 24.0
--- NOTE | ~2021-11-09 | CT_ITS ---
EXAMINATION: CT abdomen pelvis w con DATE: 11/09/2021 20:17 INDICATION: mid low abd pain, N/V TECHNIQUE: Computed tomography (CT) of the abdomen and pelvis was performed with 100 mL Omnipaque-350 intravenous contrast. Automated exposure control and iterative reconstruction technique were employe d. The dose-length product was 182.45 mGy-cm. COMPARISON: 10/06/2021. FINDINGS: Lower thorax: Emphysematous change in the lungs. Uncomplicated small fat-containing left posterior di aphragmatic hernia. Liver: No mass. Intrahepatic biliary duct dilation Biliary/Gallbladder: Distended gallbladder, not overtly dilated. Possible mild wall inflammation. No significant pericholecystic fluid. No cholelithiasis. The common bile duct is dilated to 10 mm Pancreas: No mass or duct dilation. Spleen: Normal. Adrenals:No mass. Kidneys: Bilateral subcentimeter hypodensities, too small to characterize but most likely represent c ysts. No suspicious mass or stone. Mild bilateral hydronephrosis. GI tract: Marked distal esophageal wall edema. Mild gastric wall edema. No small or large bowel dilat ion. Normal appendix. Mesentery/Peritoneum: No ascites, mass, or free air. Omental fat stranding. Retroperitoneum: No mass. Severe atherosclerotic calcification. Fusiform dilation of the proximal abd ominal aorta 2.7 cm with intraluminal thrombus and posteriorly directed 1.7 cm and 1.5 cm saccular an eurysms. Pelvis: Markedly dilated urinary bladder, likely secondary to outlet compromise from prostatomegaly.. Soft Tissues: Soft tissues and body wall unremarkable. Bones: No acute osseous finding. IMPRESSION: Severe esophagitis. Gastritis. Intra and extrahepatic biliary duct dilation, without identification o f an obstructing stone or mass. Markedly dilated urinary bladder with mild bilateral hydronephrosis, likely secondary to outlet compromise. Chronic and incidental findings are detailed above. Reviewed, dictated and finalized at location [facility]. IMPRESSION: Severe esophagitis. Gastritis. Intra and extrahepatic biliary duct dilation, wi thout identification of an obstructing stone or mass. Markedly dilated urinary bladder with mild bilateral hydronephrosis, likely secondary to outlet compromi se. Chronic and incidental findings are detailed above.
--- NOTE | 2021-11-09 19:12 | ED.GENADULT ---
HPI - General Adult General Chief complaint: Abdominal Pain Stated complaint: abd pain Time Seen by Provider: 11/09/21 19:03 Source: RN notes reviewed History of Present Illness HPI narrative: Patient presents emergency room from home for abdominal pain. Patient states pain began approximately 2 days ago. The pain is located across the bilateral lower abdomen described as aching in nature. Associated nausea vomiting. He states he has had a fever up to 99 degrees he denies any chest pain shortness of breath diarrhea or any other symptoms. States he did take Tylenol an hour ago. Patient states he has a history of being admitted to the hospital approximately a month ago and had an abdominal abscess at that time and is followed by Dr. Hurtado Related Data Allergies Allergy/AdvReac Type Severity Reaction Status Date / Time No Known Allergies Allergy Verified 11/09/21 18:43 Review of Systems Review of Systems: Gen.: Denies fevers or chills ENT: Denies congestion Respiratory: Denies shortness of breath or cough CV: Denies chest pain or palpitations GI: See HPI denies burning, urgency, frequency or hematuria Musculoskeletal: Denies back pain or muscle pain Neuro: Denies numbness, tingling, weakness or focal weakness Skin: Denies rash Except as documented, all other systems reviewed and negative [facility] Past Medical History Medical History (Updated 11/09/21 @ 21:55 by Kurtis Flores DO) Abdominal aortic aneurysm (AAA) 3.0 cm to 5.5 cm in diameter in male Infrarenal abdominal aortic aneurysm measuring 3.5 cm (September/2021) Anemia Essential (primary) hypertension Gastritis Intra-abdominal abscess 09/05/2021 due to perforated gastric ulcer Mesothelioma Nicotine dependence, cigarettes, uncomplicated Surgical History Surgical History (Updated 11/09/21 @ 21:34 by Silvia Alegre DO) H/O arthroscopic knee surgery right History of left above knee amputation Family History Family History Mother Cancer of external female genitalia Hypertension Sibling Throat cancer Social History Social History Social History: The patient lives with his and they have 3 children. 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 He denies any alcohol marijuana or illicit drugs. His is the durable power traffic law attorney for healthcare. Code status full code Caffeine-tea Smoking packs per day: 1.5 Smoking cigarettes per day: 30.0 Years smoked: 44 Smoking pack-years: 66.00 Smoking status: Current every day smoker Tobacco type: cigarettes Smoking end date: 09/01/21 Alcohol intake: never Substance use: never Substance use type: does not use Gender identity (if verbalized by the patient): Male Spiritual care concerns: No Exam Narrative: APPEARANCE: No acute distress, nontoxic, resting in bed HEENT: Normocephalic, atraumatic, OMM RESPIRATORY: No respiratory distress, clear to auscultation bilaterally with no rhonchi wheezing or rales CARDIOVASCULAR: RRR s murmur ABDOMINAL: Soft nondistended tender palpation right lower quadrant left lower quadrant no tenderness in right upper quadrant left upper quadrant no rebound or guarding MUSCULOSKELETAl: Moves all extremities. No clubbing, cyanosis or edema. NEURO: Awake and alert. Following commands, speech normal, no focal deficits SKIN:: Warm, dry. Normal Color PSYCHIATRIC: Normal affect/mood Course Course Emergency Course: Reviewed old records Discussed with Dr. Reyes presentation work-up agrees with consult Discussed Dr. Hurtado presentation work-up agrees with consult recommends antibiotics at this time Discussed Dr. Alegre agrees with admission to [facility]. Request patient received second liter of normal saline Discussed with patient and family results of workup and diagnosis. Discussed need for admissi
[2021-11-09] MEDS: ONDANSETRON INJ 4 MG/2 ML VIAL IV PUSH (19:26)
[2021-11-09] MEDS: SODIUM CHLORIDE 0.9% IV 1,000 ML 999 ML IV CONT ×2 (19:26→21:16)
[2021-11-09] MEDS: HYDROmorphone HCL INJ (*CRX) 1 MG/ML SYR 0.5 MG IV PUSH (19:27)
[2021-11-09 19:35] LABS: Basophils Absolute Auto 0.1 K/mm3 (0.0-0.1); Basophils Percent Auto 1.2 % (0.2-1.2); Eosinophils Absolute Auto 0.2 K/mm3 (0-0.3); Eosinophils Percent Auto 1.8 % (0-4.4); Hematocrit 38.6 % (42.0-52.0); Hemoglobin 12.4 g/dL (14.0-18.0); Immature Granulocyte Absolute 0.02 K/mm3 (0.00-0.031); Immature Granulocyte Percent A 0.2 % (0-0.5); Lymphocytes Absolute Auto 2.39 K/mm3 (0.9-3.2); Lymphocytes Percent Auto 23.6 % (18.3-44.2); Mean Corpuscular HGB Conc 32.1 g/dl (32-36); Mean Corpuscular Hemoglobin 25.3 pg (26-34); Mean Corpuscular Volume 78.6 fl (80-100); Mean Platelet Volume 9.3 fl (7.4-10.4); Monocytes Absolute Auto 0.6 K/mm3 (0.1-0.6); Monocytes Percent Auto 6.1 % (2.6-8.5); Neutrophils Absolute Auto 6.8 K/mm3 (1.3-6.7); Neutrophils Percent Auto 67.1 % (45.5-73.1); Platelet Count Result 597 k/mm3 (150-375); Red Blood Count 4.91 M/mm3 (4.6-6.20); Red Cell Distribution Width 17.4 % (11.5-14.5); White Blood Count 10.1 K/mm3 (4.5-10.0)
[2021-11-09 19:36] LABS: Appearance Urine Clear (Clear); Bilirubin Urine Negative (Negative); Blood Urine Negative (Negative); Color Urine Yellow (Yellow); Glucose Urine UA Negative (Negative); Ketones Urine Negative (Negative); Leukocyte Esterase Ur Negative LEU/UL (Negative); Nitrate Urine Negative (Negative); Protein Urine Negative (Negative); Urobilinogen Urine 0.2 mg/dL (<2.0)
[2021-11-09 19:40] LABS: Mucus Urine Rare /lpf; RBC Urine 0-2 /hpf (0-2); Squamous Epithelial Cell Urine Rare /hpf (Few); WBC Urine 0-3 /hpf
[2021-11-09 19:51] LABS: Alanine Aminotransferase 20 U/L (6-50); Albumin Level 4.4 g/dL (3.5-5.1); Alkaline Phosphatase 192 U/L (38-126); Anion Gap 16 mmol/L (8-16); Aspartate Amino Transferase 22 U/L (17-59); Bilirubin,Total 0.5 mg/dL (0.2-1.3); Blood Urea Nitrogen 5 mg/dL (9-20); Calcium 9.8 mg/dL (8.4-10.2); Carbon Dioxide 20 mmol/L (22-30); Chloride 104 mmol/L (98-107); Estimated CRCL calculation 77 ml/min; Estimated Glomerular Filt Rate > 60; Glucose 128 mg/dL (65-110); Lipase 770 U/L (23-300); Sodium 140 mmol/L (137-145)
--- NOTE | 2021-11-09 19:51 | ECG_ITS ---
Measurements Intervals [place] Rate: 79 P: 51 IN: 145 QRS: 27 QRSD: 82 T: 43 QT: 394 QTc: 453 Interpretive Statements SINUS RHYTHM ATRIAL COUPLET AND ATRIAL PREMATURE COMPLEX ST-T WAVE ABNORMALITY IN ANTEROLAT/INF LEADS- CONSIDER ISCHEMIA BASELINE ARTIFACT- I, II, III, AVR, AVL, AVF COMPARED TO ECG 10/06/2021 14:41:02 NO SIGNIFICANT CHANGES Electronically Signed On 11-10-2021 6:27:35 CDT by Red Hylton D.O.
[2021-11-09 19:55] LABS: Add Urine Microscopic? NO
[2021-11-09 19:58] LABS: INR 1.1; Prothrombin Time 13.3 Seconds (11.1-14.7)
[2021-11-09 19:59] LABS: Partial Thromboplastin Time 36.3 SECONDS (22.3-36.8)
[2021-11-09 20:20] LABS: Magnesium 1.9 mg/dL (1.6-2.3)
[2021-11-09] MEDS: POTASSIUM CHLORIDE INJ 40 MEQ in SODIUM CHLORIDE 0.9% IV 500 ML 130 MEQ IVPB (20:28)
[2021-11-09] MEDS: POTASSIUM CHLORIDE 20 MEQ TABLET 40 MEQ PO (20:48)
[2021-11-09] MEDS: PANTOPRAZOLE SODIUM IV 40 MG VIAL IV PUSH (20:51)
--- NOTE | 2021-11-09 21:19 | PM.IMHP ---
H&P: HPI History of Present Illness Date/Time: 11/09/21 21:19 Chief Complaint: Lower abdominal pain, nausea vomiting Narrative: 60-year-old male past medical history of hypertension and recent hospitalization in August due to perforated viscus associated abscess who presented back to the ER with lower abdominal pain for 2 days. Patient was initially admitted the hospital 09/05/2021 through September 24 due to perforated viscus suspect to be due to perforated gastric ulcer associated pelvic and perigastric abscess treated conservatively with percutaneous drain and antibiotic therapy. During that hospitalization the patient had episodes of hypokalemia and had a EKG that was abnormal with ST depression. Troponins at that time were mildly elevated but trended downward. She returned the hospital October 06 through the due to abdominal pain CT at that time demonstrate gastritis without residual abscess. EKG appeared similar. Patient was not having chest pain and troponins were normal. Patient returns today with mid lower abdominal pain and nausea and vomiting for 2 days. He reported low-grade temperatures at home. Repeat CT today demonstrated severe esophagitis and gastritis vitals intra and extra hepatic biliary dilatation without evidence of obstructing stone or mass. And a markedly dilated urinary bladder with mild bilateral hydronephrosis. White count was just above cutoff for normal but hemoglobin had climbed from a 0.9 1 month ago up to 12.4. The patient was found to be markedly hypokalemic (lower than prior admissions) with a low serum bicarb and mild lactic acidosis. In the ER patient received Dilaudid, Protonix and a total of 80 mg of potassium chloride (p.o. and IV). The patient reports that he has been having lower abdominal pain for 3 days. He reports over last 24 hours he has started urinating a small amount every hour. Prior that that he was not having any urinary symptoms. He denies any history of weak urinary stream, urinary hesitancy, difficulty starting or stopping his urinary stream, hematuria, dysuria or history of BPH. He has been taking pain medications chronically since his recent infection. His Eastern was prescribed as every 8 hours. He was given a 10 day supply on the and he is already taken all of the pills. He is requesting Percocet instead of Eastern and states that he has a higher tolerance to pain medications. He reports that he did have some nausea and vomiting yesterday where he vomited 3 times. He has had decreased appetite in general. He denies any hematochezia, hematemesis or coffee-ground emesis. He reports that he routinely only has a bowel movement once a week. His last bowel movement was yesterday. He denies any chest pain or shortness of breath. He is still smoking a pack of cigarettes per day down from 1.5 packs of cigarettes per day. Review of Systems Review of Systems: 12 systems were reviewed with pertinent positives and negatives per HPI. Except as documented in the HPI, all other systems were reviewed and are negative. [facility] Past Medical History Medical History (Updated 11/10/21 @ 01:08 by Silvia Alegre DO) Abdominal aortic aneurysm (AAA) 3.0 cm to 5.5 cm in diameter in male Infrarenal abdominal aortic aneurysm measuring 3.5 cm (September/2021) Anemia Essential (primary) hypertension Gastritis Intra-abdominal abscess 09/05/2021 due to perforated gastric ulcer Mesothelioma Nicotine dependence, cigarettes, uncomplicated Peripheral artery disease Bilateral lower extremities Surgical History Surgical History (Updated 11/10/21 @ 00:47 by Silvia Alegre DO) H/O arthroscopic knee surgery right History of left above knee amputation History of left knee replacement (12/2016) 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
[2021-11-09 21:25] LABS: SARS-CoV-2 RNA PCR Negative
--- NOTE | 2021-11-09 21:26 | PC.NURSE ---
VO Dr. Flores [place] Prior to fan/Oleg RN
[2021-11-09] MEDS: TAMSULOSIN HCL 0.4 MG CAPSULE PO (21:51)
[2021-11-09] MEDS: LIDOCAINE HCL 2% GEL UROJET 10 ML PKG MUCOUS MEM (22:02)
[2021-11-09] MEDS: MORPHINE SULFATE (*CRX) 2 MG/ML INJ IV PUSH (22:02)
[2021-11-09 22:33] LABS: Reflex Lactic Acid Yes or No Add Lactic
[2021-11-09 23:01] LABS: Lactic Acid 1.3 mmol/L (0.7-2.0)
[2021-11-10] VITALS (12 sets, daily range): BP systolic 126–164; BP diastolic 74–81; PULSE 65–90; RESP 18–20; TEMP 36.2–36.8; O2SAT 100
[2021-11-10] MEDS: POTASSIUM CHLORIDE 10 MEQ TABLET 40 MEQ PO (00:02)
[2021-11-10] MEDS: METOPROLOL TARTRATE 12.5 MG TABLET PO ×3 (01:00→21:40)
[2021-11-10] MEDS: oxyCODONE/ACETAMINOPHEN (*CRX) 5-325 MG TABLET 1 TABLET PO ×3 (01:00→18:12)
[2021-11-10] MEDS: KCL 40 MEQ/D5 1/2NS 1,000 ML 100 ML IV CONT ×3 (03:09→23:33)
[2021-11-10 05:28] LABS: Basophils Absolute Auto 0.1 K/mm3 (0.0-0.1); Eosinophils Absolute Auto 0.1 K/mm3 (0-0.3); Eosinophils Percent Auto 1.6 % (0-4.4); Hematocrit 29.7 % (42.0-52.0); Hemoglobin 9.6 g/dL (14.0-18.0); Immature Granulocyte Absolute 0.03 K/mm3 (0.00-0.031); Immature Granulocyte Percent A 0.3 % (0-0.5); Lymphocytes Absolute Auto 2.46 K/mm3 (0.9-3.2); Lymphocytes Percent Auto 28.4 % (18.3-44.2); Mean Corpuscular HGB Conc 32.3 g/dl (32-36); Mean Corpuscular Hemoglobin 25.5 pg (26-34); Mean Platelet Volume 9.8 fl (7.4-10.4); Monocytes Absolute Auto 0.6 K/mm3 (0.1-0.6); Monocytes Percent Auto 6.5 % (2.6-8.5); Neutrophils Absolute Auto 5.4 K/mm3 (1.3-6.7); Neutrophils Percent Auto 62.2 % (45.5-73.1); Platelet Count Result 457 k/mm3 (150-375); Red Blood Count 3.76 M/mm3 (4.6-6.20); Red Cell Distribution Width 17.2 % (11.5-14.5); White Blood Count 8.7 K/mm3 (4.5-10.0)
[2021-11-10 05:40] LABS: Alanine Aminotransferase 14 U/L (6-50); Albumin Level 3.4 g/dL (3.5-5.1); Alkaline Phosphatase 136 U/L (38-126); Anion Gap 14 mmol/L (8-16); Aspartate Amino Transferase 16 U/L (17-59); Bilirubin,Total 0.3 mg/dL (0.2-1.3); Blood Urea Nitrogen 3 mg/dL (9-20); Calcium 8.1 mg/dL (8.4-10.2); Carbon Dioxide 19 mmol/L (22-30); Chloride 111 mmol/L (98-107); Estimated CRCL calculation 111 ml/min; Estimated Glomerular Filt Rate > 60; Glucose 116 mg/dL (65-110); Magnesium 1.7 mg/dL (1.6-2.3); Phosphorus 3.1 mg/dL (2.5-4.5); Potassium 2.5 mmol/L (3.4-5.0); Sodium 144 mmol/L (137-145)
[2021-11-10] MEDS: POTASSIUM CHLORIDE 20 MEQ TABLET 80 MEQ PO (06:41)
[2021-11-10] MEDS: MAGNESIUM SULF 2 GM/WATER 50ML 2 GM/50 ML BAG IVPB (06:41)
[2021-11-10] MEDS: amLODIPine BESYLATE 5 MG TABLET PO (08:53)
[2021-11-10] MEDS: TAMSULOSIN HCL 0.4 MG CAPSULE PO (08:53)
[2021-11-10] MEDS: HEPARIN SODIUM 5,000 UNITS/ML VIAL 5000 UNITS SUB-Q ×2 (08:54→21:40)
[2021-11-10] MEDS: PANTOPRAZOLE SODIUM IV 40 MG VIAL IV PUSH ×2 (08:54→21:41)
--- NOTE | 2021-11-10 10:04 | WPDGICN ---
Assessment and Plan Assessment and plan (1) Nausea and vomiting in adult: Code(s): R11.2 - Nausea with vomiting, unspecified Status: Acute Assessment and Plan: 2 months ago had perforated peptic ulcer treated medically, repeat CT scan noted without any more abscess he has not had EGD yet, will arrange one for tomorrow with Dr Boswell iv protonix (2) Esophagitis: Code(s): K20.90 - Esophagitis, unspecified without bleeding Status: Acute Assessment and Plan: noted by CT scan egd to assess (3) Dehydration: Code(s): E86.0 - Dehydration Status: Acute Assessment and Plan: on presentation, treated (4) Acute urinary retention: Code(s): R33.8 - Other retention of urine Status: Acute Assessment and Plan: fan catheter in place (5) Abdominal pain: Qualifiers: Abdominal location: right upper quadrant Qualified Code(s): R10.11 - Right upper quadrant pain Code(s): R10.9 - Unspecified abdominal pain Status: Acute Assessment and Plan: probably also associated to urinary retention (6) Nicotine dependence, cigarettes, uncomplicated: Code(s): F17.210 - Nicotine dependence, cigarettes, uncomplicated Status: Acute (7) Peripheral artery disease: Code(s): I73.9 - Peripheral vascular disease, unspecified Status: Acute Assessment and Plan: noted diminish arterial flow, by primary team (8) Acute hypokalemia: Code(s): E87.6 - Hypokalemia Status: Acute Assessment and Plan: treated GI Consult Note Consult date/time: 11/10/21 10:04 Reason for consult: lower abdominal pain, severe esophagitis per CT scan HPI: Daniel Covarrubias is a 60 year old male with history of hypertension and recent hospitalization in August due to perforated viscus associated abscess who was evaluated by surgery and Dr Boswell, CT revealed evidence of perigastric abscess free air and perforation of the stomach.? This presumed he had a gastric ulcer.? Because of multiple comorbid diseases he was treated conservatively with broad-spectrum antibiotics, ppi and Carafate therapy.? Patient eventually had an external percutaneous drain of this abscess.? This subsequently has been removed.?Last month he developed increasing pain and was admitted to the hospital briefly, repeat CT scan revealed the previous abscess is now resolved and the plan was to do EGD as outpatient, he has been taking ppi at home. He is here because new onset lower abdominal pain and nausea and vomiting for 2 days.? He reported low-grade temperatures at home.? Repeat CT demonstrated severe esophagitis and gastritis, also intra and extra hepatic biliary dilatation without evidence of obstructing stone or mass.? And a markedly dilated urinary bladder with mild bilateral hydronephrosis.?Also had significant hypokalemia which has been treated, given Dilaudid, Protonix and a potassium chloride and fan catheter placed, also complaining of pain in Rt leg (he is smoker). Review of Systems Constitutional: Constitutional: Reports chills Eyes: Eyes: Denies blurry vision ENT: Reports Normal hearing present Cardiovascular: Cardiovascular: Denies chest pain Respiratory: Respiratory: Denies cough Gastrointestinal: Gastrointestinal: Reports abdominal pain, Reports nausea and Reports vomiting Genitourinary: Genitourinary: Reports urinary frequency Musculoskeletal: Musculoskeletal: Denies joint swelling Integumentary/Breasts: Skin/Breast: Denies rash Neurologic: Denies Abnormal speech present Psychiatric: Psychiatric: Denies behavioral changes [facility] Past Medical History Medical History (Updated 11/10/21 @ 10:17 by Berny Heath MD) Abdominal aortic aneurysm (AAA) 3.0 cm to 5.5 cm in diameter in male Infrarenal abdominal aortic aneurysm measuring 3.5 cm (September/2021) Anemia Essential (primary) hypertension Gastritis Intra-abdominal absc
[2021-11-10 12:06] LABS: Magnesium 2.2 mg/dL (1.6-2.3); Potassium 3.3 mmol/L (3.4-5.0)
--- NOTE | 2021-11-10 12:29 | PM.CNGS ---
Assessment and Plan Assessment and plan (1) Esophagitis: Code(s): K20.90 - Esophagitis, unspecified without bleeding Status: Acute Assessment and Plan: This appears to be the most concerning finding on CT. ( See CT result from ER yesterday). Agree with continued PPI and EGD also repeat labs in a.m. tomorrow. (2) Gastritis: Qualifiers: Chronicity: chronic Gastritis bleeding: without bleeding Gastritis type: unspecified gastritis Qualified Code(s): K29.50 - Unspecified chronic gastritis without bleeding Code(s): K29.70 - Gastritis, unspecified, without bleeding Status: Acute Assessment and Plan: CT still suggests some element of thickening of the stomach wall. Patient has been on full dose PPI Rx for 6-8 weeks now. Agree with continued PPI an EGD for further evaluation. Patient is a poor surgical candidate with his multiple medical problems and has a history of previous pre pyloric or duodenal ulcer perforation treated conservatively because of the same things. He did have to have a percutaneous drainage of a lesser sac abscess that developed following his perforation. This was treated while he was on antibiotics and antifungals. CT shows no residual fluid collections concerning for abscess at this time. This is about the time that Dr. Boswell head to suggested that the patient have follow-up endoscopy to evaluate for healing or other problems. Hopefully EGD can be accomplished during this admission. (3) Abdominal pain: Qualifiers: Abdominal location: right upper quadrant Qualified Code(s): R10.11 - Right upper quadrant pain Code(s): R10.9 - Unspecified abdominal pain Status: Acute Assessment and Plan: Most of his abdominal pain now as resolves after placement of a Camacho catheter. CT yesterday showed very distended urinary bladder even some hydronephrosis without stones. He had significant relief of discomfort after placement of the Camacho. By history today he states that he was having to urinate almost every hour. This is suggestive of overflow incontinence. Consider Urology consultation. (4) Nicotine dependence, cigarettes, uncomplicated: Code(s): F17.210 - Nicotine dependence, cigarettes, uncomplicated Status: Acute Assessment and Plan: Patient states he continues to smoke and I again encouraged him to stop. His 's most also and she stated that if he decides to quit she would try to quit with him. Would state that this is probably not uncomplicated as it complicates the patient's care in that it increases his gastric acid every time he smokes and he has peripheral vascular disease which it is causes it to be worsened by his continued use of nicotine and tobacco products. History of Present Illness Consult details Consult date: 11/10/21 Reason for consult: abdominal pain Requesting physician: Silvia Alegre, DO Narrative: Patient is a cachectic 60-year-old white male smoker who presents back to the hospital with complaints of abdominal pain. ?Patient returned yesterday with mid lower abdominal pain and nausea and vomiting for 2 days.? He reported a low-grade temperatures at home.? Repeat CT demonstrated severe esophagitis and gastritis and some intra and extra hepatic biliary dilatation without evidence of obstructing stone or mass. No masses or inflammation were noted in the pancreas although the patient did have an elevated lipase in the ED.? He also had a markedly dilated urinary bladder with mild bilateral hydronephrosis.? White count was just above cutoff for normal but hemoglobin had climbed from 9.1 month ago up to 12.4.? (repeat early this morning shows him back toward the baseline of around 9.4). This was probably delusional and with rehydration it went back to the true number. The patient was also found to be markedly hypokalemic (lower than prior admissions) with a low serum bicarb and mild lactic
[2021-11-10] MEDS: POTASSIUM CHLORIDE 20 MEQ TABLET 40 MEQ PO (14:46)
[2021-11-10 14:50] LABS: Lipase 840 U/L (23-300)
--- NOTE | 2021-11-10 16:25 | PM.IMPN ---
Progress Note: A&P Assessment and Plan (1) Acute hypokalemia: Code(s): E87.6 - Hypokalemia Status: Acute Assessment and Plan: Patient had potassium of 2.0 on admission. This required frequent dosing to replace. He is not on diuretics. He does have a nongap metabolic gap acidosis. Consider RTA Type I or II. UpH 7.0. Serum bicarb 19. Could be from the obstructive process but the hypokalmia has been noted frequently in the past. Will check urine studies. Follow potassium and mag levels and correct as needed. (2) Acute urinary retention: Code(s): R33.8 - Other retention of urine Status: Acute Assessment and Plan: Patient has acute urinary retention noted by CT scan. Likely due to a combination of previously undiagnosed BPH and chronic narcotic use. Camacho placed. Abd pain resolved and most likely the etiolgoy of his presenting symptoms. Flomax started. Patient will need follow-up with Urology at discharge. (3) Dehydration: Code(s): E86.0 - Dehydration Status: Acute Assessment and Plan: Patient's labs demonstrate hemoconcentration compared to prior levels and elevated serum total protein. Likely consistent with dehydration. Patient received 2 L of IV fluids in the ER. His lactic acidosis has resolved. He remains on IV fluids. Diet started but NPO after MN for EGD in the morning. (4) Gastritis: Qualifiers: Chronicity: chronic Gastritis bleeding: without bleeding Gastritis type: unspecified gastritis Qualified Code(s): K29.50 - Unspecified chronic gastritis without bleeding Code(s): K29.70 - Gastritis, unspecified, without bleeding Status: Acute Assessment and Plan: Patient is complaining of abdominal pain in the lower abdomen and complains of pain around his lower ribcage radiating to his back that is been chronic since his prior admission for perforated gastric ulcer in abscess. CT the abdomen pelvis shows severe esophagitis, gastritis and biliary dilatation as well as urinary bladder distention. GB is distended as well. he was supposed to follow-up with GI for outpatient EGD but this was unable to be arranged. Protonix IV Q12h started. Patient's lipase is mildly elevated but CT does not demonstrate any evidence of pancreatitis. Repeat lipase higher still. Follow. Gi was consulted with plans for EGD in the morning. (5) Esophagitis: Code(s): K20.90 - Esophagitis, unspecified without bleeding Status: Acute Assessment and Plan: As above (6) Essential (primary) hypertension: Code(s): I10 - Essential (primary) hypertension Status: Acute Assessment and Plan: The patient's blood pressure was elevated his entire hospital stay last time and continues to be elevated on this admission. Norvasc and metoprolol were continued with the Metoprolol advanced. BP better controlled. Consider elevated BP related to withdrawal if he ran out of his pain medications recently. (7) Peripheral artery disease: Code(s): I73.9 - Peripheral vascular disease, unspecified Status: Acute Assessment and Plan: Patient has a known subcapital fracture of the left femoral neck noted by xray on 07/24/21. So this is probably some of his chronic left leg pain. CT here shows severe atherosclerotic calcifications with a fusiform dilation of the proximal abdominal aorta at 2.7 cm with intraluminal thrombus. No dedicated vascular imaging has been done here. Patient is was to follow-up with vascular surgery as an outpatient in [place]. The patient has had numerous prescriptions for narcotics recently from various providers. He is demonstrating some narcotic-seeking behaviors although the patient does definitely have reasons for pain. Will advance his Percocet frequency as he requests. Encourage patient to keep his follow-up appointment with vascular surgery. Patient cannot take aspirin because of above. No allergies to m
[2021-11-10 18:43] LABS: Creatinine Urine 24.2 mg/dL; Total Protein Urine Random 20 mg/dL; Ur Ttl Prot Creatinine Ratio 0.83 mg/mg (0-0.20)
[2021-11-10 18:45] LABS: Potassium Urine Random 31.3 meq/L; Sodium Urine Random 114 meq/L
[2021-11-11] VITALS (14 sets, daily range): BP systolic 125–184; BP diastolic 67–86; PULSE 65–115; RESP 16–23; TEMP 35.9–36.7; O2SAT 97–100
[2021-11-11] MEDS: oxyCODONE/ACETAMINOPHEN (*CRX) 5-325 MG TABLET 1 TABLET PO ×4 (00:16→18:45)
[2021-11-11 06:27] LABS: Basophils Absolute Auto 0.1 K/mm3 (0.0-0.1); Basophils Percent Auto 1.4 % (0.2-1.2); Eosinophils Absolute Auto 0.4 K/mm3 (0-0.3); Eosinophils Percent Auto 4.7 % (0-4.4); Immature Granulocyte Absolute 0.02 K/mm3 (0.00-0.031); Immature Granulocyte Percent A 0.2 % (0-0.5); Lymphocytes Absolute Auto 3.01 K/mm3 (0.9-3.2); Mean Corpuscular HGB Conc 31.3 g/dl (32-36); Mean Corpuscular Hemoglobin 25.4 pg (26-34); Mean Corpuscular Volume 81.2 fl (80-100); Monocytes Absolute Auto 0.6 K/mm3 (0.1-0.6); Monocytes Percent Auto 7.2 % (2.6-8.5); Neutrophils Absolute Auto 4.4 K/mm3 (1.3-6.7); Neutrophils Percent Auto 51.5 % (45.5-73.1); Platelet Count Result 441 k/mm3 (150-375); Red Blood Count 3.94 M/mm3 (4.6-6.20); Red Cell Distribution Width 17.3 % (11.5-14.5); White Blood Count 8.6 K/mm3 (4.5-10.0)
[2021-11-11 06:42] LABS: Rheumatoid Factor < 8.6 IU/ML (<12)
[2021-11-11] MEDS: amLODIPine BESYLATE 5 MG TABLET PO ×2 (09:09→20:38)
[2021-11-11] MEDS: ATORVASTATIN 20 MG TABLET PO (09:09)
[2021-11-11] MEDS: METOPROLOL TARTRATE 12.5 MG TABLET PO ×2 (09:10→20:38)
[2021-11-11] MEDS: TAMSULOSIN HCL 0.4 MG CAPSULE PO (09:10)
[2021-11-11] MEDS: PANTOPRAZOLE SODIUM IV 40 MG VIAL IV PUSH (09:11)
[2021-11-11] MEDS: KCL 40 MEQ/D5 1/2NS 1,000 ML 100 ML IV CONT (09:22)
[2021-11-11 11:04] LABS: Alanine Aminotransferase 13 U/L (6-50); Albumin Level 3.4 g/dL (3.5-5.1); Alkaline Phosphatase 126 U/L (38-126); Anion Gap 13 mmol/L (8-16); Aspartate Amino Transferase 16 U/L (17-59); Bilirubin,Total 0.3 mg/dL (0.2-1.3); Blood Urea Nitrogen 3 mg/dL (9-20); Calcium 8.5 mg/dL (8.4-10.2); Carbon Dioxide 18 mmol/L (22-30); Chloride 108 mmol/L (98-107); Estimated CRCL calculation 111 ml/min; Estimated Glomerular Filt Rate > 60; Glucose 99 mg/dL (65-110); Lipase 891 U/L (23-300); Magnesium 1.9 mg/dL (1.6-2.3); Phosphorus 2.1 mg/dL (2.5-4.5); Potassium 3.6 mmol/L (3.4-5.0); Sodium 139 mmol/L (137-145)
--- NOTE | 2021-11-11 13:09 | PC.NURSE ---
To GI Lab per GERRY luther RAC. Report given to Alejandro CHANG.
[2021-11-11] MEDS: LACTATED RINGERS 1,000 ML 150 ML IV CONT (13:24)
--- NOTE | 2021-11-11 13:37 | WPDANESEPPF ---
Anes - Initial Pre Proc Eval Procedure: Operation Date: 11/11/21 14:00 Proposed Procedures p Esophagogastroduodenoscopy EGD - Kiel Boswell MD Date/Time: 11/11/21 13:37 Surgeon: Silvia Alegre DO Pre Op Diagnosis: Hypokalemia,Urinary Retention,Lower Abdominal Pain Patient Data Age: 60 Gender: M Height: 1.65 m Weight: 65.7 kg Last Vital Signs Temp 98.1 F 11/11/21 13:20 Pulse 71 11/11/21 13:20 Resp 17 11/11/21 13:20 BP 167/67 H 11/11/21 13:20 Pulse Ox 100 11/11/21 13:20 O2 Del Method Room Air 11/11/21 13:20 Allergies Allergy/AdvReac Type Severity Reaction Status Date / Time No Known Allergies Allergy Verified 11/11/21 13:19 Home Medications Medication Instructions Recorded Confirmed Type pantoprazole 40 mg tablet,delayed 40 mg PO BID #60 tabs 10/09/21 11/09/21 Rx release (Protonix) amlodipine 5 mg tablet (Norvasc) 5 mg PO QAM 30 days #30 tabs 10/25/21 11/09/21 Rx metoprolol tartrate 25 mg tablet 12.5 mg PO BID 30 days #30 tabs 10/25/21 11/09/21 Rx hydrocodone 7.5 mg-acetaminophen 1 tablet PO Q8H PRN pain #30 tabs 11/05/21 11/09/21 Rx 325 mg tablet Laboratory Tests 11/10/21 11/10/21 11/10/21 11:43 18:19 18:19 WBC RBC Hgb Hct MCV MCH MCHC RDW Plt Count MPV Immature Gran % (Auto) Neut % (Auto) Lymph % (Auto) [place] % (Auto) Eos % (Auto) Baso % (Auto) Lymph # (Auto) [place] # (Auto) Eos # (Auto) Baso # (Auto) Abs Immat Gran (auto) Absolute Neuts (auto) Absolute Nucleated RBC Nucleated RBC % Sodium Potassium Chloride Carbon Dioxide Anion Gap BUN Creatinine Estim Creat Clear Calc Estimated GFR Glucose Calcium Phosphorus Magnesium Copper Total Bilirubin AST ALT Alkaline Phosphatase Total Protein Albumin Cekxg-3-Zhuplyqtz Bnese-3-Mdmaosabl Snhq-3-Odewnpwx Soug-6-Ctiyduik Gamma Globulins Abnorm Protein Band 1 Abnorm Protein Band 3 PEP Interpretation Lipase 840 U/L H U/L (23-300) Ur Random Creatinine Pending Pending U Random Total Protein 20 mg/dL mg/dL Ur Random Sodium 114 meq/L meq/L Ur Random Potassium 31.3 meq/L meq/L Ur Random Chloride Pending U Random Chloride/Creat Pending Ur Random Calcium Pending Urine Creatinine 24.2 mg/dL mg/dL Protein/Creat Ratio 2 0.83 mg/mg H mg/mg (0-0.20) Calcium/Creat Ratio Pending Rheumatoid Factor Rheumatoid Factor Scrn Rheumatoid Factor Titer RUDY Screen SS-A Antibody SS-B Antibody 11/11/21 11/11/21 11/11/21 05:20 05:47 05:48 WBC 8.6 K/mm3 K/mm3 (4.5-10.0) RBC 3.94 M/mm3 L M/mm3 (4.6-6.20) Hgb 10.0 g/dL L g/dL (14.0-18.0) Hct 32.0 % L % (42.0-52.0) MCV 81.2 fl fl (80-100) MCH 25.4 pg L pg (26-34) MCHC 31.3 g/dl L g/dl (32-36) RDW 17.3 % H % (11.5-14.5) Plt Count 441 k/mm3 H k/mm3 (150-375) MPV 10.0 fl fl (7.4-10.4) Immature Gran % (Auto) 0.2 % % (0-0.5) Neut % (Auto) 51.5 % % (45.5-73.1) Lymph % (Auto) 35.0 % % (18.3-44.2) [place] % (Auto) 7.2 % % (2.6-8.5) Eos % (Auto) 4.7 % H % (0-4.4) Baso % (Auto) 1.4 % H %
--- NOTE | 2021-11-11 13:45 | PM.PNGS ---
Progress Note: A&P Assessment and Plan (1) Esophagitis: Code(s): K20.90 - Esophagitis, unspecified without bleeding Status: Acute Assessment and Plan: Noted on CT scan. Continue PPI and GI planning EGD today. (2) Gastritis: Qualifiers: Gastritis type: unspecified gastritis Chronicity: chronic Gastritis bleeding: without bleeding Qualified Code(s): K29.50 - Unspecified chronic gastritis without bleeding Code(s): K29.70 - Gastritis, unspecified, without bleeding Status: Acute Assessment and Plan: CT suggests gastritis. Continue PPI. GI consulted and planning EGD today. Will await results. Patient is a poor surgical candidate with his multiple medical problems and has a history of previous pre pyloric or duodenal ulcer perforation treated conservatively because of being higher risk for surgery. He did have to have a percutaneous drainage of a lesser sac abscess that developed following his perforation. This was treated while he was on antibiotics and antifungals. CT shows no residual fluid collections concerning for abscess at this time. (3) Abdominal pain: Qualifiers: Abdominal location: right upper quadrant Qualified Code(s): R10.11 - Right upper quadrant pain Code(s): R10.9 - Unspecified abdominal pain Status: Acute Assessment and Plan: Resolved following Camacho catheter placement. CT showed dilated bladder with mild bilateral hydronephrosis without any stones. Could consider Urology consultation. (4) Nicotine dependence, cigarettes, uncomplicated: Code(s): F17.210 - Nicotine dependence, cigarettes, uncomplicated Status: Acute Plan I have discussed the patient's case and plan of care with Dr. Hurtado. Subjective Subjective Date/Time Seen: 11/11/21 12:45 Patient reports: no new complaints, feels better, flatus, bowel movement and afebrile Interval history: Patient seen and examined. He is feeling well this morning, just reports feeling hungry. He is NPO for EGD today. No other complaints at this time. No abdominal pain or nausea. Review of Systems Review of Systems: All systems reviewed & are unremarkable except as noted in HPI and below Exam Const: General: comfortable, no acute distress and well developed Orientation/consciousness: patient oriented x3 GI: Inspection: normal to inspection and non-distended GI Palp: Yes Soft to palpation, No Tenderness to palpation present (GI), No Guarding due to palpation present (GI) and No Rebound tenderness present Auscultation: normal bowel sounds Urinary Catheter: Urinary Catheter: patent and draining Psych: Mental Status: mental status grossly normal Objective Data Vital Signs Vital Signs: Vital Signs - 24 hr 11/10/21 15:05 11/10/21 16:00 11/10/21 20:39 Temperature 97.2 F L 98.3 F Pulse Rate 80 80 86 Respiratory Rate 18 20 Blood Pressure 126/81 148/74 H Pulse Oximetry 100 100 Oxygen Delivery 11/10/21 21:40 11/10/21 20:00 11/10/21 20:03 Temperature Pulse Rate 90 90 Respiratory Rate Blood Pressure Pulse Oximetry Oxygen Delivery Room Air 11/11/21 00:01 11/11/21 04:16 11/11/21 04:03 Temperature 98 F Pulse Rate 71 65 77 Respiratory Rate 18 Blood Pressure 175/85 H Pulse Oximetry 100 Oxygen Delivery 11/11/21 09:10 11/11/21 08:00 11/11/21 09:10 Temperature Pulse Rate 70 66 Respiratory Rate Blood Pressure Pulse Oximetry 97 Oxygen Delivery Room Air 11/11/21 13:20 Temperature 98.1 F Pulse Rate 71 Respiratory Rate 17 Blood Pressure 167/67 H Pulse Oximetry 100 Oxygen Delivery Room Air Intake/Output Intake/Output: Intake & Output 11/08/21 11/09/21 11/10/21 11/11/21 23:59 23:59 23:59 23:59 Intake Total 1000 4292 1000 Output Total 800 3375 2125 Balance 200 917 -1125 Meds/Results Medications: Active Medications Generic Name Dose Route Start Last Admin Trade Name
--- NOTE | 2021-11-11 14:40 | PC.NURSE ---
Returned from GI Lab. Report received from Alejandro CHANG
[2021-11-11] MEDS: POTASSIUM/PHOSPHORUS/SODIUM 1.5 GM PACKET 1 PACKET PO (16:19)
--- NOTE | 2021-11-11 18:42 | PM.IMPN ---
Progress Note: A&P Assessment and Plan (1) Acute hypokalemia: Code(s): E87.6 - Hypokalemia Status: Acute Assessment and Plan: Patient had potassium of 2.0 on admission. This required frequent dosing to replace. He is not on diuretics. He does have a nongap metabolic gap acidosis. Consider RTA Type I or II. UpH 7.0. Serum bicarb 19. Could be from the obstructive process but the hypokalmia has been noted frequently in the past. Urine studies showing Brent 114, UK 31. Potassium level normal today. Follow. Stop tele. (2) Acute urinary retention: Code(s): R33.8 - Other retention of urine Status: Acute Assessment and Plan: Patient has acute urinary retention noted by CT scan. Likely due to a combination of previously undiagnosed BPH and chronic narcotic use. Camacho placed. Abd pain resolved and most likely the etiolgoy of his presenting symptoms. Flomax started. Patient will need follow-up with Urology at discharge. (3) Dehydration: Code(s): E86.0 - Dehydration Status: Acute Assessment and Plan: Patient's labs demonstrate hemoconcentration compared to prior levels and elevated serum total protein. Likely consistent with dehydration. Patient received 2 L of IV fluids in the ER. His lactic acidosis has resolved. He remains on IV fluids. He was NPO for EGD but now eating. Will stop IV fluids. (4) Gastritis: Qualifiers: Chronicity: chronic Gastritis bleeding: without bleeding Gastritis type: unspecified gastritis Qualified Code(s): K29.50 - Unspecified chronic gastritis without bleeding Code(s): K29.70 - Gastritis, unspecified, without bleeding Status: Acute Assessment and Plan: Patient was complaining of abdominal pain in the lower abdomen and complains of pain around his lower ribcage. CT the abdomen pelvis shows severe esophagitis, gastritis and biliary dilatation as well as urinary bladder distention. GB is distended as well. EGD here is essentially normal. Pain resolved after Camacho placed. Continue Protonix but decrease to daily use. Gastritis and esophagitis ruled out. (5) Essential (primary) hypertension: Code(s): I10 - Essential (primary) hypertension Status: Acute Assessment and Plan: The patient's blood pressure was elevated his entire hospital stay last time and continues to be elevated on this admission. Norvasc and metoprolol were continued with the Metoprolol advanced. BP improved but still elevated. Continue to advance medications to control BP. (6) Peripheral artery disease: Code(s): I73.9 - Peripheral vascular disease, unspecified Status: Acute Assessment and Plan: Patient has a known subcapital fracture of the left femoral neck noted by xray on 07/24/21. So this is probably some of his chronic left leg pain. CT here shows severe atherosclerotic calcifications with a fusiform dilation of the proximal abdominal aorta at 2.7 cm with intraluminal thrombus. No dedicated vascular imaging has been done here. Patient is was to follow-up with vascular surgery as an outpatient in [place]. The patient has had numerous prescriptions for narcotics recently from various providers. He is demonstrating some narcotic-seeking behaviors although the patient does definitely have reasons for pain. We advanced his Percocet frequency as he requested and he does seem more comfortable. Encourage patient to keep his follow-up appointment with vascular surgery. Patient cannot take aspirin because of above. Continue Lipitor. (7) Nicotine dependence, cigarettes, uncomplicated: Code(s): F17.210 - Nicotine dependence, cigarettes, uncomplicated Status: Acute Assessment and Plan: Patient continues to smoke. He has been educated about the benefits of smoking cessation. Subjective Date/time seen: 11/11/21 18:42 Interval history: 60yo male with PAD, tobacco abuse and HTN here for abdomin
[2021-11-12] MEDS: oxyCODONE/ACETAMINOPHEN (*CRX) 5-325 MG TABLET 1 TABLET PO ×3 (00:48→11:54)
[2021-11-12 04:47] VITALS: BP 158/81; PULSE 72; RESP 18; TEMP 36.2; O2SAT 100
[2021-11-12 06:05] LABS: Albumin Level 3.9 g/dL (3.5-5.1); Anion Gap 14 mmol/L (8-16); Blood Urea Nitrogen 5 mg/dL (9-20); Carbon Dioxide 20 mmol/L (22-30); Chloride 107 mmol/L (98-107); Estimated CRCL calculation 94 ml/min; Estimated Glomerular Filt Rate > 60; Glucose 90 mg/dL (65-110); Magnesium 1.9 mg/dL (1.6-2.3); Phosphorus 3.5 mg/dL (2.5-4.5); Potassium 3.4 mmol/L (3.4-5.0); Sodium 141 mmol/L (137-145)
[2021-11-12] MEDS: amLODIPine BESYLATE 5 MG TABLET 10 MG PO (09:20)
[2021-11-12] MEDS: PANTOPRAZOLE 40 MG TABLET PO (09:20)
[2021-11-12 09:21] VITALS: RESP 18; O2SAT 100
[2021-11-12] MEDS: ATORVASTATIN 20 MG TABLET PO (09:21)
[2021-11-12] MEDS: TAMSULOSIN HCL 0.4 MG CAPSULE PO (09:21)
[2021-11-12] MEDS: POTASSIUM CHLORIDE 20 MEQ TABLET PO (09:50)
[2021-11-12 09:54] LABS: Lipase 1004 U/L (23-300)
[2021-11-12 10:31] VITALS: PULSE 72
[2021-11-12] MEDS: METOPROLOL TARTRATE 12.5 MG TABLET PO (10:31)
--- NOTE | 2021-11-12 10:35 | WPDANESPN ---
Anes - Prog Note Post-Op Date/Time: 11/12/21 10:35 Cardiovascular status: normal Respiratory status: normal Airway patency: baseline Mental status: baseline Post-Op hydration status: normal Vital Signs: Last Vital Signs Temp 36.2 C L 11/12/21 04:47 Pulse 72 11/12/21 10:31 Resp 18 11/12/21 04:47 BP 158/81 H 11/12/21 04:47 Pulse Ox 100 11/12/21 04:47 O2 Del Method Room Air 11/11/21 20:00 O2 Flow Rate 2 11/11/21 14:07 Pain Score (VAS): 03/04 I/O: Intake & Output 11/11/21 11/12/21 11/12/21 23:59 07:59 15:59 Intake Total 890 390 120 Output Total 1550 1600 Balance -660 -1210 120 Laboratory Tests 11/11/21 05:48 11/12/21 04:57 11/11/21 11/12/21 11/12/21 07:15 04:53 04:57 Sodium 139 141 Potassium 3.6 3.4 Chloride 108 H 107 Carbon Dioxide 18 L 20 L Anion Gap 13 14 BUN 3 L 5 L Creatinine 0.50 L 0.60 L Estim Creat Clear Calc 111 94 Estimated GFR > 60 > 60 Glucose 99 90 Calcium 8.5 9.0 Phosphorus 2.1 L 3.5 Magnesium 1.9 1.9 Total Bilirubin 0.3 AST 16 L ALT 13 Alkaline Phosphatase 126 Total Protein 7.0 Albumin 3.4 L 3.9 Lipase 891 H 1004 H Patient Feedback: Patient satisfied with anesthetic care.
--- NOTE | 2021-11-12 11:09 | PM.DS ---
DS: Admitting Diagnosis Discharge Date 11/12/21 Admitting Diagnosis Abdominal pain DS: Discharge Diagnosis Discharge Diagnosis (1) Acute hypokalemia: Code(s): E87.6 - Hypokalemia Status: Acute (2) Acute urinary retention: Code(s): R33.8 - Other retention of urine Status: Acute (3) Dehydration: Code(s): E86.0 - Dehydration Status: Acute (4) Gastritis: Qualifiers: Gastritis type: unspecified gastritis Chronicity: chronic Gastritis bleeding: without bleeding Qualified Code(s): K29.50 - Unspecified chronic gastritis without bleeding Code(s): K29.70 - Gastritis, unspecified, without bleeding Status: Acute (5) Essential (primary) hypertension: Code(s): I10 - Essential (primary) hypertension Status: Acute (6) Peripheral artery disease: Code(s): I73.9 - Peripheral vascular disease, unspecified Status: Acute (7) Nicotine dependence, cigarettes, uncomplicated: Code(s): F17.210 - Nicotine dependence, cigarettes, uncomplicated Status: Acute (8) Elevated lipase: Code(s): R74.8 - Abnormal levels of other serum enzymes Status: Acute DS: Summary Hospital Course Reason for hospitalization: 60yo male with PAD, tobacco abuse and HTN here for abdominal pain and found to have urine retention. Please see H&P for details Hospital Course: Patient was complaining of abdominal pain in the lower abdomen and complains of pain around his lower ribcage.? CT the abdomen pelvis shows severe esophagitis, gastritis and biliary dilatation as well as urinary bladder distention. GB was mildly distended as well. EGD here is essentially normal. Pain resolved after Camacho placed. Gastritis and esophagitis ruled out. Lipase was elevated and climbed to [address] scan showed normal pancreas and patient did not have any significant abdominal pain one Camacho was placed. Plan to repeat lipase as outpatient. Patient has acute urinary retention noted by CT scan. Likely due to a combination of previously undiagnosed BPH and chronic narcotic use. Camacho placed. Abd pain resolved and most likely the etiology of his presenting symptoms. Flomax started. Patient will need follow-up with Urology at discharge. Patient had potassium of 2.0 on admission. This required frequent dosing to replace. He is not on diuretics. He does have a nongap metabolic gap acidosis. Consider RTA Type I or II. UpH 7.0. Serum bicarb 19. RTA could be from the obstructive process but the hypokalemia has been noted frequently in the past. Urine studies showing Brent 114, UK 31. Potassium level normal today. Patient has a known subcapital fracture of the left femoral neck noted by xray on 07/24/21. So this is probably some of his chronic left leg pain. CT here shows severe atherosclerotic calcifications with a fusiform dilation of the proximal abdominal aorta at 2.7 cm with intraluminal thrombus.? No dedicated vascular imaging has been done here.? Patient was to follow-up with vascular surgery as an outpatient in [place]. Encourage patient to keep his follow-up appointment with vascular surgery.?We added Lipitor; he had the perforated ulcer when on ASA so this was not started. Patient continues to smoke.? He has been educated about the benefits of smoking cessation. Patient overall did well and was able to be discharged home on 11/12/2021. Status at Discharge Cognitive/behavioral status at discharge: Stable Time Spent with Patient Time attestation: Total time spent providing and/or coordinating discharge services: 34 minutes Time spent: Greater than 30 minutes Exam Narrative: AF 97.1 158/81 72 18 100% ra Gen - NARD sitting up in bed. Chest - CTA bilaterally, nml RR CV - RRR S1/S2 Abd - Soft, NT/ND, Positive BS - Camacho secured draining clear yellow urine Ext - No right pedal edema. Left AKA. Psych - calm and cooperative. Skin - Warm and dry DS: Data Data Com
[2021-11-13 17:42] LABS: Albumin 3.1 g/dL (3.8-4.8); Alpha 1 Globulin 0.4 g/dL (0.2-0.3); Alpha 2 Globulin 0.9 g/dL (0.5-0.9); Beta 1 Globulin 0.5 g/dL (0.4-0.6); Gamma Globulin 1.1 g/dL (0.8-1.7); Protein, Total 6.4 g/dL (6.1-8.1)
[2021-11-14 07:26] LABS: Calcium/Creatinine Ratio, Ur 293 mg/g creat (10-240); Urine Calcium, Random 5.3 mg/dL (***)
[2021-11-15 14:27] LABS: SS-A <1.0; SS-B <1.0
[2021-11-15 17:30] LABS: Chloride Rand Ur 76 mmol/L (32-290); Chloride/Creatinine Rand Ur 633 (23-275); Creatinine Random Urine 12 mg/dL (20-320)
--- NOTE | 2021-11-20 08:23 | PC.NURSE ---
RUDY is negative. Ca/Cr- elevated 293. Dr. Chaney aware.
== END 2021-11-12 11:55 | disposition home or self-care (01) | DRG 726 ==
LOC: ANHED 19:12 → ANH2MED 21:55
PROVIDERS: Internal Medicine Gastroenterology; Admitting Provider Internal Medicine; Emergency Provider Emergency Medicine; PCP Family Medicine; Visit Provider Internal Medicine
PROC: 0DJ08ZZ Inspection of Upper Intestinal Tract, Via Natural or Artificial Opening Endoscopic (ICD-10-PCS; CPT 43235; principal; 2021-11-11 14:00)
DX: N40.1 Benign prostatic hyperplasia with lower urinary tract symptoms (principal); N13.30 Unspecified hydronephrosis; E87.2 Acidosis; R33.0 Drug induced retention of urine; T40.605A Adverse effect of unspecified narcotics, initial encounter; Z20.822 Contact with and (suspected) exposure to COVID-19; D64.9 Anemia, unspecified; E87.6 Hypokalemia; E86.0 Dehydration; F17.210 Nicotine dependence, cigarettes, uncomplicated; G89.29 Other chronic pain; I10 Essential (primary) hypertension; I71.4 Abdominal aortic aneurysm, without rupture; I73.9 Peripheral vascular disease, unspecified; K83.9 Disease of biliary tract, unspecified; K31.89 Other diseases of stomach and duodenum; M79.605 Pain in left leg; R74.8 Abnormal levels of other serum enzymes; R10.9 Unspecified abdominal pain; Z89.612 Acquired absence of left leg above knee; Z79.891 Long term (current) use of opiate analgesic
CPT/HCPCS: 36415; 74177; 80053; 80069; 81003; 82310; 82436; 82525; 82570; 83605; 83690; 83735; 84100; 84132; 84133; 84155; 84156; 84165; 84300; 85025; 85610; 85730; 86038; 86235; 86430; 87081; 93005; 96361; 96366; 96367; 96374; 96375; 99285; A9270; C9113; C9803; G0378; J1170; J1644; J2270; J2405; J2704; J3475; J3480; J7030; J7040; J7120; Q9967; U0003; U0005

== ENCOUNTER 2021-11-22 11:28 | Emergency (ER) | payer MEDICARE, SELFPAY ==
--- NOTE | ~2021-11-22 | XR_ITS ---
XR lumbar spine 2-3V 11/22/2021 12:07 Indication: Status post fall. Back pain. Procedure: 3 views lumbar spine Comparison: No prior studies for comparison. Findings: There is a shaped scoliosis of the thoracolumbar spine. There is degenerative disc disease and disc narrowing at L3-4 and L4-5. There is grade 1 spondylolisthesis at L5-S1. There is lower lumb ar facet hypertrophy. There is atherosclerosis of the aorta. Osteopenia. No acute fracture is identif ied. Impression: 1: No acute abnormality of the lumbar spine. 2: Moderate-severe lumbar spondylosis with scoliosis. Reviewed, dictated and finalized at location B. Impression: 1: No acute abnormality of the lumbar spine. 2: Moderate-severe lumbar spondylosis with scoliosis.
--- NOTE | ~2021-11-22 | XR_ITS ---
EXAMINATION: XR thoracic spine 3V DATE: 11/22/2021 12:08 INDICATION: Thoracic back pain TECHNIQUE: AP, lateral and lateral swimmer's views of the thoracic spine were obtained. COMPARISON: None. FINDINGS: Bone alignment is normal. There is no fracture. There is severe loss of intervertebral disc space height throughout the thoracic spine. The vertebral body heights appear normal. Small degenera tive osteophytes project from the anterior endplates of multiple vertebral bodies. IMPRESSION: 1. Severe thoracic spondylosis without acute findings. Reviewed, dictated and finalized at location A.
--- NOTE | ~2021-11-22 | XR_ITS ---
EXAMINATION: XR ribs RT 2V INDICATION: Right-sided chest pain TECHNIQUE: 3 views of the right ribs were obtained. COMPARISON: 10/06/2021 FINDINGS: There is no fracture. The visualized portions of the thorax are unremarkable. The heart siz e is normal. IMPRESSION: 1. No acute cardiopulmonary abnormality or evidence of displaced rib fracture. Reviewed, dictated and finalized at location A.
[2021-11-22 11:40] VITALS: BP 179/79; PULSE 90; RESP 18; TEMP 36.6; O2SAT 100
[2021-11-22 11:41] VITALS: BP 179/79; PULSE 90; RESP 18; TEMP 36.6; O2SAT 100
--- NOTE | 2021-11-22 11:45 | ED.FALL ---
HPI - Fall General Chief Complaint: Fall Stated Complaint: Fell getting out of tub/back pain Time Seen by Provider: 11/22/21 11:40 Source: patient Mode of arrival: ambulatory Limitations: no limitations History of Present Illness HPI Narrative: 60 y/o male presented for c/o right lower rib pain after slipping in the bathtub at 0600. Denies hitting his head or LOC. Endorses only striking the mid right back on the tub. Denies numbness, tingling or weakness of the lower extremities. He took Tylenol for pain. Rates pain 8/10, described as stabbing. Patient has Left AKA, using walker. Significant PMH including PAD, HTN. Smokes 1.5PPD. Related Data Allergies Allergy/AdvReac Type Severity Reaction Status Date / Time No Known Allergies Allergy Verified 11/22/21 11:39 Review of Systems Review of Systems: CONSTITUTIONAL: Denies body aches, fever, chills EYES: Denies visual changes CARDIOVASCULAR: Denies chest pain, palpitations, or edema. RESPIRATORY: Denies increased dyspnea. GASTROINTESTINAL: Denies abdominal pain, nausea, vomiting, or diarrhea. SKIN: Denies rash, or wounds. MUSCULOSKELETAL: Reports rib/ back pain. NEUROLOGIC: Denies headache, numbness, tingling, or weakness. All systems reviewed & are unremarkable except as noted in HPI and below PMFSH Past Medical History Medical History Abdominal aortic aneurysm (AAA) 3.0 cm to 5.5 cm in diameter in male Infrarenal abdominal aortic aneurysm measuring 3.5 cm (September/2021) Acute gastrointestinal ulcer with perforation Anemia Essential (primary) hypertension Gastritis Intra-abdominal abscess 09/05/2021 due to perforated gastric ulcer Mesothelioma Nausea and vomiting in adult Nicotine dependence, cigarettes, uncomplicated Non-STEMI (non-ST elevated myocardial infarction) Peripheral artery disease Bilateral lower extremities Surgical History Surgical History H/O arthroscopic knee surgery right History of left above knee amputation History of left knee replacement (12/2016) 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 He started smoking at age of 11 and has smoked 1.5 packs per day on average. He has got down to 1 pack per day over recent months. He denies any alcohol marijuana or illicit drugs. His is the durable power sign poster for healthcare. Code status full code Healthcare power of sign poster: Smoking packs per day: 1.5 Smoking cigarettes per day: 30.0 Years smoked: 49 Smoking pack-years: 73.50 Smoking status: Current every day smoker Tobacco type: cigarettes Alcohol intake: former Alcohol use details: He drank heavily for about 12 years but quit drinking alcohol in his late 30s. Substance use: never Substance use type: does not use Additional living arrangements comments: He and his have been since 1980. Gender identity (if verbalized by the patient): Male Spiritual care concerns: No Comments At time of signature, I have reviewed and agree with nursing past medical, surgical, social and family history unless otherwise noted. Please see nursing chart for further information. There is no relevant family history pertinent to the presenting complaint Exam Narrative: GENERAL: Well-appearing, well-nourished, and in no acute distress. HEAD: Normocephalic, a
--- NOTE | 2021-11-22 12:34 | PC.NURSE ---
PT IS AWAITING XRAY RESULTS AT THIS TIME. PT IS SITTING IN EXAM ROOM WITH AT SIDE. WILL CONTINUE TO MONITOR.
[2021-11-22 13:30] VITALS: BP 168/75; PULSE 88; RESP 18; TEMP 36.7; O2SAT 98
== END 2021-11-22 13:30 | disposition home or self-care (01) ==
PROVIDERS: Emergency Provider Nurse Practitioner Family
DX: S20.221A Contusion of right back wall of thorax, initial encounter (principal); W18.2XXA Fall in (into) shower or empty bathtub, initial encounter; I73.9 Peripheral vascular disease, unspecified; I10 Essential (primary) hypertension; F17.210 Nicotine dependence, cigarettes, uncomplicated; I25.2 Old myocardial infarction; C45.9 Mesothelioma, unspecified; Z89.612 Acquired absence of left leg above knee; Z86.14 Personal history of Methicillin resistant Staphylococcus aureus infection
CPT/HCPCS: 71100; 72072; 72100; 99214; G0463

== ENCOUNTER 2022-01-31 10:39 | Emergency (ER) | payer MEDICARE, SELFPAY ==
[2022-01-31 10:55] VITALS: BP 172/86; PULSE 109; RESP 22; TEMP 37.6; O2SAT 100
--- NOTE | 2022-01-31 11:29 | ED.GENADULT ---
HPI - General Adult General Chief complaint: Extremity Injury, Upper Stated complaint: lt shoulder injury Time Seen by Provider: 01/31/22 11:20 Source: patient, RN notes reviewed and old records reviewed Mode of arrival: ambulatory (with walker) Limitations: no limitations History of Present Illness HPI narrative: 61-year-old male [facility] accompanied by with increased discomfort to his left shoulder since Thursday when his arm slipped off the table and he felt something tear in it. Patient walks with a walker and he has had a left above the knee amputation. Patient reports that he has a torn rotator cuff in his shoulder and he does have appointment with orthopedics on . He states that he called his primary doctor and was ordered Tramadol and that does nothing. reports that they have tried topical ointment like Voltaren and lidocaine but no improvement. complaint: left shoulder pain Onset (ago): day(s) (6) Severity scale (1-10): 9 Treatments prior to arrival: aspirin and other (topical ointments tried Tramadol also) Related Data Allergies Allergy/AdvReac Type Severity Reaction Status Date / Time No Known Allergies Allergy Verified 01/31/22 11:16 Review of Systems Review of Systems: CONSTITUTIONAL: Denies fever, chills, or sweats. EYES: Denies visual changes, redness, or discharge. ENT: Denies rhinorrhea, congestion, sore throat, or otalgia. CARDIOVASCULAR: Denies chest pain, palpitations, or edema. RESPIRATORY: Denies cough or dyspnea. GASTROINTESTINAL: Denies abdominal pain, nausea, vomiting, or diarrhea. GENITOURINARY: Denies dysuria or hematuria. SKIN: Denies rash or itching. MUSCULOSKELETAL: Denies back pain,positive for left shoulder joint pain, or myalgia. NEUROLOGIC: Denies headache, numbness, or weakness. PSYCHIATRIC: Positive for anxiety or depression, is irritable. All systems reviewed & are unremarkable except as noted in HPI and below PMFSH Past Medical History Medical History Abdominal aortic aneurysm (AAA) 3.0 cm to 5.5 cm in diameter in male Infrarenal abdominal aortic aneurysm measuring 3.5 cm (September/2021) Acute gastrointestinal ulcer with perforation Anemia Essential (primary) hypertension Gastritis Intra-abdominal abscess 09/05/2021 due to perforated gastric ulcer Mesothelioma Nausea and vomiting in adult Nicotine dependence, cigarettes, uncomplicated Non-STEMI (non-ST elevated myocardial infarction) Peripheral artery disease Bilateral lower extremities Surgical History Surgical History H/O arthroscopic knee surgery right History of left above knee amputation History of left knee replacement (12/2016) 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 He started smoking at age of 11 and has smoked 1.5 packs per day on average. He has got down to 1 pack per day over recent months. He denies any alcohol marijuana or illicit drugs. His is the durable power insurance defense attorney for healthcare. Code status full code Healthcare power of insurance defense attorney: Smoking packs per day: 1.5 Smoking cigarettes per day: 30.0 Years smoked: 49 Smoking pack-years: 73.50 Smoking status: Current every day smoker Tobacco type: cigarettes Alcohol intake: former Alcohol use details: He drank heavily for about 12 years but quit drinki
== END 2022-01-31 11:54 | disposition home or self-care (01) ==
PROVIDERS: Emergency Provider Registered Nurse; PCP Family Medicine
DX: M25.512 Pain in left shoulder (principal); F17.210 Nicotine dependence, cigarettes, uncomplicated; I10 Essential (primary) hypertension; I73.9 Peripheral vascular disease, unspecified; I25.2 Old myocardial infarction
CPT/HCPCS: 99213; G0463

== ENCOUNTER 2022-05-22 12:06 | Emergency (ER) | payer MEDICARE, SELFPAY ==
--- NOTE | ~2022-05-22 | XR_ITS ---
XR_CERV2-3V_CR DATE: 05/22/2022 14:31 INDICATION: Neck pain radiating down the spine TECHNIQUE: AP, open-mouth, odontoid, lateral and swimmer views COMPARISON: None FINDINGS: There is reversal of mid to lower cervical curvature. C1 and C2 are normally aligned and the odontoid process is intact. No fracture or dislocation or lock ed facet or prevertebral soft tissue swelling is detected. There is 2 mm anterolisthesis at C3-4. There is moderately severe degenerative disc disease at C4-5. There is severe degenerative disc disease at C5-6 and C6-7. There is degenerative change at the apophyseal joints throughout the cervical spine. There is uncovertebral joint spurring of the mid and particularly lower cervical spine. IMPRESSION: Reversal of the mid to lower cervical curvature 2 mm anterolisthesis at C3-4 Severe cervical spondylosis including: Moderately severe to severe degenerative disc disease of the mid and lower cervical spine Degenerative change of the apophyseal joints and mid to lower cervical uncovertebral joints Reviewed, dictated and finalized at Location A. Reviewed, dictated and finalized at location L. IMPRESSION: Reversal of the mid to lower cervical curvature 2 mm anterolisthesis at C3-4 Severe cervical spondylosis including: Moderately severe to severe degenerative disc disease of the mid and lower ce rvical spine Degenerative change of the apophyseal joints and mid to lower cervical uncove rtebral joints
--- NOTE | ~2022-05-22 | XR_ITS ---
EXAMINATION: XR lumbar spine 2-3V DATE: 05/22/2022 15:16 INDICATION: Low back pain. TECHNIQUE: 3 views of lumbar spine were obtained. COMPARISON: Lumbar spine radiographs 11/22/2021 FINDINGS: There is dextroscoliosis of thoracolumbar spine. There is mild chronic anterior wedging of T10 and T11 vertebral bodies. There is severely decreased disc height at L3-L4 and L4-L5 with endplat e remodeling. There is multilevel facet joint osteoarthritis, severe in lower lumbar spine. IMPRESSION: 1. Severe lumbar spondylosis. 2. Thoracolumbar dextroscoliosis. Reviewed, dictated and finalized at location A.
[2022-05-22 12:10] VITALS: BP 149/101; PULSE 105; RESP 16; TEMP 37.2; O2SAT 98
--- NOTE | 2022-05-22 13:25 | ED.BACK ---
HPI - Back Pain/Injury General Chief Complaint: Back Pain/Injury Stated Complaint: back pain Time Seen by Provider: 05/22/22 13:12 History of Present Illness HPI Narrative: 61-year-old male presents to the emergency room for evaluation of atraumatic cervical neck pain. States that he woke up 3 days ago with neck pain progressively gotten worse over the past couple of days. Has been taking Tylenol and placing a Voltaren gel with no relief or improvement of his symptoms. States pain is worse when he rotates and when he bends his neck. No difficulty swallowing or shortness of breath. Related Data Allergies Allergy/AdvReac Type Severity Reaction Status Date / Time No Known Allergies Allergy Verified 05/22/22 13:11 Review of Systems Review of Systems: CONSTITUTIONAL: Denies fever, chills, or sweats. EYES: Denies visual changes, redness, or discharge. ENT: Denies rhinorrhea, congestion, sore throat, or otalgia. CARDIOVASCULAR: Denies chest pain, palpitations, or edema. RESPIRATORY: Denies cough or dyspnea. GASTROINTESTINAL: Denies abdominal pain, nausea, vomiting, or diarrhea. GENITOURINARY: Denies dysuria or hematuria. SKIN: Denies rash or itching. MUSCULOSKELETAL: Reports neck pain per HPI NEUROLOGIC: Denies headache, numbness, dizziness, or weakness. PSYCHIATRIC: Denies anxiety or depression. [facility] Past Medical History Medical History Abdominal aortic aneurysm (AAA) 3.0 cm to 5.5 cm in diameter in male Infrarenal abdominal aortic aneurysm measuring 3.5 cm (September/2021) Acute gastrointestinal ulcer with perforation Anemia Essential (primary) hypertension Gastritis Intra-abdominal abscess 09/05/2021 due to perforated gastric ulcer Mesothelioma Nausea and vomiting in adult Nicotine dependence, cigarettes, uncomplicated Non-STEMI (non-ST elevated myocardial infarction) Peripheral artery disease Bilateral lower extremities Surgical History Surgical History H/O arthroscopic knee surgery right History of left above knee amputation History of left knee replacement (12/2016) 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 He started smoking at age of 11 and has smoked 1.5 packs per day on average. He has got down to 1 pack per day over recent months. He denies any alcohol marijuana or illicit drugs. His is the durable power deputy attorney general for healthcare. Code status full code Healthcare power of deputy attorney general: Smoking packs per day: 1.5 Smoking cigarettes per day: 30.0 Years smoked: 49 Smoking pack-years: 73.50 Smoking status: Current every day smoker Tobacco type: cigarettes Alcohol intake: former Alcohol use details: He drank heavily for about 12 years but quit drinking alcohol in his late 30s. Substance use: never Substance use type: does not use Living arrangements: with family Additional living arrangements comments: He and his have been since 1980. Gender identity (if verbalized by the patient): Male Spiritual care concerns: No Exam Narrative: GENERAL: Well-appearing, well-nourished, no physical limitations, and in no acute distress. HEAD: Normocephalic, atraumatic. EYES: Conjunctivae normal, PERRLA and EOMI. CHEST: Clear to auscultation. No respiratory distress. No wheezes rales or rhonchi. HEART: Regular rate and rhyt
[2022-05-22] MEDS: diazePAM INJ (*CRX) 10 MG/2 ML SYRINGE 5 MG IV PUSH (13:38)
[2022-05-22] MEDS: KETOROLAC 30 MG/ML VIAL (*BKC) IV PUSH (13:38)
[2022-05-22 15:11] LABS: Anion Gap 10 mmol/L (8-16); Blood Urea Nitrogen 9 mg/dL (9-20); Carbon Dioxide 21 mmol/L (22-30); Chloride 103 mmol/L (98-107); Estimated CRCL calculation 84 ml/min; Estimated Glomerular Filt Rate > 60; Glucose 113 mg/dL (65-110); Potassium 3.8 mmol/L (3.4-5.0); Sodium 134 mmol/L (137-145)
[2022-05-22 16:06] VITALS: BP 122/74; PULSE 80; RESP 16; O2SAT 100
== END 2022-05-22 16:07 | disposition home or self-care (01) ==
PROVIDERS: Emergency Provider Nurse Practitioner Family; PCP Family Medicine
DX: S16.1XXA Strain of muscle, fascia and tendon at neck level, initial encounter (principal); M54.50 Low back pain, unspecified; I10 Essential (primary) hypertension; I25.2 Old myocardial infarction; I73.9 Peripheral vascular disease, unspecified; I71.43 Infrarenal abdominal aortic aneurysm, without rupture; F17.210 Nicotine dependence, cigarettes, uncomplicated; Z86.2 Personal history of diseases of the blood and blood-forming organs and certain disorders involving the immune mechanism; Z86.14 Personal history of Methicillin resistant Staphylococcus aureus infection; Z89.612 Acquired absence of left leg above knee; M50.321 Other cervical disc degeneration at C4-C5 level; M47.816 Spondylosis without myelopathy or radiculopathy, lumbar region; X58.XXXA Exposure to other specified factors, initial encounter
CPT/HCPCS: 36415; 72040; 72100; 80048; 96374; 96375; 99284; J1885; J3360

== ENCOUNTER 2022-10-23 19:54 | Inpatient (IN) | payer MEDICARE, SELFPAY ==
--- NOTE | ~2022-10-23 | CT_ITS ---
EXAMINATION: CTA chest PE protocol DATE: 10/23/2022 22:27 INDICATION: Dyspnea. TECHNIQUE: Computed tomography angiography (CTA) of the chest was performed with 100 mL Omnipaque-350 intravenous contrast timed to evaluate the pulmonary arteries. Coronal maximum intensity projection 3D-reconstructions were created by the technologist. Automated exposure control and iterative reconst ruction technique were employed. The dose-length product was 282.62 mGy-cm. COMPARISON: CT abdomen and pelvis 11/09/2021 FINDINGS: There is mild emphysema. There are patchy groundglass opacities in all lobes. There is mild atelectasis bilaterally. No pleural effusion. The heart size is normal. No pericardial effusion. The re are coronary artery calcifications. There is mucous plugging in the lower lobes. There is calcifie d atherosclerosis of the aorta and many of the other arteries. Partially visualized is an abdominal a ortic aneurysm measuring at least 3.4 cm. There is severe cervical and thoracic spondylosis. There is mild chronic anterior wedging of multiple vertebral bodies. IMPRESSION: 1. No pulmonary embolus. 2. Multifocal lung disease, consistent with pneumonia. 3. Mild emphysema. 4. Partially visualized abdominal aortic aneurysm measuring at least 3.4 cm . Reviewed, dictated and finalized at location E.
--- NOTE | ~2022-10-23 | XR_ITS ---
EXAMINATION: XR chest 1V portable DATE: 10/23/2022 20:42 INDICATION: Shortness of breath. TECHNIQUE: A single frontal view of the chest was obtained. COMPARISON: Chest 2 views 10/06/2021 FINDINGS: There is mild atelectasis in the lower lung zones. No pleural effusion or pneumothorax. The heart size is normal. IMPRESSION: 1. Mild atelectasis in the lower lung zones. Reviewed, dictated and finalized at location E.
[2022-10-23 19:59] VITALS: BP 144/74; PULSE 104; RESP 14; TEMP 36.9; O2SAT 85
[2022-10-23 20:05] VITALS: O2SAT 93
--- NOTE | 2022-10-23 20:10 | ECG_ITS ---
Measurements Intervals [place] Rate: 102 P: 28 CO: 148 QRS: 16 QRSD: 80 T: 118 QT: 310 QTc: 404 Interpretive Statements SINUS TACHYCARDIA POSSIBLE LEFT ATRIAL ENLARGEMENT NONSPECIFIC ST & T-WAVE ABNORMALITY- DIFFUSE LEADS BASELINE ARTIFACT- I, III, AVR, AVL, AVF, V4-V5 BORDERLINE ECG COMPARED TO ECG 11/09/2021 20:35:03 SINUS TACHYCARDIA NOW PRESENT Electronically Signed On 10-24-2022 6:46:12 CDT by Red Hylton D.O.
[2022-10-23 20:28] LABS: Basophils Absolute Auto 0.1 K/mm3 (0.0-0.1); Basophils Percent Auto 0.9 % (0.2-1.2); Eosinophils Absolute Auto 0.1 K/mm3 (0-0.3); Eosinophils Percent Auto 0.7 % (0-4.4); Hematocrit 33.4 % (42.0-52.0); Hemoglobin 10.6 g/dL (14.0-18.0); Immature Granulocyte Absolute 0.04 K/mm3 (0.00-0.031); Immature Granulocyte Percent A 0.4 % (0-0.5); Lymphocytes Absolute Auto 1.27 K/mm3 (0.9-3.2); Lymphocytes Percent Auto 12.7 % (18.3-44.2); Mean Corpuscular HGB Conc 31.7 g/dl (32-36); Mean Corpuscular Hemoglobin 27.7 pg (26-34); Mean Corpuscular Volume 87.4 fl (80-100); Mean Platelet Volume 9.4 fl (7.4-10.4); Monocytes Absolute Auto 0.6 K/mm3 (0.1-0.6); Monocytes Percent Auto 5.7 % (2.6-8.5); Neutrophils Absolute Auto 7.9 K/mm3 (1.3-6.7); Neutrophils Percent Auto 79.6 % (45.5-73.1); Platelet Count Result 372 k/mm3 (150-375); Red Blood Count 3.82 M/mm3 (4.6-6.20); Red Cell Distribution Width 15.5 % (11.5-14.5)
[2022-10-23 20:40] LABS: Prothrombin Time 13.7 Seconds (11.1-14.7)
[2022-10-23 20:41] LABS: Partial Thromboplastin Time 48.7 SECONDS (22.3-36.8)
[2022-10-23 20:42] LABS: Alanine Aminotransferase 11 U/L (6-50); Albumin Level 4.1 g/dL (3.5-5.1); Alkaline Phosphatase 77 U/L (38-126); Anion Gap 8 mmol/L (8-16); Aspartate Amino Transferase 21 U/L (17-59); Bilirubin,Total 0.4 mg/dL (0.2-1.3); Blood Urea Nitrogen 17 mg/dL (9-20); Calcium 8.8 mg/dL (8.4-10.2); Carbon Dioxide 25 mmol/L (22-30); Chloride 102 mmol/L (98-107); Estimated CRCL calculation 59 ml/min; Estimated Glomerular Filt Rate > 60; Glucose 138 mg/dL (65-110); Magnesium 2.2 mg/dL (1.6-2.3); Potassium 4.1 mmol/L (3.4-5.0); Sodium 135 mmol/L (137-145)
[2022-10-23 20:53] LABS: NT Pro B Type Natriuretic Pept 1810 pg/mL (19.9-100); Troponin I 0.031 ng/mL (0.000-0.034)
[2022-10-23 21:05] LABS: Influenza A QL RT-PCR Negative (Negative); Influenza B QL RT-PCR Negative (Negative); SARS-CoV-2 RNA PCR Negative (Negative)
[2022-10-23] MEDS: ALBUTEROL SULFATE NEB 2.5 MG/3 ML INH INHALATION (21:16)
[2022-10-23] MEDS: IPRATROPIUM BR 0.02% INH SOLN 0.5 MG/2.5 ML VIAL INHALATION (21:17)
[2022-10-23 21:24] VITALS: PULSE 95; RESP 18
[2022-10-23 21:27] VITALS: BP 138/72; PULSE 90; RESP 14; O2SAT 95
[2022-10-23 21:28] LABS: Alveolar/Arterial O2 Gradient 119.7 mmHg; Base Excess ABG -0.8 mEq/l (+/-2.0); Fractional Inspired Oxygen 32 %; HCO3 ABG 25.6 mEq/l (22.0-26.0); Oxygen Content ABG 14.3 %vol (16.0-22.0); PCO2 ABG 49.8 mmHg (35.0-45.0); PO2 ABG 50.2 mmHg (80.0-100.0); PO2 FiO2 Ratio Arterial Blood 1.57 %; Total Hemoglobin 12.6 g/dL (12.0-18.0); pH ABG 7.329 (7.350-7.450)
[2022-10-23 21:29] LABS: Device NASAL CANNULA; Modified Allen's Test Pass; Site Drawn RIGHT RADIAL
[2022-10-23 21:32] LABS: Oxygen Saturation ABG 82.5 % (95.0-100.0)
[2022-10-23 21:33] LABS: Oxyhemoglobin 80.7 % THb (90.0-100.0)
[2022-10-23 21:37] VITALS: PULSE 101; RESP 19
--- NOTE | 2022-10-23 22:25 | ED.GENADULT ---
HPI - General Adult General Chief complaint: Unspecified Stated complaint: sob Time Seen by Provider: 10/23/22 20:04 History of Present Illness HPI narrative: Patient is 61-year-old gentleman who presents the emergency department with chief complaint of shortness of breath and generalized body aches. Patient reports that today he called EMS that he has been reported coughing at home and reports that he has had no fever although EMS reported that he had a low-grade temp of 99. Patient reports he smokes 2 packs a day but has never been diagnosed with COPD the patient reports that he is not on home oxygen EMS found the patient to be saturating in the mid 80s off of oxygen Related Data Allergies Allergy/AdvReac Type Severity Reaction Status Date / Time No Known Allergies Allergy Verified 10/23/22 20:09 Review of Systems Review of Systems: A 10 system review of systems was completed on the patient and is negative except for what is stated in the HPI. Nursing and ancillary documentation was reviewed. [facility] Past Medical History Medical History Abdominal aortic aneurysm (AAA) 3.0 cm to 5.5 cm in diameter in male Infrarenal abdominal aortic aneurysm measuring 3.5 cm (September/2021) Acute gastrointestinal ulcer with perforation Anemia Essential (primary) hypertension Gastritis Intra-abdominal abscess 09/05/2021 due to perforated gastric ulcer Mesothelioma Nausea and vomiting in adult Nicotine dependence, cigarettes, uncomplicated Non-STEMI (non-ST elevated myocardial infarction) Peripheral artery disease Bilateral lower extremities Surgical History Surgical History H/O arthroscopic knee surgery right History of left above knee amputation History of left knee replacement (12/2016) 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 He started smoking at age of 11 and has smoked 1.5 packs per day on average. He has got down to 1 pack per day over recent months. He denies any alcohol marijuana or illicit drugs. His is the durable power sports attorney for healthcare. Code status full code Healthcare power of sports attorney: Smoking packs per day: 1.5 Smoking cigarettes per day: 30.0 Years smoked: 49 Smoking pack-years: 73.50 Smoking status: Current every day smoker Tobacco type: cigarettes Alcohol intake: former Alcohol use details: He drank heavily for about 12 years but quit drinking alcohol in his late 30s. Substance use: never Substance use type: does not use Living arrangements: with family Additional living arrangements comments: He and his have been since 1980. Gender identity (if verbalized by the patient): Male Spiritual care concerns: No Exam Narrative: GENERAL: Well-appearing, well-nourished, and in no acute distress. HEAD: Normocephalic, atraumatic. EYES: PERRLA and EOMI. ENT: Nares clear, no rhinorrhea or epistaxis. Mucous membranes moist. NECK: Supple. CHEST: Clear to auscultation. No respiratory distress. HEART: Regular rate and rhythm. No murmur heard. Normal peripheral pulses. ABDOMEN: Soft, nontender, nondistended, normal active bowel sounds. EXTREMITIES: Normal range of motion. Amputation of left lower extremity no edema. SKIN: Warm, dry, no rash. NEURO: No focal deficits. Alert
[2022-10-23 22:26] LABS: Procalcitonin 0.5 ng/mL
--- NOTE | 2022-10-23 23:16 | PM.IMHP ---
H&P: HPI History of Present Illness Date/Time: 10/23/22 23:16 Chief Complaint: Patient came to the ER for evaluation with complaints of cough with sputum, shortness of breath and generalized body aches and pains for last few days Narrative: He is a very unfortunate patient who is a 2 pack-a-day chronic smoker who is complaining of cough with phlegm, shortness of breath, generalized aches and pains and weakness tiredness and fatigue for the last few days. He called EMSwho came to evaluate him in his home. He was coughing at home and had low-grade fever. He wasl brought to the ER for evaluation. Enroute to the ED, he was satting in mid 80s which improved with oxygen. Workup was done in the ER which showed multifocal or lung disease on CT of chest consistent with pneumonia. He is being admitted for IV antibiotics and medical management. Review of Systems Review of Systems: All systems reviewed & are unremarkable except as noted in HPI and below PMFSH Past Medical History Medical History (Updated 10/24/22 @ 01:18 by Bradley Buck MD) Abdominal aortic aneurysm (AAA) 3.0 cm to 5.5 cm in diameter in male Infrarenal abdominal aortic aneurysm measuring 3.5 cm (September/2021) Acute gastrointestinal ulcer with perforation Anemia Essential (primary) hypertension Gastritis Intra-abdominal abscess 09/05/2021 due to perforated gastric ulcer Mesothelioma Nausea and vomiting in adult Nicotine dependence, cigarettes, uncomplicated Non-STEMI (non-ST elevated myocardial infarction) Peripheral artery disease Bilateral lower extremities Tobacco abuse counseling Surgical History Surgical History H/O arthroscopic knee surgery right History of left above knee amputation History of left knee replacement (12/2016) 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 He started smoking at age of 11 and has smoked 1.5 packs per day on average. He has got down to 1 pack per day over recent months. He denies any alcohol marijuana or illicit drugs. His is the durable power office machines teacher for healthcare. Code status full code Healthcare power of office machines teacher: Smoking packs per day: 1.5 Smoking cigarettes per day: 30.0 Years smoked: 49 Smoking pack-years: 73.50 Smoking status: Current every day smoker Tobacco type: cigarettes Alcohol intake: former Alcohol use details: He drank heavily for about 12 years but quit drinking alcohol in his late 30s. Substance use: never Substance use type: does not use Living arrangements: with family Additional living arrangements comments: He and his have been since 1980. Gender identity (if verbalized by the patient): Male Spiritual care concerns: No Meds Home Medications and Allergies Home Medications Medication Instructions Recorded Confirmed Type atorvastatin 20 mg tablet 20 mg PO DAILY #30 tabs 11/12/21 06/24/22 Rx tamsulosin 0.4 mg capsule 0.4 mg PO QAM #30 caps 11/12/21 06/24/22 Rx acetaminophen 650 mg 650 mg PO Q12H PRN pain #30 tabs 11/22/21 06/24/22 Rx tablet,extended release (Tylenol Arthritis Pain) metoprolol tartrate 25 mg tablet 12.5 mg PO BID 30 days #30 tabs 05/28/22 06/24/22 Rx amlodipine 10 mg tablet 10 mg PO DAILY #90 tabs 07/18/22 Rx gabapentin 300 mg capsule 300 mg PO TID #270 caps 10/20/22 Rx hydrocodone 7.5 mg-acetaminophen 1 tablet PO BID PRN pain #60 tabs 09/24
[2022-10-23] MEDS: AZITHROMYCIN 500 MG/NS 250 ML 500 MG/250 ML BAG 250 MG IVPB (23:30)
[2022-10-23 23:31] VITALS: BP 142/66; PULSE 108; RESP 15; O2SAT 94
[2022-10-23 23:52] LABS: Appearance Urine Clear (Clear); Bacteria Urine None Seen /hpf; Bilirubin Urine Negative (Negative); Blood Urine Negative (Negative); Color Urine Yellow (Yellow); Glucose Urine UA Negative (Negative); Ketones Urine Negative (Negative); Leukocyte Esterase Ur Negative LEU/UL (Negative); Nitrate Urine Negative (Negative); Non Pathogenic Casts 0-2; Protein Urine Trace mg/dL (Negative); RBC Urine 0-2 /hpf (0-2); Squamous Epithelial Cell Urine None seen /hpf (Few); Urobilinogen Urine 0.2 mg/dL (<2.0); WBC Urine 0-5 /hpf
[2022-10-23 23:55] LABS: Specific Grav Ur 1.059 (1.001-1.035)
[2022-10-23 23:56] LABS: Add Urine Microscopic? YES
[2022-10-24] VITALS (18 sets, daily range): BP systolic 146–179; BP diastolic 70–96; PULSE 87–102; RESP 18–20; TEMP 35.9–36.8; O2SAT 92–98
[2022-10-24] MEDS: MORPHINE SULFATE (*CRX) 2 MG/ML INJ IV PUSH (00:07)
[2022-10-24 00:25] LABS: Troponin I 0.031 ng/mL (0.000-0.034)
[2022-10-24] MEDS: IPRATROPIUM BR 0.02% INH SOLN 0.5 MG/2.5 ML VIAL INHALATION ×4 (02:17→21:23)
[2022-10-24] MEDS: ALBUTEROL SULFATE NEB 2.5 MG/3 ML INH INHALATION ×4 (02:17→21:24)
[2022-10-24] MEDS: HYDROcodone/acetaminophen (*CRX) 7.5-325 MG TABLET 1 TAB PO ×3 (04:09→19:44)
[2022-10-24 06:24] LABS: Basophils Percent Auto 0.2 % (0.2-1.2); Hematocrit 32.2 % (42.0-52.0); Hemoglobin 10.2 g/dL (14.0-18.0); Immature Granulocyte Absolute 0.03 K/mm3 (0.00-0.031); Immature Granulocyte Percent A 0.5 % (0-0.5); Lymphocytes Absolute Auto 0.28 K/mm3 (0.9-3.2); Lymphocytes Percent Auto 4.7 % (18.3-44.2); Mean Corpuscular HGB Conc 31.7 g/dl (32-36); Mean Corpuscular Hemoglobin 27.7 pg (26-34); Mean Corpuscular Volume 87.5 fl (80-100); Mean Platelet Volume 10.1 fl (7.4-10.4); Monocytes Absolute Auto 0.1 K/mm3 (0.1-0.6); Monocytes Percent Auto 0.8 % (2.6-8.5); Neutrophils Absolute Auto 5.7 K/mm3 (1.3-6.7); Neutrophils Percent Auto 93.8 % (45.5-73.1); Platelet Count Result 373 k/mm3 (150-375); Red Blood Count 3.68 M/mm3 (4.6-6.20); Red Cell Distribution Width 15.4 % (11.5-14.5)
[2022-10-24 06:34] LABS: Anion Gap 10 mmol/L (8-16); Blood Urea Nitrogen 14 mg/dL (9-20); Calcium 8.7 mg/dL (8.4-10.2); Carbon Dioxide 22 mmol/L (22-30); Chloride 104 mmol/L (98-107); Estimated CRCL calculation 68 ml/min; Estimated Glomerular Filt Rate > 60; Glucose 174 mg/dL (65-110); Sodium 136 mmol/L (137-145)
[2022-10-24] MEDS: TAMSULOSIN HCL 0.4 MG CAPSULE PO (09:00)
[2022-10-24] MEDS: GABAPENTIN 300 MG CAPSULE PO ×3 (09:00→16:36)
[2022-10-24] MEDS: METOPROLOL TARTRATE 12.5 MG TABLET PO ×2 (09:00→16:36)
[2022-10-24] MEDS: amLODIPine BESYLATE 5 MG TABLET 10 MG PO (09:00)
--- NOTE | 2022-10-24 09:29 | PM.IMPN ---
Progress Note: A&P Assessment and Plan (1) Community acquired pneumonia: Code(s): J18.9 - Pneumonia, unspecified organism Status: Acute Assessment and Plan: Multifocal pneumonia. IV ceftriaxone and azithromycin. Requires supplemental oxygenation at this time. (2) Nicotine dependence, cigarettes, uncomplicated: Code(s): F17.210 - Nicotine dependence, cigarettes, uncomplicated Status: Acute Assessment and Plan: Nicotine patch available and tobacco cessation discussed with patient (3) Peripheral artery disease: Code(s): I73.9 - Peripheral vascular disease, unspecified Status: Acute Assessment and Plan: Chronic pain associated with peripheral vascular disease on hydrocodone chronically. Prior left [id number] amputation due to nonhealing infection related to peripheral vascular disease. (4) Mesothelioma: Code(s): C45.9 - Mesothelioma, unspecified Status: Acute Assessment and Plan: Underlying chronic disorder. (5) History of left above knee amputation: Code(s): Z89.612 - Acquired absence of left leg above knee Status: Acute Assessment and Plan: See 3. Time Spent With Patient Time with patient: 25 - 35 minutes Subjective Date/time seen: 10/24/22 09:29 Interval history: This is a 61-year-old male patient presented with complaints of cough and shortness of breath worsening the last 1. Patient found to be hypoxic start on nasal cannula oxygenation. This had to be up titrated to 4 L due to continued hypoxemia on ABG. Since admission this has been titrated down to 2 liters/minute and patient appears stable at this time. He is on IV antibiotics azithromycin and ceftriaxone. Review of Systems Review of Systems: All systems reviewed & are unremarkable except as noted in HPI and below Exam Narrative: Head/eyes: Atraumatic, EOMI, PERRLA ENT: Moist mucous membranes, nasal passages clear Neck: Supple, full range of motion, trachea midline CVS: S1 + S2 normal, regular rate and rhythm, no murmurs Respiratory: Bilaterally decreased air entry in both lungs, mild B/L crackles, symmetric chest expansion, + mild bilateral scattered rhonchi, +mild wheezing Abdomen: Soft, non-tender, bowel sounds normoactive, no organomegaly Extremities: No clubbing, no cyanosis, no edema, no calf tenderness Musculoskeletal: + left above-knee amputation, Moves right leg, adequate range of motion right leg, no muscle spasms Skin: Warm, dry, no jaundice, no cyanosis Neurological: Awake, alert, oriented x 3, cranial nerves II-XII intact, no focal neurological deficits Psychiatric: Normal mood, normal affect Objective Data Vital Signs Vital Signs: Vital Signs - 24 hr 10/23/22 19:59 10/23/22 21:24 10/23/22 21:37 Temperature 36.9 C Pulse Rate 104 H 95 101 H Respiratory Rate 14 18 19 Blood Pressure 144/74 H Pulse Oximetry 85 L Oxygen Delivery Room Air Oxygen Flow Rate 10/23/22 21:27 10/23/22 20:05 10/23/22 23:31 Temperature Pulse Rate 90 108 H Respiratory Rate 14 15 Blood Pressure 138/72 142/66 H Pulse Oximetry 95 93 94 Oxygen Delivery Nasal Cannula Oxygen Flow Rate 4 10/24/22 02:18 10/24/22 02:25 10/24/22 03:00 Temperature Pulse Rate 94 96 Respiratory Rate 18 18 Blood Pressure Pulse Oximetry 94 Oxygen Delivery Nasal Cannula Oxygen Flow Rate 4 10/24/22 04:00 10/24/22 07:29 10/24/22 07:29 Temperature 36.8 C Pulse Rate 90 90 Respiratory Rate 18 18 Blood Pressure 146/71 H Pulse Oximetry 94 97 Oxygen Delivery Nasal Cannula Oxygen Flow Rate 5 10/24/22 07:50 10/24/22 07:40 10/24/22 08:18 Temperature 36.8 C Pulse Rate 92 100 Respiratory Rate 18 20 Blood Pressure 166/73 H Pulse Oximetry 93 95 Oxygen Delivery Nasal Cannula Oxygen Flow Rate 3 10/24/22 08:47 Temperature Pulse Rate Respiratory Rate Blood Pressure Pulse Oximetry 93 Oxygen Delivery Nasal Cannul
[2022-10-24] MEDS: ENOXAPARIN 40 MG/0.4 ML SYRINGE SUB-Q (11:18)
[2022-10-24] MEDS: AZITHROMYCIN 500 MG/NS 250 ML 500 MG/250 ML BAG 250 MG IVPB (21:00)
[2022-10-24] MEDS: LOSARTAN POTASSIUM 50 MG TABLET PO (21:58)
[2022-10-25] VITALS (9 sets, daily range): BP systolic 142–158; BP diastolic 62–86; PULSE 84–95; RESP 18–20; TEMP 36–36.7; O2SAT 94–97
[2022-10-25] MEDS: IPRATROPIUM BR 0.02% INH SOLN 0.5 MG/2.5 ML VIAL INHALATION ×3 (02:31→13:01)
[2022-10-25] MEDS: ALBUTEROL SULFATE NEB 2.5 MG/3 ML INH INHALATION ×3 (02:31→13:01)
[2022-10-25] MEDS: HYDROcodone/acetaminophen (*CRX) 7.5-325 MG TABLET 1 TAB PO (06:24)
[2022-10-25 07:25] LABS: Basophils Absolute Auto 0.1 K/mm3 (0.0-0.1); Basophils Percent Auto 0.4 % (0.2-1.2); Eosinophils Percent Auto 0.3 % (0-4.4); Hematocrit 36.8 % (42.0-52.0); Hemoglobin 11.9 g/dL (14.0-18.0); Immature Granulocyte Absolute 0.07 K/mm3 (0.00-0.031); Immature Granulocyte Percent A 0.5 % (0-0.5); Lymphocytes Absolute Auto 1.59 K/mm3 (0.9-3.2); Lymphocytes Percent Auto 11.3 % (18.3-44.2); Mean Corpuscular HGB Conc 32.3 g/dl (32-36); Mean Corpuscular Hemoglobin 27.5 pg (26-34); Mean Platelet Volume 9.7 fl (7.4-10.4); Monocytes Absolute Auto 0.7 K/mm3 (0.1-0.6); Neutrophils Absolute Auto 11.6 K/mm3 (1.3-6.7); Neutrophils Percent Auto 82.5 % (45.5-73.1); Platelet Count Result 541 k/mm3 (150-375); Red Blood Count 4.33 M/mm3 (4.6-6.20); Red Cell Distribution Width 15.2 % (11.5-14.5); White Blood Count 14.1 K/mm3 (4.5-10.0)
[2022-10-25 07:37] LABS: Anion Gap 10 mmol/L (8-16); Blood Urea Nitrogen 10 mg/dL (9-20); Carbon Dioxide 25 mmol/L (22-30); Chloride 104 mmol/L (98-107); Estimated CRCL calculation 68 ml/min; Estimated Glomerular Filt Rate > 60; Glucose 163 mg/dL (65-110); Magnesium 2.3 mg/dL (1.6-2.3); Phosphorus 3.2 mg/dL (2.5-4.5); Potassium 3.3 mmol/L (3.4-5.0); Sodium 139 mmol/L (137-145)
[2022-10-25] MEDS: POTASSIUM CHLORIDE 20 MEQ ER TABLET 40 MEQ PO (08:04)
[2022-10-25] MEDS: METOPROLOL TARTRATE 12.5 MG TABLET PO (08:05)
[2022-10-25] MEDS: ENOXAPARIN 40 MG/0.4 ML SYRINGE SUB-Q (08:05)
[2022-10-25] MEDS: GABAPENTIN 300 MG CAPSULE PO ×2 (08:05→12:14)
[2022-10-25] MEDS: TAMSULOSIN HCL 0.4 MG CAPSULE PO (08:05)
[2022-10-25] MEDS: LOSARTAN POTASSIUM 50 MG TABLET PO (08:05)
[2022-10-25] MEDS: amLODIPine BESYLATE 5 MG TABLET 10 MG PO (08:06)
--- NOTE | 2022-10-25 13:23 | PM.DS ---
DS: Admitting Diagnosis Discharge Date 10/25/2022 Admitting Diagnosis Community-acquired pneumonia Chronic low back pain Peripheral artery disease Mesothelium Nicotine dependence, cigarettes, uncomplicated Hypertension DS: Discharge Diagnosis Discharge Diagnosis (1) Community acquired pneumonia: Code(s): J18.9 - Pneumonia, unspecified organism Status: Acute (2) Peripheral artery disease: Code(s): I73.9 - Peripheral vascular disease, unspecified Status: Acute (3) Essential (primary) hypertension: Code(s): I10 - Essential (primary) hypertension Status: Acute (4) Nicotine dependence, cigarettes, uncomplicated: Code(s): F17.210 - Nicotine dependence, cigarettes, uncomplicated Status: Acute (5) Mesothelioma: Code(s): C45.9 - Mesothelioma, unspecified Status: Acute (6) History of left above knee amputation: Code(s): Z89.612 - Acquired absence of left leg above knee Status: Acute DS: Summary Hospital Course Reason for hospitalization: Patient was admitted to the hospital for multifocal pneumonia with hypoxia and new oxygen need Hospital Course: Patient was admitted to the hospital on nasal cannula oxygen at 4 L which was titrated to 2 liters/minute and eventually off by day discharge. Patient was treated with IV azithromycin and IV ceftriaxone. Patient instructed on use of incentive spirometer and has been compliant with such. On date of discharge patient states that he is feeling much better. No longer has any dyspnea. He is afebrile. Of note, white blood cell count did rise but patient was very insistent on discharge. Given that he clinically sounds and appears better, we will give scheduled IV antibiotics early and discharge with prescription for Augmentin and azithromycin. Sputum culture resulted with yeast and mixed oral palmer. Suspect this is colonization/contaminant rather true cause of patient's pneumonia. Time spent discussing smoking cessation with patient: 3 to 10 minutes Status at Discharge Cognitive/behavioral status at discharge: awake, alert, oriented and pleasant but insistent on discharge today Functional status at discharge: uses cane/walker Overall status at discharge: patient is progressing back to baseline Time Spent with Patient Time attestation: Total time spent providing and/or coordinating discharge services: Time spent: Greater than 30 minutes Exam Narrative: Head/eyes: Atraumatic, EOMI, PERRLA ENT: Moist mucous membranes, nasal passages clear Neck: Supple, full range of motion, trachea midline CVS: S1 + S2 normal, regular rate and rhythm, no murmurs Respiratory: Improved lung sounds with improved air entry, clear to auscultation, mildly diminished. No significant wheezes or rhonchi Abdomen: Soft, non-tender, bowel sounds normoactive, no organomegaly Extremities: No clubbing, no cyanosis, no edema, no calf tenderness Musculoskeletal: + left above-knee amputation, Moves right leg, adequate range of motion right leg, no muscle spasms Skin: Warm, dry, no jaundice, no cyanosis Neurological: Awake, alert, oriented x 3, cranial nerves II-XII intact, no focal neurological deficits Psychiatric: Normal mood, normal affect DS: Data Data Completed and Pending Completed studies during hospitalization: Chest x-ray and chest CTA Labs on day of discharge: Labs from last 24 hours 10/25/22 06:52 WBC 14.1 H RBC 4.33 L Hgb 11.9 L Hct 36.8 L MCV 85.0 MCH 27.5 MCHC 32.3 RDW 15.2 H Plt Count 541 H MPV 9.7 Immature Gran % (Auto) 0.5 Neut % (Auto) 82.5 H Lymph % (Auto) 11.3 L [place] % (Auto) 5.0 Eos % (Auto) 0.3 Baso % (Auto) 0.4 Lymph # (Auto) 1.59 [place] # (Auto) 0.7 H Eos # (Auto) 0.0 Baso # (Auto) 0.1 Abs Immat Gran (auto) 0.07 H Absolute Neuts (auto) 11.6 H Absolute Nucleated RBC 0.0 Nucleated RBC % 0.0 Sodium 139 Potassium 3.3 L Chloride 104 Carbon Dioxide 25 Anion Gap 10 BUN
[2022-10-25] MEDS: AZITHROMYCIN 500 MG/NS 250 ML 500 MG/250 ML BAG 250 MG IVPB (13:52)
--- NOTE | 2022-10-29 07:42 | PC.NURSE ---
Blood cultures were negative. Sputum culture growing yeast. Jesse Cortes APRN aware of findings.
== END 2022-10-25 15:45 | disposition home or self-care (01) | DRG 195 ==
LOC: ANHED 23:20 → ANH3MEDSUR 10-24 00:24
PROVIDERS: Admitting Provider Family Medicine; Emergency Provider Emergency Medicine; PCP Family Medicine; Visit Provider Nurse Practitioner
DX: J18.9 Pneumonia, unspecified organism (principal); R09.02 Hypoxemia; I73.9 Peripheral vascular disease, unspecified; F17.210 Nicotine dependence, cigarettes, uncomplicated; D64.9 Anemia, unspecified; K29.70 Gastritis, unspecified, without bleeding; K20.90 Esophagitis, unspecified without bleeding; C45.9 Mesothelioma, unspecified; I71.40 Abdominal aortic aneurysm, without rupture, unspecified; M12.812 Other specific arthropathies, not elsewhere classified, left shoulder; M54.50 Low back pain, unspecified; I11.0 Hypertensive heart disease with heart failure; I50.9 Heart failure, unspecified; I25.2 Old myocardial infarction; Z89.612 Acquired absence of left leg above knee; Z20.822 Contact with and (suspected) exposure to COVID-19
CPT/HCPCS: 36415; 36600; 71045; 71275; 80048; 80053; 81001; 82805; 83605; 83735; 83880; 84100; 84145; 84484; 85025; 85610; 85730; 87040; 87070; 87205; 87636; 93005; 94640; 99285; A9270; J0456; J0696; J1650; J2270; Q9967

== ENCOUNTER 2023-03-25 18:48 | Emergency (ER) | payer MEDICARE, SELFPAY ==
--- NOTE | ~2023-03-25 | CT_ITS ---
EXAMINATION: CT lumbar spine wo con DATE: 03/25/2023 19:14 INDICATION: Low back pain post fall TECHNIQUE: Computed tomography (CT) of the lumbar spine was performed without intravenous contrast. A utomated exposure control and iterative reconstruction technique were employed. The dose-length produ ct was 607.13 mGy-cm. COMPARISON: Lumbar spine radiographs FINDINGS: 15 degrees lumbar levoscoliosis. Sagittal alignment is normal. Vertebral body heights are normal. No fracture. Moderate to severe right-sided predominant disc height loss at L3-L4 and L4-L5 associated w ith facet degenerative endplate changes. There is calcified atherosclerosis of the aorta and many of the other arteries. Aortic biiliac stented infrarenal aorta and extending into the left internal nellie c and right external iliac arteries. Infrarenal aorta is ectatic measuring up to 3.5 x 3.1 cm. No sig nificant interval change in 3 saccular aneurysms in the infrarenal aorta. The largest arising from th e right posterior wall of the aorta at the level of the proximal margin of the stents measures 2.7 x 2.3 x 1.6 cm. The next largest arising from the left posterior wall of the aorta measures 1.8 x 1.6 x 1.5 cm finally at the same level arising from the right anterior margin of the aorta measures 11 x 8 mm. 11 mm right renal cyst. Mild left renal atrophy. The following disc levels are specifically disc ussed: T12-L1: Disc is mildly bulging. There is mild right and moderate left facet joint osteoarthritis. The re is no neural foraminal stenosis. There is minimal central canal stenosis. L1-L2: Disc is mildly bulging. There is mild right and moderate left facet joint osteoarthritis. Ther e is no neural foraminal stenosis. There is mild central canal stenosis. L2-L3: Disc is bulging. There is mild right and moderate left facet joint osteoarthritis. There is mi ld bilateral neural foraminal stenosis. There is mild central canal stenosis. L3-L4: Disc is bulging. There is mild right and moderate left facet joint osteoarthritis. There is mo derate right and mild to moderate left neural foraminal stenosis. There is mild central canal stenosi s. L4-L5: Disc is bulging. There is moderate right and severe left facet joint osteoarthritis. There is moderate right and mild to moderate left neural foraminal stenosis. There is mild central canal steno sis. L5-S1: Disc is bulging. There is mild right and moderate left facet joint osteoarthritis. There is mi ld bilateral neural foraminal stenosis. There is no central canal stenosis. IMPRESSION: 1. Mild lumbar levoscoliosis with moderate to severe spondylosis. 2. No significant change in ectatic infrarenal aorta measuring up to 3.5 cm maximal diameter with 3 s eparate saccular aneurysms as detailed above. Reviewed, dictated and finalized at location A. INFORMATION TECHNOLOGY IMPRESSION: 1. Mild lumbar levoscoliosis with moderate to severe spondylosis. 2. No significant change in ectatic infrarenal aorta measuring up to 3.5 cm max imal diameter with 3 separate saccular aneurysms as detailed above.
[2023-03-25 18:57] VITALS: BP 108/62; PULSE 99; RESP 20; TEMP 37.1; O2SAT 100
--- NOTE | 2023-03-25 19:02 | ED.BACK ---
HPI - Back Pain/Injury General Chief Complaint: Back Pain/Injury Stated Complaint: left lower back pain Time Seen by Provider: 03/25/23 19:02 Focused HPI: This is a 62 year old male that presents to the ER for low back pain after a fall. Reports he was trying to get back into bed and fell onto the floor and injured his low back. He did not hit his head or lose consciousness. Reports low back pain worse with movement. Denies numbness. GENERAL: Well-appearing, well-nourished, and in no acute distress. HEAD: Normocephalic, atraumatic. CHEST: Clear to auscultation. ?No respiratory distress. HEART: Regular rate and rhythm.? BACK: Tender to palpation of midline lumbar spine NEURO: ?Alert and oriented x3. Patient screened in triage and initial orders placed.? ?Additional care and disposition to be based upon?diagnostic testing and treatment. Source: patient Mode of arrival: EMS Limitations: no limitations Related Data Allergies Allergy/AdvReac Type Severity Reaction Status Date / Time No Known Allergies Allergy Verified 11/24/22 16:31 Review of Systems Review of Systems: CONSTITUTIONAL: Denies fever MUSCULOSKELETAL: Reports back pain, joint pain, and myalgia. NEUROLOGIC: Denies numbness, or weakness. All systems reviewed & are unremarkable except as noted in HPI and below PMFSH Past Medical History Medical History Abdominal aortic aneurysm (AAA) 3.0 cm to 5.5 cm in diameter in male Infrarenal abdominal aortic aneurysm measuring 3.5 cm (September/2021) Acute gastrointestinal ulcer with perforation Anemia Essential (primary) hypertension Gastritis Intra-abdominal abscess 09/05/2021 due to perforated gastric ulcer Mesothelioma Nausea and vomiting in adult Nicotine dependence, cigarettes, uncomplicated Non-STEMI (non-ST elevated myocardial infarction) Peripheral artery disease Bilateral lower extremities Tobacco abuse counseling Surgical History Surgical History H/O arthroscopic knee surgery right History of left above knee amputation History of left knee replacement (12/2016) 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 He started smoking at age of 11 and has smoked 1.5 packs per day on average. He has got down to 1 pack per day over recent months. He denies any alcohol marijuana or illicit drugs. His is the durable power research attorney for healthcare. Code status full code Healthcare power of research attorney: Smoking packs per day: 2 Smoking cigarettes per day: 40.0 Years smoked: 49 Smoking pack-years: 98.00 Smoking status: Current every day smoker Tobacco type: cigarettes Alcohol intake: never Alcohol use details: He drank heavily for about 12 years but quit drinking alcohol in his late 30s. Substance use: never Substance use type: does not use Lack of Transportation: No Lack of Food: Never True Current Housing: I Have Housing Concerned About Future Housing: No Difficulty Paying Gas/Electric Bills: No Difficulty Paying for Meds: No Currently Unemployed: No Education: High School Diploma/GED Difficulty w/ Childcare or Family Care: No Living arrangements: with family Additional living arrangements comments: He and his have been since 1980. Gender identity (if verbalized by the patient): Male Spiritual care concern
[2023-03-25] MEDS: oxyCODONE HCL (*CRX) 5 MG TAB IR PO (20:27)
[2023-03-25] MEDS: KETOROLAC 30 MG/ML VIAL (*BKC) IM (20:28)
[2023-03-25] MEDS: ACETAMINOPHEN 500 MG TABLET 1000 MG PO (20:28)
[2023-03-25 21:24] VITALS: BP 110/60; PULSE 90; RESP 20; TEMP 36.3; O2SAT 97
== END 2023-03-25 21:25 | disposition home or self-care (01) ==
PROVIDERS: Emergency Provider Physician Assistant; PCP Family Medicine
DX: M54.50 Low back pain, unspecified (principal); F17.210 Nicotine dependence, cigarettes, uncomplicated; I10 Essential (primary) hypertension; D64.9 Anemia, unspecified; I25.2 Old myocardial infarction
CPT/HCPCS: 72131; 96372; 99284; A9270; J1885

== ENCOUNTER 2023-05-18 12:42 | Outpatient (CLI) | payer MEDICARE, SELFPAY ==
--- NOTE | ~2023-05-18 | US_ITS ---
US renal BI 05/18/2023 13:07 Procedure: Realtime transabdominal ultrasound of the kidneys and bladder. Indication: Disorders of the kidneys and bladder Comparison: No prior studies for comparison. Findings: There is a right renal cyst measuring 1.2 cm. There is left renal atrophy. No solid masses are identified. No hydronephrosis. The right kidney measures 10.1 cm and left kidney measures 6.7 cm. Bladder within normal limits. Impression: 1: Left renal atrophy. Reviewed, dictated and finalized at location B. Impression: 1: Left renal atrophy.
--- NOTE | ~2023-05-18 | CT_ITS ---
EXAMINATION:CT diagnostic chest wo con DATE: 05/18/2023 13:08 INDICATION: Other nonspecific abnormal finding in lung field. Lung nodule. TECHNIQUE: Computed tomography (CT) of the chest was performed without intravenous contrast. Automate d exposure control and iterative reconstruction technique were employed. The dose-length product (DLP ) was 81.80 mGy-cm. COMPARISON: Chest CT 10/23/2022 FINDINGS: There is mild emphysema. There is mild atelectasis in right middle lobe. There is a 9 mm no dule in perihilar right middle lobe that measured 7 mm on 10/23/2022. No pleural effusion. The heart s ize is normal. There are coronary artery calcifications. No pericardial effusion. There is ectasia of ascending aorta measuring 4.2 cm. There is moderate atrophy of left kidney. Partially visualized is an abdominal aortic aneurysm measuring approximately 4.7 cm. There is severe cervical and thoracic sp ondylosis. There is chronic wedging of multiple thoracic vertebral bodies. IMPRESSION: 1. Worsened 9 mm pulmonary nodule, which may be infection or malignancy. Noncontrast low-dose chest C T is recommended in 3 months. 2. Mild emphysema. 3. Partially visualized abdominal aortic aneurysm measuring 4.7 cm. Reviewed, dictated and finalized at location E. IMPRESSION: 1. Worsened 9 mm pulmonary nodule, which may be infection or malignancy. Noncon trast low-dose chest CT is recommended in 3 months. 2. Mild emphysema. 3. Partially visualized abdominal aortic aneurysm measuring 4.7 cm.
== END 2023-05-18 12:43 ==
LOC: GOSHIMG 12:43
PROVIDERS: PCP Family Medicine; Visit Provider Family Medicine
DX: R91.8 Other nonspecific abnormal finding of lung field (principal); N28.89 Other specified disorders of kidney and ureter; J43.9 Emphysema, unspecified
CPT/HCPCS: 71250; 76775

== ENCOUNTER 2023-06-26 09:13 | Outpatient (CLI) | payer MEDICARE, SELFPAY ==
[2023-06-26 20:27] LABS: Alanine Aminotransferase 10 U/L (6-50); Albumin Level 4.3 g/dL (3.5-5.1); Alkaline Phosphatase 74 U/L (38-126); Anion Gap 9 mmol/L (4-12); Aspartate Amino Transferase 48 U/L (17-59); Bilirubin,Total 0.3 mg/dL (0.2-1.3); Blood Urea Nitrogen 15 mg/dL (9-20); Calcium 9.2 mg/dL (8.4-10.2); Carbon Dioxide 22 mmol/L (22-30); Chloride 103 mmol/L (98-107); Cholesterol 132 mg/dL (0-200); Estimated Glomerular Filt Rate > 60; Glucose 78 mg/dL (65-110); HDL Direct 51 mg/dL; Potassium 4.6 mmol/L (3.4-5.0); Sodium 134 mmol/L (137-145); Triglycerides 192 mg/dL (<150)
[2023-06-26 20:38] LABS: LDL Cholesterol Direct 59 mg/dL
== END 2023-06-26 09:14 | disposition home or self-care (01) ==
LOC: ANHGOSHLAB 09:15
PROVIDERS: PCP Family Medicine; Visit Provider Family Medicine
DX: E78.00 Pure hypercholesterolemia, unspecified (principal); Z13.228 Encounter for screening for other metabolic disorders; Z13.220 Encounter for screening for lipoid disorders
CPT/HCPCS: 36415; 80053; 80061